=== PATIENT | male | born 1970 | race Caucasian/White ===

== ENCOUNTER 2022-01-26 21:58 | Emergency (ER) | payer BC, SELFPAY ==
[2022-01-26 22:00] VITALS: BP 143/88; PULSE 78; RESP 18; TEMP 36.7; O2SAT 99; BMI 28.7
[2022-01-26 22:06] VITALS: BP 143/88; PULSE 78; RESP 18; TEMP 36.7; O2SAT 99; BMI 28.7
--- NOTE | 2022-01-26 22:18 | ED_ITS ---
HPI - Burn/Smoke Inhalation General Chief complaint: Burn/Smoke Inhalation Stated complaint: Burn right hand Time Seen by Provider: 01/26/22 22:05 History of Present Illness HPI Narrative: Pt is a 51 year old who is up to date on his tetanus shot who presents after touching a hot stove element with digits 1, 3 and 4 of his right hand. Primarily he has erythema with only very limited blistering which has only a very small amount of fluid present. Good circulation and function. No other significant injuries. Pain is 4-5. Injury occured imediately prior to arrival. Related Data Home Medications Medication Instructions Recorded Confirmed citalopram 40 mg tablet (Celexa) 40 mg PO DAILY 01/26/22 01/26/22 Allergies Allergy/AdvReac Type Severity Reaction Status Date / Time Penicillins Allergy Intermediate Hives Verified 01/26/22 22:09 Review of Systems Status of ROS: Reports: 10 or more systems reviewed and unremarkable except as noted in History and below Exam Narrative: Exam Narrative: EXAM GENERAL: Patient appears comfortable and well. EYES: No scleral icterus. ENT: Tympanic membranes and oropharynx normal. THYROID: no thyroid nodules or thyromegaly. LYMPH: No supraclavicular or cervical lymphadenopathy. SKIN: Mild hyperemia on digits 1 3 and on the palmar aspect of the right hand. Minimal blistering. EXT: No dependent lower extremity pedal edema. HEART: Regular rate and rhythm with no murmurs, rubs, or gallops. LUNGS: Clear to auscultation bilaterally with no crackles or wheezes. ABD: Soft, non tender, non distended. PSYCH: Good eye contact, speech is not pressured. Const: Vital Signs, click to edit/add: Vital Signs - 24 hr 01/26/22 22:06 Temperature 98.1 F Pulse Rate [Right Pulse Oximeter] 78 Respiratory Rate 18 Blood Pressure [Ri ght Upper Arm] 143/88 H Pulse Oximetry 99 Oxygen Delivery Me thod Room Air Course Course Hospital Course: The care was explained. We did look for blisters to break open but there blisters. I did explain that we typically use triple antibiotic/bacitracin rat her than Silvadene cream which was his sister who is an ER nurse his recommendation. Vital Signs Vital signs: Initial Vital Signs Temperature 98.1 F 01/26/22 22:06 Temperature Source Temporal Artery Scan 10/03/22 22:06 Pulse Rate 78 01/26/22 22:06 Respiratory Rate 18 01/26/22 22:06 Blood Pressure 143/88 H 01/26/22 22:06 Blood Pressure Mean 106 01/26/22 22:06 Blood Pressure Position Sitting 01/26/22 22:06 Pulse Oximetry 99 01/26/22 22:06 Oxygen Delivery Method 01/26/22 22:06 Vital Signs Temperature 98.1 F 01/26/22 22:06 Pulse Rate 78 01/26/22 22:06 Respiratory Rate 18 01/26/22 22:06 Blood Pressure 143/88 H 01/26/22 22:06 Pulse Oximetry 99 01/26/22 22:06 Oxygen Delivery Method 01/26/22 22:06 Temperature 98.1 F 01/26/22 22:06 Pulse Rate 78 01/26/22 22:06 Respiratory Rate 18 01/26/22 22:06 Blood Pressure 143/88 H 01/26/22 22:06 Pulse Oximetry 99 01/26/22 22:06 Oxygen Delivery Method 01/26/22 22:06 MDM - Burn/Smoke Inhalation MDM Narrative Medical decision making narrative: Patient presents with a burn and. He has good circulation and function. Minimal blistering. No blisters in need to be lysed. We did dress the digits with topical antibiotic and recommend Tylenol and Motrin He will follow up with his primary physician as needed. Medical Records Medical records narrative: Differential included first and second degree rivas. Discharge Plan Discharge Clinical Impression: Burn Patient Disposition: Home, Self-Care Condition: Stable Additional Instructions: Topical Antibiotics and daily dressing changes Tylenol Motrin Activity Level: Activity as Tolerated Discharge Diet: Regular Prescriptions: No Action citalopram [Celexa] 40 mg tablet 40 mg PO DAILY Stand Alone Forms: MyHealth Info Instructions Soy-Katina/[facility] Nines Burn Citation [email or web address]://[email or web address].nlm.gov/[email or web address]
--- OUTSIDE RECORDS SUMMARY | 2022-01-26 22:29 | XMS_ITS | Encounter Summary ---
:1970 Author Organization [facility] Address [address] [place] [address]. [place] [address] Care Team Providers Name Role Phone Jeri Ibrahim PA-C Primary Care Provider Jeri Ibrahim PA-C Unavailable Encounter Details Date Type Department Care Team Description 01/26/2022 Travel Social History Tobacco Use Types Packs/Day Years Used Date Former Smoker 0 0 Quit: 10/15/18 99 Smokeless Tobacco: Never Used Alcohol Use Standard Drinks/Week Comments Yes 0 (1 standard drink = 0.6 oz pure alcoho l) socially Alcohol Habits Answer Date Recorded How often do you have a drink containing alcohol? 2-3 times a week 04/11/2021 How many drinks containing alcohol do you have on a 3 or 4 04/11/2021 typical day when you are drinking? How often do you have six or more drinks on one Less than mo nthly 04/11/2021 occasion? Comment: socially 01/12/2011 Social Isolation Answer Date Recorded In a typical week, how many times do you More than three lauren es a week 04/11/2021 talk on the phone with family, friends, or neighbors? How often do you get together with friends Once a week 04/11/2021 or relatives? How often do you attend zoroastrianism or 1 to 4 times per year 03/26 denominational services? Do you belong to any clubs or Yes 04/11/2021 organizations such as zoroastrianism groups, unions, fraternal or athletic groups, or school groups? How often do you attend meetings of the Never 04/07/2019 clubs or organizations you belong to? Are you now , , , 04/11/2021 , never or living with a partner? Physical Activity Answer Date Recorded On average, how many days per week do you engage in moderate to 1 day 04/11/2021 strenuous exercise (like walking fast, running, jogging, dancing, swimming, biking, or other activities that cause a light or heavy sweat)? On average, how many minutes do you engage in exercise at th is 20 min 04/11/2021 level? Stress Answer Date Recorded Do you feel stress - tense, restless, nervous, or Only a lit tle 04/11/2021 anxious, or unable to sleep at night because your mind is troubled all the time - these days? Financial Resource Strain Answer Date Recorded How hard is it for you to pay for the very basics like Not h catarino at all 04/11/2021 food, housing, medical care, and heating? Food Insecurity Answer Date Recorded Within the past 12 months, you worried that your food would Never true 04/11/2021 run out before you got money to buy more. Within the past 12 months, the food you bought just didn't N ever true 04/11/2021 last and you didn't have money to get more. Transportation Needs Answer Date Recorded In the past 12 months, has lack of transportation kept you f rom No 04/11/2021 medical appointments or from getting medications? In the past 12 months, has lack of transportation kept you f rom No 04/11/2021 meetings, work, or getting things needed for daily living? Housing Stability Answer Date Recorded In the last 12 months, was there a time when you were not ab le No 04/11/2021 to pay the mortgage or rent on time? In the last 12 months, how many places have you lived? 1 04/11/2021 In the last 12 months, was there a time when you did not hav e a No 04/11/[address] or slept in a mcc (including now)? Education Answer Date Recorded What is the highest level of school Master's degree (e.g., M A, MS, 04/07/2019 you have completed or the highest Dawn, MEd, SEAFOOD CLERK, BETI) degree you have received? 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 documented as of this encounter Plan of Treatment Upcoming Encounters Date Type Specialty Care Team Description 02/04/2022 Virtual Visit Behavioral Health Janak Marquez, [facility] [address] [facility] [address] [place] [id number] (Wo rk) documented as of this encounter Visit Diagnoses Not on filedocumented in this encounter Additional Health Concerns Assessment Noted Time PHQ-9 Depression Total Score: 2 07/29/2021 2:14 PM CDT documented as of this encounter Care Teams Project Management Specialist Relationship Specialty Start Date End Date Jeri Ibrahim PA-C PCP - General Physician Medical Records Supervisor 01/14/15 [address] [place] [address] Jeri Ibrahim PA-C Assigned PCP 05/16/17 [address] [place] [address] documented as of this encounter
--- OUTSIDE RECORDS SUMMARY | 2022-01-26 22:29 | XMS_ITS | Encounter Summary ---
:1970 Author Organization [address] [address] Care Team Providers Name Role Phone Jeri Ibrahim PA-C Primary Care Provider Jeri Ibrahim PA-C Unavailable Encounter Details Date Type Department Care Team Description 12/10/[address] [facility] Bridgett Marquez Gen eralyndsey anxiety Mental Health & ORACLE DATABASE CONSULTANT disorder (Primary Dx) Addiction [address] [id number] [phone] Social History Tobacco Use Types Packs/Day Years [...] or relatives? How often do you attend scientology or 1 to 4 times per year 03/26 mosque services? Do you belong to any clubs or Yes 04/11/2021 organizations such as scientology groups, unions, fraternal or athletic groups, or [...] place to sleep or slept in a correction (including now)? Education Answer Date Recorded What is the highest level of school Master's degree (e.g., M Swapna, MS, 04/07/2019 you have completed or the highest Dawn, MEd, YARN CONDITIONER, BETI) degree you have received? 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 documented as of this encounter Progress Notes Bridgett Marquez, ORACLE DATABASE CONSULTANT - 12/10/2021 2:30 PM CDT Images from the original note were not included. [facility] Primary Care: Integrated Behavioral Health 11/19/2021 Behavioral Health Clinician Progress Note Patient Name: Ezra Yanez Service Type: Individual Service Location: Face to Face in Clinic Session Start Time: 2:45 p.m Session End Time: 3:07 p.m. Session Length: 16 - 37 Attendees: Client Service Modality: In person Visit Activities (Refresh list every visit): [facility] Only Diagnostic Assessment Date: 08/12/21 Treatment Plan Review Date: 11/26/21 See Flowsheets for today's PHQ-9 and CHANG-7 results Previous PHQ-9: PHQ-9 SCORE 11/29/2017 04/10/2021 07/29/2021 PHQ-9 Total Score - - - PHQ-9 Total Score MyChart 1 (Minimal depression) 2 (Minimal depression) - PHQ-9 Total Score 1 2 2 Previous CHANG-7: CHANG-7 SCORE 07/29/2021 09/23/2021 12/10/2021 Total Score - - 4 (minimal anxiety) Total Score 6 4 4 FAUZIA LEVEL: FAUZIA Score (Last Two) 05/20/2010 04/07/2019 FAUZIA Raw Score 36 35 Activation Score 47.4 72.1 FAUZIA Level 2 3 DATA Extended Session (60+ minutes): No Interactive Complexity: No Crisis: No [facility] Patient: No Treatment Objective(s) Addressed in This Session: Target Behavior(s): anxiety Anxiety: will experience a reduction in anxiety, will develop more effective coping skills to manageanxiety symptoms and will develop healthy cognitive patterns and beliefs Relationship Problems: will address relationship difficulties in a more adaptive manner Goal 1: Patient will decrease anxiety ???I will know I've met my goal when I don't stress about small situations and let go.??? Goal 2: Patient will increase interpersonal effectiveness ???I will know I've met my goal when I can remember the big picture instead of getting lost in the minutia of the little things.??? Current Stressors / Issues: Decrease in anxiety with Emily moved out due to high conflict between the two. Kids have told pt theyare upset by the conflict in the home. Is difficult when kids are at their mom's home but feels likehe has no impediments to functioning. Pt is aware he is still controlling his environment in an attempt to manage anxiety. Examined benefits of pt focus on self and his behaviors in sessions, rather than on Emily's. Progress on Treatment Objective(s) / Homework: Minimal progress - ACTION (Actively working towards change); Intervened by reinforcing change plan /affirming steps taken Motivational Interviewing MS Intervention: Expressed Empathy/Understanding, Supported Autonomy, Collaboration, Evocation and Permission to raise concern or advise Change Talk Expressed by the Patient: Reasons to change Provider Response to Change Talk: E - Evoked more info from patient about behavior change and A - Affirmed patient's thoughts, decisions, or attempts at behavior change Care Plan review completed: Yes Medication Review: Changes to psychiatric medications, see updated Medication List in EPIC. Medication Compliance: Yes Changes in Health Issues: None reported Chemical Use Review: Substance Use: Chemical use reviewed, no active concerns identified Pt will continue to drink 7 or less alcoholic beverages per week. Tobacco Use: No current tobacco use. Assessment: Current Emotional / Mental Status (status of significant symptoms): Risk status (Self / Other harm or suicidal ideation) Patient denies a history of suicidal ideation, suicide attempts, self-injurious behavior, homicidal ideation, homicidal behavior and and other safety concerns Patient denies current fears or concerns for personal safety. Patient denies current or recent suicidal ideation or behaviors. Patient denies current or recent homicidal ideation or behaviors. Patient denies current or recent self injurious behavior or ideation. Patient denies other safety concerns. A safety and risk management plan has not been developed at this time, however patient was encouraged to call [place] [phone] should there be a change in any of these risk factors. Appearance: Appropriate Eye Contact: Good Psychomotor Behavior: Normal Attitude: Cooperative Friendly Orientation: All Speech Rate / Production: Talkative Volume: Normal Mood: Normal Affect: Appropriate Thought Content: Clear Thought Form: Coherent Logical Circumstantial Insight: Good Diagnoses: 1. Generalized anxiety disorder Collateral Reports Completed: PHQ and CHANG Plan: (Homework, other): ?? Patient was given information about behavioral services and encouraged to schedule a follow up appointment with the clinic [facility] in 3 weeks. ?? He was also given information about mental health symptoms and treatment options ?? Focus on self instead of external to manage sx of anxiety- continue working on firmer emotional boundaries ?? Pt will continue routine of getting out of house more often ?? Continue going to gym 4 days per week- heart rate up to help reduce anxiety ?? CD Recommendations: Practice Harm Reduction: attempt no more than 7 drinks weekly and greatly reduce caffeine consumption (at least in half). SHELLEY Sinha, [facility] Individual Treatment Plan Patient's Name: Ezra Yanez Date Of : 1970 Date of Creation: 08/26/2021 Date Treatment Plan Last Reviewed/Revised: DSM5 Diagnoses: 300.02 (F41.1) Generalized Anxiety Disorder Psychosocial / Contextual Factors: interpersonal difficulties with girlfriend and her 13-year-old transgender son and issues within girlfriend's family. Difficulties in being pseudo-stepparent to thesechildren. PROMIS (reviewed every 90 days): 31 Referral / Collaboration: Referral to another professional/service is not indicated at this time. Anticipated number of session for this episode of care: 5-10 Anticipation frequency of session: Every other week Anticipated Duration of each session: 16-37 minutes Treatment plan will be reviewed in 90 days or when goals have been changed. MeasurableTreatment Goal(s) related to diagnosis / functional impairment(s) Goal 1: Patient will decrease anxiety ???I will know I've met my goal when I don't stress about small situations and let go.??? Objective #A (Patient Action) Patient will use at least 3-4 coping skills for anxiety management in the next 12 weeks. Status: New - Date: 08/26/21 Intervention(s) Therapist will help pt ID behavioral coping mechanisms and track progress Objective #B Patient will Identify and reframe cogntive distortions. Status: New - Date: 08/26/21 Intervention(s) Therapist will assign homework teach pt how to ID and reframe distortions. Goal 2: Patient will increase interpersonal effectiveness ???I will know I've met my goal when I can remember the big picture instead of getting lost in the minutia of the little things.??? Objective #A (Patient Action) Status: New - Date: 08/26/21 Patient will learn more effective ways of interacting with his and Emily's kids. Intervention(s) Therapist will teach pt about teen biology, chemistry and help him ID boundaries to set . Objective #B Patient will track and record at least 3 pleasant exchanges with kids, Emily, and Emily's kids. Status: New - Date: 08/26/21 Intervention(s) Therapist will help pt identify in what ways he can join with kids and track progress. Patient has reviewed and agreed to the above plan. CHIRAG Mendiola August 26, 2021 documented in this encounter Plan of Treatment Upcoming Encounters Date Type Specialty Care Team Description 02/04/2022 Virtual Visit Behavioral Health Janak Marquez L[facility] [address] [address] (Wo rk) documented as of this encounter Visit Diagnoses Diagnosis Generalized anxiety disorder - Primary documented in this encounter Additional Health Concerns Assessment Noted Time PHQ-9 Depression Total Score: 2 07/29/2021 2:14 PM CDT documented as of this encounter Care Teams Hris Specialist Relationship Specialty Start Date End Date Jeri Ibrahim PA-C PCP - General Physician [employer] 01/14/15 [address] [place] [address] Jeri Ibrahim PA-C Assigned PCP 05/16/17 [address] [place] [address] documented as of this encounter
--- OUTSIDE RECORDS SUMMARY | 2022-01-26 22:29 | XMS_ITS | Encounter Summary ---
:1970 Author Organization [address] [place] [address] Care Team Providers Name Role Phone Jeri Ibrahim PA-C Primary Care Provider Jeri Ibrahim PA-C Unavailable Encounter Details Date Type Department Care Team Description 12/30/2021 Telephone [facility] Bridgett Marquez, [facility] & Addiction [address] [address] [facility] [place] [phone] Social History Tobacco Use Types Packs/Day Years [...] or relatives? How often do you attend voodoo or 1 to 4 times per year 03/26 gnosticism services? Do you belong to any clubs or Yes 04/11/2021 organizations such as voodoo groups, unions, fraternal or athletic groups, or [...] place to sleep or slept in a nursing home (including now)? Education Answer Date Recorded What is the highest level of school Master's degree (e.g., M A, MS, 04/07/2019 you have completed or the highest Dawn, MEd, CLINICAL TRIAL ASSOCIATE, BETI) degree you have received? 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 documented as of this encounter Miscellaneous Notes Telephone Encounter - Bridgett Marquez LIC[facility] - 12/30/2021 1:59 PM CDT [employer] Driver tried calling pt to reschedule time of appointment tomorrow. SHELLEY Nix LICSW Behavioral Health Clinician documented in this encounter Plan of Treatment Upcoming Encounters Date Type Specialty Care Team Description 02/04/2022 Virtual Visit Behavioral Health Janak Marquez [facility] [address] [address] (Wo rk) documented as of this encounter Visit Diagnoses Not on filedocumented in this encounter Additional Health Concerns Assessment Noted Time PHQ-9 Depression Total Score: 2 07/29/2021 2:14 PM CDT documented as of this encounter Care Teams Hat Cone Inspector Relationship Specialty Start Date End Date Jeri Ibrahim PA-C PCP - General Physician Storeroom Attendant 01/14/15 [address] [place] [address] Jeri Ibrahim PA-C Assigned PCP 05/16/17 [address] [place] [address] documented as of this encounter
--- OUTSIDE RECORDS SUMMARY | 2022-01-26 22:29 | XMS_ITS | Encounter Summary ---
:1970 Author Organization [facility] Address [address] [place] [address]. [place] [address] Care Team Providers Name Role Phone Jeri Ibrahim PA-C Primary Care Provider Jeri Ibrahim PA-C Unavailable Encounter Details Date Type Department Care Team Description 12/10/2021 Travel Social History Tobacco Use Types Packs/Day [...] or relatives? How often do you attend taoism or 1 to 4 times per year 03/26 sabianist services? Do you belong to any clubs or Yes 04/11/2021 organizations such as taoism groups, unions, fraternal or athletic groups, or [...] place to sleep or slept in a halfway (including now)? Education Answer Date Recorded What is the highest level of school Master's degree (e.g., M A, MS, 04/07/2019 you have completed or the highest Dawn, MEd, UNDERCOVER OPERATOR, BETI) degree you have received? 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 documented as of this encounter Plan of Treatment Upcoming Encounters Date Type Specialty Care Team Description 02/04/2022 Virtual Visit Behavioral Health Janak Marquez, [facility] [address] [facility] [address] [place] [id number] (Wo rk) documented as of this encounter Visit Diagnoses Not on filedocumented in this encounter Additional Health Concerns Assessment Noted Time PHQ-9 Depression Total Score: 2 07/29/2021 2:14 PM CDT documented as of this encounter Care Teams Secretary To Board Of Commissioners Relationship Specialty Start Date End Date Jeri Ibrahim PA-C PCP - General Physician Stock Pitcher 01/14/15 [address] [place] [address] Jeri Ibrahim PA-C Assigned PCP 05/16/17 [address] [place] [address] documented as of this encounter
--- OUTSIDE RECORDS SUMMARY | 2022-01-26 22:29 | XMS_ITS | Encounter Summary ---
:1970 Author Organization [address] [place] [address] Care Team Providers Name Role Phone Jeri Ibrahim PA-C Primary Care Provider Jeri Ibrahim PA-C Unavailable Encounter Details Date Type Department Care Team Description 12/08/2021 Telephone [facility] Bridgett Marquez, [facility] [address] [address] [facility] [place] [address] [phone] Social History Tobacco Use Types Packs/Day Years [...] or relatives? How often do you attend yazdanism or 1 to 4 times per year 03/26 temple services? Do you belong to any clubs or Yes 04/11/2021 organizations such as yazdanism groups, unions, fraternal or athletic groups, or [...] place to sleep or slept in a m[facility]p (including now)? Education Answer Date Recorded What is the highest level of school Master's degree (e.g., M A, MS, 04/07/2019 you have completed or the highest Dawn, MEd, UNIVERSITY PROFESSOR, BETI) degree you have received? 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 documented as of this encounter Plan of Treatment Upcoming Encounters Date Type Specialty Care Team Description 02/04/2022 Virtual Visit Behavioral Health Janak Marquez, [place] [id number] [address] (Wo rk) documented as of this encounter Visit Diagnoses Not on filedocumented in this encounter Additional Health Concerns Assessment Noted Time PHQ-9 Depression Total Score: 2 07/29/2021 2:14 PM CDT documented as of this encounter Care Teams Library Media Technician Relationship Specialty Start Date End Date Jeri Ibrahim PA-C PCP - General Physician Boiler Attendant 01/14/15 [address] [place] [address] Jeri Ibrahim PA-C Assigned PCP 05/16/17 [address] [place] [address] documented as of this encounter
--- OUTSIDE RECORDS SUMMARY | 2022-01-26 22:29 | XMS_ITS | Encounter Summary ---
:1970 Author Organization [place] Address [address] [place] [address]. [place] [address] Care Team Providers Name Role Phone Jeri Ibrahim PA-C Primary Care Provider Jeri Ibrahim PA-C Unavailable Encounter Details Date Type Department Care Team Description 11/19/2021 Travel Social History Tobacco Use Types Packs/Day [...] or relatives? How often do you attend lutheran or 1 to 4 times per year 03/26 scientologist services? Do you belong to any clubs or Yes 04/11/2021 organizations such as lutheran groups, unions, fraternal or athletic groups, or [...] place to sleep or slept in a fpc (including now)? Education Answer Date Recorded What is the highest level of school Master's degree (e.g., M A, MS, 04/07/2019 you have completed or the highest Dawn, MEd, COAT EXAMINER, BETI) degree you have received? 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 documented as of this encounter Plan of Treatment Upcoming Encounters Date Type Specialty Care Team Description 02/04/2022 Virtual Visit Behavioral Health Janak Marquez, [facility] [address] [address] (Wo rk) documented as of this encounter Visit Diagnoses Not on filedocumented in this encounter Additional Health Concerns Assessment Noted Time PHQ-9 Depression Total Score: 2 07/29/2021 2:14 PM CDT documented as of this encounter Care Teams Retread Operator Relationship Specialty Start Date End Date Jeri Ibrahim PA-C PCP - General Physician Calibration Checker 01/14/15 [address] [place] [address] Jeri Ibrahim PA-C Assigned PCP 05/16/17 [address] [place] [address] documented as of this encounter
--- OUTSIDE RECORDS SUMMARY | 2022-01-26 22:29 | XMS_ITS | Clinical Summary ---
:1970 Author Organization [facility] Address [address] [place] [address]. [place] [address] Care Team Providers Name Role Phone Jeri Ibrahim PA-C Primary Care Provider Jeri Ibrahim PA-C Unavailable Allergies Active Allergy Reactions Severity Noted Date Comments Penicillins 10/15/2005 Hives Medications Medication Sig Dispensed Refills Start Date End Date Status MULTIVITAMIN TABS OR 1 qd 0 10/15/2005 Active bismuth subsalicylate Take 524 mg by 0 Active (PEPTO-BISMOL) 262 MG mouth 4 times chewable tablet daily (before meals and nightly). IBUPROFEN 0 Active Lysine HCl 500 MG TABS Take 500 mg by 0 Active mouth 2 times daily albuterol (PROAIR Inhale 2 puffs 1 Inhaler 0 04/16/2016 Active HFA/PROVENTIL into the lungs HFA/VENTOLIN HFA) 108 every 4 hours as (90 BASE) MCG/ACT needed InhalerIndications: Acute bronchitis due to other specified organisms GLUCOSAMINE SULFATE PO 0 Active fluticasone (FLONASE) [place] 1-2 sprays 48 mL 0 05/16/2019 Active 50 MCG/ACT nasal into both sprayIndications: nostrils daily Post-nasal drip valACYclovir (VALTREX) TAKE 1 TABLET 20 tablet 4 04/15/2021 Active 1000 mg (1,000 MG) BY tabletIndications: MOUTH 2 TIMES Herpes simplex virus DAILY infection citalopram (CELEXA) 40 Take 1 tablet (40 90 tablet 1 2 Active MG tabletIndications: mg) by mouth Generalized anxiety daily disorder Active Problems Problem Noted Date Diverticulosis of large intestine without hemorrhage 0 05/05/2021 History of colonic polyps 05/05/2021 Vitamin D deficiency 05/14/2017 Bee sting allergy 04/16/2016 Irritability 10/07/2015 Overview: IN FILE OPERATOR completed 10/07/15 with no concerns. Bronchitis with bronchospasm 11/16/2011 CARDIOVASCULAR SCREENING; LDL GOAL LESS THAN 160 02/23 FHx: aneurysm 11/08/2008 GERD (gastroesophageal reflux disease) 11/08/2008 Herpes simplex Overview: Problem list name updated by automated p rocess. Provider to review and confirm Resolved Problems Problem Noted Date Resolved Date Marital conflict 08/06/2009 01/12/2011 Anxiety 07/08/2009 09/11/2013 Encounters Date Type Specialty Care Team Description 01/26/2022 Travel 01/12/2022 Virtual Visit Behavioral Health Bridgett Marquez, [place] neralized anxiety APPLICATION DEVELOPMENT PROJECT MANAGER disorder (Prima ry Dx) 12/30/2021 Telephone Health Bridgett Marquez, APPLICATION DEVELOPMENT PROJECT MANAGER 12/10/2021 Office Visit Health Bridgett Marquez, Gen eralized anxiety APPLICATION DEVELOPMENT PROJECT MANAGER disorder (Prima ry Dx) 12/10/2021 Travel 12/08/2021 Telephone Bridgett Schaeffer, APPLICATION DEVELOPMENT PROJECT MANAGER 11/19/2021 Office Visit Behavioral Health Bridgett Marquez, Gen eralized anxiety APPLICATION DEVELOPMENT PROJECT MANAGER disorder (Prima ry Dx) 11/19/2021 Travel 11/18/2021 Travel 10/29/2021 Virtual Visit Health Bridgett Marquez, [place] neralized anxiety APPLICATION DEVELOPMENT PROJECT MANAGER disorder (Prima ry Dx) 10/28/2021 Travel from Last 3 Months Immunizations Name Administration Dates Next Due COVID-19,PF,Pfizer (12+ Yrs) 03/14/2021, 08/09/2020, 021 HPV Quadrivalent 10/24/2018, 06/16/2018 HPV9 04/28/2018 Influenza Vaccine IM > 6 months [place] 03/14/2021 IIV4 (Alfuria,Fluzone) TD (ADULT, 7+) 10/25/2006 TDAP Vaccine (Adacel) 05/13/2017 Family History Medical History Relation Comments Family History Negative Daughter Diabetes Father Type II Respiratory Father COPD Diabetes Maternal Grandfather Cancer Maternal Uncle 1 skin Neurologic Disorder Maternal Uncle 2 abdominal aortic ane urysm Cancer Mother Cuteaneous T-cell ly phoma/ born 1950 Melanoma Neurologic Disorder Mother brain aneurysm Other Cancer Mother T Cell Lymphoma Parkinsonism Mother Diabetes Paternal Grandmother Other Cancer Paternal Grandmother Family History Negative Sister 1 Relation Status Comments Daughter Alive Father Alive Maternal Grandfather Maternal Uncle 1 Maternal Uncle 2 Mother Alive Paternal Grandmother Sister 1 Alive Sister 2 Alive Son Alive Social History Tobacco Use Types Packs/Day Years Used Date Former Smoker 0 0 Quit: 10/15/18 99 Smokeless Tobacco: Never Used Tobacco Cessation: Ready to Quit: Yes; C ounseling Given: Yes Alcohol Use Standard Drinks/Week Comments Yes 0 [...] or relatives? How often do you attend religion or 1 to 4 times per year 03/26 caodaism services? Do you belong to any clubs or Yes 04/11/2021 organizations such as religion groups, unions, fraternal or athletic groups, or [...] minutes do you engage in exercise at is 20 min 04/11/2021 level? Stress Answer [...] place to sleep or slept in a alf (including now)? Education Answer Date Recorded What is the highest level of school Master's degree (e.g., M A, MS, 04/07/2019 you have completed or the highest Dawn, MEd, MANAGER PRODUCE, BETI) degree you have received? 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/2021 5:06 PM KETTLE GIRL COVID-19 Exposure Response Date Recorded In the last 10 days, have you been in contact with No / Unsu re 01/26/2022 9:06 PM CDT someone who was confirmed or suspected to have Coronavirus/COVID-19? Last Filed Vital Signs Vital Sign Reading Time Taken Comments Blood Pressure 120/72 04/15/2021 1:48 PM KETTLE GIRL Pulse 74 04/15/2021 1:48 PM KETTLE GIRL Temperature 36.6 ??C (97.9 ??F) 04/15/2021 1:48 PM KETTLE GIRL Respiratory Rate 12 04/15/2021 1:48 PM KETTLE GIRL Oxygen Saturation 99% 04/15/2021 1:48 PM KETTLE GIRL Inhaled Oxygen Concentration - - Weight 89.4 kg (197 lb) 04/15/2021 1:48 PM KETTLE GIRL Height 180.3 cm (5' 11) 04/15/2021 1:48 PM KETTLE GIRL Body Mass Index 27.48 04/15/2021 1:48 PM KETTLE GIRL Plan of Treatment Upcoming Encounters Date Type Specialty Care Team Description 02/04/2022 Virtual Visit Behavioral Health Janak Marquez, [facility] [address] [place] [address] (Wo rk) Health Maintenance Due Date Last Done Comments ADVANCE CARE PLANNING 1971 [address] COLONOGRAPHY 1971 FIT-DNA (Cologuard) 1970 FIT 1970 FLEX SIG 1970 COVID-19 Vaccine (4 - 05/09/2021 03/14/2021, 08/09/2020, Booster for Pfizer series) 07/19/2020 ZOSTER IMMUNIZATION (1 of 09/13/2021 2) INFLUENZA VACCINE (#1) 2021 03/14/2021, 04/07/2019 (Declined), 02/18/2018 (Declined) ANNUAL REVIEW OF HM ORDERS 04/15/2022 04/15/2021, , 04/07/2019 PREVENTIVE CARE VISIT 04/15/2022 04/15/2021, 04/07/2019, 05/13/2017, Additional history exists LIPID 04/15/2026 04/15/2021, 04/07/2019, 05/13/2017, Additional history exists COLONOSCOPY 04/24/2026 04/24/2021, 04/24/2021 COLORECTAL CANCER SCREENING 04/24/2026 DTAP/TDAP/TD IMMUNIZATION 05/13/2027 05/13/2017, 10/25/2006 (3 - Td or Tdap) HIV SCREENING Completed 07/27/2012 HEPATITIS C SCREENING Completed 04/15/2021 PHQ-2 (once per calendar Completed 07/29/2021, 07/29/2021, year) 04/15/2021, Additional history exists HEPATITIS B IMMUNIZATION Aged Out No long er eligible based on patient 's age to complete this topic IPV IMMUNIZATION Aged Out No longer eligi ble based on patient 's age to complete this topic MENINGITIS IMMUNIZATION Aged Out No longe r eligible based on patient 's age to complete this topic Pneumococcal Vaccine: Aged Out No longer eligible Pediatrics (0 to 5 Years) based on patient's age and At-Risk Patients (6 to to co mplete this topic 64 Years) Insurance Payer Benefit Plan / Subscriber ID Effective Dates Phone Addre ss Type Group BCBS BCBS OUT OF [id number] 2016-Present [phone] [address] [address] [place] [address] Care Teams Risk Control Director Relationship Specialty Start Date End Date Jeri Ibrahim PA-C PCP - General Physician Butadiene Converter Utility Operator 01/14/15 [address] [place] [address] Jeri Ibrahim PA-C Assigned PCP 05/16/17 [address] [place] [address]
--- OUTSIDE RECORDS SUMMARY | 2022-01-26 22:29 | XMS_ITS | Encounter Summary ---
:1970 Author Organization [place] Address [address] [place] [address]. [place] [address] Care Team Providers Name Role Phone Jeri Ibrahim PA-C Primary Care Provider Jeri Ibrahim PA-C Unavailable Encounter Details Date Type Department Care Team Description 11/18/2021 Travel Social History Tobacco Use Types Packs/Day [...] or relatives? How often do you attend hoahaoism or 1 to 4 times per year 03/26 confucianism services? Do you belong to any clubs or Yes 04/11/2021 organizations such as hoahaoism groups, unions, fraternal or athletic groups, or [...] have completed or the highest Dawn, MEd, FACILITIES PLANT ENGINEER, BETI) degree you have received? 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 documented as of this encounter Plan of Treatment Upcoming Encounters Date Type Specialty Care Team Description 02/04/2022 Virtual Visit Behavioral Health Janka Marquez, [facility] [address] [facility] [address] [place] [id number] (Wo rk) documented as of this encounter Visit Diagnoses Not on filedocumented in this encounter Additional Health Concerns Assessment Noted Time PHQ-9 Depression Total Score: 2 07/29/2021 2:14 PM CDT documented as of this encounter Care Teams Core Sticker Relationship Specialty Start Date End Date Jeri Ibrahim PA-C PCP - General Physician [employer] 01/14/15 [address] [place] [address] Jeri Ibrahim PA-C Assigned PCP 05/16/17 [address] [place] [address] documented as of this encounter
--- OUTSIDE RECORDS SUMMARY | 2022-01-26 22:29 | XMS_ITS | Encounter Summary ---
:1970 Author Organization [address] [address] Care Team Providers Name Role Phone Jeri Ibrahim PA-C Primary Care Provider Jeri Ibrahim PA-C Unavailable Encounter Details Date Type Department Care Team Description 11/19/2021 Office Visit [facility] Bridgett Marquez Gen eralyndsey anxiety Mental Health & HYDROGEN PLANT OPERATIONS MANAGER disorder (Primary Dx) Addiction [address] [address] [phone] Social History Tobacco Use Types Packs/Day Years [...] or relatives? How often do you attend spiritism or 1 to 4 times per year 03/26 gnosticism services? Do you belong to any clubs or Yes 04/11/2021 organizations such as spiritism groups, unions, fraternal or athletic groups, or [...] place to sleep or slept in a long-term (including now)? Education Answer Date Recorded What is the highest level of school Master's degree (e.g., M Swapna, MS, 04/07/2019 you have completed or the highest Dawn, MEd, CUPOLA CHARGER INSULATION, BETI) degree you have received? 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 documented as of this encounter Progress Notes Bridgett Marquez, [facility] - 11/19/2021 11:30 AM CDT Images from the original note were not included. [facility] Primary Care: Integrated Behavioral Health 11/19/2021 Behavioral Health Clinician Progress Note Patient Name: Ezra Yanez Service Type: Individual Service Location: Face to Face in Clinic Session Start Time: 11:32 a.m Session End Time: 12:00 p.m. Session Length: 16 - 37 Attendees: Client Service Modality: In person Visit Activities (Refresh list every visit): [facility] Only Diagnostic Assessment Date: 08/12/21 Treatment Plan Review Date: 11/26/21 See Flowsheets for today's PHQ-9 and CHANG-7 results Previous PHQ-9: PHQ-9 SCORE 11/29/2017 04/10/2021 07/29/2021 PHQ-9 Total Score - - - PHQ-9 Total Score MyChart 1 (Minimal depression) 2 (Minimal depression) - PHQ-9 Total Score 1 2 2 Previous CHANG-7: CHANG-7 SCORE 04/10/2021 07/29/2021 09/23/2021 Total Score 3 (minimal anxiety) - - Total Score 3 6 4 FAUZIA LEVEL: FAUZIA Score (Last Two) 05/20/2010 04/07/2019 FAUZIA Raw Score 36 35 Activation Score 47.4 72.1 FAUZIA Level 2 3 DATA Extended Session (60+ minutes): No Interactive Complexity: No Crisis: No [facility] Patient: No Treatment Objective(s) Addressed in This [...] the little things.??? Current Stressors / Issues: Pt comes to clinic for session. Reports he's been staying up late to watch tv with daughter and not getting enough sleep, which has led to decrease in focus, increase in distractibility, increase in fatigue. Emily has had more communication and contact with radha, transgendered son. Pt doesn't agree with son's decisions. Discussed his tendency to control environment in an attempt to decrease anxiety and the impact this has on interpersonal relationships. Discussed his progress in helping him keep good physical boundaries and care for self in alleviating anxiety related to lack of control in his home. Explored ways to keep appropriate emotional boundaries with Emily to give both her and Delores autonomy in their relationship dynamics. Progress on Treatment Objective(s) / Homework: Minimal progress - ACTION (Actively working towards change); Intervened by reinforcing change plan /affirming steps taken Motivational Interviewing [place] Intervention: Expressed Empathy/Understanding, Supported Autonomy, Collaboration, Evocation [...] time, however patient was encouraged to call [place] [address] should there be a change in any [...] a follow up appointment with the clinic [facility] in 3 weeks. ?? He was also [...] consumption (at least in half). SHELLEY Sinha, [facility] Individual Treatment Plan Patient's Name: Ezra Yanez [...] Visit Behavioral Health Janak Marquez LIC[facility] [address] [address] (Wo rk) documented as of this encounter Visit Diagnoses Diagnosis Generalized anxiety disorder - Primary documented in this encounter Additional Health Concerns Assessment Noted Time PHQ-9 Depression Total Score: 2 07/29/2021 2:14 PM CDT documented as of this encounter Care Teams Human Resources Intern Relationship Specialty Start Date End Date Jeri Ibrahim PA-C PCP - General Physician Photographer Scientific 01/14/15 [address] [place] [address] Jeri Ibrahim PA-C Assigned PCP 05/16/17 [address] [place] [address] documented as of this encounter
--- OUTSIDE RECORDS SUMMARY | 2022-01-26 22:29 | XMS_ITS | Encounter Summary ---
:1970 Author Organization [address] [address] Care Team Providers Name Role Phone Jeri Ibrahim PA-C Primary Care Provider Jeri Ibrahim PA-C Unavailable Encounter Details Date Type Department Care Team Description 01/12/[address] [facility] Bridgett Marquez Ge neralized anxiety Mental Health & JEWELRY MAKER disorder (Primary Dx) Addiction [address] [address] [phone] Social History Tobacco Use Types Packs/Day Years [...] or relatives? How often do you attend worship or 1 to 4 times per year 03/26 oriental orthodox services? Do you belong to any clubs or Yes 04/11/2021 organizations such as worship groups, unions, fraternal or athletic groups, or [...] place to sleep or slept in a group home (including now)? Education Answer Date Recorded What is the highest level of school Master's degree (e.g., M Swapna, MS, 04/07/2019 you have completed or the highest Dawn, MEd, SAFETY TEACHER, BETI) degree you have received? 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 [facility] Primary Care: Integrated Behavioral Health 11/19/2021 Behavioral Health Clinician Progress Note Patient Name: Ezra Yanez Service Type: Individual Service Location: Face to Face in Clinic Session Start Time: 2:45 p.m Session End Time: 3:07 p.m. Session Length: 16 - 37 Attendees: Client Service Modality: In person Visit Activities (Refresh list every visit): [facility] Only Diagnostic Assessment Date: 08/12/21 Treatment Plan [...] minutes): No Interactive Complexity: No Crisis: No [facility] Patient: No Treatment Objective(s) Addressed in This [...] little things.??? Current Stressors / Issues: Pt reports he's been busy with work, feeling less stressed, but also getting less sleep. He does report his caffeine consumption has increased, which could be reason for his restless sleep. He feels more fatigued during the day. 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 He notices since Emily moved out there are more home items in disarray, which increases pt's anxietyweighting in the back of his mind. Emily is still back a her own house and asked if pt would join her for couples' therapy, to which pt agreed. Pt notes that they spent most of their free time together before they moved in together but when shemoved in, pt felt less peaceful at home with Emily's emotional intensities when she was distressed. Pt notes that during the pandemic, they went out a lot more than they had been most recently. Pt notes that his mental wellness depends to a great degree on his outside environment. Discussed ptworking on internal strategies to manage his anxiety as opposed to external factors to such a great degree. Pt notes his daughter has expressed dislike for Emily. Pt struggles with this a bit and has talked toher about how it feels for him. Progress on Treatment Objective(s) / Homework: Minimal progress - ACTION (Actively working towards change); Intervened by reinforcing change plan /affirming steps taken Motivational Interviewing [place] Intervention: Expressed Empathy/Understanding, Supported Autonomy, Collaboration, Evocation [...] time, however patient was encouraged to call [place] [address] should there be a change in any of these risk factors. Appearance: Appropriate Eye Contact: Good Psychomotor Behavior: Normal Attitude: Cooperative Friendly Orientation: All Speech Rate / Production: Hyperverbal Volume: Loud Mood: Normal Affect: Expansive Thought Content: Clear Thought Form: Coherent Logical Circumstantial Insight: Good Diagnoses: 1. Generalized anxiety disorder Collateral Reports Completed: PHQ and CHANG Plan: (Homework, other): ?? Patient was given information about behavioral services and encouraged to schedule a follow up appointment with the clinic [facility] in 3 weeks. ?? He was also [...] consumption (at least in half). SHELLEY Sinha, [facility] Individual Treatment Plan Patient's Name: Ezra Yanez [...] Virtual Visit Behavioral Health Janak Marquez [facility] [address] [address] (Wo rk) documented as of this encounter Visit Diagnoses Diagnosis Generalized anxiety disorder - Primary documented in this encounter Additional Health Concerns Assessment Noted Time PHQ-9 Depression Total Score: 2 07/29/2021 2:14 PM CDT documented as of this encounter Care Teams Yard Crane Operator Relationship Specialty Start Date End Date Jeri Ibrahim PA-C PCP - General Physician Smutter 01/14/15 [address] [place] [address] eJri Ibrahim PA-C Assigned PCP 05/16/17 [address] [place] [address] documented as of this encounter
--- OUTSIDE RECORDS SUMMARY | 2022-01-26 22:30 | XMS_ITS | Encounter Summary ---
:1970 Author Organization [facility] Address [address] [place] [address]. [place] [address] Care Team Providers Name Role Phone Jeri Ibrahim PA-C Primary Care Provider Jeri Ibrahim PA-C Unavailable Encounter Details Date Type Department Care Team Description 07/28/2021 Travel Social History Tobacco Use Types Packs/Day [...] 1 to 4 times per year 03/26 hoahaoism services? Do you belong to any clubs [...] place to sleep or slept in a care home (including now)? Education Answer Date Recorded What is the highest level of school Master's degree (e.g., M A, MS, 04/07/2019 you have completed or the highest Dawn, MEd, DEPARTMENT SUPERVISOR, BETI) degree you have received? 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/2021 5:06 PM QUALITY LIAISON COVID-19 Exposure Response Date Recorded In the last month, have you been in contact with No / Unsure 07/28/2021 2:35 PM CDT someone who was confirmed or suspected to have Coronavirus / COVID-19? documented as of this encounter Plan of Treatment Upcoming Encounters Date Type Specialty Care Team Description 02/04/2022 Virtual Visit Behavioral Health Janak Marquez, [facility] [address] [facility] [address] [place] [id number] (Wo rk) documented as of this encounter Visit Diagnoses Not on filedocumented in this encounter Additional Health Concerns Assessment Noted Time PHQ-9 Depression Total Score: 2 04/11/2021 7:02 AM QUALITY LIAISON documented as of this encounter Care Teams Dough Mixing Machine Operator Relationship Specialty Start Date End Date Jeri Ibrahim PA-C PCP - General Physician Counter Server 01/14/15 [address] [place], [place] [id number] Jeri Ibrahim PA-C Assigned PCP 05/16/17 [address] [place] [address] documented as of this encounter
--- OUTSIDE RECORDS SUMMARY | 2022-01-26 22:30 | XMS_ITS | Encounter Summary ---
:1970 Author Organization [place] Address [address] [place] [address]. [place] [address] Care Team Providers Name Role Phone Jeri Ibrahim PA-C Primary Care Provider Jeri Ibrahim PA-C Unavailable Encounter Details Date Type Department Care Team Description 03/28/2020 Travel Social History Tobacco Use Types Packs/Day [...] or relatives? How often do you attend sikh or 1 to 4 times per year 03/26 denominational services? Do you belong to any clubs or Yes 04/11/2021 organizations such as sikh groups, unions, fraternal or athletic groups, or [...] place to sleep or slept in a snf (including now)? Education Answer Date Recorded What is the highest level of school Master's degree (e.g., M Swapna, MS, 04/07/2019 you have completed or the highest Dawn, MEd, BRANCH OFFICER, BETI) degree you have received? 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 documented as of this encounter Plan of Treatment Upcoming Encounters Date Type Specialty Care Team Description 02/04/2022 Virtual Visit Behavioral Health Janak Marquez, [facility] 24[address] [facility] [address] [place] [address] (Wo rk) documented as of this encounter Visit Diagnoses Not on filedocumented in this encounter Additional Health Concerns Assessment Noted Time PHQ-9 Depression Total Score: 1 11/30/2017 7:08 AM CDT documented as of this encounter Care Teams Five Piece Expansion Maker Hand Relationship Specialty Start Date End Date Jeri Ibrahim PA-C PCP - General Physician Brusher And Shearer 01/14/15 [address] [place] [address] Jeri Ibrahim PA-C Assigned PCP 05/16/17 [address] [place] [address] documented as of this encounter
--- OUTSIDE RECORDS SUMMARY | 2022-01-26 22:30 | XMS_ITS | Encounter Summary ---
:1970 Author Organization [facility] Address [address] [place] [address]. [place] [address] Care Team Providers Name Role Phone Jeri Ibrahim PA-C Primary Care Provider Jeri Ibrahim PA-C Unavailable Encounter Details Date Type Department Care Team Description 04/15/2021 Travel Social History Tobacco Use Types Packs/Day [...] or relatives? How often do you attend samaritan or 1 to 4 times per year 03/26 adventist services? Do you belong to any clubs or Yes 04/11/2021 organizations such as samaritan groups, unions, fraternal or athletic groups, or [...] place to sleep or slept in a residential (including now)? Education Answer Date Recorded What is the highest level of school Master's degree (e.g., M A, MS, 04/07/2019 you have completed or the highest Dawn, MEd, PEDIATRIC PHYSICAL THERAPIST, BETI) degree you have received? 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 documented as of this encounter Plan of Treatment Upcoming Encounters Date Type Specialty Care Team Description 02/04/2022 Virtual Visit Behavioral Health Janak Marquez, [facility] [address] [facility] [address] [place] [phone] (Wo rk) documented as of this encounter Visit Diagnoses Not on filedocumented in this encounter Additional Health Concerns Assessment Noted Time PHQ-9 Depression Total Score: 2 04/11/2021 7:02 AM ENGRAVER SET UP OPERATOR documented as of this encounter Care Teams Field Examiner Relationship Specialty Start Date End Date Jeri Ibrahim PA-C PCP - General Physician Repairer Sash And Door 01/14/15 [address] [place], [place] [id number] Jeri Ibrahim PA-C Assigned PCP 05/16/17 [address] [place], [place] [id number] documented as of this encounter
--- OUTSIDE RECORDS SUMMARY | 2022-01-26 22:30 | XMS_ITS | Encounter Summary ---
:1970 Author Organization [facility] Address [address] [place] [address]. [place] [address] Care Team Providers Name Role Phone Jeri Ibrahim PA-C Primary Care Provider Jeri Ibrahim PA-C Unavailable Encounter Details Date Type Department Care Team Description 08/12/2021 Travel Social History Tobacco Use Types Packs/Day [...] or relatives? How often do you attend evangelical or 1 to 4 times per year 03/26 mandaen services? Do you belong to any clubs or Yes 04/11/2021 organizations such as evangelical groups, unions, fraternal or athletic groups, or [...] have completed or the highest Dawn, MEd, GRAPHIC ART TECHNICIAN, BETI) degree you have received? 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 documented as of this encounter Plan of Treatment Upcoming Encounters Date Type Specialty Care Team Description 02/04/2022 Virtual Visit Behavioral Health Janak Marquez, [facility] 2450 [facility] [address] [place] [address] (Wo rk) documented as of this encounter Visit Diagnoses Not on filedocumented in this encounter Additional Health Concerns Assessment Noted Time PHQ-9 Depression Total Score: 2 07/29/2021 2:14 PM CDT documented as of this encounter Care Teams Head Start Coordinator Relationship Specialty Start Date End Date Jeri Ibrahim PA-C PCP - General Physician Structures Technician 01/14/15 [address] [place] [address] Jeri Ibrahim PA-C Assigned PCP 05/16/17 [address] [place] [address] documented as of this encounter
--- OUTSIDE RECORDS SUMMARY | 2022-01-26 22:30 | XMS_ITS | Encounter Summary ---
:1970 Author Organization [facility] Address [address] [facility] [place] [address] Care Team Providers Name Role Phone Jeri Ibrahim PA-C Primary Care Provider Jeri Ibrahim PA-C Unavailable Reason for Visit Reason Onset Date Comments Prior Auth - Medication 05/12/2021 citalopram (PEGGY XA) 20 MG tablet - QTY LIMIT Encounter Details Date Type Department Care Team Description 05/12/2021 Telephone [facility] Jeri Ibrahim Prio r Auth - [facility] [place] [facility] Medication (citalopram [address] [facility] [id number] [place] [address] (CELEXA) 20 MG tablet [place], [place] - QTY L IMIT) [id number] [phone] (Wo rk) Social History Tobacco Use Types Packs/Day Years [...] or relatives? How often do you attend roman catholic or 1 to 4 times per year 03/26 oriental orthodox services? Do you belong to any clubs or Yes 04/11/2021 organizations such as roman catholic groups, unions, fraternal or athletic groups, or [...] place to sleep or slept in a assisted (including now)? Education Answer Date Recorded What is the highest level of school Master's degree (e.g., M A, MS, 04/07/2019 you have completed or the highest Dawn, MEd, PRODUCTION LINE WELDER, BETI) degree you have received? 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/2021 5:06 PM CHAIN MENDER COVID-19 Exposure Response Date Recorded In the last month, have you been in contact with No / Unsure 04/15/2021 1:39 PM CHAIN MENDER someone who was confirmed or suspected to have Coronavirus / COVID-19? documented as of this encounter Miscellaneous Notes Telephone Encounter - Zoie Mcknight RN - 05/15/2021 12:15 PM CST Sent [place] message informing pt, will need to resend rx if has not picked up new rx, will monitor Zoie Mcknight RN, BSN [facility] N MENDER Telephone Encounter - Lara Barksdale - 05/15/2021 11:44 AM CST Please advise pharmacy already has paid claim for the separate Rx's for Citalopram 10mg and 20mg tablets. If patient would like to switch to the Citalopram 20mg 1.5 daily he will be able to fill this medication for next fill. N MENDER Telephone Encounter - Lara Barksdale - 05/15/2021 11:44 AM CST Images from the original note were not included. Prior Authorization Approval Authorization Effective Date: 04/14/2021 Authorization Expiration Date: 05/13/2024 Medication: citalopram (CELEXA) 20 MG tablet - QTY LIMIT Approved Dose/Quantity: 1.5 tablets per day Reference #: Insurance Company: [employer] - Expected CoPay: CoPay Card Available: Foundation Assistance Needed: Which Pharmacy is filling the prescription (Not needed for infusion/clinic administered): [facility] [place] [address] Pharmacy Notified: Yes Patient Notified: Yes N MENDER Telephone Encounter - Lara Barksdale - 05/14/2021 11:57 AM CST Central Prior Authorization Team PA Initiation Medication: citalopram (CELEXA) 20 MG tablet - QTY LIMIT Insurance Company: [employer] - Pharmacy Filling the Rx: [facility] [place] [address] Filling Pharmacy Filling Pharmacy Fax: Start Date: 05/14/2021 Manually filled out form, faxed to [employer] for quantity review. N MENDER Telephone Encounter - Shantal Jaimes - 05/12/2021 12:54 PM CST Images from the original note were not included. N MENDER documented in this encounter Plan of Treatment Upcoming Encounters Date Type Specialty Care Team Description 02/04/2022 Virtual Visit Behavioral Health Janak Marquez, [place] [id number] [address] (Wo rk) documented as of this encounter Visit Diagnoses Not on filedocumented in this encounter Additional Health Concerns Assessment Noted Time PHQ-9 Depression Total Score: 2 04/11/2021 7:02 AM CHAIN MENDER documented as of this encounter Care Teams Automotive Engineering Technician Relationship Specialty Start Date End Date Jeri Ibrahim, PAAnetteC PCP - General Physician Side Guider 01/14/15 [address] [place], [place] [phone] Jeri Ibrahim PA-C Assigned PCP 05/16/17 [address] [place], [place] [phone] documented as of this encounter
--- OUTSIDE RECORDS SUMMARY | 2022-01-26 22:30 | XMS_ITS | Encounter Summary ---
:1970 Author Organization [facility] Address [address] [place] [address]. [place] [address] Care Team Providers Name Role Phone Jeri Ibrahim PA-C Primary Care Provider Jeri Ibrahim PA-C Unavailable Encounter Details Date Type Department Care Team Description 04/10/2021 Travel Social History Tobacco Use Types Packs/Day [...] or relatives? How often do you attend latter day or 1 to 4 times per year 03/26 baptist services? Do you belong to any clubs or Yes 04/11/2021 organizations such as latter day groups, unions, fraternal or athletic groups, or [...] have completed or the highest Dawn, MEd, MOTOR COACH SUPERVISOR, BETI) degree you have received? 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/2021 5:06 PM RN WOUND COVID-19 Exposure Response Date Recorded In the last month, have you been in contact with No / Unsure 04/10/2021 10:11 AM RN WOUND someone who was confirmed or suspected to have Coronavirus / COVID-19? documented as of this encounter Plan of Treatment Upcoming Encounters Date Type Specialty Care Team Description 02/04/2022 Virtual Visit Behavioral Health Janak Marquez, [facility] [address] [facility] [address] [place] [address] (Wo rk) documented as of this encounter Visit Diagnoses Not on filedocumented in this encounter Additional Health Concerns Assessment Noted Time PHQ-9 Depression Total Score: 2 04/11/2021 7:02 AM RN WOUND documented as of this encounter Care Teams Sole Layer Hand Relationship Specialty Start Date End Date Jeri Ibrahim PA-C PCP - General Physician Position Classification Manager 01/14/15 [address] [place], [place] [phone] Jeri Ibrahim PA-C Assigned PCP 05/16/17 [address] [place], [place] [phone] documented as of this encounter
--- OUTSIDE RECORDS SUMMARY | 2022-01-26 22:30 | XMS_ITS | Encounter Summary ---
:1970 Author Organization [facility] Address [address] [place] [address]. [place] [address] Care Team Providers Name Role Phone Jeri Ibrahim PA-C Primary Care Provider Jeri Ibrahim PA-C Unavailable Encounter Details Date Type Department Care Team Description 09/23/2021 Virtual Visit [facility] Jeri Ibrahim Gen eralized [facility] [place] [facility] disorder [address] [place] [address] [phone] Social History Tobacco Use Types Packs/Day Years [...] or relatives? How often do you attend sikhism or 1 to 4 times per year 03/26 rastafari services? Do you belong to any clubs or Yes 04/11/2021 organizations such as sikhism groups, unions, fraternal or athletic groups, or [...] place to sleep or slept in a usp (including now)? Education Answer Date Recorded What is the highest level of school Master's degree (e.g., Gideon Barcenas, , 04/07/2019 you have completed or the highest Dawn, MEd, TRADE UNION OFFICIAL, BETI) degree you have received? 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/2021 5:06 PM PROCEDURES TECH COVID-19 Exposure Response Date Recorded In the last 10 days, have you been in contact with No / Unsu re 09/15/2021 12:25 PM CDT someone who was confirmed or suspected to have Coronavirus/COVID-19? documented as of this encounter Progress Notes Jeri Ibrahim PA-C - 09/23/2021 2:30 PM CDT Ezra is a 51 year old who is being evaluated via a billable video visit. How would you like to obtain your AVS? MyChart If the video visit is dropped, the invitation should be resent by: Text to cell phone: [phone] Will anyone else be joining your video visit? No Video Start Time: 2:33 PM Assessment & Plan Generalized anxiety disorder Continue work with [facility] - citalopram (CELEXA) 40 MG tablet; Take 1 tablet (40 mg) by mouth daily [facility] Ezra is a 51 year old who presents for the following health issues HPI Anxiety Follow-Up ?? How are you doing with your anxiety since your last visit? No change ?? Are you having other symptoms that might be associated with anxiety? No ?? Have you had a significant life event? No ?? Are you feeling depressed? No ?? Do you have any concerns with your use of alcohol or other drugs? No Social History Tobacco Use ??? Smoking status: Former Smoker Packs/day: 0.00 Years: 0.00 Pack years: 0.00 Quit date: 10/15/1998 Years since quittin.9 ??? Smokeless tobacco: Never Used Vaping Use ??? Vaping Use: Never used Substance Use Topics ??? Alcohol use: Yes Comment: socially ??? Drug use: No CHANG-7 SCORE 04/10/2021 07/29/2021 09/23/2021 Total Score 3 (minimal anxiety) - - Total Score 3 6 4 PHQ 11/29/2017 04/10/2021 07/29/2021 PHQ-9 Total Score 1 2 2 Q9: Thoughts of better off /self-harm past 2 weeks Not at all Not at all Not at all CHANG-7 09/23/2021 1. Feeling nervous, anxious, or on edge 1 2. Not being able to stop or control worrying 0 3. Worrying too much about different things 1 4. Trouble relaxing 1 5. Being so restless that it is hard to sit still 0 6. Becoming easily annoyed or irritable 1 7. Feeling afraid, as if something awful might happen 0 CHANG-7 Total Score 4 If you checked any problems, how difficult have they made it for you to do your work, take care of things at home, or get along with other people? Not difficult at all Review of Systems Constitutional, HEENT, cardiovascular, pulmonary, gi and gu systems are negative, except as otherwise noted. Objective Vitals - Patient Reported Weight (Patient Reported): 87.1 kg (192 lb) Height (Patient Reported): 180.3 cm (5' 11) BMI (Based on Pt Reported Ht/Wt): 26.78 Vitals: No vitals were obtained today due to virtual visit. Physical Exam GENERAL: Healthy, alert and no distress EYES: Eyes grossly normal to inspection. No discharge or erythema, or obvious scleral/conjunctival abnormalities. RESP: No audible wheeze, cough, or visible cyanosis. No visible retractions or increased work of breathing. SKIN: Visible skin clear. No significant rash, abnormal pigmentation or lesions. NEURO: Cranial nerves grossly intact. Mentation and speech appropriate for age. PSYCH: Mentation appears normal, affect normal/bright, judgement and insight intact, normal speech and appearance well-groomed. Video-Visit Details Type of service: Video Visit Video End Time:2:43 PM Originating Location (pt. Location): Home Distant Location (provider location): [facility] Vigo Platform used for Video Visit: Eric documented in this encounter Plan of Treatment Upcoming Encounters Date Type Specialty Care Team Description 02/04/2022 Virtual Visit Behavioral Health Janak Marquez, [facility] [address] [place] [address] (Wo rk) documented as of this encounter Visit Diagnoses Diagnosis Generalized anxiety disorder documented in this encounter Additional Health Concerns Assessment Noted Time PHQ-9 Depression Total Score: 2 07/29/2021 2:14 PM CDT documented as of this encounter Care Teams Plating Tank Operator Apprentice Relationship Specialty Start Date End Date Jeri Ibrahim PA-C PCP - General Physician Asset Management Coordinator 01/14/15 [address] [place] [address] Jeri Ibrahim PA-C Assigned PCP 05/16/17 [address] [place] [address] documented as of this encounter
--- OUTSIDE RECORDS SUMMARY | 2022-01-26 22:30 | XMS_ITS | Encounter Summary ---
:1970 Author Organization [facility] Address [address] [place] [address]. [place] [address] Care Team Providers Name Role Phone Jeri Ibrahim PA-C Primary Care Provider Jeri Ibrahim PA-C Unavailable Encounter Details Date Type Department Care Team Description 09/15/2021 Travel Social History Tobacco Use Types Packs/Day [...] or relatives? How often do you attend amish or 1 to 4 times per year 03/26 shinto services? Do you belong to any clubs or Yes 04/11/2021 organizations such as amish groups, unions, fraternal or athletic groups, or [...] have completed or the highest Dawn, MEd, DIAPER MACHINE TENDER, BETI) degree you have received? 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 documented as of this encounter Plan of Treatment Upcoming Encounters Date Type Specialty Care Team Description 02/04/2022 Virtual Visit Behavioral Health Janak Marquez, [facility] [address] [facility] [address] [place] [address] (Wo rk) documented as of this encounter Visit Diagnoses Not on filedocumented in this encounter Additional Health Concerns Assessment Noted Time PHQ-9 Depression Total Score: 2 07/29/2021 2:14 PM CDT documented as of this encounter Care Teams Railcar Foreman Relationship Specialty Start Date End Date Jeri Ibrahim PA-C PCP - General Physician Pneumatic Tube Operator 01/14/15 [address] [place] [address] Jeri Ibrahim PA-C Assigned PCP 05/16/17 [address] [place] [address] documented as of this encounter
--- OUTSIDE RECORDS SUMMARY | 2022-01-26 22:30 | XMS_ITS | Encounter Summary ---
:1970 Author Organization [facility] Address [address] [place] [address]. [place] [address] Care Team Providers Name Role Phone Jeri Ibrahim PA-C Primary Care Provider Jeri Ibrahim PA-C Unavailable Encounter Details Date Type Department Care Team Description 08/26/2021 Travel Social History Tobacco Use Types Packs/Day [...] 1 to 4 times per year 03/26 sikhism services? Do you belong to any clubs [...] place to sleep or slept in a jail (including now)? Education Answer Date Recorded What is the highest level of school Master's degree (e.g., M A, MS, 04/07/2019 you have completed or the highest Dawn, MEd, LOBSTER FISHERMAN, BETI) degree you have received? 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/2021 5:06 PM ONCOLOGY NURSE NAVIGATOR COVID-19 Exposure Response Date Recorded In the last 10 days, have you been in contact with Yes 08/26/2021 8:38 AM CDT someone who was confirmed or suspected to have Coronavirus/COVID-19? documented as of this encounter Plan of Treatment Upcoming Encounters Date Type Specialty Care Team Description 02/04/2022 Virtual Visit Behavioral Health Janak Marquez, [facility] [address] [facility] [address] [place] [phone] (Wo rk) documented as of this encounter Visit Diagnoses Not on filedocumented in this encounter Additional Health Concerns Assessment Noted Time PHQ-9 Depression Total Score: 2 07/29/2021 2:14 PM CDT documented as of this encounter Care Teams Clinical Fellow Relationship Specialty Start Date End Date Jeri Ibrahim PA-C PCP - General Physician Delivery Driver/Supervisor 01/14/15 [address] [place] [address] Jeri Ibrahim PA-C Assigned PCP 05/16/17 [address] [place] [address] documented as of this encounter
--- OUTSIDE RECORDS SUMMARY | 2022-01-26 22:30 | XMS_ITS | Encounter Summary ---
:1970 Author Organization [facility] Address [address] [place] [address]. [place] [address] Care Team Providers Name Role Phone Jeri Ibrahim PA-C Primary Care Provider Jeri Ibrahim PA-C Unavailable Reason for Visit Reason Comments Medication Refill Encounter Details Date Type Department Care Team Description 03/14/2020 Refill [facility] Jeri Ibrahim PA-C Medication Refill [address] [address] [place], [place] [phone] (W ork) [id number] [phone] Social History Tobacco Use Types Packs/Day Years [...] or relatives? How often do you attend protestant or 1 to 4 times per year 03/26 voodoo services? Do you belong to any clubs or Yes 04/11/2021 organizations such as protestant groups, unions, fraternal or athletic groups, or [...] place to sleep or slept in a chcf (including now)? Education Answer Date Recorded What is the highest level of school Master's degree (e.g., M A, MS, 04/07/2019 you have completed or the highest Dawn, MEd, DESIGNER, BETI) degree you have received? 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/2021 5:06 PM BREAD JOCKEY documented as of this encounter Miscellaneous Notes Telephone Encounter - Keren Covington - 03/14/2020 6:11 PM CST appt 03/28/2020.-Keren Covington, EMTB Clinic Health Guide D JOCKEY Telephone Encounter - Radha Ng - 03/14/2020 12:39 PM CST Sent patient [facility] message to call and schedule follow up Radha Ng/ Bench Jeweler D JOCKEY Telephone Encounter - Sudheer Meyer RN - 03/14/2020 12:36 PM CST Medication is being filled for 1 time refill only due to: due for visit before next refill Please call patient and assist in scheduling visit Sudheer Muñoz RN, BSN D JOCKEY documented in this encounter Plan of Treatment Upcoming Encounters Date Type Specialty Care Team Description 02/04/2022 Virtual Visit Behavioral Health Janak Marquez, AQUACULTURE WORKER [address] [place] [id number] (Wo rk) documented as of this encounter Visit Diagnoses Diagnosis Irritability documented in this encounter Additional Health Concerns Assessment Noted Time PHQ-9 Depression Total Score: 1 11/30/2017 7:08 AM CDT documented as of this encounter Care Teams Quarry Supervisor Dimension Stone Relationship Specialty Start Date End Date Jeri Ibrahim PA-C PCP - General Physician Fire Production Operator 01/14/15 [address] [place] [address] Jeri Ibrahim PA-C Assigned PCP 05/16/17 [address] [place], [place] [id number] documented as of this encounter
--- OUTSIDE RECORDS SUMMARY | 2022-01-26 22:30 | XMS_ITS | Encounter Summary ---
:1970 Author Organization [facility] Address [address] [place] [address]. [place] [address] Care Team Providers Name Role Phone Jeri Ibrahim PA-C Primary Care Provider Jeri Ibrahim PA-C Unavailable Encounter Details Date Type Department Care Team Description 05/23/2021 Telephone [facility] Jeri Ibrahim PA-C [place] [address] [phone] Social History Tobacco Use Types Packs/Day Years [...] or relatives? How often do you attend jew or 1 to 4 times per year 03/26 synagogue services? Do you belong to any clubs or Yes 04/11/2021 organizations such as jew groups, unions, fraternal or athletic groups, or [...] you have completed or the highest Dawn, Mango, INSULATION FOREMAN, BETI) degree you have received? 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 New Rx sent Jeri Ibrahim PA-C RIDER Telephone Encounter - Jose David Good - 05/23/2021 8:28 AM CST Pharmacy called needing new directions for pts citalopram. KEVIN Gomes RIDER documented in this encounter Plan of Treatment Upcoming Encounters Date Type Specialty Care Team Description 02/04/2022 Virtual Visit Behavioral Health Janak Marquez, [place] [id number] [address] (Wo rk) documented as of this encounter Visit Diagnoses Diagnosis Irritability documented in this encounter Additional Health Concerns Assessment Noted Time PHQ-9 Depression Total Score: 2 04/11/2021 7:02 AM GANG RIDER documented as of this encounter Care Teams Lav Crewman Relationship Specialty Start Date End Date Jeri Ibrahim PA-C PCP - General Physician Utility System Repairer 01/14/15 [address] [place] [address] Jeri Ibrahim PA-C Assigned PCP 05/16/17 [address] [place], [place] [id number] documented as of this encounter
--- OUTSIDE RECORDS SUMMARY | 2022-01-26 22:30 | XMS_ITS | Encounter Summary ---
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 How often do you attend orthodoxy or 1 to 4 times per year 03/26 adventism services? Do you belong to any clubs or Yes 04/11/2021 organizations such as orthodoxy groups, unions, fraternal or athletic groups, or [...] place to sleep or slept in a long term (including now)? Education Answer Date Recorded What is the highest level of school Master's degree (e.g., M Swapna, MS, 04/07/2019 you have completed or the highest Dawn, MEd, MECHANICAL ASSEMBLER, BETI) degree you have received? 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 documented as of this encounter Progress Notes Bridgett Marquez, [facility] - 07/30/2021 1:00 PM CDT [facility] Primary Care: Integrated Behavioral Health July 30, 2021 Behavioral Health Clinician Progress Note Patient Name: Ezra Yanez Service Type: Individual Service Location: Face to Face in Clinic Session Start Time: 1:05 p.m. Session End Time: 2:00 p.m. Session Length: 38 - 52 Attendees: Client Service Modality: In-person Visit Activities (Refresh list every visit): [facility] and [facility] Only Diagnostic Assessment Date: next visit Treatment Plan Review Date: See Flowsheets for today's PHQ-9 and CHANG-7 results Previous PHQ-9: PHQ-9 SCORE 11/29/2017 04/10/2021 07/29/2021 PHQ-9 Total Score - - - PHQ-9 Total Score MyChart 1 (Minimal depression) 2 (Minimal depression) - PHQ-9 Total Score 1 2 2 Previous CHANG-7: CHANG-7 SCORE 11/29/2017 04/10/2021 07/29/2021 Total Score 2 (minimal anxiety) 3 (minimal anxiety) - Total Score 2 3 6 FAUZIA LEVEL: FAUZIA Score (Last Two) 05/20/2010 04/07/2019 FAUZIA Raw Score 36 35 Activation Score 47.4 72.1 FAUZIA Level 2 3 DATA Extended Session (60+ minutes): No Interactive Complexity: No Crisis: No [facility] Patient: No Treatment Objective(s) Addressed in This Session: Target Behavior(s): anxiety n/a- initial visit Current Stressors / Issues: Pt reports he was referred by PCP, who he recently saw due to increase in anxiety. He asked PCP to increase his Citalopram from 20 mgs to 40 mgs. Pt saw a therapist for some years through [facility] until that therapist retired. Pt has been feeling more keyed up, on edge and irritable lately. He been finding himself (working remotely) pacing, walking from standing desk to sitting one frequently, increase in appetite for unhealthy food, having muscle tension in his neck. Pt has longstanding hx of these sx, although they've increased as of late. Pt has been living with his gf of 4 years (Emily) and her 13 yo daughter. Pt in 2009 and has two children from this union- 16 yo Maribell and 14 yo RAINA, of who he has 50% custody. Pt reports Emily has a transgender son who is 18 with whom they don't really have contact and lives with his father. Two weeks ago Emily moved back into her former home and is focusing on her relationship with her son.Pt decided to stop drinking alcohol for now ( was drinking at least 2-3 cocktails nightly and sometimes up to 6). There has been tension in his relationship with Emily and arguments about money and pt's discomfort with change of routine. Pt reports he generally likes things in order, likes to have routine, rules, etc. He set expectations in his home with his own kids by having quiet time after 8 p.m. He finds it difficult with working from home and having Emily there during the summer (she's a teacher) and her daughter not following rules. Pt meets criteria for Generalized Anxiety Disorder, although writer technical publications will complete DA next visit. Progress on Treatment Objective(s) / Homework: n/a- intitial visit Motivational Interviewing PA Intervention: Expressed Empathy/Understanding, Supported Autonomy, Collaboration, Evocation and Permission to raise concern or advise Change Talk Expressed by the Patient: Reasons to change Provider Response to Change Talk: E - Evoked more info from patient about behavior change and A - Affirmed patient's thoughts, decisions, or attempts at behavior change Care Plan review completed: No Medication Review: Changes to psychiatric medications, see updated Medication List in EPIC. Recently increased Citalopram from 20 mgs to 40 mgs. Medication Compliance: Yes Changes in Health Issues: None reported Chemical Use Review: Substance Use: decrease in alcohol . Patient reports frequency of use was daily several drinks but for two weeks he has decided to cease alcohol consumption. City Planning Teacher has recommended staying to 7 drinksor less per week Tobacco Use: No current tobacco use. Assessment: [...] time, however patient was encouraged to call [place] [phone] should there be a change in any of these risk factors. Appearance: Appropriate Eye Contact: Good Psychomotor Behavior: Normal Attitude: Cooperative Orientation: All Speech Rate / Production: Normal/ Responsive Volume: Normal Mood: Anxious Affect: Appropriate Thought Content: Clear Thought Form: Coherent Logical Insight: Good Diagnoses: 1. Generalized anxiety disorder Collateral Reports Completed: PHQ and CHANG Plan: (Homework, other): Patient was given information about behavioral services and encouraged to schedule a follow up appointment with the clinic [facility] in 2 weeks. He was also given information about mental health symptoms andtreatment options Pt will return for diagnostic assessment, although at this point pt meets criteriafor CHANG. CD Recommendations: Practice Harm Reduction: attempt no more than 7 drinks weekly and greatly reduce caffeine consumption. SHELLEY Sinha LICSW documented in this encounter Plan of Treatment Upcoming Encounters Date Type Specialty Care Team Description 02/04/2022 Virtual Visit Behavioral Health Janak Marquez LICSW [address] [address] (Wo rk) documented as of this encounter Visit Diagnoses Diagnosis Generalized anxiety disorder - Primary documented in this encounter Additional Health Concerns Assessment Noted Time PHQ-9 Depression Total Score: 2 07/29/2021 2:14 PM CDT documented as of this encounter Care Teams Behavioral Technician Relationship Specialty Start Date End Date Jeri Ibrahim PA-C PCP - General Physician Costume Cutter 01/14/15 [address] [place] [address] Jeri Ibrahim PA-C Assigned PCP 05/16/17 [address] [place] [address] documented as of this encounter
--- OUTSIDE RECORDS SUMMARY | 2022-01-26 22:30 | XMS_ITS | Encounter Summary ---
:1970 Author Organization [address] [address] Care Team Providers Name Role Phone Jeri Ibrahim PA-C Primary Care Provider Jeri Ibrahim PA-C Unavailable Encounter Details Date Type Department Care Team Description 08/12/2021 Virtual Visit [facility] Bridgett Marquez Ge neralized anxiety Mental Health & PLAN REP disorder (Primary Dx) Addiction [address] [id number] [phone] Social History Tobacco Use Types Packs/Day Years [...] or relatives? How often do you attend buddhism or 1 to 4 times per year 03/26 islam services? 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 documented as of this encounter Progress Notes Bridgett Marquez LICSW - 08/12/2021 10:00 AM CDT Images from the original note were not included. [facility] Primary Care: Integrated Behavioral Health Provider Name: SHELLEY Nix, PLAN REP Behavioral Health Clinician PATIENT'S NAME: Ezra Yanez PREFERRED NAME: PRONOUNS: he/him : 1970 ADDRESS: [address] [place] [id number] ACCT. NUMBER: [id number] DATE OF SERVICE: 08/12/21 START TIME: 10:00 a.m. END TIME: 11:00 a.m. PREFERRED PHONE: [phone] May we leave a program related message: Yes SERVICE MODALITY: Video Visit: Provider verified identity through the following two step process. Patient provided: Patient photo and Patient Telemedicine Visit: The patient's condition can be safely assessed and treated via synchronous audioand visual telemedicine encounter. Reason for Telemedicine Visit: Patient has requested telehealth visit Originating Site (Patient Location): Patient's home Distant Site (Provider Location): [facility] Consent: The patient/guardian has verbally consented to: the potential risks and benefits of telemedicine (video visit) versus in person care; bill my insurance or make self-payment for services provided; and responsibility for payment of non-covered services. Patient would like the video invitation sent by: My Chart Mode of Communication:?? Video Conference via abbey As the provider I attest to compliance with applicable laws and regulations related to telemedicine. [place] ADULT Mental Health DIAGNOSTIC ASSESSMENT Identifying Information: Patient is a 50 year old male. The pronoun use throughout this assessment reflects the patient's chosen pronoun. Patient was referred for an assessment by primary care provider. Patient attended the session alone. Chief Complaint: The reason for seeking services at this time is: Manage stress and reduce itritability. The problem(s) began 04/26/2021. Patient has attempted to resolve these concerns in the past through therapy at [facility] [employer] and Citalopram. Social/Family History: Patient reported they grew up in [facility] [place]. They were raised by biological parents; pt has twoyounger sisters (one 2 years and one 9 years younger than pt). Parents were always together and still living. Pt reports they've had some challenges in their childhood. Patient reported that their childhood was pretty typical. Mom worked, dad owned a business and he was gone a lot. Was primarily raised by his mother. His maternal great-grandmother for six months out of the year, very posive with maternal side. Not a lot of connection with paternal grandparents. Parents continue to live in same house he grew up in. Pt was in band, skiing and ran cross country. reasonbly good school experience. Did well academically. Pt keeps in touch with 2-3 friends from his school days. He was close to 6-8 peers and would call them friends. Patient described their current relationships with family of origin as good with mom. Calls his mother regularly; mom puts phone on speaker so dad is involved that way. Sees sisters on holidays and when pt was going through divorce he found them supportive. The patient describes their cultural background as . Cultural influences and impact on patient's life structure, values, norms, and healthcare: Grew up orthodoxy, not significantly islam. Contextual influences on patient's health include: Individual Factors pt reports none are relevant. These factors will be addressed in the Preliminary Treatment plan. Patient identified their preferred language to be Greenlandic. Patient reported they does not need the assistance of an black and white printer operator or other support involved in therapy. Patient reported had no significant delays in developmental tasks. Patient's highest education levelwas graduate school- pt attended [employer], sociology/psychology major/minor. Pt went to [employer] for graduate school for his BETI. Patient identified the following learning problems: none reported. Modifications will not be used to assist communication in therapy. Patient reports theyare able to understand written materials. Patient reported the following relationship history: Pt was at age 28 and had been with his now ex- for three years at that time. Pt was to his for 11 years when they in 2009. Patient's current relationship status is has a partner or significant other (Emily) for 3.5 years and they did move in together 6-8 months ago but Emily moved back out to her parents' (second) home as a result of her stress, me. Emily has a daughter who is 13 (Katie). Patient identified their sexual orientation as heterosexual. Patient reported having 2 child(taras), 16-year-old Maribell and 14-year-old RAINA. Pt has 50% custody of his kids. Patient identified partner; parents; friends; co- worker, neighbors as part of their support system. Patient identified the quality of these relationships as good. Patient's current living/housing situation involves staying in own home/apartment. The immediate members of family and household include Maribell Yanez, 16,Daughter and RAINA, 14, and they report that housing is stable. 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 Patient reports their finances are obtained through employment. Patient does identify finances as a current stressor. Pt reports he has no want for money, but has always had a perpetual fear of not having enough. Patient reported that they have been involved with the legal system. and have previously (over 10 years ago) been involved in divorce related custody and settlement proceedings. Patient does not report being under probation/ parole/ jurisdiction. Patient's Strengths and Limitations: Patient identified the following strengths or resources that will help them succeed in treatment: commitment to health and well being, exercise routine, friends / good social support, intelligence, positive work environment, motivation and work ethic. Things that may interfere with the patient's success in treatment include: none identified. Assessments: The following assessments were completed by patient for this visit: PHQ9: PHQ-9 SCORE 10/16/2015 04/03/2016 08/28/2016 05/12/2017 11/29/2017 04/10/2021 07/29/2021 PHQ-9 Total Score - - - - - - - PHQ-9 Total Score MyChart - - - 3 (Minimal depression) 1 (Minimal depression) 2 (Minimal depression)- PHQ-9 Total Score 3 3 2 3 1 2 2 GAD7: CHANG-7 SCORE 10/16/2015 04/03/2016 11/29/2017 04/10/2021 07/29/2021 Total Score - - 2 (minimal anxiety) 3 (minimal anxiety) - Total Score 4 2 2 3 6 CAGE-AID: CAGE-AID Total Score 08/11/2021 Total Score 2 Total Score MyChart 2 (A total score of 2 or greater is considered clinically significant) PROMIS 10-Global Health (all questions and answers displayed): PROMIS 10 08/11/2021 In general, would you say your health is: Very good In general, would you say your quality of life is: Very good In general, how would you rate your physical health? Very good In general, how would you rate your mental health, including your mood and your ability to think? Good In general, how would you rate your satisfaction with your social activities and relationships? Fair In general, please rate how well you carry out your usual social activities and roles Very good To what extent are you able to carry out your everyday physical activities such as walking, climbingstairs, carrying groceries, or moving a chair? Completely How often have you been bothered by emotional problems such as feeling anxious, depressed or irritable? Sometimes How would you rate your fatigue on average? Mild How would you rate your pain on average? 0 = No Pain to 10 = Worst Imaginable Pain 0 In general, would you say your health is: 4 In general, would you say your quality of life is: 4 In general, how would you rate your physical health? 4 In general, how would you rate your mental health, including your mood and your ability to think? 3 In general, how would you rate your satisfaction with your social activities and relationships? 2 In general, please rate how well you carry out your usual social activities and roles. (This includes activities at home, at work and in your community, and responsibilities as a parent, child, spouse,employee, friend, etc.) 4 To what extent are you able to carry out your everyday physical activities such as walking, climbingstairs, carrying groceries, or moving a chair? 5 In the past 7 days, how often have you been bothered by emotional problems such as feeling anxious, depressed, or irritable? 3 In the past 7 days, how would you rate your fatigue on average? 2 In the past 7 days, how would you rate your pain on average, where 0 means no pain, and 10 means worst imaginable pain? 0 Global Mental Health Score 12 Global Physical Health Score 18 PROMIS TOTAL - SUBSCORES 30 Some recent data might be hidden [place] Suicide Severity Rating Scale (Lifetime/Recent) [place] Suicide Severity Rating (Lifetime/Recent) 08/12/2021 1. Wish to be (Lifetime) 0 2. Non-Specific Active Suicidal Thoughts (Lifetime) 0 Actual Attempt (Lifetime) 0 Has subject engaged in non-suicidal self-injurious behavior? (Lifetime) 0 Interrupted Attempts (Lifetime) 0 Aborted or Self-Interrupted Attempt (Lifetime) 0 Preparatory Acts or Behavior (Lifetime) 0 Calculated C-SSRS Risk Score (Lifetime/Recent) No Risk Indicated Personal and Family Medical History: Patient does not report a family history of mental health concerns. Patient reports family history includes Cancer in his maternal uncle and mother; Diabetes in his father, maternal grandfather, and paternal grandmother; Family History Negative in his daughter and sister; Neurologic Disorder in his maternal uncle and mother; Other Cancer in his mother and paternal grandmother; Parkinsonism (age of onset: 73) in his mother; Respiratory in his father.. Patient has participated in therapy with his former therapist at [facility] for years until that person's long term. He has also consumed Citalopram. He isn't certain of his dx at that time, possibly depression. Patient has had a physical exam to rule out medical causes for current symptoms. Date of last physical exam was within the past year. Symptoms have developed since last physical exam and client was encouraged to follow up with PCP. . The patient has a [place] Primary Care Provider, who is named Jeri Ibrahim. Patient reports no current medical concerns. Patient denies any issues with pain. There are not significant appetite / nutritional concerns / weight changes. Patient does not report a history of head injury / trauma / cognitive impairment. Patient reports current meds as: Outpatient Medications Marked as Taking for the 4/19/22 encounter (Virtual Visit) with Bridgett Marquez LICSW Medication Sig ??? citalopram (CELEXA) 40 MG tablet Take 1 tablet (40 mg) by mouth daily Medication Adherence: Patient reports taking. Patient Allergies: Allergies Allergen Reactions ??? Pcn [Penicillins] Hives Medical History: Past Medical History: Diagnosis Date ??? Bronchitis with bronchospasm 11/16/2011 ??? Herpes simplex ??? Hyperlipemia ??? Scaphoid fracture of wrist 2013 left Current Mental Status Exam: Appearance: Appropriate Eye Contact: Good Psychomotor: Restless Gait / station: no problem Attitude / Demeanor: Cooperative Speech Rate / Production: Normal/ Responsive Talkative Volume: Normal volume Language: intact Mood: Anxious Normal Affect: Appropriate Thought Content: Clear Thought Process: Coherent Logical Circumstantial Associations: No loosening of associations Insight: Fair Judgment: Intact Orientation: All Attention/concentration: Good Substance Use: Patient did report a family history of substance use concerns; see medical history section for details. Pt's maternal grandfather was abusive with alcohol. Whole maternal side of family had alcohol a part of occasions. His parents have never drank much because of this. Patient has not received chemical dependency treatment in the past. Patient has not ever been to detox. Patient is not currently receiving any chemical dependency treatment. Substance History of use Age of first use Date of last use Pattern and duration of use (include amounts and frequency) Alcohol currently use 17 07/25/2021 Pt has remained sober for about three weeks now. Cannabis never used REPORTS SUBSTANCE USE: N/A Amphetamines never used REPORTS SUBSTANCE USE: N/A Cocaine/crack never used REPORTS SUBSTANCE USE: N/A Hallucinogens never used REPORTS SUBSTANCE USE: N/A Inhalants never used REPORTS SUBSTANCE USE: N/A Heroin never used REPORTS SUBSTANCE USE: N/A Other Opiates never used REPORTS SUBSTANCE USE: N/A Benzodiazepine never used REPORTS SUBSTANCE USE: N/A Barbiturates never used REPORTS SUBSTANCE USE: N/A Over the counter meds currently use Unsure 08/10/2021 No issue Caffeine currently use 16 Drinks a lot of soda. 6-8 cans of soda and drinks green tea in addition Nicotine used in the past 16 08/11/1998 n/a Other substances not listed above: Identify: never used REPORTS SUBSTANCE USE: N/A Patient reported the following problems as a result of their substance use: relationship problems with Emily. Substance Use: No symptoms Based on the positive CAGE score and clinical interview there are potentially some issues with substance use. Pt was drinks several drinks daily but has now been sober for three weeks now. Significant Losses / Trauma / Abuse / Neglect Issues: Patient did serve in the . There are indications or report of significant loss, trauma, abuse or neglect issues related to: of some family members have passed. Pt reports he struggles with it's the unknown and he doesn't think about it much and divorce / relational changes very difficult for pt (divorce). Reports his was unfaithful to him and now to that man. Concerns for possible neglect are not present. Safety Assessment: Patient denies current homicidal ideation and behaviors. Patient denies current self-injurious ideation and behaviors. Patient denied risk behaviors associated with substance use. Patient denies any high risk behaviors associated with mental health symptoms. Patient reports the following current concerns for their personal safety: None. Patient reports there are firearms in the house. The firearms are secured in a locked space. History of Safety Concerns: Patient denied a history of homicidal ideation. Patient denied a history of personal safety concerns. Patient denied a history of assaultive behaviors. Patient denied a history of sexual assault behaviors. Patient denied a history of risk behaviors associated with substance use. Patient denies any history of high risk behaviors associated with mental health symptoms. Patient reports the following protective factors: forward or future oriented thinking; dedication tofamily or friends; safe and stable environment; regular sleep; purpose; commitment to well being; healthy fear of risky behaviors or pain; strong sense of self worth or esteem; access to a variety of clinical interventions and pets Risk Plan: See Recommendations for Safety and Risk Management Plan Review of Symptoms per patient report: Depression: Lack of interest and Irritability Sakina: No Symptoms Psychosis: No Symptoms Anxiety: Excessive worry, Nervousness, Psychomotor agitation, Ruminations and Irritability Panic: No symptoms Post Traumatic Stress Disorder: No Symptoms Eating Disorder: No Symptoms ADD / ADHD: No symptoms Conduct Disorder: No symptoms Autism Spectrum Disorder: Deficits in social-emotional reciprocity Obsessive Compulsive Disorder: No Symptoms Patient reports the following compulsive behaviors and treatment history: none. Diagnostic Criteria: Generalized Anxiety Disorder A. Excessive anxiety and worry about a number of events or activities (such as work or school performance). B. The person finds it difficult to control the worry. C. Select 3 or more symptoms (required for diagnosis). Only one item is required in children. - Restlessness or feeling keyed up or on edge. - Being easily fatigued. - Irritability. - Muscle tension. D. The focus of the anxiety and worry is not confined to features of an Victoria I disorder. E. The anxiety, worry, or physical symptoms cause clinically significant distress or impairment in social, occupational, or other important areas of functioning. F. The disturbance is not due to the direct physiological effects of a substance (e.g., a drug of abuse, a medication) or a general medical condition (e.g., hyperthyroidism) and does not occur exclusively during a Mood Disorder, a Psychotic Disorder, or a Pervasive Developmental Disorder. - The aformentioned symptoms began many year(s) ago and occurs 7 days per week and is experienced as moderate. gastrointestinal issues (not included in DSM criteria). Functional Status: Patient reports the following functional impairments: relationship(s). Nonprogrammatic care: Patient is requesting basic services to address current mental health concerns. Clinical Summary: 1. Reason for assessment: increase in irritability and relationship difficulties 2. Psychosocial, Cultural and Contextual Factors: interpersonal difficulties with girlfriend and [id number] transgender son and issues within girlfriend's family. Difficulties in being pseudo-stepparent to these children. 3. Principal DSM5 Diagnoses (Sustained by DSM5 Criteria Listed Above): 300.02 (F41.1) Generalized Anxiety Disorder. 4. Other Diagnoses that is relevant to services: n/a 5. Provisional Diagnosis: n/a 6. Prognosis: Expect Improvement and Relieve Acute Symptoms. 7. Likely consequences of symptoms if not treated: increase in sx and decrease in functioning. 8. Client strengths include: employed, goal-focused, has a previous history of therapy, intelligent,support of family, friends and providers, willing to ask questions and work history . Recommendations: 1. Plan for Safety and Risk Management: Recommended that patient call 911 or go to the local ED should there be a change in any of these risk factors.. Report to child / adult protection services was NA. 2. Patient's identified Patient identified no cultural, sexual orientation, or diversity factors relevant to their care. 3. Initial Treatment will focus on: Anxiety - long-standing, impedes relationships with family and partner. 4. Resources/Service Plan: Mobile Plant Operators services are not indicated. Modifications to assist communication are not indicated. Additional disability accommodations are not indicated. 5. Collaboration: Collaboration / coordination of treatment will be initiated with the following support professionals: primary care physician. 6. Referrals: The following referral(s) will be initiated: none. Next Scheduled Appointment: n/a. A Release of Information has been obtained for the following: n/a. 7. KRISS: KRISS: Discussed the general effects of drugs and alcohol on health and well- being. Provider gave patient printed information about the effects of chemical use on their health and well being. Recommendations: Limit alcohol consumption to 7 or fewer drinks per week. 8. Records: These were not available for review at time of assessment. Information in this assessment was obtained from the medical record and provided by patient who is a good historian. Patient will have open access to their mental health medical record. Provider Name/ Credentials: SHELLEY Nix LICSW Behavioral Health Clinician August 12, 2021 documented in this encounter Plan of Treatment Upcoming Encounters Date Type Specialty Care Team Description 02/04/2022 Virtual Visit Behavioral Health Janak Marquez LICSW [facility] [address] [address] (Wo rk) documented as of this encounter Visit Diagnoses Diagnosis Generalized anxiety disorder - Primary documented in this encounter Additional Health Concerns Assessment Noted Time PHQ-9 Depression Total Score: 2 07/29/2021 2:14 PM CDT documented as of this encounter Care Teams Wide Piece Goods Inspector Relationship Specialty Start Date End Date Jeri Ibrahim PA-C PCP - General Physician Merchandise Clerk 01/14/15 [id number] [place], [place] [id number] Jeri Ibrahim PA-C Assigned PCP 05/16/17 [address] [place] [address] documented as of this encounter
--- OUTSIDE RECORDS SUMMARY | 2022-01-26 22:30 | XMS_ITS | Encounter Summary ---
:1970 Author Organization [place] Address [facility] [facility] [place] [address] Care Team Providers Name Role Phone Jeri Ibrahim PA-C Primary Care Provider Jeri Ibrahim PA-C Unavailable Reason for Referral Diagnostic Imaging MRI (Routine) - Closed Specialty Diagnoses / Procedures Referred By Contact Refer red To Contact Diagnoses Acute nonintractable headache, unspecified headache type Family history of aneurysm Headache associated with sexual activity Alison Edgar PA-C Procedures MR Brain w/o Contrast [id number] [id number] Referral ID Status Reason Start Date Expiration Date Visits Requ ested Visits Authorized [id number] Closed 04/10/2021 04/10/2022 1 1 D STRATEGY MANAGER Reason for Visit Diagnostic Imaging MRI (Routine) - Closed Specialty Diagnoses / Procedures Referred By Contact Refer red To Contact Diagnoses Acute nonintractable headache, unspecified headache type Family history of aneurysm Headache associated with sexual activity Alison Edgar PA-C Procedures MR Brain w/o Contrast [id number] [phone] Referral ID Status Reason Start Date Expiration Date Visits Requ ested Visits Authorized [id number] Closed 04/10/2021 04/10/2022 1 1 Encounter Details Date Type Department Care Team Description 04/11/2021 [facility], unspecified headache type; [facility] Family history of aneurysm; [id number] [place] [address] [place] Headache asso ciated with sexual activity [address] [place], [place], [address] [place] [id number] Social History Tobacco Use Types Packs/Day Years [...] or relatives? How often do you attend anabaptism or 1 to 4 times per year 03/26 worship services? Do you belong to any clubs or Yes 04/11/2021 organizations such as anabaptism groups, unions, fraternal or athletic groups, or [...] have completed or the highest Dawn, MEd, BULK FLUIDS HANDLER, BETI) degree you have received? 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/2021 5:06 PM BRAND STRATEGY MANAGER COVID-19 Exposure Response Date Recorded In the last month, have you been in contact with No / Unsure 04/11/2021 9:35 AM BRAND STRATEGY MANAGER someone who was confirmed or suspected to have Coronavirus / COVID-19? documented as of this encounter Medications at Time of Discharge Medication Sig Dispensed Refills Start Date End Date albuterol (PROAIR Inhale 2 puffs into 1 Inhaler 0 6 HFA/PROVENTIL the lungs every 4 HFA/VENTOLIN HFA) 108 hours as needed (90 BASE) MCG/ACT InhalerIndications: Acute bronchitis due to other specified organisms bismuth subsalicylate Take 524 mg by mouth 0 (PEPTO-BISMOL) 262 MG 4 times daily (before chewable tablet meals and nightly). fluticasone (FLONASE) 50 [place] 1-2 sprays into 48 mL 0 05/16/2019 MCG/ACT nasal both nostrils daily sprayIndications: Post-nasal drip GLUCOSAMINE SULFATE PO 0 IBUPROFEN 0 Lysine HCl 500 MG TABS Take 500 mg by mouth 0 2 times daily MULTIVITAMIN TABS OR 1 qd 0 10/15/2005 citalopram (CELEXA) 20 Take 1 tablet (20 mg) 90 tablet 0 04/15/2021 MG tablet by mouth daily EPINEPHrine Inject 0.3 mLs (0.3 2 each 1 04/25/2019 12/2 04/2020 (EPIPEN/ADRENACLICK/OR mg) into the muscle ANY BX GENERIC EQUIV) as needed for 0.3 MG/0.3ML injection anaphylaxis 2-packIndications: Bee sting allergy valACYclovir (VALTREX) TAKE 1 TABLET (1,000 20 tablet 4 06/201904/15/2021 1000 mg MG) BY MOUTH 2 TIMES tabletIndications: DAILY Herpes simplex virus infection documented as of this encounter Plan of Treatment Upcoming Encounters Date Type Specialty Care Team Description 02/04/2022 Virtual Visit [facility] Janak Marquez, [id number] [place] [address] (Wo rk) documented as of this encounter Procedures Procedure Name Priority Date/Time Associated Diagnosis Comme nts MR BRAIN W/O STAT 04/11/2021 10:25 Acute nonintractable Res ults for this CONTRAST AM BRAND STRATEGY MANAGER headache, unspecified proced ure are in headache type the results Family history of section. aneurysm Headache associated with sexual activity documented in this encounter Results MR Brain w/o Contrast (04/11/2021 10:25 AM BRAND STRATEGY MANAGER) Anatomical Region Laterality Modality Head, SUBRAD MR NEURO, UMP MR NEURO, RAD MR Magnetic Resonance Specimen (Source) Anatomical Location Collection Method / Collectio n Time Received Time / Laterality Volume Impressions 04/11/2021 11:21 AM BRAND STRATEGY MANAGER IMPRESSION: Normal brain MRI. YUNG MANCUSO MD SYSTEM ID: [id number] Narrative 04/11/2021 11:21 AM BRAND STRATEGY MANAGER MRI OF THE BRAIN WITHOUT CONTRAST 04/11/2021 10:25 AM COMPARISON: Brain MR 11/13/2008 HISTORY: Headache, new or worsening, pos itional (age 19-49years). Acute nonintractable headache, unspecifi ed headache type. Family history of aneurysm. Headache associated with sexual activity. TECHNIQUE: Sagittal T1-weighted, axial T 2-weighted, axial FLAIR, and axial diffusion-weighted MR images of th e brain were acquired without intravenous contrast. FINDINGS: The ventricles and basal ciste rns are within normal limits in configuration. There is no midline sh ift. There are no extra-axial fluid collections. There is no evidence for acute stroke or for acute intracranial hemorrhage. Allen-white diff erentiation is well maintained. There is no sinusitis or mastoiditis. Procedure Note Yung Mancuso MD - 04/11/2021Forma tting of this note might be different from the original. MRI OF THE BRAIN WITHOUT CONTRAST 2020 10:25 AM COMPARISON: Brain MR 11/13/2008 HISTORY: Headache, new or worsening, pos itional (age 19-49years). Acute nonintractable headache, unspecifi ed headache type. Family history of aneurysm. Headache associated with sexual activity. TECHNIQUE: Sagittal T1-weighted, axial T 2-weighted, axial FLAIR, and axial diffusion-weighted MR images of th e brain were acquired without intravenous contrast. FINDINGS: The ventricles and basal ciste rns are within normal limits in configuration. There is no midline sh ift. There are no extra-axial fluid collections. There is no evidence for acute stroke or for acute intracranial hemorrhage. Allen-white diff erentiation is well maintained. There is no sinusitis or mastoiditis. IMPRESSION: Normal brain MRI. YUNG MANCUSO MD SYSTEM ID: [id number] Alison Edgar PA-C [facility] MRI ORDERABLES documented in this encounter Visit Diagnoses Diagnosis Acute nonintractable headache, unspecifi ed headache type Family history of aneurysm Family history of other condition Headache associated with sexual activity documented in this encounter Additional Health Concerns Assessment Noted Time PHQ-9 Depression Total Score: 2 04/11/2021 7:02 AM BRAND STRATEGY MANAGER documented as of this encounter Care Teams Helium Arc Welder Relationship Specialty Start Date End Date Jeri Ibrahim PA-C PCP - General Physician Airplane Cabin Attendant 01/14/15 [address] [place] [address] Jeri Ibrahim PA-C Assigned PCP 05/16/17 [address] [place] [address] documented as of this encounter
--- OUTSIDE RECORDS SUMMARY | 2022-01-26 22:30 | XMS_ITS | Encounter Summary ---
:1970 Author Organization [facility] Address [address] [facility] [place] [address] Care Team Providers Name Role Phone Jeri Ibrahim PA-C Primary Care Provider Jeri Ibrahim PA-C Unavailable Reason for Referral Consultation (Routine: Next available opening) - Referral NOT Required Specialty Diagnoses / Procedures Referred By Contact Refer red To Contact Gastroenterology Diagnoses Screening for colorectal cancer Jeri Ibrahim [facility] MIMA [place] [id number] [place] [address] [address] [place], [place] [address] [address] [place] [address] Phone: Referral ID Status Reason Start Date Expiration Date Visits V isits Requested Authorized [id number] Referral NOT 04/15/2021 04/15/2022 1 1 Required Scheduling Instructions If EUS or ERCP is selected, it requires clinical review prior to scheduling. ING MACHINE OPERATOR Reason for Visit Reason Comments Physical Encounter Details Date Type Department Care Team Description 04/15/2021 Office Visit [facility] Jeri Ibrahim Rout ine general medical examination at a health care facility (Primary Dx); [facility] [place] [facility] Irritability; [address] [facility] [id number] [place] [address] Vitamin D deficiency; [place], [place] Herpes simplex; [id number] Bee sting allergy; [phone] (Wo rk) Screening for colorectal cancer; Need for hepatitis C screening test Social History Tobacco Use Types Packs/Day Years [...] or relatives? How often do you attend yarsanism or 1 to 4 times per year 03/26 orthodoxy services? Do you belong to any clubs or Yes 04/11/2021 organizations such as yarsanism groups, unions, fraternal or athletic groups, or [...] have completed or the highest Dawn, MEd, CYTOLOGY TECHNOLOGIST, BETI) degree you have received? 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/2021 5:06 PM BALLING MACHINE OPERATOR COVID-19 Exposure Response Date Recorded In the last month, have you been in contact with No / Unsure 04/15/2021 1:39 PM BALLING MACHINE OPERATOR someone who was confirmed or suspected to have Coronavirus / COVID-19? documented as of this encounter Last Filed Vital Signs Vital Sign Reading Time Taken Comments Blood Pressure 120/72 04/15/2021 1:48 PM BALLING MACHINE OPERATOR Pulse 74 04/15/2021 1:48 PM BALLING MACHINE OPERATOR Temperature 36.6 ??C (97.9 ??F) 04/15/2021 1:48 PM BALLING MACHINE OPERATOR Respiratory Rate 12 04/15/2021 1:48 PM BALLING MACHINE OPERATOR Oxygen Saturation 99% 04/15/2021 1:48 PM BALLING MACHINE OPERATOR Inhaled Oxygen Concentration - - Weight 89.4 kg (197 lb) 04/15/2021 1:48 PM BALLING MACHINE OPERATOR Height 180.3 cm (5' 11) 04/15/2021 1:48 PM BALLING MACHINE OPERATOR Body Mass Index 27.48 04/15/2021 1:48 PM BALLING MACHINE OPERATOR documented in this encounter Patient Instructions Patient InstructionsShantal Thomas CMA - 04/15/2021 2:00 PM CST Preventive Health Recommendations Male Ages 40 to 49 Yearly exam: ?? See your health care provider every year in order to o Review health changes. o Discuss preventive care. o Review your medicines if your doctor has prescribed any. ??? You should be tested each year for STDs (sexually transmitted diseases) if you???re at risk. ??? Have a cholesterol test every 5 years. ??? Have a colonoscopy (test for colon cancer) if someone in your family has had colon cancer or polyps before age 50. ??? After age 45, have a diabetes test (fasting glucose). If you are at risk for diabetes, you should have this test every 3 years. ??? Talk with your health care provider about whether or not a prostate cancer screening test (PSA) is right for you. Shots: Get a flu shot each year. Get a tetanus shot every 10 years. Nutrition: ??? Eat at least 5 servings of fruits and vegetables daily. ??? Eat whole-grain bread, whole-wheat pasta and brown rice instead of white grains and rice. ??? Get adequate Calcium and Vitamin D. Lifestyle ??? Exercise for at least 150 minutes a week (30 minutes a day, 5 days a week). This will help you control your weight and prevent disease. ??? Limit alcohol to one drink per day. ??? No smoking. ??? Wear sunscreen to prevent skin cancer. ??? See your dentist every six months for an exam and cleaning. ING MACHINE OPERATOR documented in this encounter Progress Notes Jeri Ibrahim PA-C - 04/15/2021 2:00 PM CST SUBJECTIVE: CC: Ezra Yanez is an 50 year old male who presents for preventative health visit. Patient has been advised of split billing requirements and indicates understanding: Yes Healthy Habits: Getting at least 3 servings of Calcium per day: Yes Bi-annual eye exam: Yes Dental care twice a year: Yes Sleep apnea or symptoms of sleep apnea: Excessive snoring Diet: Regular (no restrictions) Frequency of exercise: 1 day/week Duration of exercise: Less than 15 minutes Taking medications regularly: Yes Medication side effects: None PHQ-2 Total Score: 0 Additional concerns today: Yes Today's PHQ-2 Score: PHQ-2 (??1998 Pfizer) 04/11/2021 Q1: Little interest or pleasure in doing things 0 Q2: Feeling down, depressed or hopeless 0 PHQ-2 Score 0 PHQ-2 Total Score (12-17 Years)- Positive if 3 or more points; Administer PHQ-A if positive - Q1: Little interest or pleasure in doing things Not at all Q2: Feeling down, depressed or hopeless Not at all PHQ-2 Score 0 Abuse: Current or Past(Physical, Sexual or Emotional)- No Do you feel safe in your environment? Yes Have you ever done Advance Care Planning? (For example, a Health Directive, POLST, or a discussion with a medical provider or your loved ones about your wishes): Info given Social History Tobacco Use ??? Smoking status: Former Smoker Packs/day: 0.00 Years: 0.00 Pack years: 0.00 Quit date: 10/15/1998 Years since quittin.5 ??? Smokeless tobacco: Never Used Substance Use Topics ??? Alcohol use: Yes Comment: socially Alcohol Use 04/11/2021 Prescreen: >3 drinks/day or >7 drinks/week? Yes Prescreen: >3 drinks/day or >7 drinks/week? - AUDIT SCORE 7 Last PSA: PSA Date Value Ref Range Status 10/11/2014 0.52 0 - 4 ug/L Final Reviewed orders with patient. Reviewed health maintenance and updated orders accordingly - Yes Lab work is in process Reviewed and updated as needed this visit by clinical staff Reviewed and updated as needed this visit by Provider Past Medical History: Diagnosis Date ??? Bronchitis with bronchospasm 11/16/2011 ??? Herpes simplex ??? Hyperlipemia ??? Scaphoid fracture of wrist 2013 left Review of Systems Constitutional: Negative for chills and fever. HENT: Negative for congestion, ear pain, hearing loss and sore throat. Eyes: Negative for pain and visual disturbance. Respiratory: Negative for cough and shortness of breath. Cardiovascular: Negative for chest pain, palpitations and peripheral edema. Gastrointestinal: Negative for abdominal pain, constipation, diarrhea, heartburn, hematochezia and nausea. Genitourinary: Positive for frequency. Negative for dysuria, genital sores, hematuria, impotence, penile discharge and urgency. Musculoskeletal: Negative for arthralgias, joint swelling and myalgias. Skin: Negative for rash. Neurological: Positive for headaches. Negative for dizziness, weakness and paresthesias. Psychiatric/Behavioral: Negative for mood changes. The patient is not nervous/anxious. OBJECTIVE: BP 120/72 (BP Location: Right arm, Patient Position: Chair, Cuff Size: Adult Regular) Pulse 74 Temp 97.9 ??F (36.6 ??C) (Oral) Resp 12 Ht 1.803 m (5' 11) Wt 89.4 kg (197 lb) SpO2 99% BMI27.48 kg/m?? Physical Exam GENERAL: healthy, alert and no distress EYES: Eyes grossly normal to inspection, PERRL and conjunctivae and sclerae normal HENT: ear canals and TM's normal, nose and mouth without ulcers or lesions NECK: no adenopathy, no asymmetry, masses, or scars and thyroid normal to palpation RESP: lungs clear to auscultation - no rales, rhonchi or wheezes CV: regular rate and rhythm, normal S1 S2, no S3 or S4, no murmur, click or rub, no peripheral edemaand peripheral pulses strong ABDOMEN: soft, nontender, no hepatosplenomegaly, no masses and bowel sounds normal MS: no gross musculoskeletal defects noted, no edema SKIN: no suspicious lesions or rashes NEURO: Normal strength and tone, mentation intact and speech normal PSYCH: mentation appears normal, affect normal/bright ASSESSMENT/PLAN: (Z00.00) Routine general medical examination at a health care facility (primary encounter diagnosis) Comment: Plan: CBC with platelets, Hemoglobin A1c, Lipid panel reflex to direct LDL Non-fasting, Comprehensive metabolic panel (BMP + Alb, Alk Phos, ALT, AST, Total. Bili, TP), PSA, screen (R45.4) Irritability Comment: will increase dose a bit to 30 mg daily Plan: citalopram (CELEXA) 20 MG tablet (E55.9) Vitamin D deficiency Comment: taking 2000 international unit(s) daily Plan: Vitamin D Deficiency (B00.9) Herpes simplex Comment: Plan: valACYclovir (VALTREX) 1000 mg tablet (Z91.030) Bee sting allergy Comment: Plan: EPINEPHrine (ANY BX GENERIC EQUIV) 0.3 MG/0.3ML injection 2-pack (Z12.11, Z12.12) Screening for colorectal cancer Comment: Plan: Adult Gastro Ref - Procedure Only (Z11.59) Need for hepatitis C screening test Comment: Plan: Hepatitis C Screen Reflex to HCV RNA Quant and Genotype Patient has been advised of split billing requirements and indicates understanding: Yes COUNSELING: Reviewed preventive health counseling, as reflected in patient instructions Regular exercise Healthy diet/nutrition Consider Hep C screening for all patients one time for ages 18-79 years Colon cancer screening Prostate cancer screening Estimated body mass index is 27.49 kg/m?? as calculated from the following: Height as of 04/07/19: 1.798 m (5' 10.8). Weight as of 04/10/21: 88.9 kg (196 lb). Weight management plan: Discussed healthy diet and exercise guidelines He reports that he quit smoking about 22 years ago. He smoked 0.00 packs per day for 0.00 years. He has never used smokeless tobacco. Counseling Resources: ATP IV Guidelines Pooled Cohorts Equation Calculator FRAX Risk Assessment ICSI Preventive Guidelines Dietary Guidelines for Americans, 2009 USDA's MyPlate ASA Prophylaxis Lung CA Screening Jeri Ibrahim PA-C [facility] ING MACHINE OPERATOR documented in this encounter Plan of Treatment Upcoming Encounters Date Type Specialty Care Team Description 02/04/2022 Virtual Visit Behavioral Health Janak Marquez, [facility] [address] [address] (Wo rk) Scheduled Referrals Name Type Priority Associated Diagnoses Order S chedule Adult Gastro Ref - Referral Routine: Next Screening for Expecte d: Procedure Only available opening colorectal cancer (Approximate), Expires: 04/15/2022 documented as of this encounter Procedures Procedure Name Priority Date/Time Associated Comments Diagnosis HEPATITIS C SCREEN Routine 04/15/2021 2:42 PM Need for hepatit is Results for this REFLEX TO HCV RNA BALLING MACHINE OPERATOR C screening test proced ure are in QUANT AND GENOTYPE the resul ts section. VITAMIN D DEFICIENCY Routine 04/15/2021 2:42 PM Vitamin D R esults for this SCREENING BALLING MACHINE OPERATOR deficiency procedure are i n the results section. PROSTATE SPECIFIC Routine 04/15/2021 2:42 PM Routine general R esults for this ANTIGEN SCREEN BALLING MACHINE OPERATOR medical examination proced ure are in at a health care the results facility section. LIPID REFLEX TO DIRECT Routine 04/15/2021 2:42 PM Routine gene ral Results for this LDL PANEL BALLING MACHINE OPERATOR medical examination procedur e are in at a health care the results facility section. HEMOGLOBIN A1C Routine 04/15/2021 2:42 PM Routine general Resu lts for this BALLING MACHINE OPERATOR medical examination procedur e are in at a health care the results facility section. COMPREHENSIVE Routine 04/15/2021 2:42 PM Routine general Resul ts for this METABOLIC PANEL BALLING MACHINE OPERATOR medical examination proce dure are in at a health care the results facility section. CBC WITH PLATELETS Routine 04/15/2021 2:42 PM Routine general Results for this BALLING MACHINE OPERATOR medical examination procedur e are in at a health care the results facility section. documented in this encounter Results Vitamin D Deficiency (04/15/2021 2:42 PM BALLING MACHINE OPERATOR) P athologist Signature Vitamin D, 41 20 - 75 04/16/2021 [facility] Total ug/L 2:51 PM BALLING MACHINE OPERATOR CORE/PROT/ENDO (25-Hydroxy) Specimen Anatomical Collection Method / Collection Time Recei alvina Time (Source) Location / Volume Laterality Blood STRUCTURE OF LEFT Venipuncture / 04/15/2021 2:42 04/15 2:42 UPPER LIMB / Unknown PM BALLING MACHINE OPERATOR PM BALLING MACHINE OPERATOR Unknown Narrative [facility] CORE/PROT/ENDO - 04/16/2021 2:51 PM BALLING MACHINE OPERATOR Season, race, dietary intake, and treatment affect the concentration of 16-ezgfgsn-Kssmcmh D. Values may decrease during winter months and in crease during summer months. Values 20- 29 ug/L may indicate Vitamin D insufficiency and values <20 ug/L may indicate Vitamin D deficiency. Vitamin D determination is routinely per formed by an immunoassay specific for 25 hydroxyvitamin D3. ??If an individual is on vitamin D2(ergocalciferol) supplementation, please specify 25 OH vitamin D2 and D3 level determination by LCMSMS test VITD23. Jeri Ibrahim PA-C LAB - BLOOD ORDERABLES Performing Organization Address City/State/ZIP Code Phon e Number [place] [address] CORE/PROT/ENDO Core/Prot/Endo [address] [facility] Building, Room 3-580 SPECIALTY [facility] Specialty Core [place], [place] [phone] CORE/PROT/ENDO Lab [address], [facility] [address] [facility], Room L271-5 PSA, screen (04/15/2021 2:42 PM BALLING MACHINE OPERATOR) P athologist Signature Prostate 0.46 0.00 - 04/15/2021 [facility] Specific 4.00 ug/L 5:25 PM BALLING MACHINE OPERATOR Antigen Screen Specimen Anatomical Collection Method / Collection Time Recei alvina Time (Source) Location / Volume Laterality Blood STRUCTURE OF LEFT Venipuncture / 04/15/2021 2:42 04/15 2:42 UPPER LIMB / Unknown PM BALLING MACHINE OPERATOR PM BALLING MACHINE OPERATOR Unknown Jeri Ibrahim PA-C LAB - BLOOD ORDERABLES Performing Organization Address City/State/ZIP Code Phon e Number OX LABORATORY [place], [place] [phone] [place] [facility] [address] [place] [address] Lab (no room number, 1st floor of clinic) [facility] [place], [place] [phone] [place] [phone] [address] Lab (no room number, 1st floor of clinic) (ABNORMAL) Comprehensive metabolic panel (BMP + Alb, Alk Phos, ALT, AST, Total. Bili, TP) (04/15/2021 2:42 PM BALLING MACHINE OPERATOR) Analysis Performed At Patho logist Time Signature Sodium 138 133 - 144 04/15/2021 [facility] mmol/L 5:25 PM BALLING MACHINE OPERATOR Potassium 4.7 3.4 - 5.3 04/15/2021 [facility] mmol/L 5:25 PM BALLING MACHINE OPERATOR Chloride 104 94 - 109 04/15/2021 [facility] mmol/L 5:25 PM BALLING MACHINE OPERATOR Carbon Dioxide 33 (H) 20 - 32 04/15/2021 [facility] (CO2) mmol/L 5:25 PM BALLING MACHINE OPERATOR Anion Gap 1 (L) 3 - 14 04/15/2021 [facility] mmol/L 5:25 PM BALLING MACHINE OPERATOR Urea Nitrogen 15 7 - 30 04/15/2021 [facility] mg/dL 5:25 PM BALLING MACHINE OPERATOR Creatinine 0.98 0.66 - 04/15/2021 [facility] 1.25 mg/dL 5:25 PM BALLING MACHINE OPERATOR Calcium 9.1 8.5 - 10.1 04/15/2021 [facility] mg/dL 5:25 PM BALLING MACHINE OPERATOR Glucose 91 70 - 99 04/15/2021 [facility] mg/dL 5:25 PM BALLING MACHINE OPERATOR Alkaline 70 40 - 150 04/15/2021 [facility] Phosphatase U/L 5:25 PM BALLING MACHINE OPERATOR AST 24 0 - 45 U/L 04/15/2021 [facility] 5:25 PM BALLING MACHINE OPERATOR ALT 40 0 - 70 U/L 04/15/2021 [facility] 5:25 PM BALLING MACHINE OPERATOR Protein Total 7.3 6.8 - 8.8 04/15/2021 [facility] g/dL 5:25 PM BALLING MACHINE OPERATOR Albumin 4.0 3.4 - 5.0 04/15/2021 [facility] g/dL 5:25 PM BALLING MACHINE OPERATOR Bilirubin Total 0.5 0.2 - 1.3 04/15/2021 [facility] mg/dL 5:25 PM BALLING MACHINE OPERATOR GFR Estimate >90 >60 04/15/2021 [facility] mL/min/1.7 5:25 PM BALLING MACHINE OPERATOR 3m2 Comment: Effective April 15, 2021 eGF Rcr in adults is calculated using the 2020 CKD-EPI creatinine equation which includ es age and gender (Keith et al., NEJ, DOI: 10.1056/MRTTto4256517) Specimen Anatomical Collection Method / Collection Time Recei alvina Time (Source) Location / Volume Laterality Blood STRUCTURE OF LEFT Venipuncture / 04/15/2021 2:42 04/15 2:42 UPPER LIMB / Unknown PM BALLING MACHINE OPERATOR PM BALLING MACHINE OPERATOR Unknown Jeri Ibrahim PA-C LAB - BLOOD ORDERABLES Performing Organization Address City/State/ZIP Code Phon e Number OX LABORATORY [place], [place] [phone] [place] [facility] [address] [place] [address] Lab (no room number, 1st floor of clinic) [facility] LABORATORY [place], [place] [phone] [place] [id number] [address] Lab (no room number, 1st floor of clinic) Lipid panel reflex to direct LDL Non-fasting (04/15/2021 2:42 PM BALLING MACHINE OPERATOR) [facility] Method Time Signature Cholesterol 188 <200 04/16/2021 [facility] mg/dL 11:38 AM BALLING MACHINE OPERATOR Triglycerides 103 <150 04/16/2021 [facility] mg/dL 11:38 AM BALLING MACHINE OPERATOR Direct Measure 77 >=40 04/16/2021 [facility] HDL mg/dL 11:38 AM BALLING MACHINE OPERATOR LDL Cholesterol 90 <=100 04/16/2021 [facility] Y Calculated mg/dL 11:38 AM BALLING MACHINE OPERATOR Non HDL 111 <130 04/16/2021 [facility] Cholesterol mg/dL 11:38 AM BALLING MACHINE OPERATOR Patient Fasting > Unknown 04/16/2021 [facility] RY 8hrs? 11:38 AM BALLING MACHINE OPERATOR Specimen Anatomical Collection Method / Collection Time Recei alvina Time (Source) Location / Volume Laterality Blood STRUCTURE OF LEFT Venipuncture / 04/15/2021 2:42 04/15 2:42 UPPER LIMB / Unknown PM BALLING MACHINE OPERATOR PM BALLING MACHINE OPERATOR Unknown Narrative [facility] - 04/16/2021 11:38 AM BALLING MACHINE OPERATOR Cholesterol Desirable: ??<200 mg/dL Triglycerides Normal: ??Less than 150 mg/dL Borderline High: ??150-199 mg/dL High: ??200-499 mg/dL Very High: ??Greater than or equal to 50 0 mg/dL Direct Measure HDL Female: ??Greater than or equal to 50 mg /dL Male: ??Greater than or equal to 40 mg/d L LDL Cholesterol Desirable: ??<100mg/dL Above Desirable: ??100-129 mg/dL Borderline High: ??130-159 mg/dL High: ??160-189 mg/dL Very High: ??>= 190 mg/dL Non HDL Cholesterol Desirable: ??130 mg/dL Above Desirable: ??130-159 mg/dL Borderline High: ??160-189 mg/dL High: ??190-219 mg/dL Very High: ??Greater than or equal to 22 0 mg/dL Jeri Ibrahim PA-C LAB - BLOOD ORDERABLES Performing Organization Address City/State/ZIP Code Phon e Number [facility] [address] [phone] [facility] LABORATORY [place], [place] [phone] [facility] [phone], [facility] [address] Lab (no room number, 1st floor of clinic) [place] [address], [facility] [phone] Hemoglobin A1c (04/15/2021 2:42 PM BALLING MACHINE OPERATOR) athologist Signature Hemoglobin A1C 5.3 0.0 - 5.6 04/15/2021 [facility] % 2:50 PM BALLING MACHINE OPERATOR Comment: Normal <5.7% Prediabetes 5.7-6.4% ?? Diabetes 6.5% or higher Note: Adopted from ADA consensus guideli brad. Specimen Anatomical Collection Method / Collection Time Recei alvina Time (Source) Location / Volume Laterality Blood STRUCTURE OF LEFT Venipuncture / 04/15/2021 2:42 04/15 2:42 UPPER LIMB / Unknown PM BALLING MACHINE OPERATOR PM BALLING MACHINE OPERATOR Unknown Jeri Ibrahim PA-C LAB - BLOOD ORDERABLES Performing Organization Address City/State/ZIP Code Phon e Number [place] [address] [phone] [facility] [address] [facility] Lab (no room number, 1st floor of clinic) [facility] [place], [place] [phone] [facility] [phone] [address] [facility] Lab (no room number, 1st floor of clinic) CBC with platelets (04/15/2021 2:42 PM BALLING MACHINE OPERATOR) athologist Signature WBC Count 6.6 4.0 - 11.0 04/15/2021 [facility] 10e3/uL 2:57 PM BALLING MACHINE OPERATOR RBC Count 4.90 4.40 - 04/15/2021 [facility] 5.90 2:57 PM BALLING MACHINE OPERATOR 10e6/uL Hemoglobin 15.2 13.3 - 04/15/2021 [facility] 17.7 g/dL 2:57 PM BALLING MACHINE OPERATOR Hematocrit 45.3 40.0 - 04/15/2021 [facility] 53.0 % 2:57 PM BALLING MACHINE OPERATOR MCV 92 78 - 100 04/15/2021 [facility] fL 2:57 PM BALLING MACHINE OPERATOR MCH 31.0 26.5 - 04/15/2021 [facility] 33.0 pg 2:57 PM BALLING MACHINE OPERATOR MCHC 33.6 31.5 - 04/15/2021 [facility] 36.5 g/dL 2:57 PM BALLING MACHINE OPERATOR RDW 12.7 10.0 - 04/15/2021 [facility] 15.0 % 2:57 PM BALLING MACHINE OPERATOR Platelet Count 245 150 - 450 04/15/2021 [facility] 10e3/uL 2:57 PM BALLING MACHINE OPERATOR Specimen Anatomical Collection Method / Collection Time Recei alvina Time (Source) Location / Volume Laterality Blood STRUCTURE OF LEFT Venipuncture / 04/15/2021 2:42 04/15 2:42 UPPER LIMB / Unknown PM BALLING MACHINE OPERATOR PM BALLING MACHINE OPERATOR Unknown Jeri Ibrahim PA-C LAB - BLOOD ORDERABLES Performing Organization Address City/State/ZIP Code Phon e Number [place] [address] [phone] [facility] [address] [facility] Lab (no room number, 1st floor of clinic) [facility] [place], [place] [phone] [place] [phone] [place] [address] Lab [address] [facility] Lab (no room number, 1st floor of clinic) Hepatitis C Screen Reflex to HCV RNA Quant and Genotype (04/15/2021 2:42 PM BALLING MACHINE OPERATOR) [facility] Method Time Signature Hepatitis C Nonreactive Nonreactive 04/16/2021 [facility] Antibody 2:51 PM BALLING MACHINE OPERATOR CORE/PROT/EN DO Specimen Anatomical Collection Method / Collection Time Recei alvina Time (Source) Location / Volume Laterality Blood STRUCTURE OF LEFT Venipuncture / 04/15/2021 2:42 04/15 2:42 UPPER LIMB / Unknown PM BALLING MACHINE OPERATOR PM BALLING MACHINE OPERATOR Unknown Narrative [facility] CORE/PROT/ENDO - 04/16/2021 2:51 PM BALLING MACHINE OPERATOR Assay performance characteristics have n ot been established for newborns, infants, and children. Jeri Ibrahim PA-C LAB - BLOOD ORDERABLES Performing Organization Address City/State/ZIP Code Phon e Number [facility] [place] [address] CORE/PROT/ENDO Core/Prot/Endo [address] [facility] Building, Room 3-580 SPECIALTY [facility] Specialty Core [place], [place] [phone] CORE/PROT/ENDO Lab [address], [facility] [address] [facility], Room L271-5 documented in this encounter Visit Diagnoses Diagnosis Routine general medical examination at a health care facility - Primary Irritability Vitamin D deficiency Unspecified vitamin D deficiency Herpes simplex Herpes simplex without mention of compli cation Bee sting allergy Toxic effect of venom Screening for colorectal cancer Special screening for malignant neoplasm s, colon Need for hepatitis C screening test Special screening examination for other specified viral diseases documented in this encounter Additional Health Concerns Assessment Noted Time PHQ-9 Depression Total Score: 2 04/11/2021 7:02 AM BALLING MACHINE OPERATOR documented as of this encounter Care Teams Claims Administrator Relationship Specialty Start Date End Date Jeri Ibrahim PA-C PCP - General Physician Continuous Improvement Director 01/14/15 [address] [place] [address] Jeri Ibrahim PA-C Assigned PCP 05/16/17 [address] [place] [address] documented as of this encounter
--- OUTSIDE RECORDS SUMMARY | 2022-01-26 22:30 | XMS_ITS | Encounter Summary ---
:1970 Author Organization [address] [address] Care Team Providers Name Role Phone Jeri Ibrahim PA-C Primary Care Provider Jeri Ibrahim PA-C Unavailable Encounter Details Date Type Department Care Team Description 08/26/2021 Virtual Visit [facility] Bridgett Marquez Ge neralized anxiety Mental Health & OSTRICH FARM WORKER disorder (Primary Dx) Addiction [address] [address] [phone] Social History Tobacco Use Types Packs/Day Years [...] or relatives? How often do you attend rastafari or 1 to 4 times per year 03/26 rastafari services? Do you belong to any clubs or Yes 04/11/2021 organizations such as rastafari groups, unions, fraternal or athletic groups, or [...] place to sleep or slept in a [place] [facility] [place] (including now)? Education Answer Date Recorded What is the highest level of school Master's degree (e.g., Gideon Barcenas, MS, 04/07/2019 you have completed or the highest Dawn, MEd, LEAD DIE MOLDER, BETI) degree you have received? 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/2021 5:06 PM REAL ESTATE TRANSACTION COORDINATOR COVID-19 Exposure Response Date Recorded In the last 10 days, have you been in contact with Yes 08/26/2021 8:38 AM CDT someone who was confirmed or suspected to have Coronavirus/COVID-19? documented as of this encounter Progress Notes Bridgett Marquez, OSTRICH FARM WORKER - 08/26/2021 9:30 AM CDT Images from the original note were not included. [facility] Primary Care: Integrated Behavioral Health 08/26/2021 Behavioral Health Clinician Progress Note Patient Name: Ezra Yanez Service Type: Individual Service Location: Face to Face in Clinic Session Start Time: 9:30 a.m. Session End Time: 10:16 a.m. Session Length: 38 - 52 Attendees: Client Service Modality: Video Visit: Provider verified identity through the following two step process. Patient provided: Patient photo and Patient Telemedicine Visit: The patient's condition can be safely assessed and treated via synchronous audioand visual telemedicine encounter. Reason for Telemedicine Visit: Patient has requested telehealth visit Originating Site (Patient Location): Patient's home Distant Site (Provider Location): [facility] MENT[facility] & [facility] Consent: The patient/guardian has verbally consented to: the potential risks and benefits of telemedicine (video visit) versus in person care; bill my insurance or make self-payment for services provided; and responsibility for payment of non-covered services. Patient would like the video invitation sent by: My Chart Mode of Communication:?? Video Conference via [employer] As the provider I attest to compliance with applicable laws and regulations related to telemedicine. Visit Activities (Refresh list every visit): [facility] Only Diagnostic Assessment Date: 08/12/21 Treatment Plan Review Date: See Flowsheets for [...] minutes): No Interactive Complexity: No Crisis: No [facility] Patient: No Treatment Objective(s) Addressed in This Session: Target Behavior(s): anxiety Anxiety: will experience a reduction in anxiety, will develop more effective coping skills to manageanxiety symptoms and will develop healthy cognitive patterns and beliefs Goal 1: Patient will decrease anxiety ???I will know I've met my goal when I don't stress about small situations and let go.??? Goal 2: Patient will increase interpersonal effectiveness ???I will know I've met my goal when I can remember the big picture instead of getting lost in the minutia of the little things.??? Current Stressors / Issues: Pt states he's been doing pretty well, normal kid stuff. His kids are learning to scuba dive. He is reacting to what Emily is doing with kids (phone-related). Pt struggles with her inattentiveness. Pt recognizes when her stimulant has worn off later in the day, conversations aren't as productive. Pt decided to drink last week and was able to consume two alcoholic drinks and had no issues whatsoever. Did notice, after not drinking for a period of time, that he didn't sleep as well that night so Pt continues to struggle with typical teen behaviors, wanting them to use logic and not understand Discussed surrounded how pt's reaction to his anxiety is to control his environemnt, including Emily,her kids, his kids. shoulds. We discussed treatment goals, objectives. Created tx plan. Progress on Treatment Objective(s) / Homework: Achieved / completed to satisfaction - PREPARATION (Decided to change - considering how); Intervenedby negotiating a change plan and determining options / strategies for behavior change, identifying triggers, exploring social supports, and working towards setting a date to begin behavior change Motivational Interviewing [place] Intervention: Expressed Empathy/Understanding, Supported Autonomy, Collaboration, Evocation and Permission to raise concern or advise Change Talk Expressed by the Patient: Reasons to change Provider Response to Change Talk: E - Evoked more info from patient about behavior change and A - Affirmed patient's thoughts, decisions, or attempts at behavior change Care Plan review completed: No Medication Review: No changes to current psychiatric medication(s) Medication Compliance: Yes Changes in Health Issues: [...] time, however patient was encouraged to call [place] [phone] should there be a change in any [...] a follow up appointment with the clinic [facility] in 2 weeks. ?? He was also given homework to look into book Parenting your teen with love and logic and check out Dashawn Dawn on teen brains ?? Continue going to gym 4 days per week- heart rate up to help reduce anxiety ?? CD Recommendations: Practice Harm Reduction: attempt no more than 7 drinks weekly and greatly reduce caffeine consumption (at least in half). SHELLEY Sinha, OSTRICH FARM WORKER Individual Treatment Plan Patient's Name: Ezra Yanez Date Of : 1970 Date of Creation: 08/26/2021 Date Treatment Plan Last Reviewed/Revised: DSM5 Diagnoses: 300.02 (F41.1) Generalized Anxiety Disorder Psychosocial / Contextual Factors: interpersonal difficulties with girlfriend and her 13-year-old transgender son and issues within girlfriend's family. Difficulties in being pseudo-stepparent to thesechildren. PROMIS (reviewed every 90 days): Referral / Collaboration: Referral to another professional/service [...] 02/04/2022 Virtual Visit Behavioral Health Janak Marquez, [facility] [address] [place] [address] (Wo rk) documented as of this encounter Visit Diagnoses Diagnosis Generalized anxiety disorder - Primary documented in this encounter Additional Health Concerns Assessment Noted Time PHQ-9 Depression Total Score: 2 07/29/2021 2:14 PM CDT documented as of this encounter Care Teams Fireworks Maker Relationship Specialty Start Date End Date Jeri Ibrahim PA-C PCP - General Physician Shell Worker 01/14/15 [address] [place] [address] Jeri Ibrahim PA-C Assigned PCP 05/16/17 [address] [place] [address] documented as of this encounter
--- OUTSIDE RECORDS SUMMARY | 2022-01-26 22:30 | XMS_ITS | Encounter Summary ---
:1970 Author Organization [address] [address] Care Team Providers Name Role Phone Jeri Ibrahim PA-C Primary Care Provider Jeri Ibrahim PA-C Unavailable Encounter Details Date Type Department Care Team Description 09/15/2021 Office Visit [facility] Bridgett Marquez Gen eralyndsey anxiety Mental Health & RN PATIENT SERVICES disorder (Primary Dx) Addiction [address] [id number] [phone] Social History Tobacco Use Types Packs/Day Years [...] or relatives? How often do you attend baptism or 1 to 4 times per year 03/26 rastafarian services? Do you belong to any clubs or Yes 04/11/2021 organizations such as baptism groups, unions, fraternal or athletic groups, or [...] place to sleep or slept in a custodial (including now)? Education Answer Date Recorded What is the highest level of school Master's degree (e.g., M A, MS, 04/07/2019 you have completed or the highest Dawn, MEd, BRISKET PULLER, BETI) degree you have received? 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/2021 5:06 PM ENGAGEMENT MGR COVID-19 Exposure Response Date Recorded In the last 10 days, have you been in contact with No / Unsu re 09/15/2021 12:25 PM CDT someone who was confirmed or suspected to have Coronavirus/COVID-19? documented as of this encounter Progress Notes Bridgett Marquez, [facility] - 09/15/2021 12:30 PM CDT Images from the original note were not included. [facility] Primary Care: Integrated Behavioral Health 09/15/2021 Behavioral Health Clinician Progress Note Patient Name: Ezra Yanze Service Type: Individual Service Location: Face to Face in Clinic Session Start Time: 12:30 p.m. Session End Time: 1:20 p.m. Session Length: 38 - 52 Attendees: Client Service Modality: In person Visit Activities (Refresh list every visit): [facility] Only Diagnostic Assessment Date: 08/12/21 Treatment Plan [...] minutes): No Interactive Complexity: No Crisis: No [facility] Patient: No Treatment Objective(s) Addressed in This [...] little things.??? Current Stressors / Issues: Pt bought and has been reading Parenting Your Teen With Love and Logic. Disagrees with some of the interventions but states he understands the point of having teens be disciplined mostly by natural consequences. Pt described situation wherein he reacted very differently when Emily's daughter was arguing with her and pt not stepping in. Was very difficult for him to stay out, but successfully did so. Pt talks about Emily's drinking and disagreement with some ways in which she parents. Discussed pt's tendency to try controlling external forces in order to decrease his anxiety. Pt has decreased caffeineuse. Technical Illustrations Map Inker provided CBT handout to pt. Progress on Treatment Objective(s) / Homework: Achieved / completed to satisfaction - PREPARATION (Decided to change - considering how); Intervenedby negotiating a change plan and determining options / strategies for behavior change, identifying triggers, exploring social supports, and working towards setting a date to begin behavior change Motivational Interviewing [place] Intervention: Expressed Empathy/Understanding, Supported Autonomy, Collaboration, Evocation [...] medications, see updated Medication List in EPIC. Recent increase to 40 mgs of Citalopram Medication Compliance: Yes Changes in Health Issues: [...] time, however patient was encouraged to call [place] [phone] should there be a change in any of these risk factors. Appearance: Appropriate Eye Contact: Good Psychomotor Behavior: Normal Attitude: Cooperative Orientation: All Speech Rate / Production: Normal/ Responsive Volume: Normal Mood: Anxious Affect: Expansive Thought Content: Clear Thought Form: Coherent Logical Insight: Good Diagnoses: 1. Generalized anxiety disorder Collateral Reports Completed: PHQ and CHANG Plan: (Homework, other): ?? Patient was given information about behavioral services and encouraged to schedule a follow up appointment with the clinic [facility] in 2 weeks. ?? He was also given check out Dashawn Dawn on teen brains ?? Focus on self instead of external to manage sx of anxiety ?? Pt will read handout on CBT ?? Continue going to gym 4 days per week- heart rate up to help reduce anxiety ?? CD Recommendations: Practice Harm Reduction: attempt no more than 7 drinks weekly and greatly reduce caffeine consumption (at least in half). SHELLEY Sinha, [facility] Individual Treatment Plan Patient's Name: Ezra [...] Visit Behavioral Health Janak Marquez [facility] [address] [address] (Wo rk) documented as of this encounter Visit Diagnoses Diagnosis Generalized anxiety disorder - Primary documented in this encounter Additional Health Concerns Assessment Noted Time PHQ-9 Depression Total Score: 2 07/29/2021 2:14 PM CDT documented as of this encounter Care Teams Business Continuity Specialist Relationship Specialty Start Date End Date Jeri Ibrahim PA-C PCP - General Physician Real Estate Sales Manager 01/14/15 [address] [place] [address] Jeri Ibrahim PA-C Assigned PCP 05/16/17 [address] [place] [address] documented as of this encounter
--- OUTSIDE RECORDS SUMMARY | 2022-01-26 22:30 | XMS_ITS | Encounter Summary ---
:1970 Author Organization [facility] Address [address] [place] [address]. [place] [address] Care Team Providers Name Role Phone Jeri Ibrahim PA-C Primary Care Provider Jeri Ibrahim PA-C Unavailable Encounter Details Date Type Department Care Team Description 08/25/2021 Travel Social History Tobacco Use Types Packs/Day [...] have completed or the highest Dawn, MEd, PRICING DIRECTOR, BETI) degree you have received? 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/2021 5:06 PM MD UROLOGIST COVID-19 Exposure Response Date Recorded In the last 10 days, have you been in contact with Yes 08/25/2021 9:34 AM CDT someone who was confirmed or suspected to have Coronavirus/COVID-19? documented as of this encounter Plan of Treatment Upcoming Encounters Date Type Specialty Care Team Description 02/04/2022 Virtual Visit Behavioral Health Janak Marquez, [facility] [address] [facility] [address] [place] [phone] (Wo rk) documented as of this encounter Visit Diagnoses Not on filedocumented in this encounter Additional Health Concerns Assessment Noted Time PHQ-9 Depression Total Score: 2 07/29/2021 2:14 PM CDT documented as of this encounter Care Teams Home Health Care Worker Relationship Specialty Start Date End Date Jeri Ibrahim PA-C PCP - General Physician Railroad Brake Operator 01/14/15 [address] [place] [address] Jeri Ibrahim PA-C Assigned PCP 05/16/17 [address] [place] [address] documented as of this encounter
--- OUTSIDE RECORDS SUMMARY | 2022-01-26 22:30 | XMS_ITS | Encounter Summary ---
:1970 Author Organization [facility] Address [address] [place] [address]. [place] [address] Care Team Providers Name Role Phone Jeri Ibrahim PA-C Primary Care Provider Jeri Ibrahim PA-C Unavailable Encounter Details Date Type Department Care Team Description 07/30/2021 Travel Social History Tobacco Use Types Packs/Day [...] 1 to 4 times per year 03/26 amish services? Do you belong to any clubs [...] have completed or the highest Dawn, MEd, BRIDGE MAINTENANCE WORKER, BETI) degree you have received? 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/2021 5:06 PM REAL ESTATE REP COVID-19 Exposure Response Date Recorded In the last month, have you been in contact with No / Unsure 07/30/2021 12:27 PM CDT someone who was confirmed or suspected to have Coronavirus / COVID-19? documented as of this encounter Plan of Treatment Upcoming Encounters Date Type Specialty Care Team Description 02/04/2022 Virtual Visit Behavioral Health Janak Marquez, [facility] 24[address] [facility] [address] [place] [address] (Wo rk) documented as of this encounter Visit Diagnoses Not on filedocumented in this encounter Additional Health Concerns Assessment Noted Time PHQ-9 Depression Total Score: 2 07/29/2021 2:14 PM CDT documented as of this encounter Care Teams Student Driving Instructor Relationship Specialty Start Date End Date Jeri Ibrahim PA-C PCP - General Physician Dredgemaster 01/14/15 [address] [place] [address] Jeri Ibrahim PA-C Assigned PCP 05/16/17 [address] [place] [address] documented as of this encounter
--- OUTSIDE RECORDS SUMMARY | 2022-01-26 22:30 | XMS_ITS | Encounter Summary ---
:1970 Author Organization [facility] Address [address] [place] [address]. [place] [address] Care Team Providers Name Role Phone Jeri Ibrahim PA-C Primary Care Provider Jeri Ibrahim PA-C Unavailable Encounter Details Date Type Department Care Team Description 04/11/2021 Travel Social History Tobacco Use Types Packs/Day [...] place to sleep or slept in a half-way (including now)? Education Answer Date Recorded What is the highest level of school Master's degree (e.g., M A, MS, 04/07/2019 you have completed or the highest Dawn, MEd, STUD BEEF CATTLE FARMER, BETI) degree you have received? 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 documented as of this encounter Plan of Treatment Upcoming Encounters Date Type Specialty Care Team Description 02/04/2022 Virtual Visit Behavioral Health Janak Marquez, [facility] 2450 [facility] [address] [place] [phone] (Wo rk) documented as of this encounter Visit Diagnoses Not on filedocumented in this encounter Additional Health Concerns Assessment Noted Time PHQ-9 Depression Total Score: 2 04/11/2021 7:02 AM ELECTRICAL TECHNICIAN documented as of this encounter Care Teams Garage Laborer Relationship Specialty Start Date End Date Jeri Ibrahim PA-C PCP - General Physician Home Care Music Therapist 01/14/15 [address] [place], [place] [id number] Jeri Ibrahim PA-C Assigned PCP 05/16/17 [address] [place], [place] [id number] documented as of this encounter
--- OUTSIDE RECORDS SUMMARY | 2022-01-26 22:30 | XMS_ITS | Encounter Summary ---
:1970 Author Organization [place] Address [address] [place] [address]. [place] [address] Care Team Providers Name Role Phone Jeri Ibrahim PA-C Primary Care Provider Jeri Ibrahim PA-C Unavailable Encounter Details Date Type Department Care Team Description 10/28/2021 Travel Social History Tobacco Use Types Packs/Day [...] have completed or the highest Dawn, MEd, INSURANCE TERRITORY MANAGER, BETI) degree you have received? 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/2021 5:06 PM EXTENDED INSURANCE CLERK COVID-19 Exposure Response Date Recorded In the last 10 days, have you been in contact with No / Unsu re 10/28/2021 3:55 PM CDT someone who was confirmed or suspected to have Coronavirus/COVID-19? documented as of this encounter Plan of Treatment Upcoming Encounters Date Type Specialty Care Team Description 02/04/2022 Virtual Visit Behavioral Health Janak Marquez, [facility] [address] [facility] [address] [place] [address] (Wo rk) documented as of this encounter Visit Diagnoses Not on filedocumented in this encounter Additional Health Concerns Assessment Noted Time PHQ-9 Depression Total Score: 2 07/29/2021 2:14 PM CDT documented as of this encounter Care Teams Installer Molding And Trim Relationship Specialty Start Date End Date Jeri Ibrahim PA-C PCP - General Physician Leasing Specialist 01/14/15 [address] [place] [address] Jeri Ibrahim PA-C Assigned PCP 05/16/17 [address] [place], [place] [id number] documented as of this encounter
--- OUTSIDE RECORDS SUMMARY | 2022-01-26 22:30 | XMS_ITS | Encounter Summary ---
:1970 Author Organization [place] Address [address] [place] [address]. [place] [address] Care Team Providers Name Role Phone Jeri Ibrahim PA-C Primary Care Provider Jeri Ibrahim PA-C Unavailable Encounter Details Date Type Department Care Team Description 03/28/2021 Travel Social History Tobacco Use Types Packs/Day [...] 1 to 4 times per year 03/26 baptism services? Do you belong to any clubs [...] place to sleep or slept in a fci (including now)? Education Answer Date Recorded What is the highest level of school Master's degree (e.g., M A, MS, 04/07/2019 you have completed or the highest Dawn, MEd, CONGRESSIONAL AIDE, BETI) degree you have received? 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/2021 5:06 PM SOUND TECHNICIAN COVID-19 Exposure Response Date Recorded In the last month, have you been in contact with No / Unsure 03/28/2021 3:35 PM SOUND TECHNICIAN someone who was confirmed or suspected to have Coronavirus / COVID-19? documented as of this encounter Plan of Treatment Upcoming Encounters Date Type Specialty Care Team Description 02/04/2022 Virtual Visit Behavioral Health Janak Marquez, [facility] 2450 [facility] [address] [place] [phone] (Wo rk) documented as of this encounter Visit Diagnoses Not on filedocumented in this encounter Additional Health Concerns Assessment Noted Time PHQ-9 Depression Total Score: 1 11/30/2017 7:08 AM CDT documented as of this encounter Care Teams Lime Supervisor Relationship Specialty Start Date End Date Jeri Ibrahim PA-C PCP - General Physician Liquor Clerk 01/14/15 [address] [place] [address] Jeri Ibrahim PA-C Assigned PCP 05/16/17 [address] [place] [address] documented as of this encounter
--- OUTSIDE RECORDS SUMMARY | 2022-01-26 22:30 | XMS_ITS | Encounter Summary ---
:1970 Author Organization [facility] Address [address] [place] [address]. [place] [address] Care Team Providers Name Role Phone Jeri Ibrahim PA-C Primary Care Provider Jeri Ibrahim PA-C Unavailable Reason for Referral Diagnostic Imaging MRI (Routine) - Closed Specialty Diagnoses / Procedures Referred By Contact Refer red To Contact Diagnoses Acute nonintractable headache, unspecified headache type Family history of aneurysm Headache associated with sexual activity Alison Edgar PA-C Procedures MRA Brain ([place]) wo Contrast MRA Brain ([place]) wo & w Contrast [id number] [phone] Referral ID Status Reason Start Date Expiration Date Visits Requ ested Visits Authorized [id number] Closed 04/10/2021 04/10/2022 1 1 MACIST Reason for Visit Diagnostic Imaging MRI (Routine) - Closed Specialty Diagnoses / Procedures Referred By Contact Refer red To Contact Diagnoses Acute nonintractable headache, unspecified headache type Family history of aneurysm Headache associated with sexual activity Alison Edgar PA-C Procedures MRA Brain ([place]) wo Contrast MRA Brain ([place]) wo & w Contrast [id number] [phone] Referral ID Status Reason Start Date Expiration Date Visits Requ ested Visits Authorized [id number] Closed 04/10/2021 04/10/2022 1 1 Encounter Details Date Type Department Care Team Description 04/11/2021 Hospital Encounter [facility] Edgar Alison Swapna cloud nonintractable headache, unspecified headache type; Leah Burr PA-C Family history of aneurysm; [address] [place] [address] [place] Headache asso ciated with sexual activity [address] [facility], [address] [place] [address] Social History Tobacco Use Types Packs/Day Years [...] or relatives? How often do you attend hindu or 1 to 4 times per year 03/26 uatsdin services? Do you belong to any clubs or Yes 04/11/2021 organizations such as hindu groups, unions, fraternal or athletic groups, or [...] have completed or the highest Dawn, MEd, DATA CENTER ARCHITECT, BETI) degree you have received? 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/2021 5:06 PM PHARMACIST COVID-19 Exposure Response Date Recorded In the last month, have you been in contact with No / Unsure 04/11/2021 9:35 AM PHARMACIST someone who was confirmed or suspected to [...] tablet meals and nightly). fluticasone (FLONASE) [address] 1-2 sprays into 48 mL 0 05/16/2019 [...] 02/04/2022 Virtual Visit Behavioral Health Janak Marquez, [address] [address] (Wo rk) documented as of this encounter Procedures Procedure Name Priority Date/Time Associated Diagnosis Comme nts MRA BRAIN ([place] STAT 04/11/2021 10:12 Acute nonintractabl e Results for this OF GRAY) W/O AM PHARMACIST headache, unspecified proc edure are in CONTRAST headache type the results Family history of section. aneurysm Headache associated with sexual activity documented in this encounter Results MRA Brain ([place]) wo Contrast (04/11/2021 10:12 AM PHARMACIST) Anatomical Region Laterality Modality Head, SUBRAD MR NEURO, UMP MR NEURO, RAD MR Magnetic Resonance Specimen (Source) Anatomical Location Collection Method / Collectio n Time Received Time / Laterality Volume Impressions 04/11/2021 11:21 AM PHARMACIST IMPRESSION: Normal MR angiogram of the head. ?? YUNG MANCUSO MD SYSTEM ID: ??[id number] Narrative 04/11/2021 11:21 AM PHARMACIST MR ANGIOGRAM OF THE HEAD WITHOUT CONTRAST April 11, 2021 10:12 AM HISTORY: Cerebral aneurysm screening, ge netic risk. Acute non-intractable headache, unspecified he adache type. Family history of aneurysm. Headache associated with sexua l activity. TECHNIQUE: 3D [id number] MR angiogra m of the head without contrast. MIP reconstruction of all MR a ngiographic data was performed. COMPARISON: None. FINDINGS: The bilateral distal internal carotid, basilar, bilateral anterior cerebral, bilateral middle cere bral and bilateral posterior cerebral arteries are patent and unremar kable with no evidence for cerebral artery stenosis or aneurysm. Th e anterior communicating artery is patent and unremarkable. The p osterior communicating arteries bilaterally are patent and unre markable. Procedure Note Yung Mancuso MD - 04/11/2021Forma tting of this note might be different from the original. MR ANGIOGRAM OF THE HEAD WITHOUT CONTRAS T April 11, 2021 10:12 AM HISTORY: Cerebral aneurysm screening, ge netic risk. Acute non-intractable headache, unspecified he adache type. Family history of aneurysm. Headache associated with sexua l activity. TECHNIQUE: 3D [id number] MR angiogra m of the head without contrast. MIP reconstruction of all MR a ngiographic data was performed. COMPARISON: None. FINDINGS: The bilateral distal internal carotid, basilar, bilateral anterior cerebral, bilateral middle cere bral and bilateral posterior cerebral arteries are patent and unremar kable with no evidence for cerebral artery stenosis or aneurysm. Th e anterior communicating artery is patent and unremarkable. The p osterior communicating arteries bilaterally are patent and unre markable. IMPRESSION: Normal MR angiogram of the h ead. YUNG MANCUSO MD SYSTEM ID: [id number] Alison Edgar PA-C [facility] [place] documented in this encounter Visit Diagnoses Diagnosis Acute nonintractable headache, unspecifi ed headache type Family history of aneurysm Family history of other condition Headache associated with sexual activity documented in this encounter Additional Health Concerns Assessment Noted Time PHQ-9 Depression Total Score: 2 04/11/2021 7:02 AM PHARMACIST documented as of this encounter Care Teams High School Foreign Language Tutor Relationship Specialty Start Date End Date Jeri Ibrahim PA-C PCP - General Physician Placing Judge 01/14/15 [address] [place], [place] [phone] Jeri Ibrahim PA-C Assigned PCP 05/16/17 [address] [place] [address] documented as of this encounter
--- OUTSIDE RECORDS SUMMARY | 2022-01-26 22:30 | XMS_ITS | Encounter Summary ---
:1970 Author Organization [facility] Address [address] [place] [address]. [place] [address] Care Team Providers Name Role Phone Jeri Ibrahim PA-C Primary Care Provider Jeri Ibrahim PA-C Unavailable Encounter Details Date Type Department Care Team Description 07/29/[address] [facility] Jeri Ibrahim [facility] [address] [place] [phone] Social History Tobacco Use Types Packs/Day Years [...] or relatives? How often do you attend episcopalian or 1 to 4 times per year 03/26 orthodox services? Do you belong to any clubs or Yes 04/11/2021 organizations such as episcopalian groups, unions, fraternal or athletic groups, or [...] place to sleep or slept in a prison (including now)? Education Answer Date Recorded What is the highest level of school Master's degree (e.g., M A, MS, 04/07/2019 you have completed or the highest Dawn, MEd, ZIGZAG ELASTIC ATTACHER, BETI) degree you have received? 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 documented as of this encounter Progress Notes Jeri Ibrahim PA-C - 07/29/2021 2:30 PM CDT Ezra is a 50 year old who is being evaluated via a billable video visit. How would you like to obtain your AVS? MyChart If the video visit is dropped, the invitation should be resent by: Text to cell phone: [phone] Will anyone else be joining your video visit? No Video Start Time: 2:22 PM Assessment & Plan Irritability Will increase dose Set up with [facility] - citalopram (CELEXA) 40 MG tablet; Take 1 tablet (40 mg) by mouth daily Return in about 7 weeks (around 09/16/2021) for see notes, Mood/Mental Health Recheck, Video Visit. [facility] Ezra is a 50 year old who presents for the following health issues History of Present Illness Reason for visit: Medication change Symptom onset: More than a month Symptoms include: Anxiety irritability Symptom intensity: Moderate Symptom progression: Staying the same Had these symptoms before: Yes Has tried/received treatment for these symptoms: Yes Previous treatment was successful: Yes Prior treatment description: Citalopram He eats 2-3 servings of fruits and vegetables daily.He consumes 0 sweetened beverage(s) daily.He exercises with enough effort to increase his heart rate 30 to 60 minutes per day. He exercises with enough effort to increase his heart rate 3 or less days per week. He is taking medications regularly. Depression and Anxiety Follow-Up ?? How are you doing with your depression since your last visit? Worsened slighty ?? How are you doing with your anxiety since your last visit? Worsened slighty ?? Are you having other symptoms that might be associated with depression or anxiety? Yes: iritability ?? Have you had a significant life event? No ?? Do you have any concerns with your use of alcohol or other drugs? No Social History Tobacco Use ??? Smoking status: Former Smoker Packs/day: 0.00 Years: 0.00 Pack years: 0.00 Quit date: 10/15/1998 Years since quittin.8 ??? Smokeless tobacco: Never Used Substance Use Topics ??? Alcohol use: Yes Comment: socially ??? Drug use: No PHQ 05/12/2017 11/29/2017 04/10/2021 PHQ-9 Total Score 3 1 2 Q9: Thoughts of better off /self-harm past 2 weeks Not at all Not at all Not at all CHANG-7 SCORE 04/03/2016 11/29/2017 04/10/2021 Total Score - 2 (minimal anxiety) 3 (minimal anxiety) Total Score 2 2 3 Last PHQ-9 07/29/2021 1. Little interest or pleasure in doing things 1 2. Feeling down, depressed, or hopeless 0 3. Trouble falling or staying asleep, or sleeping too much 1 4. Feeling tired or having little energy 0 5. Poor appetite or overeating 0 6. Feeling bad about yourself 0 7. Trouble concentrating 0 8. Moving slowly or restless 0 Q9: Thoughts of better off /self-harm past 2 weeks 0 PHQ-9 Total Score 2 Difficulty at work, home, or with people Somewhat difficult CHANG-7 07/29/2021 1. Feeling nervous, anxious, or on edge 2 2. Not being able to stop or control worrying 1 3. Worrying too much about different things 0 4. Trouble relaxing 1 5. Being so restless that it is hard to sit still 0 6. Becoming easily annoyed or irritable 2 7. Feeling afraid, as if something awful might happen 0 CHANG-7 Total Score 6 If you checked any problems, how difficult have they made it for you to do your work, take care of things at home, or get along with other people? Somewhat difficult Review of Systems Constitutional, HEENT, cardiovascular, pulmonary, gi and gu systems are negative, except as otherwise noted. Objective Vitals: No vitals were obtained today due [...] Type of service: Video Visit Video End Time:1435 Originating Location (pt. Location): Home Distant Location (provider location): [facility] Platform used for Video Visit: Eric documented in this encounter Plan of Treatment Upcoming Encounters Date Type Specialty Care Team Description 02/04/2022 Virtual Visit Behavioral Health Janak Marquez, [place] [id number] [address] (Wo rk) documented as of this encounter Visit Diagnoses Diagnosis Irritability documented in this encounter Additional Health Concerns Assessment Noted Time PHQ-9 Depression Total Score: 2 07/29/2021 2:14 PM CDT documented as of this encounter Care Teams Bus Girl Relationship Specialty Start Date End Date Jeri Ibrahim PA-C PCP - General Physician Nanny/Household Manager 01/14/15 [address] [place] [address] Jeri Ibrahim PA-C Assigned PCP 05/16/17 [address] [place] [address] documented as of this encounter
--- OUTSIDE RECORDS SUMMARY | 2022-01-26 22:30 | XMS_ITS | Encounter Summary ---
:1970 Author Organization [facility] Address [address] [place] [address]. [place] [address] Care Team Providers Name Role Phone Jeri Ibrahim PA-C Primary Care Provider Jeri Ibrahim PA-C Unavailable Reason for Visit Reason Onset Date Comments No Show 04/03/2021 Encounter Details Date Type Department Care Team Description 04/02/2021 Virtual Visit [facility] Jeri Ibrahim, No- show for Clinic [place] [facility] appointment (Primary [address] [address] [facility]) [place] [address] [phone] Social History Tobacco Use Types Packs/Day Years [...] or relatives? How often do you attend confucianism or 1 to 4 times per year 03/26 yarsanism services? Do you belong to any clubs or Yes 04/11/2021 organizations such as confucianism groups, unions, fraternal or athletic groups, or [...] have completed or the highest Dawn, MEd, DIRECTOR DATA ARCHITECTURE, BETI) degree you have received? 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 documented as of this encounter Progress Notes Jeri Ibrahim PA-C - 04/02/2021 4:20 PM CST This patient was a no show for this scheduled appointment. RIAL DISPATCHER documented in this encounter Plan of Treatment Upcoming Encounters Date Type Specialty Care Team Description 02/04/2022 Virtual Visit Behavioral Health Janak Marquez, [place] [id number] [address] (Wo rk) documented as of this encounter Visit Diagnoses Diagnosis No-show for appointment - Primary documented in this encounter Additional Health Concerns Assessment Noted Time PHQ-9 Depression Total Score: 1 11/30/2017 7:08 AM CDT documented as of this encounter Care Teams Outsole Scheduler Relationship Specialty Start Date End Date Jeri Ibrahim PA-C PCP - General Physician Home Therapy Teacher 01/14/15 [address] [place] [address] Jeri Ibrahim PA-C Assigned PCP 05/16/17 [address] [place] [address] documented as of this encounter
--- OUTSIDE RECORDS SUMMARY | 2022-01-26 22:30 | XMS_ITS | Encounter Summary ---
:1970 Author Organization [facility] Address [address] [place] [address]. [place] [address] Care Team Providers Name Role Phone Jeri Ibrahim PA-C Primary Care Provider Jeri Ibrahim PA-C Unavailable Reason for Visit Reason Comments Irritability med check Encounter Details Date Type Department Care Team Description 03/28/2020 Virtual Visit [facility] Jeri Ibrahim, Irritability; [place] [facility] Herpes simplex [address] [place] [phone] (Wo rk) Social History Tobacco Use Types [...] or relatives? How often do you attend muslim or 1 to 4 times per year 03/26 anglican services? Do you belong to any clubs or Yes 04/11/2021 organizations such as muslim groups, unions, fraternal or athletic groups, or [...] have completed or the highest Dawn, MEd, CROWN AND BRIDGE TECHNICIAN, BETI) degree you have received? 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/2021 5:06 PM TOOTH CUTTER CLUTCH COVID-19 Exposure Response Date Recorded In the last month, have you been in contact with No / Unsure 03/28/2020 11:10 AM TOOTH CUTTER CLUTCH someone who was confirmed or suspected to have Coronavirus / COVID-19? documented as of this encounter Progress Notes Jeri Ibrahim PA-C - 03/28/2020 11:25 AM CST Ezra Yanez is a 49 year old male who is being evaluated via a billable video visit. Future Appointments Date Time Provider Department Center 03/28/2020 11:25 AM Jeri Ibrahim PA-C [facility] Appointment Notes for this encounter: Checkin to renew prescriptions for the new year. Health Maintenance Due Topic Date Due ??? HEPATITIS C SCREENING 09/13/1989 ??? PHQ-2 04/26/2019 ??? INFLUENZA VACCINE (1) 12/26/2019 ??? PREVENTIVE CARE VISIT 04/07/2020 ??? ANNUAL REVIEW OF HM ORDERS 04/07/2020 Health Maintenance addressed: Flu Vaccine-unsure to get and PHQ2-completed MyChart Status: Active and Using The patient has been notified of following: This video visit will be conducted via a call between you and your physician/provider. We have found that certain health care needs can be provided without the need for an in-person physical exam. This service lets us provide the care you need with a video conversation. If a prescription is necessarywe can send it directly to your pharmacy. If lab work is needed we can place an order for that and you can then stop by our lab to have the test done at a later time. Video visits are billed at different rates depending on your insurance coverage. Please reach out toyour insurance provider with any questions. If during the course of the call the physician/provider feels a video visit is not appropriate, you will not be charged for this service. Patient has given verbal consent for Video visit? Yes How would you like to obtain your AVS? MyChart If you are dropped from the video visit, the video invite should be resent to: Text to cell phone: [phone] Will anyone else be joining your video visit? No Subjective Ezra Yanez is a 49 year old male who presents today via video visit for the following health issues: HPI Medication Followup of celexa taking for irritability ?? Taking Medication as prescribed: yes ?? Side Effects: None ?? Medication Helping Symptoms: yes Video Start Time: 1130 Review of Systems Constitutional, HEENT, cardiovascular, pulmonary, [...] insight intact, normal speech and appearance well-groomed. Assessment & Plan Irritability Stable. - citalopram (CELEXA) 20 MG tablet; Take 1 tablet (20 mg) by mouth daily Herpes simplex Stable. - valACYclovir (VALTREX) 1000 mg tablet; TAKE 1 TABLET (1,000 MG) BY MOUTH 2 TIMES DAILY BMI: Estimated body mass index is 25.53 kg/m?? as calculated from the following: Height as of 04/07/19: 1.798 m (5' 10.8). Weight as of 04/07/19: 82.6 kg (182 lb). Regular exercise Return in about 1 year (around 03/28/2021) for Physical Exam. Jeri Ibrahim PA-C [facility] Video-Visit Details Type of service: Video Visit Video End Time:11:44 AM Originating Location (pt. Location): Home Distant Location (provider location): [facility] Platform used for Video Visit: Eric H CUTTER CLUTCH documented in this encounter Plan of Treatment Upcoming Encounters Date Type Specialty Care Team Description 02/04/2022 Virtual Visit Behavioral Health Janak Marquez, [place] [id number] [address] (Wo rk) documented as of this encounter Visit Diagnoses Diagnosis Irritability Herpes simplex Herpes simplex without mention of compli cation documented in this encounter Additional Health Concerns Assessment Noted Time PHQ-9 Depression Total Score: 1 11/30/2017 7:08 AM CDT documented as of this encounter Care Teams General Engineer Relationship Specialty Start Date End Date Jeri Ibrahim PA-C PCP - General Physician Door Framer 01/14/15 [address] [place], [place] [phone] Jeri Ibrahim PA-C Assigned PCP 05/16/17 [address] [place], [place] [id number] documented as of this encounter
--- OUTSIDE RECORDS SUMMARY | 2022-01-26 22:30 | XMS_ITS | Encounter Summary ---
:1970 Author Organization [address] [address] Care Team Providers Name Role Phone Jeri Ibrahim PA-C Primary Care Provider Jeri Ibrahim PA-C Unavailable Encounter Details Date Type Department Care Team Description 10/29/2021 Virtual Visit [facility] Bridgett Marquez Ge neralized anxiety Mental Health & [facility] [employer] [facility] disorder (Primary Dx) Addiction [address] [address] [phone] Social History Tobacco Use Types Packs/Day Years [...] or relatives? How often do you attend judaism or 1 to 4 times per year 03/26 zoroastrian services? Do you belong to any clubs or Yes 04/11/2021 organizations such as judaism groups, unions, fraternal or athletic groups, or [...] have completed or the highest Dawn, MEd, WINDER TENDER, BETI) degree you have received? 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/2021 5:06 PM PLANT OPERATIONS COORDINATOR COVID-19 Exposure Response Date Recorded In the last 10 days, have you been in contact with No / Unsu re 10/28/2021 3:55 PM CDT someone who was confirmed or suspected to have Coronavirus/COVID-19? documented as of this encounter Progress Notes Bridgett Marquez, [facility] - 10/29/2021 3:30 PM CDT Images from the original note were not included. [facility] Primary Care: Integrated Behavioral Health 10/29/2021 Behavioral Health Clinician Progress Note Patient Name: Ezra Yanez Service Type: Individual Service Location: Face to Face in Clinic Session Start Time: 3:30 p.m. Session End Time: 4:00 p.m. Session Length: 16 - 37 Attendees: [...] minutes): No Interactive Complexity: No Crisis: No [facility] Patient: No Treatment Objective(s) Addressed [...] little things.??? Current Stressors / Issues: Pt and family just back from [place] for a week. Pt is very busy with work, getting back to it after vacation. Pt noticed he felt better when his environment is calm, nonstressful. Pt wonders if being at home too much makes him more irritable. Feels like things with the kids are going pretty well and th e kids were easier on vacation and all four got along. Pt verbalizes how he really appreciated and noticed the lack of strain while on vacation and theorizes what this was about. Processed how to recreate this atmosphere at home. Pt has been consuming decreased caffeine sporadically due to vacation. He reportedly had a serious discussion with Emily about her alcohol consumption, being firm that he would like her to decrease. Discussed his tendency to control environment in an attempt to decrease anxiety and the impact this has on interpersonal relationships. Progress on Treatment Objective(s) / Homework: Achieved / completed to satisfaction - PREPARATION (Decided to change - considering how); Intervenedby negotiating a change plan and determining options / strategies for behavior change, identifying triggers, exploring social supports, and working towards setting a date to begin behavior change Motivational Interviewing IN Intervention: Expressed Empathy/Understanding, Supported Autonomy, Collaboration, Evocation [...] time, however patient was encouraged to call [place] [address] should there be a change in any of these risk factors. Appearance: Appropriate Eye Contact: Good Psychomotor Behavior: Normal Attitude: Cooperative Orientation: All Speech Rate / Production: Talkative Volume: Normal Mood: Normal Affect: Appropriate Thought Content: Clear Thought Form: Coherent Logical Insight: Good Diagnoses: 1. Generalized anxiety disorder Collateral Reports Completed: PHQ and CHANG Plan: (Homework, other): ?? Patient was given information about behavioral services and encouraged to schedule a follow up appointment with the clinic [facility] in 2 weeks. ?? He was also given information about mental health symptoms and treatment options ?? Focus on self instead of external to manage sx of anxiety ?? Pt will create routine of getting out of house more often ?? Continue going to gym 4 days per week- heart rate up to help reduce anxiety ?? CD Recommendations: Practice Harm Reduction: attempt no more than 7 drinks weekly and greatly reduce caffeine consumption (at least in half). SHELLEY Sinha, [facility] Individual Treatment Plan Patient's Name: Ezra [...] Behavioral Health Janak Marquez [facility] [address] [address] (Wo rk) documented as of this encounter Visit Diagnoses Diagnosis Generalized anxiety disorder - Primary documented in this encounter Additional Health Concerns Assessment Noted Time PHQ-9 Depression Total Score: 2 07/29/2021 2:14 PM CDT documented as of this encounter Care Teams Friend Of The Court Relationship Specialty Start Date End Date Jrei Ibrahim PA-C PCP - General Physician Precision Inspector 01/14/15 [address] [place], [place] [phone] Jeri Ibrahim PA-C Assigned PCP 05/16/17 [address] [place], [place] [phone] documented as of this encounter
--- OUTSIDE RECORDS SUMMARY | 2022-01-26 22:30 | XMS_ITS | Encounter Summary ---
:1970 Author Organization [facility] Address [address] [place] [address]. [place] [address] Care Team Providers Name Role Phone Jeri Ibrahim PA-C Primary Care Provider Jeri Ibrahim PA-C Unavailable Encounter Details Date Type Department Care Team Description 09/23/2021 Travel Social History Tobacco Use Types Packs/Day [...] or relatives? How often do you attend christian or 1 to 4 times per year 03/26 jehovah's witness services? Do you belong to any clubs or Yes 04/11/2021 organizations such as christian groups, unions, fraternal or athletic groups, or [...] completed or the highest Dawn, MEd, DIRECTOR LIFE, BETI) degree you have received? 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 documented as of this encounter Plan of Treatment Upcoming Encounters Date Type Specialty Care Team Description 02/04/2022 Virtual Visit Behavioral Health Janak Marquez, [facility] [address] [facility] [address] [place] [id number] (Wo rk) documented as of this encounter Visit Diagnoses Not on filedocumented in this encounter Additional Health Concerns Assessment Noted Time PHQ-9 Depression Total Score: 2 07/29/2021 2:14 PM CDT documented as of this encounter Care Teams Mds Coordinator Relationship Specialty Start Date End Date Jeri Ibrahim PA-C PCP - General Physician Heating Element Builder 01/14/15 [address] [place] [address] Jeri Ibrahim PA-C Assigned PCP 05/16/17 [address] [place] [address] documented as of this encounter
--- OUTSIDE RECORDS SUMMARY | 2022-01-26 22:30 | XMS_ITS | Encounter Summary ---
:1970 Author Organization [facility] Address [address] [place] [address]. [place] [address] Care Team Providers Name Role Phone Jeri Ibrahim PA-C Primary Care Provider Jeri Ibrahim PA-C Unavailable Reason for Referral Diagnostic Imaging MRI (Routine) - Closed Specialty Diagnoses / Procedures Referred By Contact Refer red To Contact Diagnoses Acute nonintractable headache, unspecified headache type Family history of aneurysm Headache associated with sexual activity Alison Edgar PA-C Procedures MRA Brain ([place]) wo Contrast MRA Brain ([place]) wo & w Contrast [address] [phone] 97 Referral ID Status Reason Start Date Expiration Date Visits Requ ested Visits Authorized [id number] Closed 04/10/2021 04/10/2022 1 1 TH AND SAFETY DIRECTOR Diagnostic Imaging MRI (Routine) - Closed Specialty Diagnoses / Procedures Referred By Contact Refer red To Contact Diagnoses Acute nonintractable headache, unspecified headache type Family history of aneurysm Headache associated with sexual activity Alison Edgar PA-C Procedures MR Brain w/o Contrast [id number] [phone] Referral ID Status Reason Start Date Expiration Date Visits Requ ested Visits Authorized [id number] Closed 04/10/2021 04/10/2022 1 1 TH AND SAFETY DIRECTOR Encounter Details Date Type Department Care Team Description 04/10/2021 Office Visit [facility] Alison Edgar n onintractable headache, unspecified headache type (Primary Dx); [facility] Headache associated with sexual activity ; [address] [address] [place] Family history of aneurysm [facility] [address] [place], [place] [phone] Social History Tobacco Use Types Packs/Day [...] 1 to 4 times per year 03/26 hinduism services? Do you belong to any clubs [...] have completed or the highest Dawn, MEd, GAS ROLLER OPERATOR, BETI) degree you have received? 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 documented as of this encounter Last Filed Vital Signs Vital Sign Reading Time Taken Comments Blood Pressure 122/80 04/10/2021 10:19 AM HEALTH AND SAFETY DIRECTOR Pulse 78 04/10/2021 10:19 AM HEALTH AND SAFETY DIRECTOR Temperature 36.9 ??C (98.5 ??F) 04/10/2021 10:19 AM HEALTH AND SAFETY DIRECTOR Respiratory Rate 10 04/10/2021 10:19 AM HEALTH AND SAFETY DIRECTOR Oxygen Saturation 99% 04/10/2021 10:19 AM HEALTH AND SAFETY DIRECTOR Inhaled Oxygen Concentration - - Weight 88.9 kg (196 lb) 04/10/2021 10:19 AM HEALTH AND SAFETY DIRECTOR Height - - Body Mass Index 27.49 04/07/2019 3:01 PM HEALTH AND SAFETY DIRECTOR documented in this encounter Patient Instructions Patient InstructionsAlison Edgar PA-C - 04/10/2021 10:30 AM CST [facility] [phone] or TH AND SAFETY DIRECTOR documented in this encounter Progress Notes Alison Edgar PA-C - 04/10/2021 10:30 AM CST Assessment & Plan Acute nonintractable headache, unspecified headache type Pain could be muscular however with the atypical features including sharp/stabbing pain with exertion and sexual activity, further evaluation needed. Mother has history of aneurysm. MRA and MRI brain ordered for further evaluation. - MRA Brain ([place]) wo & w Contrast; Future - MR Brain w/o Contrast; Future Headache associated with sexual activity - MRA Brain ([place]) wo & w Contrast; Future - MR Brain w/o Contrast; Future Family history of aneurysm - MRA Brain ([place]) wo & w Contrast; Future - MR Brain w/o Contrast; Future Ordering of each unique test 22 minutes spent on the date of the encounter doing chart review, history and exam, documentation and further activities per the note Follow up with PCP as planned next week. Alison Edgar PA-C [facility] Ask about no show Subjective Ezra is a 50 year old who presents for the following health issues HPI Neck Pain Onset/Duration: 5 days Description: Location: R side mostly (also a little on the left) Radiation: base of head (felt like a spike was being driven through the head, took about 1 hour for the headache is subside) Intensity: mild most of the time (constant- improves with ibuprofen/Tylenol) but severe at times (sharp and stabbing) Progression of Symptoms: same Accompanying Signs & Symptoms: Burning, tingling, prickly sensation in arm(s): no Numbness in arm(s): no Weakness in arm(s): no Fever: no Headache: no Nausea and/or vomiting: no History: Trauma: no Previous neck pain: no Previous surgery or injections: no Previous Imaging (MRI,X ray): no Precipitating or alleviating factors: None Does movement impact the pain: YES (worse with sexual activity, shoveling or if getting agitated with work calls), not worse with movement of the head/neck Therapies tried and outcome: Ibuprofen Mother has history of aneurysm which presented as neck pain (2 aneurysms present in the [place]). Review of Systems GENERAL: No fevers NEURO: As noted in HPI Objective BP 122/80 (BP Location: Right arm, Patient Position: Chair, Cuff Size: Adult Regular) Pulse 78 Temp 98.5 ??F (36.9 ??C) (Oral) Resp 10 Wt 88.9 kg (196 lb) SpO2 99% BMI 27.49 kg/m?? Body mass index is 27.49 kg/m??. Physical Exam GENERAL: No acute distress HEENT: Normocephalic, PERRL, EOMI, No nystagmus. Canals patent, bilateral TM's non-erythematous and non-bulging. Turbinates normal in appearance bilaterally. Posterior oropharynx non-erythematous and without exudate. NECK: Slight tenderness along the right cervical pararspinous muscles. NEURO: Alert and oriented x 3. Cranial nerves II-XII grossly intact. Gait appropriate. Answers for HPI/ROS submitted by the patient on 04/10/2021 If you checked off any problems, how difficult have these problems made it for you to do your work, take care of things at home, or get along with other people?: Not difficult at all PHQ9 TOTAL SCORE: 2 CHANG 7 TOTAL SCORE: 3 TH AND SAFETY DIRECTOR documented in this encounter Plan of Treatment Upcoming Encounters Date Type Specialty Care Team Description 02/04/2022 Virtual Visit Behavioral Health Janak Marquez, [facility] [address] [address] (Wo rk) documented as of this encounter Results MR Brain w/o Contrast (04/11/2021 10:25 AM HEALTH AND SAFETY DIRECTOR) Anatomical Region Laterality Modality Head, SUBRAD MR NEURO, UMP MR NEURO, RAD MR Magnetic Resonance Specimen (Source) Anatomical Location Collection Method / Collectio n Time Received Time / Laterality Volume Impressions 04/11/2021 11:21 AM HEALTH AND SAFETY DIRECTOR IMPRESSION: Normal brain MRI. YUNG MANCUSO MD SYSTEM ID: ??[id number] Narrative 04/11/2021 11:21 AM HEALTH AND SAFETY DIRECTOR MRI OF THE BRAIN WITHOUT CONTRAST 04/11/2021 [...] brain MRI. YUNG MANCUSO MD SYSTEM ID: [id number] Alison Burr Edgar [facility] IMG MRI ORDERABLES MRA Brain ([place]) wo Contrast (04/11/2021 10:12 AM HEALTH AND SAFETY DIRECTOR) Anatomical Region Laterality Modality Head, SUBRAD MR NEURO, UMP MR NEURO, RAD MR Magnetic Resonance Specimen (Source) Anatomical Location Collection Method / Collectio n Time Received Time / Laterality Volume Impressions 04/11/2021 11:21 AM HEALTH AND SAFETY DIRECTOR IMPRESSION: Normal MR angiogram of the head. ?? YUNG MANCUSO MD SYSTEM ID: ??[id number] Narrative 04/11/2021 11:21 AM HEALTH AND SAFETY DIRECTOR MR ANGIOGRAM OF THE HEAD WITHOUT CONTRAST April 11, 2021 10:12 AM HISTORY: Cerebral aneurysm screening, ge netic risk. Acute non-intractable headache, unspecified he adache type. Family history of aneurysm. Headache associated with sexua l activity. TECHNIQUE: 3D [id number] MR angiogra m of the head without [...] associated with sexua l activity. TECHNIQUE: 3D uftz-tr-fakleg MR angiogra m of the head without [...] h ead. YUNG MANCUSO MD SYSTEM ID: [id number] Alison Edgar PA-C IMG MRI ORDERABLES documented in this encounter Visit Diagnoses Diagnosis Acute nonintractable headache, unspecifi ed headache type - Primary Headache associated with sexual activity Family history of aneurysm Family history of other condition Acute nonintractable headache, unspecifi ed headache type Family history of aneurysm Family history of other condition Headache associated with sexual activity Acute nonintractable headache, unspecifi ed headache type Family history of aneurysm Family history of other condition Headache associated with sexual activity documented in this encounter Additional Health Concerns Assessment Noted Time PHQ-9 Depression Total Score: 2 04/11/2021 7:02 AM HEALTH AND SAFETY DIRECTOR documented as of this encounter Care Teams Manager Of Change Relationship Specialty Start Date End Date Jeri Ibrahim PA-C PCP - General Physician Legal Entity Controller 01/14/15 [address] [place] [address] Jeri Ibrahim PA-C Assigned PCP 05/16/17 [address] [place] [address] documented as of this encounter
--- OUTSIDE RECORDS SUMMARY | 2022-01-26 22:31 | XMS_ITS | Encounter Summary ---
:1970 Author Organization [facility] Address [address] [place] [address]. [place] [address] Care Team Providers Name Role Phone Jeri Ibrahim PA-C Primary Care Provider Jeri Ibrahim PA-C Unavailable Encounter Details Date Type Department Care Team Description 11/09/2018 Travel Social History Tobacco Use Types Packs/Day Years Used Date Former Smoker Quit: 10/15/18 99 Smokeless Tobacco: Never Used [...] or relatives? How often do you attend restorationism or 1 to 4 times per year 03/26 sabianist services? Do you belong to any clubs or Yes 04/11/2021 organizations such as restorationism groups, unions, fraternal or athletic groups, or [...] or slept in a chcf (including now)? 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 documented as of this encounter Plan of Treatment Upcoming Encounters Date Type Specialty Care Team Description 02/04/2022 Virtual Visit Behavioral Health Janak Marquez, [facility] [address] [address] (Wo rk) documented as of this encounter Visit Diagnoses Not on filedocumented in this encounter Additional Health Concerns Assessment Noted Time PHQ-9 Depression Total Score: 1 11/30/2017 7:08 AM CDT documented as of this encounter Care Teams Horse Racer Relationship Specialty Start Date End Date Jeri Ibrahim PA-C PCP - General Physician Senior Search Marketing Analyst 01/14/15 [address] [place] [address] Jeri Ibrahim PA-C Assigned PCP 05/16/17 [address] [place] [address] documented as of this encounter
--- OUTSIDE RECORDS SUMMARY | 2022-01-26 22:31 | XMS_ITS | Encounter Summary ---
:1970 Author Organization [facility] Address [address] [place] [address]. [place] [address] Care Team Providers Name Role Phone Jeri Ibrahim PA-C Primary Care Provider Jeri Ibrahim PA-C Unavailable Reason for Visit Reason Onset Date Comments Refill Request 05/16/2019 90 day supply - flon ase Encounter Details Date Type Department Care Team Description 05/16/2019 Refill [facility] Jeri Ibrahim Refi ll Request (90 day [facility] supply - flonase) [id number] [place] [phone] (Wo rk) Social History Tobacco Use Types [...] have completed or the highest Dawn, MEd, JOB PLACEMENT SPECIALIST, BETI) degree you have received? 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 Krista Javier RN CLE SERVICE ATTENDANT Telephone Encounter - Suzan Singh - 05/16/2019 8:17 AM CST Requesting 90 day supply Disp Refills Start End EDWIN fluticasone (FLONASE) 50 MCG/ACT nasal spray 16 mL 2 05/01/2019 No Sig - Route: SPRAY 1-2 SPRAYS INTO BOTH NOSTRILS DAILY - Both Nostrils CLE SERVICE ATTENDANT documented in this encounter Plan of Treatment Upcoming Encounters Date Type Specialty Care Team Description 02/04/2022 Virtual Visit Behavioral Health Janak Marquez, [place] [id number] [address] (Wo rk) documented as of this encounter Visit Diagnoses Diagnosis Post-nasal drip Postnasal drip documented in this encounter Additional Health Concerns Assessment Noted Time PHQ-9 Depression Total Score: 1 11/30/2017 7:08 AM CDT documented as of this encounter Care Teams Trencher Driver Relationship Specialty Start Date End Date Jeri Ibrahim PA-C PCP - General Physician Journeyman Operator Assistant 01/14/15 [address] [place] [address] Jeri Ibrahim PA-C Assigned PCP 05/16/17 [address] [place] [address] documented as of this encounter
--- OUTSIDE RECORDS SUMMARY | 2022-01-26 22:31 | XMS_ITS | Encounter Summary ---
:1970 Author Organization [facility] Address [address] [place] [address]. [place] [address] Care Team Providers Name Role Phone Jeri Ibrahim PA-C Primary Care Provider Jeri Ibrahim PA-C Unavailable Reason for Visit Reason Comments Medication Refill Encounter Details Date Type Department Care Team Description 04/30/2019 Refill [facility] Jeri Ibrahim PA-C Medication Refill [address] [address] [place], [place] [phone] (W ork) [address] [phone] Social History Tobacco Use Types Packs/Day Years [...] or relatives? How often do you attend sabianism or 1 to 4 times per year 03/26 anglican services? Do you belong to any clubs or Yes 04/11/2021 organizations such as sabianism groups, unions, fraternal or athletic groups, or [...] completed or the highest Dawn, MEd, MANAGER FUND, BETI) degree you have received? 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/2021 5:06 PM FITNESS AND WELLNESS DIRECTOR documented as of this encounter Miscellaneous Notes Telephone Encounter - Hetal Dobbs RN - 05/01/2019 9:13 AM CST Flonase Last Written Prescription Date: 03/28/2019 Last Fill Quantity: 16ml, # refills: 0 Last office visit: 04/07/2019 with prescribing provider: Patrice Future Office Visit: None Prescription approved per [facility] Refill Protocol. Requested Prescriptions Pending Prescriptions Disp Refills ??? fluticasone (FLONASE) 50 MCG/ACT nasal spray [Pharmacy Med Name: FLUTICASONE PROP 50 MCG SPRAY] 16 mL 0 Sig: SPRAY 1-2 SPRAYS INTO BOTH NOSTRILS DAILY Inhaled Steroids Protocol Passed - 04/30/2019 12:45 AM Passed - Patient is age 12 or older Passed - Recent (12 mo) or future (30 days) visit within the authorizing provider's specialty Patient has had an office visit with the authorizing provider or a provider within the authorizing providers department within the previous 12 mos or has a future within next 30 days. See Patient Info tab in inbasket, or Choose Columns in Meds & Orders section of the refill encounter. Passed - Medication is active on med list Hetal Dobbs RN ESS AND WELLNESS DIRECTOR documented in this encounter Plan of Treatment Upcoming Encounters Date Type Specialty Care Team Description 02/04/2022 Virtual Visit Behavioral Health Janak Marquez, [address] [address] (Wo rk) documented as of this encounter Visit Diagnoses Diagnosis Post-nasal drip Postnasal drip documented in this encounter Additional Health Concerns Assessment Noted Time PHQ-9 Depression Total Score: 1 11/30/2017 7:08 AM CDT documented as of this encounter Care Teams Fire Equipment Repairer Inspector Relationship Specialty Start Date End Date Jeri Ibrahim PA-C PCP - General Physician Practicing Dermatologist 01/14/15 [address] [place], [place] [id number] Jeri Ibrahim PA-C Assigned PCP 05/16/17 [address] [place] [address] documented as of this encounter
--- OUTSIDE RECORDS SUMMARY | 2022-01-26 22:31 | XMS_ITS | Encounter Summary ---
:1970 Author Organization [facility] Address [address] [place] [address]. [place] [address] Care Team Providers Name Role Phone Jeri Ibrahim PA-C Primary Care Provider Jeri Ibrahim PA-C Unavailable Reason for Visit Reason Comments Medication Refill Encounter Details Date Type Department Care Team Description 03/27/2019 Refill [facility] Jeri Ibrahim PA-C Medication Refill [address] [address] [place], [place] [phone] (W ork) [address] [phone] Social History Tobacco Use Types Packs/Day Years [...] or slept in a alf (including now)? 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/2021 5:06 PM PROJECT PLANNER documented as of this encounter Miscellaneous Notes Telephone Encounter - Elizabeth Chao RN - 03/28/2019 11:38 AM CST Requested Prescriptions Pending Prescriptions Disp Refills ??? fluticasone (FLONASE) 50 MCG/ACT nasal spray [Pharmacy Med Name: FLUTICASONE PROP 50 MCG SPRAY] 16 mL 0 Sig: SPRAY 1-2 SPRAYS INTO BOTH NOSTRILS DAILY Last Written Prescription Date: 02/24/19 Last Fill Quantity: 16, # refills: 0 Last office visit: 02/18/2018 with prescribing provider: Future Office Visit: Next 5 appointments (look out 90 days) Apr 07, 2019 2:50 PM PROJECT PLANNER Adult physical with Jeri Ibrahim PA-C, [facility] RO[facility] [address] [place] [phone] Inhaled Steroids Protocol Passed - 03/27/2019 2:42 AM Passed - Patient is age 13 [...] - Medication is active on med list ??? citalopram (CELEXA) 20 MG tablet [Pharmacy Med Name: CITALOPRAM HBR 20 MG TABLET] 30 tablet 0 Sig: TAKE 1 TABLET BY MOUTH EVERY DAY Last Written Prescription Date: 02/24/19 Last Fill Quantity: 30, # refills: 0 Last office visit: 02/18/2018 with prescribing provider: Future Office Visit: Next 5 appointments (look out 90 days) Apr 07, 2019 2:50 PM PROJECT PLANNER Adult physical with Jeri Ibrahim PA-C, CR EXAM ROOM 05 [facility] [address] [place] [phone] SSRIs Protocol Passed - 03/27/2019 2:42 AM Passed - Recent (12 mo) or future [...] - Medication is active on med list Passed - Patient is age 18 or older Prescription approved per [facility] Refill Protocol. Elizabeth Chao, RN on 03/28/2019 at 11:38 AM ECT PLANNER documented in this encounter Plan of Treatment Upcoming Encounters Date Type Specialty Care Team Description 02/04/2022 Virtual Visit Behavioral Health Janak Marquez, [place] [id number] [address] (Wo rk) documented as of this encounter Visit Diagnoses Diagnosis Post-nasal drip Postnasal drip Irritability documented in this encounter Additional Health Concerns Assessment Noted Time PHQ-9 Depression Total Score: 1 11/30/2017 7:08 AM CDT documented as of this encounter Care Teams Accounting Specialist Relationship Specialty Start Date End Date Jeri Ibrahim PA-C PCP - General Physician Dining Room Captain 01/14/15 [address] [place] [address] Jeri Ibrahim PA-C Assigned PCP 05/16/17 [address] [place] [address] documented as of this encounter
--- OUTSIDE RECORDS SUMMARY | 2022-01-26 22:31 | XMS_ITS | Encounter Summary ---
:1970 Author Organization [place] Address [address] [place] [address]. [place] [address] Care Team Providers Name Role Phone Jeri Ibrahim PA-C Primary Care Provider Jeri Ibrahim PA-C Unavailable Encounter Details Date Type Department Care Team Description 10/18/2018 Orders Only [facility] Sleep Manisha Co MD tim MARY (obstructive sleep Center [address] apnea) (Primary Dx) [address] [place] [id number] [phone] Social History Tobacco Use Types Packs/Day Years [...] 1 to 4 times per year 03/26 jew services? Do you belong to any clubs [...] or slept in a residential (including now)? 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 11/15/2018 ??1:44 PM HOME SLEEP STUDY INTERPRETATION Patient: Ezra Yanez Date of : 1970 Study Date: 11/09/2018 Referring Provider: Jeri Ibrahim; Ordering Provider: Vipul Dyer MD Indications for Home Study: Ezra mcgill is a 48 year old male with a history of obstructive sleep apne a with improvement in symptoms after 62# weight loss who prese nts for re-evaluation of severity of sleep apnea. Estimated body mass index is 25.12 kg/m? ? as calculated from the following: ??Height as of this encounter: 1.803 m (5' 10.98). ??Weight as of this encounter: 81.6 kg (180 lb). No data recorded No data recorded Data: A full night home sleep study was performed recording the standard physiologic parameters includin g body position, movement, sound, nasal pressure, thermal oral airflow, chest and abdominal movements with respiratory ind uctance plethysmography, and oxygen saturation by pulse oximetry. Pulse rate was estimated by oximetry recording. This study was co nsidered adequate based on > 4 hours of quality oximetry and res piratory recording. As specified by the AASM Manual for the Sc[place] ring of Sleep and Associated events, version 2.3, Rule VII I.D 1B, 4% oxygen desaturation scoring for hypopneas is us ed as a standard of care on all home sleep apnea testing. Analysis Time: ??432 minutes Respiration: Sleep Associated Hypoxemia: sustained hy poxemia was not present. Baseline oxygen saturation was 95%. ??Ti me with saturation less than or equal to 88% was 0 minutes. The lowest oxygen saturation was 87%. Snoring: Periods of continuous snoring > 80db was present in lateral and supine positions. Respiratory events: The home study revea led a presence of 6 obstructive apneas and 3 mixed and centr al apneas. There were 14 hypopneas resulting in a combined apnea/ hypopnea index [AHI] of 3.2 events per hour. ??AHI was 5 per angela r supine, - per hour prone, 3 per hour on left side, and 2 pe r hour on right side. Pattern: Excluding events noted above, r espiratory rate and pattern was Normal. Position: Percent of time spent: supine - 24%, prone - 0%, on left - 52%, on right - 25%. Heart Rate: By pulse oximetry normal rat e was noted. Assessment: Snoring without significant obstructive sleep apnea. Sleep associated hypoxemia was not prese nt. Recommendations: Consider management of nasal conditions, continued weight management and avoidance of evening alco hol.. Suggest optimizing sleep hygiene and brook iding sleep deprivation. Diagnosis Code(s): Snoring R06.83 VIPUL ??MD MANISHA, November 15, 2018 Diplomate, [place] [employer] Me dicine, Sleep Medicine Procedure Note Vipul Dyer MD - 11/09/2018 4:00 PM CD T HOME SLEEP STUDY INTERPRETATION Patient: Ezra Yanez Date of : 1970 Study Date: 11/09/2018 Referring Provider: Jeri Ibrahim; Ordering Provider: Vipul Dyer MD Indications for Home Study: Ezra mcgill is a 48 year old male with a history of obstructive sleep apnea with improvement in symptoms after 62# weight loss who presents for re-evaluation of severity of sleep apnea. Estimated body mass index is 25.12 kg/m? ? as calculated from the following: Height as of this encounter: 1.803 m (5 ' 10.98). Weight as of this encounter: 81.6 kg (1 80 lb). No data recorded No data recorded Data: A full night home sleep study was performed recording the standard physiologic parameters including body position, movement, sound, nasal pressure, thermal oral airflow, chest and abdominal movements with respiratory inductance plethysmography, and oxygen saturation by pulse oximetry. Pulse rate was estimated by oximetry recording. This study was considered adequate based on > 4 hours of quality oximetry and respiratory recording. As specified by the AASM Manu al for the Scoring of Sleep and Associated events, version 2.3, Rule VIII.D 1B, 4% oxygen desaturation scoring for hypopneas is used as a standard of care on all home sleep apnea testing. Analysis Time: 432 minutes Respiration: Sleep Associated Hypoxemia: sustained hy poxemia was not present. Baseline oxygen saturation was 95%. Time with saturation less than or equal to 88% was 0 minutes. The lowest oxygen saturation was 87%. Snoring: Periods of continuous snoring > 80db was present in lateral and supine positions. Respiratory events: The home study revea led a presence of 6 obstructive apneas and 3 mixed and central apneas. There were 14 hypopneas resulting in a combined apnea/hypopnea index [AHI] of 3.2 events per hour. AHI was 5 per hour supine, - per hour prone, 3 p er hour on left side, and 2 per hour on right side. Pattern: Excluding events noted above, r espiratory rate and pattern was Normal. Position: Percent of time spent: supine - 24%, prone - 0%, on left - 52%, on right - 25%. Heart Rate: By pulse oximetry normal rat e was noted. Assessment: Snoring without significant obstructive sleep apnea. Sleep associated hypoxemia was not prese nt. Recommendations: Consider management of nasal conditions, continued weight management and avoidance of evening alcohol.. Suggest optimizing sleep hygiene and brook iding sleep deprivation. Diagnosis Code(s): Snoring R06.83 VIPUL DYER MD, November 15, 2018 Diplomate, [place] [employer] Me dicine, Sleep Medicine Viupl Dyer MD PROCEDURES documented in this encounter Visit Diagnoses Diagnosis MARY (obstructive sleep apnea) - Primary Obstructive sleep apnea (adult) (pediatr ic) MARY (obstructive sleep apnea) Obstructive sleep apnea (adult) (pediatr ic) documented in this encounter Additional Health Concerns Assessment Noted Time PHQ-9 Depression Total Score: 1 11/30/2017 7:08 AM CDT documented as of this encounter Care Teams Traffic Rate Clerk Relationship Specialty Start Date End Date Jeri Ibrahim PA-C PCP - General Physician Fire Technology Instructor 01/14/15 [address] [place] [address] Jeri Ibrahim PA-C Assigned PCP 05/16/17 [address] [place] [address] documented as of this encounter
--- OUTSIDE RECORDS SUMMARY | 2022-01-26 22:31 | XMS_ITS | Encounter Summary ---
:1970 Author Organization [place] Address [address] [place] [address]. [place] [address] Care Team Providers Name Role Phone Jeri Ibrahim PA-C Primary Care Provider Jeri Ibrahim PA-C Unavailable Encounter Details Date Type Department Care Team Description 11/10/2018 Travel Social History Tobacco Use Types Packs/Day [...] 1 to 4 times per year 03/26 sikh services? Do you belong to any clubs [...] or slept in a half-way (including now)? 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 encounter Plan of Treatment Upcoming Encounters Date Type Specialty Care Team Description 02/04/2022 Virtual Visit Behavioral Health Janak Marquez, [facility] [address] [address] (Wo rk) documented as of this encounter Visit Diagnoses Not on filedocumented in this encounter Additional Health Concerns Assessment Noted Time PHQ-9 Depression Total Score: 1 11/30/2017 7:08 AM CDT documented as of this encounter Care Teams Questioned Documents Examiner Relationship Specialty Start Date End Date Jeri Ibrahim PA-C PCP - General Physician Unload Associate 01/14/15 [address] [place] [address] Jeri Ibrahim PA-C Assigned PCP 05/16/17 [address] [place] [address] documented as of this encounter
--- OUTSIDE RECORDS SUMMARY | 2022-01-26 22:31 | XMS_ITS | Encounter Summary ---
:1970 Author Organization [place] Address [address] [place] [address]. [place] [address] Care Team Providers Name Role Phone Jeri Ibrahim PA-C Primary Care Provider Jeri Ibrahim PA-C Unavailable Jeri Ibrahim PA-C Unavailable Encounter Details Date Type Department Care Team Description 04/28/2018 Travel Social History Tobacco Use Types Packs/Day [...] or relatives? How often do you attend hinduism or 1 to 4 times per year 03/26 mandaeism services? Do you belong to any clubs or Yes 04/11/2021 organizations such as hinduism groups, unions, fraternal or athletic groups, or [...] slept in a long term (including now)? 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 documented as of this encounter Plan of Treatment Upcoming Encounters Date Type Specialty Care Team Description 02/04/2022 Virtual Visit Behavioral Health Janak Marquez, [facility] [address] [place] [address] (Wo rk) documented as of this encounter Visit Diagnoses Not on filedocumented in this encounter Additional Health Concerns Assessment Noted Time PHQ-9 Depression Total Score: 1 11/30/2017 7:08 AM CDT documented as of this encounter Care Teams Laser Beam Machine Operator Relationship Specialty Start Date End Date Jeri Ibrahim PA-C PCP - General Physician Carpet Technician 01/14/15 [address] [place] [address] Jeri Ibrahim PA-C PCP - Assigned PCP 05/16/17 06/28/18 [address] [place] [address] Jeri Ibrahim PA-C Assigned PCP 05/16/17 [address] [place] [address] documented as of this encounter
--- OUTSIDE RECORDS SUMMARY | 2022-01-26 22:31 | XMS_ITS | Encounter Summary ---
:1970 Author Organization [place] Address [address] [facility] [place] [address] Care Team Providers Name Role Phone Jeri Ibrahim PA-C Primary Care Provider Jeri Ibrahim PA-C Unavailable Jeri Ibrahim PA-C Unavailable Reason for Visit Reason Comments Recheck Medication Valtrex and Celexa LAB REQUEST Patient is not fasting today Encounter Details Date Type Department Care Team Description 02/18/2018 Office Visit [facility] Jeri Ibrahim Herp es simplex (Primary Dx); [facility] [place] [facility] Irritability; [address] [facility] [id number] [place] [address] Post-nasal drip; [place], [place] Vitamin D deficiency [id number] [phone] (Wo rk) Social History Tobacco Use Types [...] or relatives? How often do you attend confucianist or 1 to 4 times per year 03/26 yazdanism services? 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 Last Filed Vital Signs Vital Sign Reading Time Taken Comments Blood Pressure 111/75 02/18/2018 9:05 AM CDT Pulse 65 02/18/2018 9:05 AM CDT Temperature 36.8 ??C (98.2 ??F) 02/18/2018 9:05 AM CDT Respiratory Rate 16 02/18/2018 9:05 AM CDT Oxygen Saturation - - Inhaled Oxygen Concentration - - Weight 90.7 kg (200 lb) 02/18/2018 9:05 AM CDT Height 180.3 cm (5' 11) 02/18/2018 9:05 AM CDT Body Mass Index 27.89 02/18/2018 9:05 AM CDT documented in this encounter Progress Notes Jeri Ibrahim PA-C - 02/18/2018 9:00 AM CDT SUBJECTIVE: Ezra Yanez is a 47 year old male who presents to clinic today for the following health issues: Medication Followup of Valtrex and Celexa ?? Taking Medication as prescribed: yes ?? Side Effects: None ?? Medication Helping Symptoms: yes Patient is also in clinic today to recheck Vitamin D and order for MRI, routine screening for familyhistory of Aneurism, mother. Problem list and histories reviewed & adjusted, as indicated. Additional history: as documented Patient Active Problem List Diagnosis ??? FHx: aneurysm ??? GERD (gastroesophageal reflux disease) ??? CARDIOVASCULAR SCREENING; LDL GOAL LESS THAN 160 ??? Bronchitis with bronchospasm ??? Herpes simplex ??? Irritability ??? Bee sting allergy ??? Vitamin D deficiency Past Surgical History: Procedure Laterality Date ??? NO HISTORY OF SURGERY Social History Substance Use Topics ??? Smoking status: Former Smoker Quit date: 10/15/1998 ??? Smokeless tobacco: Never Used ??? Alcohol use Yes Comment: socially Family History Problem Relation Age of Onset ??? Cancer Mother Cuteaneous T-cell lyphoma/ born 1949 Melanoma ??? Neurologic Disorder Mother brain aneurysm ??? Diabetes Father born 194 ??? Respiratory Father COPD ??? Family History Negative Sister ??? Family History Negative Daughter ??? Cancer Maternal Uncle skin ??? Diabetes Maternal Grandfather ??? Diabetes Paternal Grandmother ??? Neurologic Disorder Maternal Uncle abdominal aortic aneurysm Reviewed and updated as needed this visit by clinical staff Tobacco Allergies Meds Med Hx Surg Hx Fam Hx Soc Hx Reviewed and updated as needed this visit by Provider ROS: Constitutional, HEENT, cardiovascular, pulmonary, gi and gu systems are negative, except as otherwise noted. OBJECTIVE: BP 111/75 (BP Location: Right arm, Patient Position: Chair, Cuff Size: Adult Large) Pulse 65 Temp 98.2 ??F (36.8 ??C) (Oral) Resp 16 Ht 5' 11 (1.803 m) Wt 200 lb (90.7 kg) BMI 27.89 kg/m2 Body mass index is 27.89 kg/(m^2). GENERAL APPEARANCE: healthy, alert and no distress RESP: lungs clear to auscultation - no rales, rhonchi or wheezes CV: regular rates and rhythm, normal S1 S2, no S3 or S4 and no murmur, click or rub NEURO: Normal strength and tone, mentation intact and speech normal PSYCH: mentation appears normal and affect normal/bright ASSESSMENT/PLAN: 1. Herpes simplex Stable. - valACYclovir (VALTREX) 1000 mg tablet; TAKE 1 TABLET (1,000 MG) BY MOUTH 2 TIMES DAILY Dispense: 20 tablet; Refill: 4 2. Irritability Stable. Yearly checks. - citalopram (CELEXA) 20 MG tablet; TAKE 1 TABLET (20 MG) BY MOUTH DAILY Dispense: 90 tablet; Refill: 3 3. Post-nasal drip Stable. - fluticasone (FLONASE) 50 MCG/ACT spray; Barney 1-2 sprays into both nostrils daily Dispense: 16 g; Refill: 3 4. Vitamin D deficiency Taking 2000 international unit(s)/day - Vitamin D Deficiency MRI 2020 Jeri Ibrahim PA-C [facility] documented in this encounter Plan of Treatment Upcoming Encounters Date Type Specialty Care Team Description 02/04/2022 Virtual Visit Behavioral Health Janak Marquez, [facility] [address] [address] (Wo rk) documented as of this encounter Procedures Procedure Name Priority Date/Time Associated Comments Diagnosis VITAMIN D DEFICIENCY Routine 02/18/2018 9:32 AM Vitamin D R esults for this SCREENING CDT deficiency procedure are i n the results section. documented in this encounter Results Vitamin D Deficiency (02/18/2018 9:32 AM CDT) P athologist Signature Vitamin D 47 20 - 75 02/19/2018 [facility] Deficiency ug/L 1:00 PM CDT [facility] Comment: Season, race, dietary intake, and treatm ent affect the concentration of 37-ipuvatz-Uurezam D. Values may decreas e during winter months and increase during summer months. Values 20-29 ug/L may indicate Vitamin D insufficiency and values <20 ug/L may indicate Vitamin D deficiency. Vitamin D determination is routinely per formed by an immunoassay specific for 25 hydroxyvitamin D3. ??If an individual is on vitamin D2 (ergocalciferol) supplementation, please specify 25 [place] vi tamin D2 and D3 level determination by LCMSMS test VITD23. Specimen Anatomical Collection Method Collection Time Receive d Time (Source) Location / / Volume Laterality Blood specimen 02/18/2018 9:32 AM 018 9:34 (specimen) CDT AM CDT Jeri Ibrahim PA-C LAB - BLOOD ORDERABLES Performing Organization Address City/State/ZIP Code Phon e Number [facility] [address] [place], [place] [id number] [place] [address] documented in this encounter Visit Diagnoses Diagnosis Herpes simplex - Primary Herpes simplex without mention of compli cation Irritability Post-nasal drip Postnasal drip Vitamin D deficiency Unspecified vitamin D deficiency documented in this encounter Additional Health Concerns Assessment Noted Time PHQ-9 Depression Total Score: 1 11/30/2017 7:08 AM CDT documented as of this encounter Care Teams Front End Developer Relationship Specialty Start Date End Date Jeri Ibrahim PA-C PCP - General Physician Intellectual Property Legal Assistant 01/14/15 [address] [place] [address] Jeri Ibrahim PA-C PCP - Assigned PCP 05/16/17 06/28/18 [address] [place] [address] Jeri Ibrahim PA-C Assigned PCP 05/16/17 [address] [place] [address] documented as of this encounter
--- OUTSIDE RECORDS SUMMARY | 2022-01-26 22:31 | XMS_ITS | Encounter Summary ---
:1970 Author Organization [place] Address Formerly [facility], [facility] [place] [address] Care Team Providers Name Role Phone Jeri Ibrahim PA-C Primary Care Provider Jeri Ibrahim PA-C Unavailable Jeri Ibrahim PA-C Unavailable Reason for Visit Reason Comments Consult Discuss snoring and stops br eathing sometimes during the night (Routine) - Closed Specialty Diagnoses / Procedures Referred By Contact Refer red To Contact Neurological Surgery / Diagnoses Consult, Referred Mikey Ibrahim sent 05/14/17, KHANG WALDROP Conrad, MD Sleep Medicine Procedures NEW REFERRED [facility] [place] [address] [place] [address] Phone: Fax: Referral ID Status Reason Start Date Expiration Date Visits Requ ested Visits Authorized [id number] Closed 05/28/2017 05/28/2018 1 1 Encounter Details Date Type Department Care Team Description 05/28/2017 Office Visit [facility] Vipul Dyer MD Obstructive sleep apnea Sleep [facility] [address] (Primary Dx) [facility] [id number] [place] [address] [phone] Social History Tobacco Use Types Packs/Day Years [...] or relatives? How often do you attend bahai or 1 to 4 times per year 03/26 sikhism services? Do you belong to any clubs or Yes 04/11/2021 organizations such as bahai groups, unions, fraternal or athletic groups, or [...] or slept in a snf (including now)? 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/2021 5:06 PM [employer] documented as of this encounter Last Filed Vital Signs Vital Sign Reading Time Taken Comments Blood Pressure 130/86 05/28/2017 2:27 PM [employer] Pulse 102 05/28/2017 2:27 PM [employer] Temperature - - Respiratory Rate 18 05/28/2017 2:27 PM [employer] Oxygen Saturation 95% 05/28/2017 2:27 PM [employer] Inhaled Oxygen Concentration - - Weight 110.7 kg (244 lb) 05/28/2017 2:27 PM [employer] Height 180.3 cm (5' 11) 05/28/2017 2:27 PM [employer] Body Mass Index 34.03 05/28/2017 2:27 PM [employer] documented in this encounter Patient Instructions Patient InstructionsEvans, Aminah Dubois MA - 05/28/2017 2:30 PM CST Images from the original note were not included. MY TREATMENT INFORMATION FOR SLEEP APNEA- Ezra Yanez DOCTOR : [facility] : MY CONTACT NUMBER: Am I having a sleep study at a sleep center? Make sure you have an appointment for the study before you leave! Am I having a home sleep study? Watch this video: [email or web address]/watch?v=[email or web address] Exm Frequently asked questions: 1. What is Obstructive Sleep Apnea (MARY)? MARY is the most common type of sleep apnea. Apnea means, without breath. Apnea is most often caused by narrowing or collapse of the upper airway as muscles relax during sleep. Almost everyone has occasional apneas. Most people with sleep apnea have had brief interruptions at night frequently for many years. The severity of sleep apnea is related to how frequent and severe the events are. 2. What are the consequences of MARY? Symptoms include: feeling sleepy during the day, snoring loudly, gasping or stopping of breathing, trouble sleeping, and occasionally morning headaches or heartburnat night. Sleepiness can be serious and even increase the risk of falling asleep while driving. Other health consequences may include development of high blood pressure and other cardiovascular diseasein persons who are susceptible. Untreated MARY can contribute to heart disease, stroke and diabetes. 3. What are the treatment options? In most situations, sleep apnea is a lifelong disease that must be managed with daily therapy. Medications are not effective for sleep apnea and surgery is generally not considered until other therapies have been tried. Your treatment is your choice . Continuous Positive Airway (CPAP) works right away and is the therapy that is effective in nearly everyone. An oral device to hold your jaw forward is usually the next most reliable option. Other options include postioning devices (to keep you off your back), weight loss, and surgery including a tongue pacing device.There is more detail about some of these options below. Important tips for using CPAP and similar devices Know your equipment: CPAP is continuous positive airway pressure that prevents obstructive sleep apnea by keeping the throat from collapsing while you are sleeping. In most cases, the device is ???smart?? and can slowly self-adjusts if your throat collapses and keeps a record every day of how well you are treated-this inf ormation is available to you and your care team. BPAP is bilevel positive airway pressure that keeps your throat open and also assists each breath with a pressure boost to maintain adequate breathing. Special kinds of BPAP are used in patients who have inadequate breathing from lung or heart disease. In most cases, the device is ???smart?? and can slowly self-adjusts to assist breathing. Like CPAP, the device keeps a record of how well you are treated. Your mask is your connection to the device. You get to choose what feels most comfortable and the staff will help to make sure if fits. Here: are some examples of the different masks that are available: Hughes points to remember on your journey with sleep apnea: 1. Sleep study. PAP devices often need to be adjusted during a sleep study to show that they are effective and adjusted right. 2. Good tips to remember: Try wearing just the mask during a quiet time during the day so your body adapts to wearing it. A humidifier is recommended for comfort in most cases to prevent drying of yournose and throat. Allergy medication from your provider may help you if you are having nasal congestion. 3. Getting settled-in. It takes more than one night for most of us to get used to wearing a mask. Try wearing just the mask during a quiet time during the day so your body adapts to wearing it. A humidifier is recommended for comfort in most cases. Our team will work with you carefully on the first day and will be in contact within 4 days and again at 2 and 4 weeks for advice and remote device adjustments. Your therapy is evaluated by the device each day. 4. Use it every night. The more you are able to sleep naturally for 7-8 hours, the more likely you will have good sleep and to prevent health risks or symptoms from sleep apnea. Even if you use it 4 hours it helps. Occasionally all of us are unable to use a medical therapy, in sleep apnea, it is not dangerous to miss one night. 5. Communicate. Call our skilled team on the number provided on the first day if your visit for problems that make it difficult to wear the device. Over 2 out of 3 patients can learn to wear the devicelong-term with help from our team. Remember to call our team or your sleep providers if you are unable to wear the device as we may have other solutions for those who cannot adapt to mask CPAP therapy.It is recommended that you sleep your sleep provider within the first 3 months and yearly after thatif you are not having problems. Take care of your equipment. Make sure you clean your mask and tubing using directions every day andthat your filter and mask are replaced as recommended or if they are not working. BESIDES CPAP, WHAT OTHER THERAPIES ARE THERE? Positioning Device Positioning devices are generally used when sleep apnea is mild and only occurs on your back.This example shows a pillow that straps around the waist. It may be appropriate for those whose sleep study shows milder sleep apnea that occurs primarily when lying flat on one's back. Preliminary studies have shown benefit but effectiveness at home may need to be verified by a home sleep test. These devicesare generally not covered by medical insurance. Examples of devices that maintain sleeping on the back to prevent snoring and mild sleep apnea. Belt type body positioner [email or web address]/ Electronic reminder [email or web address]/ [email or web address]/ Oral Appliance What is oral appliance therapy? An oral appliance device fits on your teeth at night like a retainer used after having braces. The device is made by a specialized dentist and requires several visits over 1-2 months before a manufactured device is made to fit your teeth and is adjusted to prevent your sleep apnea. Once an oral deviceis working properly, snoring should be improved. A home sleep test may be recommended at that time if to determine whether the sleep apnea is adequately treated. Some things to remember: -Oral devices are often, but not always, covered by your medical insurance. Be sure to check with your insurance provider. -If you are referred for oral therapy, you will be given a list of specialized dentists to consider or you may choose to visit the Web site of the [place] [employer] -Oral devices are less likely to work if you have severe sleep apnea or are extremely overweight. More detailed information An oral appliance is a small acrylic device that fits over the upper and lower teeth (similar to a retainer or a mouth guard). This device slightly moves jaw forward, which moves the base of the tongueforward, opens the airway, improves breathing for effective treat snoring and obstructive sleep apnea in perhaps 7 out of 10 people . The best working devices are custom-made by a dental device preparer samples and repairs after a mold is made of the teeth 1, 2, 3. When is an oral appliance indicated? Oral appliance therapy is recommended as a first-line treatment for patients with primary snoring, mild sleep apnea, and for patients with moderate sleep apnea who prefer appliance therapy to use of CPAP4, 5. Severity of sleep apnea is determined by sleep testing and is based on the number of respiratory events per hour of sleep. How successful is oral appliance therapy? The success rate of oral appliance therapy in patients with mild sleep apnea is 75-80% while in patients with moderate sleep apnea it is 50-70%. The chance of success in patients with severe sleep apnea is 40-50%. The research also shows that oral appliances have a beneficial effect on the cardiovascular health of MARY patients at the same magnitude as CPAP therapy7. Oral appliances should be a second-line treatment in cases of severe sleep apnea, but if not completely successful then a combination therapy utilizing CPAP plus oral appliance therapy may be effective. Oral appliances tend to be effective in a broad range of patients although studies show that the patients who have the highest success are females, younger patients, those with milder disease, and less severe obesity. 3, 6. Finding a dentist that practices dental sleep medicine Specific training is available through the [place] [employer] for dentists interested in working in the field of sleep. To find a dentist who is educated in the field of sleep and the use of oral appliances, near you, visit the Web site of the [place] [employer]. References 1. Leighton et al. Objectively measured vs self-reported compliance during oral appliance therapyfor sleep-disordered breathing. Chest 2013; 144(5): 5394-4437. 2. Romel et al. Objective measurement of compliance during oral appliance therapy for sleep-disordered breathing. Thorax 2013; 68(1): 91-96. 3. Ezio, et al. Mandibular advancement devices in 620 men and women with MARY and snoring: tolerability and predictors of treatment success. Chest 2004; 125: 8612-1016. 4. Pratima, et al. Oral appliances for snoring and MARY: a review. Sleep 2006; 29: 244-262. 5. Silvana, et al. Oral appliance treatment for MARY: an update. J Clin Sleep Med 2014; 10(2): 215-227. 6. Digna et al. Predictors of OSAH treatment outcome. J Jay Em Res 2007; 86: 2534-1416. Weight Loss: Weight loss is a long-term strategy that may improve sleep apnea in some patients. Weight management is a personal decision and the decision should be based on your interest and the potential benefits. If you are interested in exploring weight loss strategies, the following discussion covers the impact on weight loss on sleep apnea and the approaches that may be successful. Being overweight does not necessarily mean you will have health consequences. Those who have BMI over 35 or over 27 with existing medical conditions carries greater risk. Weight loss decreases severity of sleep apnea in most people with obesity. For those with mild obesity who have developed snoring with weight gain, even 15-30 pound weight loss can improve and occasionally eliminate sleep apnea. Structured and life-long dietary and health habits are necessary to lose weight and keep healthier weight levels. Though there may be significant health benefits from weight loss, long-term weight loss is very difficult to achieve- studies show success with dietary management in less than 10% of people. In addition, substantial weight loss may require years of dietary control and may be difficult if patients havesevere obesity. In these cases, surgical management may be considered. Finally, older individuals who have tolerated obesity without health complications may be less likely to benefit from weight loss strategies. Your BMI is Body mass index is 34.03 kg/(m^2). Weight management is a personal decision. If you are interested in exploring weight loss strategies,the following discussion covers the approaches that may be successful. Body mass index (BMI) is one way to tell whether you are at a healthy weight, overweight, or obese. It measures your weight in relation to your height. A BMI of 18.5 to 24.9 is in the healthy range. A person with a BMI of 25 to 29.9 is considered overweight, and someone with a BMI of 30 or greater is considered obese. More than two-thirds of [place] adults are considered overweight or obese. Being overweight or obese increases the risk for further weight gain. Excess weight may lead to heart disease and diabetes. Creating and following plans for healthy eating and physical activity may help you improve your health. Weight control is part of healthy lifestyle and includes exercise, emotional health, and healthy eating habits. Careful eating habits lifelong are the mainstay of weight control. Though there are significant health benefits from weight loss, long-term weight loss with diet alone may be very difficult to achieve- studies show long-term success with dietary management in less than 10% of people. Attaining a healthy weight may be especially difficult to achieve in those with severe obesity. In some cases, medications, devices and surgical management might be considered. What can you do? If you are overweight or obese and are interested in methods for weight loss, you should discuss this with your provider. ??? Consider reducing daily calorie intake by 500 calories. ??? Keep a food journal. ??? Avoiding skipping meals, consider cutting portions instead. Diet combined with exercise helps maintain muscle while optimizing fat loss. Strength training is particularly important for building and maintaining muscle mass. Exercise helps reduce stress, increaseenergy, and improves fitness. Increasing exercise without diet control, however, may not burn enoughcalories to loose weight. ??? Start walking three days a week 10-20 minutes at a time ??? Work towards walking thirty minutes five days a week ??? Eventually, increase the speed of your walking for 1-2 minutes at time In addition, we recommend that you review healthy lifestyles and methods for weight loss available through the National Institutes of Health patient information sites: http://win.niddk.nih.gov/publications/index.htm And look into health and wellness programs that may be available through your health insurance provider, employer, local community center, or jeanne club. Weight management plan: Patient was referred to their PCP to discuss a diet and exercise plan. Surgery: Surgery for obstructive sleep apnea is considered generally only when other therapies fail to work. Surgery may be discussed with you if you are having a difficult time tolerating CPAP and or when there is an abnormal structure that requires surgical correction. Nose and throat surgeries often enlargethe airway to prevent collapse. Most of these surgeries create pain for 1-2 weeks and up to half of the most common surgeries are not effective throughout life. You should carefully discuss the benefits and drawbacks to surgery with your sleep provider and surgeon to determine if it is the best solution for you. More information Surgery for MARY is directed at areas that are responsible for narrowing or complete obstruction of the airway during sleep. There are a wide range of procedures available to enlarge and/or stabilize the airway to prevent blockage of breathing in the three major areas where it can occur: the palate, tongue, and nasal regions. Successful surgical treatment depends on the accurate identification of the factors responsible for obstructive sleep apnea in each person. A personalized approach is required because there is no single treatment that works well for everyone. Because of anatomic variation, consultation with an examination by a sleep surgeon is a critical first step in determining what surgical options are best for each patient. In some cases, examination during sedation may be recommended in order to guide the selection of procedures. Patients will be counseled about risks and benefits as well as the typical recovery course after surgery. Surgery is typically not a cure for a person???s MARY. However, surgery will often significantly improve one???s MARY severity (termed ???success rate?? ). Even in the absence of a cure, surgery will decrease the cardiovascular risk associated with OSA7; improve overall quality of life8 (sleepiness, functionality, sleep quality, etc). Palate Procedures: Patients with MARY often have narrowing of their airway in the region of their tonsils and uvula. Thegoals of palate procedures are to widen the airway in this region as well as to help the tissues resist collapse. Modern palate procedure techniques focus on tissue conservation and soft tissue rearrangement, rather than tissue removal. Often the uvula is preserved in this procedure. Residual sleep apnea is common in patient after pharyngoplasty with an average reduction in sleep apnea events of 33%2. Tongue Procedures: ExamWhile patients are awake, the muscles that surround the throat are active and keep this region open for breathing. These muscles relax during sleep, allowing the tongue and other structures to collapse and block breathing. There are several different tongue procedures available. Selection of a tongue base procedure depends on characteristics seen on physical exam. Generally, procedures are aimed at removing bulky tissues in this area or preventing the back of the tongue from falling back during sleep. Success rates for tongue surgery range from 50-62%3. Hypoglossal Nerve Stimulation: Hypoglossal nerve stimulation has recently received approval from the [place] Food and Drug Administration for the treatment of obstructive sleep apnea. This is based on research showing that thesystem was safe and effective in treating sleep apnea6. Results showed that the median AHI score decreased 68%, from 29.3 to 9.0. This therapy uses an implant system that senses breathing patterns and delivers mild stimulation to airway muscles, which keeps the airway open during sleep. The system consists of three fully implanted components: a small generator (similar in size to a pacemaker), a breathing sensor, and a stimulation lead. Using a small handheld remote, a patient turns the therapy on before bed and off upon awakening. Candidates for this device must be greater than 22 years of age, have moderate to severe MARY (AHI between 20-65), BMI less than 32, have tried CPAP/oral appliance without success, and have appropriate upper airway anatomy (determined by a sleep endoscopy performed by Dr. Branch). Hypoglossal Nerve Stimulation Pathway: The sleep surgeon???s office will work with the patient through the insurance prior-authorization process (including communications and appeals). Nasal Procedures: Nasal obstruction can interfere with nasal breathing during the day and night. Studies have shown that relief of nasal obstruction can improve the ability of some patients to tolerate positive airway pressure therapy for obstructive sleep apnea1. Treatment options include medications such as nasal saline, topical corticosteroid and antihistamine sprays, and oral medications such as antihistamines or decongestants. Non-surgical treatments can include external nasal dilators for selected patients. If these are not successful by themselves, surgery can improve the nasal airway either alone or in combination with these other options. Combination Procedures: Combination of surgical procedures and other treatments may be recommended, particularly if patientshave more than one area of narrowing or persistent positional disease. The success rate of combination surgery ranges from 66-80%2,3. References 1. Jason Richard. The Role of the Nose in Snoring and Obstructive Sleep Apnoea: An Update. Eur Arch Otorhinolaryngol. 2011; 268: 1365-73. 2. Carlos SM; Maria G JA; Quirino JR; Donavan JF; Skye MB; Julia SG; Dc ADAN. Surgical modifications of the upper airway for obstructive sleep apnea in adults: a systematic review and meta-analysis. SLEEP 2010;33(10):1128-3784. Madeline Burr. Hypopharyngeal surgery in obstructive sleep apnea: an evidence-based medicine review. Arch Otolaryngol Head Neck Surg. 2005;132(2):206-13. 3. Miguel ElliottH1, Yg Y, Pacheco SAVANA. The efficacy of anatomically based multilevel surgery for obstructive sleep apnea. Otolaryngol Head Neck Surg. 2002;129(4):327-35. 4. Madeline Burr, Maria Isabel Barcenas. Hypopharyngeal Surgery in Obstructive Sleep Apnea: An Evidence-Based Medicine Review. Arch Otolaryngol Head Neck Surg. 2005;132(2):206-13. 5. Libia PJ et al. Upper-Airway Stimulation for Obstructive Sleep Apnea. N Engl J Med. 2014 May 04;370(2):139-49. 6. Kristie Y et al. Increased Incidence of Cardiovascular Disease in Middle-aged Men with Obstructive Sleep Apnea. Am J Respir Crit Care Med; 2002 166: 159-165 7. Brittany FAULKNER et al. Studying Life Effects and Effectiveness of Palatopharyngoplasty (SLEEP) study: Subjective Outcomes of Isolated Uvulopalatopharyngoplasty. Otolaryngol Head Neck Surg. 2011; 144: 623-631. Your BMI is Body mass index is 34.03 kg/(m^2). Weight management is a personal decision. If you are interested in exploring weight loss strategies,the following discussion covers the approaches that may be successful. Body mass index (BMI) is one way to tell whether you are at a healthy weight, overweight, or obese. It measures your weight in relation to your height. A BMI of 18.5 to 24.9 is in the healthy range. A person with a BMI of 25 to 29.9 is considered overweight, and someone with a BMI of 30 or greater is considered obese. More than two-thirds of [place] adults are considered overweight or obese. Being overweight or obese increases the risk for further weight gain. Excess weight may lead to heart disease and diabetes. Creating and following plans for healthy eating and physical activity may help you improve your health. Weight control is part of healthy lifestyle and includes exercise, emotional health, and healthy eating habits. Careful eating habits lifelong are the mainstay of weight control. Though there are significant health benefits from weight loss, long-term weight loss with diet alone may be very difficult to achieve- studies show long-term success with dietary management in less than 10% of people. Attaining a healthy weight may be especially difficult to achieve in those with severe obesity. In some cases, medications, devices and surgical management might be considered. What can you do? If you are overweight or obese and are interested in methods for weight loss, you should discuss this with your provider. ??? Consider reducing daily calorie intake by 500 calories. ??? Keep a food journal. ??? Avoiding skipping meals, consider cutting portions instead. Diet combined with exercise helps maintain muscle while optimizing fat loss. Strength training is particularly important for building and maintaining muscle mass. Exercise helps reduce stress, increaseenergy, and improves fitness. Increasing exercise without diet control, however, may not burn enoughcalories to loose weight. ??? Start walking three days a week 10-20 minutes at a time ??? Work towards walking thirty minutes five days a week ??? Eventually, increase the speed of your walking for 1-2 minutes at time In addition, we recommend that you review healthy lifestyles and methods for weight loss available through the National Institutes of Health patient information sites: http://win.niddk.nih.gov/publications/index.htm And look into health and wellness programs that may be available through your health insurance provider, employer, local community center, or jeanne club. Weight management plan: Patient was referred to their PCP to discuss a diet and exercise plan. Your blood pressure was checked while you were in clinic today. Please read the guidelines below about what these numbers mean and what you should do about them. Your systolic blood pressure is the top number. This is the pressure when the heart is pumping. Your diastolic blood pressure is the bottom number. This is the pressure in between beats. If your systolic blood pressure is less than 120 and your diastolic blood pressure is less than 80, then your blood pressure is normal. There is nothing more that you need to do about it If your systolic blood pressure is 120-139 or your diastolic blood pressure is 80-89, your blood pressure may be higher than it should be. You should have your blood pressure re-checked within a year by a primary care provider. If your systolic blood pressure is 140 or greater or your diastolic blood pressure is 90 or greater,you may have high blood pressure. High blood pressure is treatable, but if left untreated over time it can put you at risk for heart attack, stroke, or kidney failure. You should have your blood pressure re- checked by a primary care provider within the next four weeks. IDENT [employer]LE[employer] UNIVERSITY documented in this encounter Progress Notes Vipul Dyer MD - 05/28/2017 2:30 PM CST Sleep Center [facility] Outpatient Sleep Medicine Consultation May 28, 2017 Name: Ezra Yanez Age: [age] year old Date of : 1970 Date of Consultation: May 28, 2017 Consultation is requested by: Jeri Ibrahim PA-C [id number] [place] [address] Primary care provider: Jeri Ibrahim Reason for Sleep Consult: Ezra Yanez is a 46 year old male with complaints of increasing snoring and symptoms suggestive of sleep apnea. Assessment and Plan: Summary Sleep Diagnoses: ?? Obstructive sleep apnea ?? Obesity ?? GERD Summary Recommendations: ?? HST with consideration for CPAP or oral device. Summary Counseling: See instructions Counseling included a comprehensive review of diagnostic and therapeutic strategies as well as risksof inadequate therapy. Educational materials provided in instructions. History of Present Illness: Ezra Yanez is a 46 year old male who has gained 30#//5 years has developed increased snoring, observed apneas, but little worsening of sleepiness with ESS 9 but borderline hypertension. SLEEP-WAKE SCHEDULE: Ezra Yanez -Describes themself as having normal schedule. -ON WEEKDAYS/WORK DAYS}, goes to sleep at 10 am during the week; awakens 6:45 am without an alarm; falls asleep in 2 minutes; denies difficulty falling asleep. BEDTIME ACTIVITIES AND SHIFT WORK: Ezra Yanez -does SCALES SLEEP APNEA: Stopbang score INSOMNIA: Insomnia severity score: na SLEEPINESS: [place] sleepiness scale (ESS): 9 Drowsy driving/near accidents over past 3 months/year: none SLEEP COMPLAINTS: Cardio-respiratory Snoring- 7/week in all positions Dyspnea- no Morning headaches or confusion-no Coexisting Lung disease: no Coexisting Heart disease: no Does patient have a bed partner: yes Has bed partner been sleeping separately because of snoring: Wears earplugs RLS Screen: When you try to relax in the evening or sleep at night, do you ever have unpleasant, restless feelings in your legs that can be relieved by walking or movement? no Periodic limb movement: no Narcolepsy: ??? denies sudden urges of sleep attacks ??? denies cataplexy ??? denies sleep paralysis ??? denies hallucinations Sleep Behaviors: ?? denies leg symptoms/movements ?? denies motor restlessness ?? denies night terrors ?? denies bruxism ?? denies automatic behaviors Other subjective complaints: ?? denies anxiety or rumination ?? denies pain and discomfort at night ?? denies waking up with heart pounding or racing ?? On PPI for GERD or aspiration Parasomnia: NREM - denies recurrent persistent confusional arousal, night eating, sleep walking or sleep terrors REM - denies dream enactment; injuries Therapy & Medications: Sleep Treatments no 02 supplement at night Medications Current Outpatient Prescriptions Medication Sig ??? GLUCOSAMINE SULFATE PO ??? citalopram (CELEXA) 20 MG tablet TAKE 1 TABLET (20 MG) BY MOUTH DAILY ??? fluticasone (FLONASE) 50 MCG/ACT spray Ramer 1-2 sprays into both nostrils daily ??? valACYclovir (VALTREX) 1000 mg tablet TAKE 1 TABLET (1,000 MG) BY MOUTH 2 TIMES DAILY ??? ranitidine (ZANTAC) 150 MG tablet Take 1 tablet (150 mg) by mouth 2 times daily ??? Lysine HCl 500 MG TABS Take 500 mg by mouth 2 times daily ??? albuterol (PROAIR HFA/PROVENTIL HFA/VENTOLIN HFA) 108 (90 BASE) MCG/ACT Inhaler Inhale 2 puffs into the lungs every 4 hours as needed ??? EPINEPHrine (EPIPEN 2-DEBORAH) 0.3 MG/0.3ML injection Inject 0.3 mLs (0.3 mg) into the muscle as needed for anaphylaxis ??? bismuth subsalicylate (PEPTO-BISMOL) 262 MG chewable tablet Take 524 mg by mouth 4 times daily (before meals and nightly). ??? IBUPROFEN ??? MULTIVITAMIN TABS OR 1 qd No current facility-administered medications for this visit. Allergies Allergen Reactions ??? Penicillins Hives Past Medical History: Past Medical History: Diagnosis Date ??? Bronchitis with bronchospasm 11/16/2011 ??? Herpes simplex ??? Hyperlipemia ??? Scaphoid fracture of wrist 2013 left Past Surgical History: previous upper airway surgery Past Surgical History: Procedure Laterality Date ??? NO HISTORY OF SURGERY Social History: Social History Substance Use Topics ??? Smoking status: Former Smoker Quit date: 10/15/1998 ??? Smokeless tobacco: Never Used ??? Alcohol use Yes Comment: socially Chemical History: Tobacco:no Uses formerly 5 caffeined down to 1-2 green tea EtOH: occ social Family History: Family History Problem Relation Age of Onset ??? CANCER Mother Cuteaneous T-cell lyphoma/ born 1950 Melanoma ??? Neurologic Disorder Mother brain aneurysm ??? DIABETES Father born 194 ??? Respiratory Father COPD ??? Family History Negative Sister ??? Family History Negative Daughter ??? CANCER Maternal Uncle skin ??? DIABETES Maternal Grandfather ??? DIABETES Paternal Grandmother ??? Neurologic Disorder Maternal Uncle abdominal aortic aneurysm Review of Systems: A complete 10 point review of systems was negative other than HPI or as commented below: CONSTITUTIONAL: NEGATIVE for weight gain/loss, fever, chills, sweats or night sweats, drug allergies. EYES: NEGATIVE for changes in vision, blind spots, double vision. ENT: NEGATIVE for ear pain, sore throat, sinus pain, post-nasal drip, runny nose, bloody nose CARDIAC: NEGATIVE for fast heartbeats or fluttering in chest, chest pain or pressure, breathlessnesswhen lying flat, swollen legs or swollen feet. NEUROLOGIC: NEGATIVE headaches, weakness or numbness in the arms or legs. DERMATOLOGIC: NEGATIVE for rashes, new moles or change in mole(s) PULMONARY: NEGATIVE SOB at rest, SOB with activity, dry cough, productive cough, coughing up blood, wheezing or whistling when breathing. GASTROINTESTINAL: NEGATIVE for nausea or vomitting, loose or watery stools, fat or grease in stools,constipation, abdominal pain, bowel movements black in color or blood noted. GENITOURINARY: NEGATIVE for pain during urination, blood in urine, urinating more frequently than usual, i MUSCULOSKELETAL: NEGATIVE for muscle pain, bone or joint pain, swollen joints. ENDOCRINE: NEGATIVE for increased thirst or urination, diabetes. LYMPHATIC: NEGATIVE for swollen lymph nodes, lumps or bumps in the breasts or nipple discharge. Physical Examination: BP 130/86 Pulse 102 Resp 18 Ht 1.803 m (5' 11) Wt 110.7 kg (244 lb) SpO2 95% BMI 34.03 kg/m2 Neck Circumference: 46 cm Constitutional: . Awake, alert, cooperative, dressed casually, good eye contact, comfortably sittingin a chair, in no apparent distress Mood: euthymic; affect congruent with full range and intensity. Attention/Concentration: Normal Eyes: No icterus. ENT: Mallampati Class:3 . Tonsillar Stage: 0 Cardiovascular: Regular S1 and S2, no gallops or murmurs. No carotid bruits Neck: Supple, no thyroid enlargement. Pulmonary: Chest symmetric, lungs clear bilaterally and no crackles, wheezes or rales Extremities: No pedal edema. Muscle/joint: Strength and tone normal Skin: No rash or significant lesions. Gait Normal. Neurologic:Alert, oriented x3, no focal neurological deficit, cranial nerves grossly normal Data: All pertinent previous laboratory data reviewed No results found for: PH, PHARTERIAL, PO2, [id number], SAT, PCO2, HCO3, BASEEXCESS, KAYLEY, BEB Lab Results Component Value Date TSH 1.99 05/13/2017 TSH 2.15 08/01/2012 Lab Results Component Value Date GLC 97 05/13/2017 GLC 93 10/16/2015 Lab Results Component Value Date HGB 16.8 05/13/2017 HGB 15.9 10/16/2015 Lab Results Component Value Date BUN 18 05/13/2017 BUN 22 10/16/2015 CR 1.00 05/13/2017 CR 1.05 10/16/2015 Copy to: Jeri Ibrahim MD 05/28/2017 Total time spent with patient: 60 min >50% counseling [employer]IVERSITY documented in this encounter Nursing Notes Aminah Gil MA - 05/28/2017 2:30 PM CST Chief Complaint Patient presents with ??? Consult Discuss snoring and stops breathing sometimes during the night Initial BP 130/86 Pulse 102 Resp 18 Ht 1.803 m (5' 11) Wt 110.7 kg (244 lb) SpO2 95% BMI 34.03 kg/m2 Estimated body mass index is 34.03 kg/(m^2) as calculated from the following: Height as of this encounter: 1.803 m (5' 11). Weight as of this encounter: 110.7 kg (244 lb). Medication Reconciliation: complete SAHIL Henning [employer]ENT [employer]IVERSITY documented in this encounter Plan of Treatment Upcoming Encounters Date Type Specialty Care Team Description 02/04/2022 Virtual Visit Behavioral Health Janak Marquez, [place] [id number] [place] [address] (Wo rk) documented as of this encounter Results HST-Home Sleep Apnea Test (07/15/2017 4:30 PM CDT) Narrative Vipul Dyer MD - 07/15/2017 4:30 PM CD T Vipul Dyer MD ? 07/15/2017 ??4:30 PM HOME SLEEP STUDY INTERPRETATION Patient: Ezra Yanez Date of : 1970 Study Date: 07/15/2017 Referring Provider: Jeri Ibrahim; Ordering Provider: Vipul Dyer MD Indications for Home Study: Ezra mcgill is a 46 year old male with a history of GERD who presents with symptoms suggestive of obstructive sleep apnea. Estimated body mass index is 34.03 kg/(m ^2) as calculated from the following: ??Height as of 05/28/17: 1.803 m (5' 11) . ??Weight as of 05/28/17: 110.7 kg (244 lb ). Total score - [place]: 10 (05/28/2017 ??2: 00 PM) STOP-BAN/8 Data: A full night home sleep study [...] all home sleep apnea testing. Analysis Time: ??429 minutes Respiration: Sleep Associated Hypoxemia: sustained hy poxemia was present. Baseline oxygen saturation was 94%. ??Ti me with saturation less than or equal to 88% was 61 minutes. The lowest oxygen saturation was 72%. Snoring: Snoring was present. Respiratory events: The home study revea led a presence of 523 obstructive apneas and 139 mixed and dorian tral apneas. There were 49 hypopneas resulting in a combined senior product manager ea/hypopnea index [AHI] of 99 events per hour. ??AHI was 96 per hour supine, - per hour prone, - per hour on left side, and 105 per hour on right side. Pattern: Excluding events noted above, r espiratory rate and pattern was Normal. Position: Percent of time spent: supine - 63%, prone - -%, on left - -%, on right - 37%. Heart Rate: By pulse oximetry normal rat e was noted. Assessment: Severe obstructive sleep apnea. Sleep associated hypoxemia was present. Recommendations: Since last visit, patient did try an OTC oral device therapy which was intolerable. We explained that this experience does not preclude response to customized device t yohannes his likelihood of response is limited by severity of sleep apnea. After telephone encounter today, preferr ed initiation of auto CPAP 5-15 with followup oximetry to veri fy correction of hypoxemia on therapy and followup by sle ep therapy management. Suggest optimizing sleep hygiene and brook iding sleep deprivation. Weight management. Diagnosis Code(s): Obstructive Sleep Senior Dot Net Developer ea G47.33, Hypoxemia G47.36 VIPUL ??MD MARIO, July 15, 2017 Diplomate, [place] [employer] Me dicine Vipul Dyer MD PROCEDURES documented in this encounter Visit Diagnoses Diagnosis Obstructive sleep apnea - Primary Obstructive sleep apnea (adult) (pediatr ic) Obstructive sleep apnea Obstructive sleep apnea (adult) (pediatr ic) documented in this encounter Additional Health Concerns Assessment Noted Time PHQ-9 Depression Total Score: 3 05/13/2017 8:37 AM PRESIDENT [employer]IVERSITY documented as of this encounter Care Teams Mercerizing Range Feeder Relationship Specialty Start Date End Date Jeri Ibrahim PA-C PCP - General Physician Meter And Regulator Shop Supervisor 01/14/15 [id number] [place] [address] Jeri Ibrahim PA-C PCP - Assigned PCP 05/16/17 06/28/18 [id number] [place] [address] Jeri Ibrahim PA-C Assigned PCP 05/16/17 [address] [place] [address] documented as of this encounter
--- OUTSIDE RECORDS SUMMARY | 2022-01-26 22:31 | XMS_ITS | Encounter Summary ---
:1970 Author Organization [place] Address [address] [place] [address]. [place] [address] Care Team Providers Name Role Phone Jeri Ibrahim PA-C Primary Care Provider Jeri Ibrahim PA-C Unavailable Jeri Ibrahim PA-C Unavailable Reason for Visit Reason Comments Sleep Apnea Encounter Details Date Type Department Care Team Description 07/15/2017 Documentation Only [facility] Sleep Apnea [address] [phone] Social History Tobacco Use Types Packs/Day Years [...] or relatives? How often do you attend sabianist or 1 to 4 times per year 03/26 gnosticist services? 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 Will call Ezra to setup oximeter pickup and f/u appointment with DR Dyer. Maine Mott - 07/15/2017 9:10 AM CDT Patient returned Hst 07/15/17 documented in this encounter Procedure Notes Vipul Dyer MD - 07/15/2017 4:21 PM CDTAssociated Order(s): HC HOME SLEEP TEST/TYPE 3 STAN HOME SLEEP STUDY INTERPRETATION Patient: Ezra Yanez Date of : 1970 Study Date: 07/15/2017 Referring Provider: Jeri Ibrahim; Ordering Provider: Vipul Dyer MD Indications for Home Study: Ezra Yanez is a 46 year old male with a history of GERD who presents with symptoms suggestive of obstructive sleep apnea. Estimated body mass index is 34.03 kg/(m^2) as calculated from the following: Height as of 05/28/17: 1.803 m (5' 11). Weight as of 05/28/17: 110.7 kg (244 lb). Total score - [place]: 10 (05/28/2017 2:00 PM) STOP-BAN/8 Data: A full night home sleep study was performed recording the standard physiologic parameters including body position, movement, sound, nasal pressure, thermal oral airflow, chest and abdominal movements with respiratory inductance plethysmography, and oxygen saturation by pulse oximetry. Pulse ratewas estimated by oximetry recording. This study was considered adequate based on > 4 hours of quality oximetry and respiratory recording. As specified by the AASM Manual for the Scoring of Sleep andAssociated events, version 2.3, Rule VIII.D 1B, 4% oxygen desaturation scoring for hypopneas is usedas a standard of care on all home sleep apnea testing. Analysis Time: 429 minutes Respiration: Sleep Associated Hypoxemia: sustained hypoxemia was present. Baseline oxygen saturation was 94%. Time with saturation less than or equal to 88% was 61 minutes. The lowest oxygen saturation was 72%. Snoring: Snoring was present. Respiratory events: The home study revealed a presence of 523 obstructive apneas and 139 mixed and central apneas. There were 49 hypopneas resulting in a combined apnea/hypopnea index [AHI] of 99 events per hour. AHI was 96 per hour supine, - per hour prone, - per hour on left side, and 105 per hour on right side. Pattern: Excluding events noted above, respiratory rate and pattern was Normal. Position: Percent of time spent: supine - 63%, prone - -%, on left - -%, on right - 37%. Heart Rate: By pulse oximetry normal rate was noted. Assessment: Severe obstructive sleep apnea. Sleep associated hypoxemia was present. Recommendations: Since last visit, patient did try an OTC oral device therapy which was intolerable. We explained that this experience does not preclude response to customized device though his likelihood of response is limited by severity of sleep apnea. After telephone encounter today, preferred initiation of auto CPAP 5-15 with followup oximetry to verify correction of hypoxemia on therapy and followup by sleep therapy management. Suggest optimizing sleep hygiene and avoiding sleep deprivation. Weight management. Diagnosis Code(s): Obstructive Sleep Apnea G47.33, Hypoxemia G47.36 VIPUL DYER MD, July 15, 2017 Diplomate, [place] [employer] documented in this encounter Miscellaneous Notes Addendum Note - Vipul Dyer MD - 07/15/2017 4:35 PM CDT Addended by: VIPUL DYER on: 07/15/2017 04:35 PM Modules accepted: Orders, SmartSet documented in this encounter Plan of Treatment Upcoming Encounters Date Type Specialty Care Team Description 02/04/2022 Virtual Visit Behavioral Health Janak Marquez, [facility] [address] [place] [address] [place] [address] (Wo rk) documented as of this encounter Procedures Procedure Name Priority Date/Time Associated Diagnosis Comme nts HOME SLEEP Routine 07/15/2017 4:30 PM Obstructive sleep Res ults for this TEST/TYPE 3 STAN CDT apnea procedure are in the results section. 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
--- OUTSIDE RECORDS SUMMARY | 2022-01-26 22:31 | XMS_ITS | Encounter Summary ---
:1970 Author Organization [place] Address [address] [facility] [place] [address] Care Team Providers Name Role Phone Jeri Ibrahim PA-C Primary Care Provider Jeri Ibrahim PA-C Unavailable Jeri Ibrahim PA-C Unavailable Reason for Visit Reason Comments Consult Vasectomy Encounter Details Date Type Department Care Team Description 11/29/2017 Office Visit [facility] Ned Mcmullen Encount er for [facility] [place] MD vasectomy counseling [id number] [place] [address] (Primary Dx) [place] [address] [id number] Social History Tobacco Use Types Packs/Day Years [...] place to sleep or slept in a longterm (including now)? 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 documented as of this encounter Last Filed Vital Signs Vital Sign Reading Time Taken Comments Blood Pressure 112/82 11/29/2017 9:10 AM CDT Pulse 76 11/29/2017 9:10 AM CDT Temperature 36.8 ??C (98.2 ??F) 11/29/2017 9:10 AM CDT Respiratory Rate 16 11/29/2017 9:10 AM CDT Oxygen Saturation - - Inhaled Oxygen Concentration - - Weight 104.2 kg (229 lb 11.2 oz) 11/29/2017 9:10 AM CDT Height 180.3 cm (5' 11) 11/29/2017 9:10 AM CDT Body Mass Index 32.04 11/29/2017 9:10 AM CDT documented in this encounter Patient Instructions Patient InstructionsNed Mcmullen MD - 11/29/2017 8:31 AM CDT Images from the original note were not included. No-Scalpel Vasectomy Talk to your healthcare provider??about how to prepare for the procedure, and about??possible risks and complications. Front view of penis and scrotum showing vas deferens during and after vasectomy. The no-scalpel procedure is similar to a traditional vasectomy in many respects, but it???s done without incisions or stitches. This generally results in faster healing. During the procedure ?? You???re asked to undress and lie on the exam table. Sterile drapes are placed over you to help prevent infection. ?? You???re given injections of anesthetic into your scrotum or lower groin to prevent you from feeling pain. ?? Once the anesthetic takes effect, the doctor makes one puncture in the scrotum with a pointed clamp. One at a time, the vasa deferentia??are lifted through this puncture. ?? The vasa are cut, and a section of each may be removed. You may feel a pulling sensation during this process. ?? The??2 cut ends are sealed by heat (cauterized) and may also be tied or clipped. The puncture heals naturally without stitches. After the procedure If you???ve been given medicine to help you relax, you???ll need to have someone drive you home. Thelocal anesthetic starts to wear off after an hour or so. Any discomfort you feel is usually very mild. If you need it, a pain reliever may help. During your healing Recovery time after a no-scalpel vasectomy is usually less than after a traditional vasectomy. Once you???re home, you can do several things to aid your recovery: ?? Stay off your feet as much as possible for the first day to lessen the chance of swelling. An icepack can also help keep swelling down. ?? Wear an athletic support or snug cotton briefs for support. ?? Avoid heavy lifting or exercise for at least??5 days. ?? Ask your doctor when you can return to work. ?? Ask your doctor when you can start having sex again. Note: You must use some form of control until your doctor says you???re sterile. Date Last Reviewed: 04/26/2016 ?? [id number] [employer]. [address] [place] [address]. All rights reserved. This information is not intended as a substitute for professional medical care. Always follow your healthcare professional's instructions. documented in this encounter Progress Notes Ned Mcmullen MD - 11/29/2017 9:00 AM CDT Pt presents to discuss permanent contraception. He has 2 children. We discuss potential complications of vasectomy including contraceptive failure, testicular loss, bleeding, pain, and infection, as well as irreversibility. The need for continued contraception until sterility is documented is reviewed. Past Medical History: Diagnosis Date ??? Bronchitis with bronchospasm 11/16/2011 ??? Herpes simplex ??? Hyperlipemia ??? Scaphoid fracture of wrist 2012 left Current Outpatient Prescriptions Medication ??? albuterol (PROAIR HFA/PROVENTIL HFA/VENTOLIN HFA) 108 (90 BASE) MCG/ACT Inhaler ??? bismuth subsalicylate (PEPTO-BISMOL) 262 MG chewable tablet ??? citalopram (CELEXA) 20 MG tablet ??? EPINEPHrine (EPIPEN 2-DEBORAH) 0.3 MG/0.3ML injection ??? fluticasone (FLONASE) 50 MCG/ACT spray ??? GLUCOSAMINE SULFATE PO ??? IBUPROFEN ??? Lysine HCl 500 MG TABS ??? MULTIVITAMIN TABS OR ??? ranitidine (ZANTAC) 150 MG tablet ??? valACYclovir (VALTREX) 1000 mg tablet No current facility-administered medications for this visit. Allergies Allergen Reactions ??? Penicillins Hives ROS no dysuria, discharge, systemic sx Exam BP 112/82 (BP Location: Right arm, Patient Position: Chair, Cuff Size: Adult Large) Pulse 76 Temp 98.2 ??F (36.8 ??C) (Oral) Resp 16 Ht 5' 11 (1.803 m) Wt 229 lb 11.2 oz (104.2 kg) BMI 32.04 kg/m2 without discharge nor hernia Assesment: Vasectomy request. The procedure is discussed. All questions are answered. Plan: Schedule at his convenience Ned Mcmullen MD Answers for HPI/ROS submitted by the patient on 11/29/2017 If you checked off any problems, how difficult have these problems made it for you to do your work, take care of things at home, or get along with other people?: Not difficult at all PHQ9 TOTAL SCORE: 1 CHANG 7 TOTAL SCORE: 2 documented in this encounter Plan of Treatment Upcoming Encounters Date Type Specialty Care Team Description 02/04/2022 Virtual Visit Behavioral Health Janak Marquez, [address] [address] (Wo rk) documented as of this encounter Visit Diagnoses Diagnosis Encounter for vasectomy counseling - Esthela perez Other general counseling and advice for contraceptive management documented in this encounter Additional Health Concerns Assessment Noted Time PHQ-9 Depression Total Score: 1 11/30/2017 7:08 AM CDT documented as of this encounter Care Teams Crime Scene Evidence Technician Relationship Specialty Start Date End Date Jeri Ibrahim PA-C PCP - General Physician Boat Wrapper 01/14/15 [address] [place] [address] Jeri Ibrahim PA-C PCP - Assigned PCP 05/16/17 06/28/18 [address] [place], [place] [id number] Jeri Ibrahim PA-C Assigned PCP 05/16/17 [address] [place] [address] documented as of this encounter
--- OUTSIDE RECORDS SUMMARY | 2022-01-26 22:31 | XMS_ITS | Encounter Summary ---
:1970 Author Organization [place] Address [facility] [place] [address] Care Team Providers Name Role Phone Jeri Ibrahim PA-C Primary Care Provider Jeri Ibrahim PA-C Unavailable Jeri Ibrahim PA-C Unavailable Reason for Visit Reason Comments Sleep Problem (Routine) - Closed Specialty Diagnoses / Procedures Referred By Contact Refer red To Contact Sleep Medicine Diagnoses Hst p/u Bedtime 10:30p Sleep Clinic Procedures HST ACCOUNTS PAYABLE CLERK [address] [place] [address] Phone: Fax: Referral ID Status Reason Start Date Expiration Date Visits Requ ested Visits Authorized [id number] Closed 07/14/2017 07/14/2018 1 1 Encounter Details Date Type Department Care Team Description 07/14/2017 Office Visit [facility] Sleep [facility] sleep apnea Center [place] [address] [place] [phone] Social History Tobacco Use Types [...] 04/11/2021 organizations such as spiritism groups, unions, fraViSSee or athletic groups, or school groups? How [...] or slept in a mcc (including now)? 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 Demonstrated back for knowledge of use. Will return Hst 07/15/17. Joe Wright - 07/14/2017 4:30 PM CDT This HST performed using a Noxturnal T3 device which recorded snore, sound, movement activity, body position, nasal pressure, oronasal thermal airflow, pulse, oximetry and both chest and abdominal respiratory effort. HST data was confined to the time patients states they were in bed. Patient was score using 4% rules. Patient respiratory events showed an AHI 99.5 with loud snoring. Patient SP02 below 89% was 61.0 minutes. Overall signal quality was good. Pt will follow up with sleep provider to determine appropriate therapy. Ordering Manisha TERRY Conrad, MD documented in this encounter Plan of Treatment Upcoming Encounters Date Type Specialty Care Team Description 02/04/2022 Virtual Visit Behavioral Health Janak Marquez, [address] [address] (Wo rk) documented as of this encounter Procedures Procedure Name Priority Date/Time Associated Diagnosis Comme nts HC HOME SLEEP Routine 07/15/2017 4:30 PM Obstructive sleep Res ults for this TEST/TYPE 3 STAN CDT apnea procedure are in the results section. SLEEP STUDY - HIM Routine 07/15/2017 SCAN documented in this encounter Results HST-Home Sleep Apnea Test [...] kg (244 lb ). Total score - [place]: 10 (05/28/2017 ??2: 00 PM) STOP-BAN/8 Data: [...] were 49 hypopneas resulting in a combined commercial intelligence manager ea/hypopnea index [AHI] of 99 events [...] CPAP 5-15 with followup oximetry to veri pawan correction of hypoxemia on therapy and followup by sle ep therapy management. Suggest optimizing sleep hygiene and brook iding sleep deprivation. Weight management. Diagnosis Code(s): Obstructive Sleep Plate Developer ea G47.33, Hypoxemia G47.36 VIPUL ?MD DAGOBERTO, July 15, 2017 Diplomate, [place] [employer] Vipul Dyer MD PROCEDURES Sleep Study - HIM Scan (07/15/2017) Narrative This result has an attachment that is no t available. Vipul Dyer MD PFT ORDERABLES documented in this encounter Visit Diagnoses Diagnosis Obstructive sleep apnea Obstructive sleep apnea (adult) (pediatr ic) documented in this encounter Additional Health Concerns Assessment Noted Time PHQ-9 Depression Total Score: 3 05/13/2017 8:37 AM GERIATRICS PHYSICIAN documented as of this encounter Care Teams Sample Sewer Relationship Specialty Start Date End Date Jeri Ibrahim PA-C PCP - General Physician Radiology Technologist 01/14/15 [address] [place] [address] Jeri Ibrahim PA-C PCP - Assigned PCP 05/16/17 06/28/18 [address] [place] [address] Jeri Ibrahim PA-C Assigned PCP 05/16/17 [address] [place] [address] documented as of this encounter
--- OUTSIDE RECORDS SUMMARY | 2022-01-26 22:31 | XMS_ITS | Encounter Summary ---
:1970 Author Organization [place] Address [address] [place] [address]. [place] [address] Care Team Providers Name Role Phone Jeri Ibrahim PA-C Primary Care Provider Jeri Ibrahim PA-C Unavailable Reason for Visit Reason Comments Allied Health Visit 3rd Hpv Encounter Details Date Type Department Care Team Description 10/24/2018 Allied Health/Nurse Health [place] [facility] ied Health Visit Visit [facility] [place] (3rd Hpv ) [address] [place] [phone] Social History Tobacco Use Types Packs/Day Years [...] or relatives? How often do you attend pentecostalism or 1 to 4 times per year 03/26 hindu services? 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 documented as of this encounter Plan of Treatment Upcoming Encounters Date Type Specialty Care Team Description 02/04/2022 Virtual Visit Behavioral Health Janak Marquez, [place] [id number] [address] (Wo rk) documented as of this encounter Visit Diagnoses Diagnosis Need for HPV vaccination - Primary Need for prophylactic vaccination and in oculation against other viral diseases documented in this encounter Additional Health Concerns Assessment Noted Time PHQ-9 Depression Total Score: 1 11/30/2017 7:08 AM CDT documented as of this encounter Care Teams Environmental Protection Inspector Relationship Specialty Start Date End Date Jeri Ibrahim PA-C PCP - General Physician Screen Printing Machine Operator 01/14/15 [address] [place], [place] [id number] Jeri Ibrahim PA-C Assigned PCP 05/16/17 [address] [place] [address] documented as of this encounter
--- OUTSIDE RECORDS SUMMARY | 2022-01-26 22:31 | XMS_ITS | Encounter Summary ---
:1970 Author Organization [place] Address [address] [place] [address]. [place] [address] Care Team Providers Name Role Phone Jeri Ibrahim PA-C Primary Care Provider Jeri Ibrahim PA-C Unavailable Reason for Visit Reason Onset Date Comments Appointment 10/19/2018 Encounter Details Date Type Department Care Team Description 10/19/[address] [facility] Sleep Red Dyer MD Appointment Center [place] [address] [place] [address] [place], [place] [phone] Social History Tobacco Use Types Packs/Day Years [...] place to sleep or slept in a intermediate (including now)? 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 documented in this encounter Plan of Treatment Upcoming Encounters Date Type Specialty Care Team Description 02/04/2022 Virtual Visit Behavioral Health Janak Marquez, [place] [id number] [address] (Wo rk) documented as of this encounter Visit Diagnoses Not on filedocumented in this encounter Additional Health Concerns Assessment Noted Time PHQ-9 Depression Total Score: 1 11/30/2017 7:08 AM CDT documented as of this encounter Care Teams Care Transitions Manager Relationship Specialty Start Date End Date Jeri Ibrahim PA-C PCP - General Physician Preschool Special Education Teacher 01/14/15 [address] [place] [address] Jeri Ibrahim PA-C Assigned PCP 05/16/17 [address] [place] [address] documented as of this encounter
--- OUTSIDE RECORDS SUMMARY | 2022-01-26 22:31 | XMS_ITS | Encounter Summary ---
:1970 Author Organization [place] Address [address] [place] [address]. [place] [address] Care Team Providers Name Role Phone Jeri Ibrahim PA-C Primary Care Provider Jeri Ibrahim PA-C Unavailable Reason for Visit Reason Comments Medication Refill Encounter Details Date Type Department Care Team Description 02/24/2019 Refill [facility] Jeri Ibrahim PA-C Medication Refill [address] [address] [place], [place] [phone] (W ork) [address] [phone] Social History Tobacco Use Types Packs/Day Years [...] or relatives? How often do you attend jain or 1 to 4 times per year 03/26 baptist services? Do you belong to any clubs or Yes 04/11/2021 organizations such as jain groups, unions, fraternal or athletic groups, or [...] place to sleep or slept in a senior care (including now)? 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 Shantal Biswas MA Telephone Encounter - Ce Cabrales RN - 02/24/2019 7:59 AM CDT Needs yearly visit. Refill sent. Please call and schedule yearly visit and med renewals. Ce Cabrales RN documented in this encounter Plan of Treatment Upcoming Encounters Date Type Specialty Care Team Description 02/04/2022 Virtual Visit Behavioral [facility] Janak Marquez, [address] [address] (Wo rk) documented as of this encounter Visit Diagnoses Diagnosis Post-nasal drip Postnasal drip Irritability documented in this encounter Additional Health Concerns Assessment Noted Time PHQ-9 Depression Total Score: 1 11/30/2017 7:08 AM CDT documented as of this encounter Care Teams Professor Of Legal Studies Relationship Specialty Start Date End Date Jeri Ibrahim PA-C PCP - General Physician Management Associate 01/14/15 [address] [place] [address] Jeri Ibrahim PA-C Assigned PCP 05/16/17 [address] [place] [address] documented as of this encounter
--- OUTSIDE RECORDS SUMMARY | 2022-01-26 22:31 | XMS_ITS | Encounter Summary ---
:1970 Author Organization [place] Address [facility] [place] [address] Care Team Providers Name Role Phone Jeri Ibrahim PA-C Primary Care Provider Jeri Ibrahim PA-C Unavailable Reason for Visit Reason Onset Date Comments Refill Request 04/24/2019 EPINEPHrine (EPIPEN 2-DEBORAH) 0.3 MG/0.3ML injection 2-pack Encounter Details Date Type Department Care Team Description 04/24/2019 Refill [facility] Jeri Ibrahim, Refi ll Request Clinic [place] MIMA (EPINEPHrine (EPIPEN [address] [address] [facility] 2-DEBORAH) 0.3 MG/0.3ML [place], [place] injecti on 2-pack) [phone] [phone] (Wo rk) Social History Tobacco Use Types [...] or relatives? How often do you attend islam or 1 to 4 times per year 03/26 scientology services? Do you belong to any clubs or Yes 04/11/2021 organizations such as islam groups, unions, fraternal or athletic groups, or [...] have completed or the highest Dawn, MEd, INFRASTRUCTURE ENGINEER, BETI) degree you have received? 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 COACH documented in this encounter Plan of Treatment Upcoming Encounters Date Type Specialty Care Team Description 02/04/2022 Virtual Visit Behavioral Health Janak Marquez, [facility] [address] [facility] [address] [place] [address] (Wo rk) documented as of this encounter Visit Diagnoses Diagnosis Bee sting allergy Toxic effect of venom documented in this encounter Additional Health Concerns Assessment Noted Time PHQ-9 Depression Total Score: 1 11/30/2017 7:08 AM CDT documented as of this encounter Care Teams Primary School Teacher Relationship Specialty Start Date End Date Jeri Ibrahim PA-C PCP - General Physician Hydroelectric Plant Electrician 01/14/15 [address] [place] [address] Jeri Ibrahim PA-C Assigned PCP 05/16/17 [address] [place] [address] documented as of this encounter
--- OUTSIDE RECORDS SUMMARY | 2022-01-26 22:31 | XMS_ITS | Encounter Summary ---
:1970 Author Organization [place] Address [address] [place] [address]. 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 Patient compliance is 86% the last 180 days. Action plan: Pt to follow up per provider request (1-2 yrs). Device type: Auto-CPAP PAP settings: CPAP min 5.0 cm H20 CPAP max 15.0 cm H20 CPAP fixed 0 cm H20 95th% pressure 8.1 cm H20 Objective measures: 14 day rolling measures Compliance 78 % Leak 5.45 lpm last upload AHI 1.41 last upload Average number of minutes 355 Objective measure goal Compliance Goal >70% Leak Goal < 24 lpm AHI Goal < 5 Usage Goal >240 documented in this encounter Plan of Treatment Upcoming Encounters Date Type Specialty Care Team Description 02/04/2022 Virtual Visit Behavioral Health Janak Marquez, [facility] [address] [place] [address] (Wo rk) documented as of this encounter Visit Diagnoses Not on filedocumented in this encounter Additional Health Concerns Assessment Noted Time PHQ-9 Depression Total Score: 1 11/30/2017 7:08 AM CDT documented as of this encounter Care Teams Lunchroom Supervisor Relationship Specialty Start Date End Date Jeri Ibrahim PA-C PCP - General Physician Egg Buyer 01/14/15 [address] [place] [address] Jeri Ibrahim PA-C PCP - Assigned PCP 05/16/17 06/28/18 [address] [place] [address] Jeri Ibrahim PA-C Assigned PCP 05/16/17 [address] [place] [address] documented as of this encounter
--- OUTSIDE RECORDS SUMMARY | 2022-01-26 22:31 | XMS_ITS | Encounter Summary ---
:1970 Author Organization [place] Address [address] [place] [address]. [place] [address] Care Team Providers Name Role Phone Jeri Ibrahim PA-C Primary Care Provider Jeri Ibrahim PA-C Unavailable Jeri Ibrahim PA-C Unavailable Encounter Details Date Type Department Care Team Description 06/16/2018 Travel Social History Tobacco Use Types Packs/Day [...] or relatives? How often do you attend scientologist or 1 to 4 times per year 03/26 buddhist services? 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 documented as of this encounter Plan of Treatment Upcoming Encounters Date Type Specialty Care Team Description 02/04/2022 Virtual Visit Behavioral Health Janak Marquez, [facility] [address] [place] [address] (Wo rk) documented as of this encounter Visit Diagnoses Not on filedocumented in this encounter Additional Health Concerns Assessment Noted Time PHQ-9 Depression Total Score: 1 11/30/2017 7:08 AM CDT documented as of this encounter Care Teams Environmental Health Technologist Relationship Specialty Start Date End Date Jeri Ibrahim PA-C PCP - General Physician Potato Grader 01/14/15 [address] [place] [address] Jeri Ibrahim PA-C PCP - Assigned PCP 05/16/17 06/28/18 [address] [place] [address] Jeri Ibrahim PA-C Assigned PCP 05/16/17 [address] [place] [address] documented as of this encounter
--- OUTSIDE RECORDS SUMMARY | 2022-01-26 22:31 | XMS_ITS | Encounter Summary ---
:1970 Author Organization [place] Address [address] [place] [address]. [place] [address] Care Team Providers Name Role Phone Jeri Ibrahim PA-C Primary Care Provider Jeri Ibrahim PA-C Unavailable Jeri Ibrahim PA-C Unavailable Reason for Visit Reason Comments Allied Health Visit HPV preventive Encounter Details Date Type Department Care Team Description 04/28/2018 Allied Health/Nurse [facility] ied Health Visit Visit Clinic [place] (HPV preventive ) [address] [place] [phone] Social History Tobacco Use Types Packs/Day [...] 1 to 4 times per year 03/26 restoration services? Do you belong to any clubs [...] or slept in a prison (including now)? 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 documented as of this encounter Plan of Treatment Upcoming Encounters Date Type Specialty Care Team Description 02/04/2022 Virtual Visit Behavioral Health Janak Marquez, [facility] [address] [place] [address] (Wo rk) documented as of this encounter Visit Diagnoses Diagnosis Encounter for preventive measure - Prima ry documented in this encounter Additional Health Concerns Assessment Noted Time PHQ-9 Depression Total Score: 1 11/30/2017 7:08 AM CDT documented as of this encounter Care Teams Manager Study Relationship Specialty Start Date End Date Jeri Ibrahim PA-C PCP - General Physician Telephone Service Adviser 01/14/15 [address] [place] [address] Jeri Ibrahim PA-C PCP - Assigned PCP 05/16/17 06/28/18 [address] [place] [address] Jeri Ibrahim PA-C Assigned PCP 05/16/17 [address] [place] [address] documented as of this encounter
--- OUTSIDE RECORDS SUMMARY | 2022-01-26 22:31 | XMS_ITS | Encounter Summary ---
:1970 Author Organization [place] Address [address] [place] [address]. [place] [address] Care Team Providers Name Role Phone Jeri Ibrahim PA-C Primary Care Provider Jeri Ibrahim PA-C Unavailable Reason for Visit Reason Comments Sleep Problem repeat hst for weight loss Encounter Details Date Type Department Care Team Description 11/10/2018 Documentation Only [facility] p Problem (repeat Sleep Center hst for weight loss) [address] [address] Social History Tobacco Use Types Packs/Day Years [...] or relatives? How often do you attend jehovah's witness or 1 to 4 times per year 03/26 latter day services? Do you belong to any clubs or Yes 04/11/2021 organizations such as jehovah's witness groups, unions, fraternal or athletic groups, or [...] place to sleep or slept in a retirement (including now)? 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 It was downloaded and forwarded data to the clinical specialist for scoring. documented in this encounter Plan of Treatment Upcoming Encounters Date Type Specialty Care Team Description 02/04/2022 Virtual Visit Behavioral Health Janak Marquez, [place] [id number] [address] (Wo rk) documented as of this encounter Visit Diagnoses Not on filedocumented in this encounter Additional Health Concerns Assessment Noted Time PHQ-9 Depression Total Score: 1 11/30/2017 7:08 AM CDT documented as of this encounter Care Teams Telegraph Repeater Technician Relationship Specialty Start Date End Date Jeri Ibrahim PA-C PCP - General Physician Senior Game Designer 01/14/15 [address] [place] [address] Jeri Ibrahim PA-C Assigned PCP 05/16/17 [address] [place] [address] documented as of this encounter
--- OUTSIDE RECORDS SUMMARY | 2022-01-26 22:31 | XMS_ITS | Encounter Summary ---
:1970 Author Organization [facility] Address [address] [place] [address]. [place] [address] Care Team Providers Name Role Phone Jeri Ibrahim PA-C Primary Care Provider Jeri Ibrahim PA-C Unavailable Encounter Details Date Type Department Care Team Description 10/24/2018 Travel Social History Tobacco Use Types Packs/Day [...] or relatives? How often do you attend methodist or 1 to 4 times per year 03/26 jainism services? Do you belong to any clubs or Yes 04/11/2021 organizations such as methodist groups, unions, fraternal or athletic groups, or [...] or slept in a correction (including now)? 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 documented as of this encounter Plan of Treatment Upcoming Encounters Date Type Specialty Care Team Description 02/04/2022 Virtual Visit Behavioral Health Janak Marquez, [facility] [address] [address] (Wo rk) documented as of this encounter Visit Diagnoses Not on filedocumented in this encounter Additional Health Concerns Assessment Noted Time PHQ-9 Depression Total Score: 1 11/30/2017 7:08 AM CDT documented as of this encounter Care Teams Manager Icu Relationship Specialty Start Date End Date Jeri Ibrahim PA-C PCP - General Physician Conveyancer 01/14/15 [address] [place] [address] Jeri Ibrahim PA-C Assigned PCP 05/16/17 [address] [place] [address] documented as of this encounter
--- OUTSIDE RECORDS SUMMARY | 2022-01-26 22:31 | XMS_ITS | Encounter Summary ---
:1970 Author Organization [place] Address [address] [place] [address]. [place] [address] Care Team Providers Name Role Phone Jeri Ibrahim PA-C Primary Care Provider Jeri Ibrahim PA-C Unavailable Encounter Details Date Type Department Care Team Description 04/07/2019 Travel Social History Tobacco Use Types Packs/Day [...] have completed or the highest Dawn, MEd, [place] ROUTEMAN, BETI) degree you have received? 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 GUIDE documented as of this encounter Plan of Treatment Upcoming Encounters Date Type Specialty Care Team Description 02/04/2022 Virtual Visit Behavioral Health Janak Marquez, [facility] [address] [address] (Wo rk) documented as of this encounter Visit Diagnoses Not on filedocumented in this encounter Additional Health Concerns Assessment Noted Time PHQ-9 Depression Total Score: 1 11/30/2017 7:08 AM CDT documented as of this encounter Care Teams Fruit Inspector Relationship Specialty Start Date End Date Jeri Ibrahim PA-C PCP - General Physician Field Services Manager 01/14/15 [address] [place], [place] [id number] Jeri Ibrahim PA-C Assigned PCP 05/16/17 [address] [place], [place] [id number] documented as of this encounter
--- OUTSIDE RECORDS SUMMARY | 2022-01-26 22:31 | XMS_ITS | Encounter Summary ---
:1970 Author Organization [place] Address [address] [place] [address]. [place] [address] Care Team Providers Name Role Phone Jeri Ibrahim PA-C Primary Care Provider Jeri Ibrahim PA-C Unavailable Jeri Ibrahim PA-C Unavailable Reason for Referral Specialty Diagnoses / Procedures Referred By Contact Refer red To Contact [facility] [address] [place] [phone] Referral ID Status Reason Start Date Expiration Date Visits Requ ested Visits Authorized Reason for Visit Reason Comments Sleep Problem Encounter Details Date Type Department Care Team Description 07/16/2017 Documentation Only [facility] [place] Sleep Problem Virtual Care [address] [place] [address] [place], [place] [phone] Social History Tobacco Use Types Packs/Day Years [...] 1 to 4 times per year 03/26 yazidism services? Do you belong to any clubs or Yes 04/11/2021 organizations such as anabaptism groups, unions, fraInfoRemate or athletic groups, or school groups? 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 Patient Ezra Yanez was set up at [place] on July 16, 2017. Patient received a Resmed AirSense 10Auto. Pressures were set at 5-15 cm H2O. Patient???s ramp is 5 cm H2O for Auto and FLEX/EPR is 2. Patient received a Resmed Mask name: AIRFIT P10 Pillow mask Size Medium, heated tubing and heated humidifier. Patient is enrolled in the STM Program and does not need to meet compliance. Patient has a follow up on 08/27/[address] Dyer. Lara Mejia documented in this encounter Plan of Treatment Upcoming Encounters Date Type Specialty Care Team Description 02/04/2022 Virtual Visit Behavioral Health Janak Marquez, [facility] [address] [address] (Wo rk) Scheduled Referrals Name Type Priority Associated Diagnoses Order S chedule AirSense 10 - - - Sleep Referral Routine Orde red: 07/16/2017 Machine Order For ResMed w/ this device only documented as of this encounter Visit Diagnoses Not on filedocumented in this encounter Additional Health Concerns Assessment Noted Time PHQ-9 Depression Total Score: 3 05/13/2017 8:37 AM BEND SORTER documented as of this encounter Care Teams Environmental Geologist Relationship Specialty Start Date End Date Jeri Ibrahim PA-C PCP - General Physician Jersey Knitter 01/14/15 [address] [place] [address] Jeri Ibrahim PA-C PCP - Assigned PCP 05/16/17 06/28/18 [address] [place], [place] [id number] Jeri Ibrahim PA-C Assigned PCP 05/16/17 [address] [place] [address] documented as of this encounter
--- OUTSIDE RECORDS SUMMARY | 2022-01-26 22:31 | XMS_ITS | Encounter Summary ---
:1970 Author Organization [place] Address [address] [place] [address]. [place] [address] Care Team Providers Name Role Phone Jeri Ibrahim PA-C Primary Care Provider Jeri Ibrahim PA-C Unavailable Jeri Ibrahim PA-C Unavailable Reason for Visit Reason Comments Allied Health Visit 2nd hpv injection Encounter Details Date Type Department Care Team Description 06/16/2018 Allied Health/Nurse [facility] ied Health Visit Visit [facility] [place] (2nd hpv injection) [address] [place] [address] Social History Tobacco Use Types Packs/Day [...] or relatives? How often do you attend gnosticist or 1 to 4 times per year 03/26 pentecostal services? Do you belong to any clubs or Yes 04/11/2021 organizations such as gnosticist groups, unions, fraternal or athletic groups, or [...] or slept in a halfway (including now)? 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 documented as of this encounter Plan of Treatment Upcoming Encounters Date Type Specialty Care Team Description 02/04/2022 Virtual Visit Behavioral Health Janak Marquez, [facility] [address] [place] [address] (Wo rk) documented as of this encounter Visit Diagnoses Diagnosis Need for HPV vaccination - Primary Need for prophylactic vaccination and in oculation against other viral diseases documented in this encounter Additional Health Concerns Assessment Noted Time PHQ-9 Depression Total Score: 1 11/30/2017 7:08 AM CDT documented as of this encounter Care Teams Cosmetic Sales Assistant Relationship Specialty Start Date End Date Jeri Ibrahim PA-C PCP - General Physician Story Analyst 01/14/15 [address] [place] [address] Jeri Ibrahim PA-C PCP - Assigned PCP 05/16/17 06/28/18 [address] [place] [address] Jeri Ibrahim PA-C Assigned PCP 05/16/17 [address] [place] [address] documented as of this encounter
--- OUTSIDE RECORDS SUMMARY | 2022-01-26 22:31 | XMS_ITS | Encounter Summary ---
:1970 Author Organization [place] Address [address] [place] [address]. [place] [address] Care Team Providers Name Role Phone Jeri Ibrahim PA-C Primary Care Provider Encounter Details Date Type Department Care Team Description 05/14/2017 Orders Only [facility] Jeri Ibrahim, Elev ated [facility] [place] MIMA measurement (Primary [address] [address] [facility] Dx) [place] [address] [phone] (Wo rk) Social History Tobacco Use Types [...] or relatives? How often do you attend jainism or 1 to 4 times per year 03/26 muslim services? Do you belong to any clubs or Yes 04/11/2021 organizations such as jainism groups, unions, fraternal or athletic groups, or [...] at Date Recorded Male 05/30/2021 5:06 PM PUBLIC POLICY COORDINATOR documented as of this encounter Plan of Treatment Upcoming Encounters Date Type Specialty Care Team Description 02/04/2022 Virtual Visit Behavioral Health Alma Morenahaseeb Richard, [facility] [address] [address] (Wo rk) documented as of this encounter Visit Diagnoses Diagnosis Elevated ALT measurement - Primary Nonspecific elevation of levels of trans aminase or lactic acid dehydrogenase (LDH) documented in this encounter Additional Health Concerns Assessment Noted Time PHQ-9 Depression Total Score: 3 05/13/2017 8:37 AM PUBLIC POLICY COORDINATOR documented as of this encounter Care Teams Fiscal Officer Relationship Specialty Start Date End Date Jeri Ibrahim PAAnetteC PCP - General Physician Business Analyst Consultant 01/14/15 [address] [place] [address] documented as of this encounter
--- OUTSIDE RECORDS SUMMARY | 2022-01-26 22:31 | XMS_ITS | Encounter Summary ---
:1970 Author Organization [place] Address [address] [place] [address]. [place] [address] Care Team Providers Name Role Phone Jeri Ibrahim PA-C Primary Care Provider Jeri Ibrahim PA-C Unavailable Reason for Visit Reason Comments Sleep Problem [facility] Encounter Details Date Type Department Care Team Description 10/11/2018 Documentation Only [facility] Sleep Sleep Problem ([facility] ) Center [address], [address] [place] [address] Social History Tobacco Use Types [...] or relatives? How often do you attend congregational or 1 to 4 times per year 03/26 caodaism services? 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 Patient still has device : yes Last date device called in 10/01/2018 Last usage date 08/20/2018 Subjective measures: Pt has lost weight since using the machine. He has slowly stopped using the machine. His weight loss was over 60 lbs. His current weight 182. He feels his sleep is good now. He is waking only once per night. Snoring is more rare. He is open to a repeat HST. Review patient in orange box. Current reporting of device: Objective measures: 14 day rolling measures Compliance 0 % Average number of minutes 0 Action plan: voicemail left; waiting for return call from patient Blanca Ferris - 10/11/2018 10:45 AM CDT Chart routed to provider for review documented in this encounter Plan of Treatment Upcoming Encounters Date Type Specialty Care Team Description 02/04/2022 Virtual Visit Behavioral Health Janak Marquez, [facility] 2450 [facility] [address] [place] [address] (Wo rk) documented as of this encounter Visit Diagnoses Not on filedocumented in this encounter Additional Health Concerns Assessment Noted Time PHQ-9 Depression Total Score: 1 11/30/2017 7:08 AM CDT documented as of this encounter Care Teams Level Glass Forming Machine Operator Relationship Specialty Start Date End Date Jeri Ibrahim PA-C PCP - General Physician Waxer 01/14/15 [address] [place] [address] Jeri Ibrahim PA-C Assigned PCP 05/16/17 [address] [place], [place] [id number] documented as of this encounter
--- OUTSIDE RECORDS SUMMARY | 2022-01-26 22:31 | XMS_ITS | Encounter Summary ---
:1970 Author Organization [facility] Address [address] [place] [address]. [place] [address] Care Team Providers Name Role Phone Jeri Ibrahim PA-C Primary Care Provider Jeri Ibrahim PA-C Unavailable Reason for Visit Reason Comments Sleep Apnea (Routine) - Closed Specialty Diagnoses / Procedures Referred By Contact Refer red To Contact Sleep Medicine Diagnoses bedtime 11PM hst after wt loss, Dr. Manisha [facility] Procedures HST HOUSE MOVER [address] [place] [address] Phone: Fax: Referral ID Status Reason Start Date Expiration Date Visits Requ ested Visits Authorized [id number] Closed 11/08/2018 11/08/2019 1 1 Encounter Details Date Type Department Care Team Description 11/09/2018 Office Visit [facility] (obstructive sleep Center [place] apnea) [address] [place] [address] Social History Tobacco Use Types [...] 04/11/2021 organizations such as samaritan groups, unions, fraGooddler or athletic groups, or school groups? 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 Pt was instructed on how to put on the Noxturnal T3 device and associated equipment before going to bed and given the opportunity to practice putting it on before leaving the sleep center. Pt was reminded to bring the home sleep test kit back to the center tomorrow,at agreed upon time for download and reporting. Joe Wright - 11/09/2018 4:00 PM CDT This HSAT was performed using a Noxturnal T3 device which recorded snore, sound, movement activity, body position, nasal pressure, oronasal thermal airflow, pulse, oximetry and both chest and abdominalrespiratory effort. HSAT data was restricted to the time patient states they were in bed. HSAT was scored using 1B 4% hypopnea rule. AHI: 3.2. Snoring was reported as loud. Time with SpO2 below 89% was 0.0 minutes. Overall signal quality was good Pt will follow up with sleep provider to determine appropriate therapy. Ordering ,Manisha, MD Joe Morrison BA, RPSGT, RST System Clinical Specialist 11/10/2018 documented in this encounter Procedure Notes Vipul Dyer MD - 11/09/2018 4:00 PM CDTAssociated Order(s): HC HOME SLEEP TEST/TYPE 3 STAN HOME SLEEP STUDY INTERPRETATION Patient: Ezra Yanez Date of : 1970 Study Date: 11/09/2018 Referring Provider: Jeri Ibrahim; Ordering Provider: Vipul Dyer MD Indications for Home Study: Ezra Yanez is a 48 year old male with a history of obstructive sleep apnea with improvement in symptoms after 62# weight loss who presents for re-evaluation of severityof sleep apnea. Estimated body mass index is 25.12 kg/m?? as calculated from the following: Height as of this encounter: 1.803 m (5' 10.98). Weight as of this encounter: 81.6 kg (180 [...] 432 minutes Respiration: Sleep Associated Hypoxemia: sustained hypoxemia was not present. Baseline oxygen saturation was 95%.Time with saturation less than or equal to 88% was 0 minutes. The lowest oxygen saturation was 87%. Snoring: Periods of continuous snoring >80db was present in lateral and supine positions. Respiratory events: The home study revealed a presence of 6 obstructive apneas and 3 mixed and central apneas. There were 14 hypopneas resulting in a combined apnea/hypopnea index [AHI] of 3.2 events per hour. AHI was 5 per hour supine, - per hour prone, 3 per hour on left side, and 2 per hour on right side. Pattern: Excluding events noted above, respiratory rate and pattern was Normal. Position: Percent of time spent: supine - 24%, prone - 0%, on left - 52%, on right - 25%. Heart Rate: By pulse oximetry normal rate was noted. Assessment: Snoring without significant obstructive sleep apnea. Sleep associated hypoxemia was not present. Recommendations: Consider management of nasal conditions, continued weight management and avoidance of evening alcohol.. Suggest optimizing sleep hygiene and avoiding sleep deprivation. Diagnosis Code(s): Snoring R06.83 VIPUL DYER MD, November 15, 2018 Diplomate, [place] [employer], Sleep Medicine documented in this encounter Plan of Treatment Upcoming Encounters Date Type Specialty Care Team Description 02/04/2022 Virtual Visit Behavioral Health Janak Marquez, [place] [id number] [address] (Wo rk) documented as of this encounter Procedures Procedure Name Priority Date/Time Associated Diagnosis Comme nts HC HOME SLEEP Routine 11/09/2018 4:00 PM MARY (obstructive Resu lts for this TEST/TYPE 3 STAN CDT sleep apnea) procedure are in the results section. documented in this encounter Results HST-Home Sleep Apnea Test (11/09/2018 4:00 PM CDT) Narrative Bridgett Mullins, [facility] - 11/09/2018 4:00 PM CDT Vipul Dyer [...] VIPUL ??MD MANISHA, November 15, 2018 Diplomate, [place] Board of Internal Me dicine, Sleep Medicine [...] VIPUL DYER MD, November 15, 2018 Diplomate, [place] [employer] of Internal Me dicine, Sleep Medicine Vipul Dyer MD PROCEDURES documented in this encounter Visit Diagnoses Diagnosis MARY (obstructive sleep apnea) Obstructive sleep apnea (adult) (pediatr ic) documented in this encounter Additional Health Concerns Assessment Noted Time PHQ-9 Depression Total Score: 1 11/30/2017 7:08 AM CDT documented as of this encounter Care Teams Supervisor Personnel Clerks Relationship Specialty Start Date End Date Jeri Ibrahim PA-C PCP - General Physician Company Dancer 01/14/15 [address] [place] [address] Jeri Ibrahim PA-C Assigned PCP 05/16/17 [address] [place] [address] documented as of this encounter
--- OUTSIDE RECORDS SUMMARY | 2022-01-26 22:31 | XMS_ITS | Encounter Summary ---
:1970 Author Organization [place] Address [address] [place] [address]. 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 No personnelavailable. Offered any other day that week, and the next week 11/14-11/17. documented in this encounter Plan of Treatment Upcoming Encounters Date Type Specialty Care Team Description 02/04/2022 Virtual Visit Behavioral Health Janak Marquez, [address] [address] (Wo rk) documented as of this encounter Visit Diagnoses Not on filedocumented in this encounter Additional Health Concerns Assessment Noted Time PHQ-9 Depression Total Score: 1 11/30/2017 7:08 AM CDT documented as of this encounter Care Teams Banquet Attendant Relationship Specialty Start Date End Date Jeri Ibrahim PA-C PCP - General Physician Personal Financial Counselor 01/14/15 [address] [place] [address] Jeri Ibrahim PA-C Assigned PCP 05/16/17 [address] [place] [address] documented as of this encounter
--- OUTSIDE RECORDS SUMMARY | 2022-01-26 22:31 | XMS_ITS | Encounter Summary ---
:1970 Author Organization [place] Address [facility] [address] Care Team Providers Name Role Phone Jeri Ibrahim PA-C Primary Care Provider Jeri Ibrahim PA-C Unavailable Reason for Visit Reason Comments Physical patient is not fasting today Encounter Details Date Type Department Care Team Description 04/07/2019 Office Visit [facility] Jeri Ibrahim Rout ine general medical examination at a health care facility (Primary Dx); [facility] [place] M[facility]A Bee sting allergy; [address] [facility] [id number] [place] [address] Irritability; [place], [place] Herpes simplex; [id number] Vitamin D deficiency [phone] (Wo rk) Social History Tobacco Use Types [...] or relatives? How often do you attend anglican or 1 to 4 times per year 03/26 spiritism services? Do you belong to any clubs or Yes 04/11/2021 organizations such as anglican groups, unions, fraternal or athletic groups, or [...] have completed or the highest Dawn, MEd, WASTEWATER PROCESS ENGINEER, BETI) degree you have received? 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/2021 5:06 PM ASTRONOMY TEACHER documented as of this encounter Last Filed Vital Signs Vital Sign Reading Time Taken Comments Blood Pressure 116/76 04/07/2019 3:01 PM ASTRONOMY TEACHER Pulse 84 04/07/2019 3:01 PM ASTRONOMY TEACHER Temperature 36.8 ??C (98.3 ??F) 04/07/2019 3:01 PM ASTRONOMY TEACHER Respiratory Rate 14 04/07/2019 3:01 PM ASTRONOMY TEACHER Oxygen Saturation - - Inhaled Oxygen Concentration - - Weight 82.6 kg (182 lb) 04/07/2019 3:01 PM ASTRONOMY TEACHER Height 179.8 cm (5' 10.8) 04/07/2019 3:01 PM ASTRONOMY TEACHER Body Mass Index 25.53 04/07/2019 3:01 PM ASTRONOMY TEACHER documented in this encounter Patient Instructions Patient InstructionsChris Beasley - 04/07/2019 2:50 PM CST Preventive Health Recommendations Male Ages [...] six months for an exam and cleaning. ONOMY TEACHER documented in this encounter Progress Notes Jeri Ibrahim PA-C - 04/07/2019 2:50 PM CST SUBJECTIVE: CC: Ezra Yanez is an 48 year old male who presents for preventative health visit. Healthy Habits: Getting at least 3 servings of Calcium per day: Yes Bi-annual eye exam: Yes Dental care twice a year: Yes Sleep apnea or symptoms of sleep apnea: None Diet: Regular (no restrictions) Frequency of exercise: 2-3 days/week Duration of exercise: 15-30 minutes Taking medications regularly: Yes Medication side effects: Not applicable PHQ-2 Total Score: 0 Additional concerns today: No Today's PHQ-2 Score: PHQ-2 (??1998 Pfizer) 04/07/2019 Q1: Little interest or pleasure in doing things 0 Q2: Feeling down, depressed or hopeless 0 PHQ-2 Score 0 Q1: Little interest or pleasure in doing things Not at all Q2: Feeling down, depressed or hopeless Not at all PHQ-2 Score 0 Abuse: Current or Past(Physical, Sexual or Emotional)- No Do you feel safe in your environment? Yes Social History Tobacco Use ??? Smoking status: Former Smoker Last attempt to quit: 10/15/1998 Years since quittin.4 ??? Smokeless tobacco: Never Used Substance Use Topics ??? Alcohol use: Yes Comment: socially If you drink alcohol do you typically have >3 drinks per day or >7 drinks per week? No Alcohol Use 04/07/2019 Prescreen: >3 drinks/day or >7 drinks/week? No Prescreen: >3 drinks/day or >7 drinks/week? - Last PSA: PSA Date Value Ref Range [...] constipation, diarrhea, heartburn, hematochezia and nausea. Genitourinary: Negative for discharge, dysuria, frequency, genital sores, hematuria, impotence and urgency. Musculoskeletal: Negative for arthralgias, joint swelling and myalgias. Skin: Negative for rash. Neurological: Negative for dizziness, weakness, headaches and paresthesias. Psychiatric/Behavioral: Negative for mood changes. The patient is not nervous/anxious. CONSTITUTIONAL: NEGATIVE for fever, chills, change in weight INTEGUMENTARY/SKIN: NEGATIVE for worrisome rashes, moles or lesions EYES: NEGATIVE for vision changes or irritation ENT: NEGATIVE for ear, mouth and throat problems RESP: NEGATIVE for significant cough or SOB CV: NEGATIVE for chest pain, palpitations or peripheral edema GI: NEGATIVE for nausea, abdominal pain, heartburn, or change in bowel habits male: negative for dysuria, hematuria, decreased urinary stream, erectile dysfunction, urethral discharge MUSCULOSKELETAL: NEGATIVE for significant arthralgias or myalgia NEURO: NEGATIVE for weakness, dizziness or paresthesias PSYCHIATRIC: NEGATIVE for changes in mood or affect OBJECTIVE: BP 116/76 (BP Location: Right arm, Patient Position: Chair, Cuff Size: Adult Large) Pulse 84 Temp 98.3 ??F (36.8 ??C) (Oral) Resp 14 Ht 1.798 m (5' 10.8) Wt 82.6 kg (182 lb) BMI 25.53 kg/m?? Physical Exam GENERAL: healthy, alert and [...] PSYCH: mentation appears normal, affect normal/bright ASSESSMENT/PLAN: 1. Routine general medical examination at a health care facility - CBC with platelets - Comprehensive metabolic panel - Lipid panel reflex to direct LDL Non-fasting - PSA total and free - REVIEW OF HEALTH MAINTENANCE PROTOCOL ORDERS 2. Bee sting allergy - EPINEPHrine (EPIPEN 2-DEBORAH) 0.3 MG/0.3ML injection 2-pack; Inject 0.3 mLs (0.3 mg) into the muscle as needed for anaphylaxis Dispense: 0.6 mL; Refill: 0 3. Irritability Stable yearly follow-up - citalopram (CELEXA) 20 MG tablet; Take 1 tablet (20 mg) by mouth daily Dispense: 90 tablet; Refill: 3 4. Herpes simplex - valACYclovir (VALTREX) 1000 mg tablet; TAKE 1 TABLET (1,000 MG) BY MOUTH 2 TIMES DAILY Dispense: 20 tablet; Refill: 4 5. Vitamin D deficiency taking 50 mcg (2000 international unit(s) per day - Vitamin D Deficiency COUNSELING: Reviewed preventive health counseling, as reflected in patient instructions Regular exercise Healthy diet/nutrition Vision screening Hearing screening Estimated body mass index is 25.12 kg/m?? as calculated from the following: Height as of 11/09/18: 1.803 m (5' 10.98). Weight as of 11/09/18: 81.6 kg (180 lb). Weight management plan: Discussed healthy diet and exercise guidelines reports that he quit smoking about 20 years ago. He has never used smokeless tobacco. Counseling Resources: ATP IV Guidelines Pooled Cohorts Equation Calculator FRAX Risk Assessment ICSI Preventive Guidelines Dietary Guidelines for Americans, 2010 USDA's MyPlate ASA Prophylaxis Lung CA Screening Jeri Ibrahim PA-C [facility] ONOMY TEACHER documented in this encounter Plan of Treatment Upcoming Encounters Date Type Specialty Care Team Description 02/04/2022 Virtual Visit Behavioral Health Janak Marquez, [facility] [address] [address] (Wo rk) documented as of this encounter Procedures Procedure Name Priority Date/Time Associated Comments Diagnosis VITAMIN D DEFICIENCY Routine 04/07/2019 3:45 PM Vitamin D R esults for this SCREENING ASTRONOMY TEACHER deficiency procedure are i n the results section. PSA TOTAL AND FREE Routine 04/07/2019 3:45 PM Routine general Results for this ASTRONOMY TEACHER medical examination procedur e are in at a health care the results facility section. LIPID REFLEX TO DIRECT Routine 04/07/2019 3:45 PM Routine gene ral Results for this LDL PANEL ASTRONOMY TEACHER medical examination procedur e are in at a health care the results facility section. COMPREHENSIVE Routine 04/07/2019 3:45 PM Routine general Resul ts for this METABOLIC PANEL ASTRONOMY TEACHER medical examination proce dure are in at a health care the results facility section. CBC WITH PLATELETS Routine 04/07/2019 3:45 PM Routine general Results for this ASTRONOMY TEACHER medical examination procedur e are in at a health care the results facility section. documented in this encounter Results PSA total and free (04/07/2019 3:45 PM ASTRONOMY TEACHER) P athologist Signature PSA Free 0.1 ng/mL 04/09/2019 [place] 4:35 AM [facility] Prostate 0.4 0.0 - 4.0 04/09/2019 [place] Specific ng/mL 4:35 AM ASTRONOMY TEACHER [facility] Comment: (Note) INTERPRETIVE INFORMATION: Prostate Speci fic Antigen The Sabine PSA electrochemiluminescent im munoassay was used. Results obtained with different test met hods or kits cannot be used interchangeably. The Sabine PSA m ethod is approved for use as an aid in the detection of pr ostate cancer when used in conjunction with a digital recta l exam in men age 50 and older. The Sabine PSA method is al so indicated for the serial measurement of PSA to aid in the prognosis and management of prostate cancer patients. Elevated PSA concentrations can only suggest the pres ence of prostate cancer until biopsy is performed. PSA co ncentrations can also be elevated in benign prostatic hyp erplasia or inflammatory conditions of the prostate. PSA is generally not elevated in healthy men or men with non-prostatic carcinoma. PSAPCT 25 % 04/09/2019 4:35 AM ASTRONOMY TEACHER [facility] Comment: (Note) INTERPRETIVE INFORMATION: Prostate Speci fic Antigen, Free Percentage [facility] uses the Sabine Free PSA electrochem iluminescent immunoassay method in conjunction with t Sabine PSA electrochemiluminescent immunoassay meth od to determine the free PSA percentage. Values obtained wit h different assay methods should not be used interchangeab ly. The free PSA percentage is an aid in distinguishing p rostate cancer from benign prostatic conditions in men age 5 0 and older with a total PSA between 3 and 10 ng/mL and neg ative digital rectal examination findings. Prostatic b iopsy is required for the diagnosis of cancer. In patients with total PSA concentration s of 4-10 ng/mL, the probability of finding prostate canc er on needle biopsy by age in years is: %fPSA ? 50-59 ?60 -69 ?70 or older 0 ??- 10% ?49% ?5 8% ?65% 11 - 18% ?27% ?34 % ?41% 19 - 25% ?18% ?24 % ?30% Greater than 25% ? 9% ?12% ?16% Other factors may help determine the act ual risk of prostate cancer in individual patients. Performed by [employer], [address], [facility] [place] [address] [email or web address], Anant Bennett MD, Lab. Director Specimen Anatomical Collection Method Collection Time Receive d Time (Source) Location / / Volume Laterality Blood specimen 04/07/2019 3:45 PM 019 3:46 (specimen) ASTRONOMY TEACHER PM ASTRONOMY TEACHER Jeri Ibrahim PA-C LAB - BLOOD ORDERABLES Performing Organization Address City/State/ZIP Code Phon e Number [facility] [address] [facility] [place] [address] Vitamin D Deficiency (04/07/2019 3:45 PM ASTRONOMY TEACHER) athologist Signature Vitamin D 42 20 - 75 04/10/2019 [facility] ug/L 1:13 PM [facility] MEDICAL screening [facility] Comment: Season, race, dietary intake, and treatm ent affect the concentration of 79-snxmpzk-Vbavkqb D. Values may decreas e during winter [...] Location / / Volume Laterality Blood specimen 04/07/2019 3:45 PM 019 3:46 (specimen) ASTRONOMY TEACHER PM ASTRONOMY TEACHER Jeri Ibrahim PA-C LAB - BLOOD ORDERABLES Performing Organization Address City/State/ZIP Code Phon e Number [facility] [address] [place] [address] [facility] (ABNORMAL) Lipid panel reflex to direct LDL Non-fasting (04/07/2019 3:45 PM ASTRONOMY TEACHER) athologist Signature Cholesterol 162 <200 mg/dL 04/08/2019 [place] 4:27 PM [facility] Triglycerides 168 (H) <150 mg/dL 04/08/2019 [place] 4:27 PM [facility] Comment: Borderline high: ??150-199 mg/dl High: ? 200-499 mg/dl Very high: ? >499 mg/dl Non Fasting HDL Cholesterol 77 >39 mg/dL 04/08/2019 4:27 PM ASTRONOMY TEACHER [facility] LDL Cholesterol 51 <100 mg/dL 04/08/2019 4:27 PM [facility] Comment: Desirable: <100 mg/dl Non HDL Cholesterol 85 <130 mg/dL 04/08/2019 4:27 PM [facility] Specimen Anatomical Collection Method Collection Time Receive d Time (Source) Location / / Volume Laterality Blood specimen 04/07/2019 3:45 PM 019 3:46 (specimen) ASTRONOMY TEACHER PM ASTRONOMY TEACHER Jeri Ibrahim PA-C LAB - BLOOD ORDERABLES Performing Organization Address City/State/ZIP Code Phon e Number M [facility] [address] [place] [address] [phone] [facility] [address] [place] [address], [place] [phone] Comprehensive metabolic panel (04/07/2019 3:45 PM ASTRONOMY TEACHER) P athologist Signature Sodium 139 133 - 144 04/08/2019 [facility] mmol/L 3:56 PM [facility] Potassium 4.4 3.4 - 5.3 04/08/2019 [facility] mmol/L 3:56 PM [facility] Chloride 104 94 - 109 04/08/2019 [facility] mmol/L 3:56 PM [facility] Carbon Dioxide 30 20 - 32 04/08/2019 [facility] mmol/L 4:16 PM [facility] Anion Gap 5 3 - 14 04/08/2019 [facility] mmol/L 4:16 PM [facility] Glucose 87 70 - 99 04/08/2019 [facility] mg/dL 4:16 PM [facility] Comment: Non Fasting Urea Nitrogen 29 7 - 30 mg/dL 04/08/2019 4:16 PM [facility] Creatinine 0.93 0.66 - 1.25 mg/dL 04/08/2019 4:16 PM CS [facility] GFR Estimate >90 >60 04/08/2019 4:16 PM [facility] mL/min/{1.73_m2} [facility] Comment: Non GFR Calc Starting 04/12/2018, serum creatinine ba sed estimated GFR (eGFR) will be calculated using the Chronic Kidney Dise ase Epidemiology Collaboration (CKD-EPI) equation. GFR Estimate If >90 >60 mL/min/{1.73_m2} 04/08/2019 4: 16 PM [facility] Black [facility] Comment: GFR Calc Starting 04/12/2018, serum creatinine ba sed estimated GFR (eGFR) will be calculated using the Chronic Kidney Dise [facility] Epidemiology Collaboration (CKD-EPI) equation. Calcium 9.0 8.5 - 10.1 04/08/2019 4:16 PM [facility] mg/dL [facility] Bilirubin Total 0.5 0.2 - 1.3 mg/dL 04/08/2019 4:27 PM [facility] Albumin 4.0 3.4 - 5.0 g/dL 04/08/2019 4:27 PM [facility] Protein Total 7.1 6.8 - 8.8 g/dL 04/08/2019 4:27 PM [facility] Alkaline Phosphatase 71 40 - 150 U/L 04/08/2019 4:27 PM [facility] ALT 38 0 - 70 U/L 04/08/2019 4:27 PM [facility] AST 20 0 - 45 U/L 04/08/2019 4:27 PM [facility] Specimen Anatomical Collection Method Collection Time Receive d Time (Source) Location / / Volume Laterality Blood specimen 04/07/2019 3:45 PM 019 3:46 (specimen) ASTRONOMY TEACHER PM ASTRONOMY TEACHER Jeri Ibrahim PA-C LAB - BLOOD ORDERABLES Performing Organization Address City/State/ZIP Code Phon e Number M [facility] [address] [address] [phone] [facility] [address] [place] [address] [facility] [address] [address], U [phone] CBC with platelets (04/07/2019 3:45 PM ASTRONOMY TEACHER) athologist Signature WBC 8.0 4.0 - 11.0 04/07/2019 [place] 10e9/L 3:54 PM ASTRONOMY TEACHER [facility] RBC Count 4.80 4.4 - 5.9 04/07/2019 [place] 10e12/L 3:54 PM ASTRONOMY TEACHER [facility] Hemoglobin 15.1 13.3 - 04/07/2019 [place] 17.7 g/dL 3:54 PM [facility] Hematocrit 45.5 40.0 - 04/07/2019 [facility] 53.0 % 3:54 PM ASTRONOMY TEACHER [facility] MCV 95 78 - 100 04/07/2019 [place] fl 3:54 PM ASTRONOMY TEACHER [facility] MCH 31.5 26.5 - 04/07/2019 [facility] 33.0 pg 3:54 PM ASTRONOMY TEACHER [facility] MCHC 33.2 31.5 - 04/07/2019 [place] 36.5 g/dL 3:54 PM ASTRONOMY TEACHER [facility] RDW 12.8 10.0 - 04/07/2019 [place] 15.0 % 3:54 PM [facility] Platelet Count 253 150 - 450 04/07/2019 [place] 10e9/L 3:54 PM [facility] Specimen Anatomical Collection Method Collection Time Receive d Time (Source) Location / / Volume Laterality Blood specimen 04/07/2019 3:45 PM 019 3:46 (specimen) ASTRONOMY TEACHER PM ASTRONOMY TEACHER Jeri Ibrahim PA-C LAB - BLOOD ORDERABLES Performing Organization Address City/State/ZIP Code Phon e Number [facility] [id number] [place] [address] documented in this encounter Visit Diagnoses Diagnosis Routine general medical examination at a health care facility - Primary Bee sting allergy Toxic effect of venom Irritability Herpes simplex Herpes simplex without mention of compli cation Vitamin D deficiency Unspecified vitamin D deficiency documented in this encounter Additional Health Concerns Assessment Noted Time PHQ-9 Depression Total Score: 1 11/30/2017 7:08 AM CDT documented as of this encounter Care Teams Buddhist Monk Relationship Specialty Start Date End Date Jeri Ibrahim PA-C PCP - General Physician Instrumentation Engineering Technician 01/14/15 [address] [place] [address] Jeri Ibrahim PA-C Assigned PCP 05/16/17 [address] [place] [address] documented as of this encounter
--- OUTSIDE RECORDS SUMMARY | 2022-01-26 22:31 | XMS_ITS | Encounter Summary ---
:1970 Author Organization [place] Address [facility] [place] [address] Care Team Providers Name Role Phone Jeri Ibrahim PA-C Primary Care Provider Jeri Ibrahim PA-C Unavailable Jeri Ibrahim PA-C Unavailable Reason for Visit Reason Comments RECHECK f/u cpap Encounter Details Date Type Department Care Team Description 08/27/2017 Office Visit [facility] Prince Dyer MD Obstructive sleep apnea Sleep Center [address] (Primary Dx) [facility] [address] [address] [place] [address] [phone] Social History Tobacco Use Types Packs/Day Years [...] 1 to 4 times per year 03/26 episcopal services? 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 5:06 PM MOBILE THERAPIST documented as of this encounter Last Filed Vital Signs Vital Sign Reading Time Taken Comments Blood Pressure 115/74 08/27/2017 4:00 PM CDT Pulse 91 08/27/2017 4:00 PM CDT Temperature - - Respiratory Rate 12 08/27/2017 4:00 PM CDT Oxygen Saturation 94% 08/27/2017 4:00 PM CDT Inhaled Oxygen Concentration - - Weight 108.9 kg (240 lb) 08/27/2017 4:00 PM CDT Height 180.3 cm (5' 11) 08/27/2017 4:00 PM CDT Body Mass Index 33.47 08/27/2017 4:00 PM CDT documented in this encounter Patient Instructions Patient InstructionsMaine Mott - 08/27/2017 4:00 PM CDT Your BMI is Body mass index is 33.47 kg/(m^2). Weight management is a personal decision. [...] is considered obese. More than two-thirds of [place] adults are considered overweight or obese. Being [...] care provider within the next four weeks. documented in this encounter Progress Notes Prince Dyer MD - 08/27/2017 4:00 PM CDT [facility] Outpatient Sleep Medicine Consultation August 27, 2017 Name: Ezra Yanez Age: [age] year old Date of : 1970 Date of Consultation: August 27, 2017 Consultation is requested by: No referring provider defined for this encounter. Primary care provider: Jeri Ibrahim Assessment and Plan: Summary Diagnoses: ?? Severe obstructive sleep apnea currently effectively treated with CPAP ?? Allergic rhinitis with nasal congestion ?? Gastroesophageal reflux disease hyperlipidemia ?? Hyperlipidemia Summary Recommendations: ?? Continue auto CPAP ?? Restart fluticasone nasal spray ?? Patient will be obtaining portable Z1 CPAP machine for travel at his own expense ?? Return to clinic in 1 year History of Present Illness: Ezra Yanez is a 46 year old male with severe obstructive sleep apnea and hypoxemia initiated onaCPAP 5-15 07/16/17. He has had some difficulty with the nasal pillow mask though these have largely resolved. He is not if having difficulty initiating or maintaining sleep. Does experience some nasal c ongestion on a regular basis and is not using fluticasone as prescribed. The CPAP device is operating within mid range of the set pressures with effective control of his sleep apnea. PREVIOUS SLEEP STUDIES: Date: Home sleep test 07/15/17 AHI: 99 with 61 minutes of oxygen saturation less than or equal to 88% aCPAP [5-15] compliance: Dates: July 28 - August 27, 2017 78 % >4hour use Average Use 6.5 hours Residual AHI 1.9 Medications: Current Outpatient Prescriptions Medication Sig ??? albuterol (PROAIR HFA/PROVENTIL HFA/VENTOLIN HFA) 108 (90 BASE) MCG/ACT Inhaler Inhale 2 puffs into the lungs every 4 hours as needed ??? bismuth subsalicylate (PEPTO-BISMOL) 262 MG chewable tablet Take 524 mg by mouth 4 times daily (before meals and nightly). ??? citalopram (CELEXA) 20 MG tablet TAKE 1 TABLET (20 MG) BY MOUTH DAILY ??? EPINEPHrine (EPIPEN 2-DEBORAH) 0.3 MG/0.3ML injection Inject 0.3 mLs (0.3 mg) into the muscle as needed for anaphylaxis ??? fluticasone (FLONASE) 50 MCG/ACT spray [place] 1-2 sprays into both nostrils daily ??? GLUCOSAMINE SULFATE PO ??? IBUPROFEN ??? Lysine HCl 500 MG TABS Take 500 mg by mouth 2 times daily ??? MULTIVITAMIN TABS OR 1 qd ??? ranitidine (ZANTAC) 150 MG tablet Take 1 tablet (150 mg) by mouth 2 times daily ??? valACYclovir (VALTREX) 1000 mg tablet TAKE 1 TABLET (1,000 MG) BY MOUTH 2 TIMES DAILY No current facility-administered medications for this visit. Allergies Allergen Reactions ??? Penicillins Hives Past Medical History: Does not need 02 supplement at night Past Medical History: Diagnosis Date ??? Bronchitis with bronchospasm 11/16/2011 ??? Herpes simplex ??? Hyperlipemia ??? Scaphoid fracture of wrist 2013 left Past Surgical History: No h/o upper airway surgery Past Surgical History: Procedure Laterality Date ??? NO HISTORY OF SURGERY Physical Examination: There were no vitals taken for this visit. Copy to: Jeri Ibrahim MD 08/27/2017 [facility] Floor 1, [address] ?[address] [place] [address] Appointments: [phone] [facility] 3rd Floor [address] [place] [address] Total time spent with patient: 25 min >50% counseling 07/15/17 documented in this encounter Nursing Notes Maine Mott - 08/27/2017 4:00 PM CDT BP 115/74 Pulse 91 Resp 12 Ht 1.803 m (5' 11) Wt 108.9 kg (240 lb) SpO2 94% BMI 33.47 kg/m2 Medications and Allergies updated. Maine Mott CONCRETE STONE FABRICATING SUPERVISOR/DANCE CHOREOGRAPHER documented in this encounter Plan of Treatment Upcoming Encounters Date Type Specialty Care Team Description 02/04/2022 Virtual Visit Behavioral Health MarquezJanak Hilary, [facility] [address] [facility] [address] [place] [address] (Wo rk) documented as of this encounter Visit Diagnoses Diagnosis Obstructive sleep apnea - Primary Obstructive sleep apnea (adult) (pediatr ic) documented in this encounter Additional Health Concerns Assessment Noted Time PHQ-9 Depression Total Score: 3 05/13/2017 8:37 AM MOBILE THERAPIST documented as of this encounter Care Teams Shot Blast Equipment Operator Relationship Specialty Start Date End Date Jeri Ibrahim PA-C PCP - General Physician Punchboard Inserter 01/14/15 [address] [place], [place] [id number] Jeri Ibrahim PA-C PCP - Assigned PCP 05/16/17 06/28/18 [address] [place] [address] Jeri Ibrahim PA-C Assigned PCP 05/16/17 [address] [place] [address] documented as of this encounter
[2022-01-26 22:32] VITALS: BP 135/78; PULSE 74; RESP 18; TEMP 36.7; O2SAT 99
--- OUTSIDE RECORDS SUMMARY | 2022-01-26 22:32 | XMS_ITS | Encounter Summary ---
:1970 Author Organization [facility] Address [address] [place] [address]. [place] [address] Care Team Providers Name Role Phone Shahriar Roblero MD Primary Care Provider + Reason for Visit Reason Comments Physical not fasting today Encounter Details Date Type Department Care Team Description 09/11/2013 Office Visit [facility], Routine ge neral medical examination at a health care facility (Primary Dx); [facility] Shahriar Grossman CARDIOVASCULAR SCREENING; LD L GOAL LESS THAN 160; [id number] [address] Meaghan Mchugh MD GERD (gastroesophageal reflux disease); [place], [place] [facility] [employer] Mild ma piyush depression (H); [id number] [facility] Herpes simplex [phone] [place], [place] [phone] (Wo rk) Social History Tobacco Use Types [...] or relatives? How often do you attend faith or 1 to 4 times per year 03/26 zoroastrian services? 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 documented as of this encounter Last Filed Vital Signs Vital Sign Reading Time Taken Comments Blood Pressure 120/80 09/11/2013 8:11 AM CDT Pulse 85 09/11/2013 8:11 AM CDT Temperature 36.8 ??C (98.2 ??F) 09/11/2013 8:11 AM CDT Respiratory Rate 16 09/11/2013 8:11 AM CDT Oxygen Saturation 97% 09/11/2013 8:11 AM CDT Inhaled Oxygen Concentration - - Weight 104.8 kg (231 lb) 09/11/2013 8:11 AM CDT Height 179.7 cm (5' 10.75) 09/11/2013 8:11 AM CDT Body Mass Index 32.45 09/11/2013 8:11 AM CDT documented in this encounter Patient Instructions Patient InstructionsIra Walters RN - 09/11/2013 7:49 AM CDT Preventive Health Recommendations Male Ages 40 to [...] instead of white grains and rice. ??? For bone health: Eat calcium-rich foods or take calcium pills (500 to 600 mg) twice a day with food. Also take vitamin D (1000 IU) each day. Lifestyle ??? Exercise for at least 150 minutes a week (30 minutes a day, 5 days a week). This will help you control your weight and prevent disease. ??? Limit alcohol to one drink per day. ??? No smoking. ??? Wear sunscreen to prevent skin cancer. ??? See your dentist every six months for an exam and cleaning. documented in this encounter Progress Notes Shahriar Roblero MD - 09/11/2013 7:49 AM CDT SUBJECTIVE: CC: Ezra Yanez is an 42 year old male who presents for preventative health visit. Healthy Habits: ?? Do you get at least three servings of calcium containing foods daily (dairy, green leafy vegetables, etc.)? yes ?? Amount of exercise or daily activities, outside of work: 2 days/wk ?? Problems taking medications regularly No ?? Medication side effects: No ?? Have you had an eye exam in the past two years? yes ?? Do you see a dentist twice per year? yes ?? Do you have sleep apnea, excessive snoring or daytime drowsiness?no Other concerns to address: Today's PHQ-2 Score: 0 Abuse: Current or Past(Physical, Sexual or Emotional)- No Do you feel safe in your environment - Yes History Substance Use Topics ??? Smoking status: Former Smoker Quit date: 10/15/1998 ??? Smokeless tobacco: Never Used ??? Alcohol Use: Yes Comment: socially The patient does not drink >3 drinks per day nor >7 drinks per week. Recent Labs Lab Test 08/01/12 0924 11/08/08 0855 CHOL 185 197 HDL 58 53 LDL 96 115 TRIG 159* 143 CHOLHDLRATIO 3.2 3.7 Reviewed orders with patient. Reviewed health maintenance and updated orders accordingly - Yes All Histories reviewed and updated in [facility]. Past Medical History Diagnosis Date ??? Hyperlipemia ??? Bronchitis with bronchospasm 11/16/2011 ??? Herpes simplex ??? Scaphoid fracture of wrist 2013 left Past Surgical History Procedure Laterality Date ??? No history of surgery Depression Follow-Up ?? Status since last visit: Improved ?? See PHQ-9 for current symptoms. ?? Other associated symptoms:None ?? Complicating factors: Significant life event: No Current substance abuse: None Anxiety / Panic symptoms: No PHQ-9 Syrian PHQ-9 Any Language ROS: C: NEGATIVE for fever, chills, change in weight I: NEGATIVE for worrisome rashes, moles or lesions E: NEGATIVE for vision changes or irritation ENT: NEGATIVE for ear, mouth and throat problems R: NEGATIVE for significant cough or SOB CV: NEGATIVE for chest pain, palpitations or peripheral edema GI: NEGATIVE for nausea, abdominal pain, heartburn, or change in bowel habits male: negative for dysuria, hematuria, decreased urinary stream, erectile dysfunction, urethral discharge M: NEGATIVE for significant arthralgias or myalgia N: NEGATIVE for weakness, dizziness or paresthesias H: NEGATIVE for bleeding problems P: NEGATIVE for changes in mood or affect BP Readings from Last 3 Encounters: 09/11/13 120/80 08/01/12 124/80 07/27/12 118/74 Wt Readings from Last 3 Encounters: 09/11/13 231 lb (104.781 kg) 08/01/12 216 lb (97.977 kg) 07/27/12 217 lb (98.431 kg) Current Outpatient Prescriptions Medication Sig Dispense Refill ??? citalopram (CELEXA) 40 MG tablet Take 0.5 tablets (20 mg) by mouth daily For 2 weeks, then stop if desires 90 tablet 0 ??? valACYclovir (VALTREX) 500 MG tablet Take 1 tablet (500 mg) by mouth 2 times daily 6 tablet 3 ??? bismuth subsalicylate (PEPTO-BISMOL) 262 MG chewable tablet Take 524 mg by mouth 4 times daily (before meals and nightly). ??? IBUPROFEN ??? MULTIVITAMIN TABS OR 1 qd 0 OBJECTIVE: There were no vitals taken for this visit. Estimated body mass index is 30.34 kg/(m^2) as calculatedfrom the following: Height as of 08/01/12: 5' 10.75 (1.797 m). Weight as of 08/01/12: 216 lb (97.977 kg). GENERAL APPEARANCE: healthy, alert and no distress EYES: Eyes grossly normal to inspection, PERRL and conjunctivae and sclerae normal HENT: ear canals and TM's normal, nose and mouth without ulcers or lesions, oropharynx clear and oral mucous membranes moist NECK: no adenopathy, no asymmetry, masses, or scars and thyroid normal to palpation RESP: lungs clear to auscultation - no rales, rhonchi or wheezes CV: regular rates and rhythm, normal S1 S2, no S3 or S4, no murmur, click or rub, no peripheral edema and peripheral pulses strong ABDOMEN: soft, nontender, no hepatosplenomegaly, no masses and bowel sounds normal (male): normal male genitalia without lesions or urethral discharge, no hernia MS: no musculoskeletal defects are noted and gait is age appropriate without ataxia SKIN: no suspicious lesions or rashes NEURO: Normal strength and tone, sensory exam grossly normal, mentation intact and speech normal PSYCH: mentation appears normal and affect normal/bright ASSESSMENT/PLAN: Counseling Resources: ATP III Guidelines FRAX Risk Assessment ICSI Preventive Guidelines Dietary Guidelines for Americans, 2010 USDA's MyPlate regular exercise healthy diet/nutrition reports that he quit smoking about 14 years ago. He has never used smokeless tobacco. Estimated body mass index is 30.34 kg/(m^2) as calculated from the following: Height as of 08/01/12: 5' 10.75 (1.797 m). Weight as of 08/01/12: 216 lb (97.977 kg). 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 Diet regimen was discussed and plan is supervised diet program. ASSESSMENT/PLAN: (V70.0) Routine general medical examination at a health care facility (primary encounter diagnosis) Plan: CBC with platelets, Comprehensive metabolic panel, TSH with free T4 reflex (V81.2) CARDIOVASCULAR SCREENING; LDL GOAL LESS THAN 160 Plan: Lipid Profile with reflex to direct LDL (530.81) GERD (gastroesophageal reflux disease) Comment: stable Plan: The current medical regimen is effective; continue present plan and medications. (296.21) Mild major depression Plan: citalopram (CELEXA) 40 MG tablet- will wean (054.9) Herpes simplex Plan: valACYclovir (VALTREX) 500 MG tablet Shahriar Roblero MD, [facility] documented in this encounter Nursing Notes Ira Walters, RN - 09/11/2013 8:15 AM CDT Chief Complaint Patient presents with ??? Physical not fasting today Initial BP 120/80 Pulse 85 Temp(Src) 98.2 ??F (36.8 ??C) (Oral) Resp 16 Ht 5' 10.75 (1.797 m) Wt 231 lb (104.781 kg) BMI 32.45 kg/m2 SpO2 97% Estimated body mass index is 32.45 kg/(m^2) as calculated from the following: Height as of this encounter: 5' 10.75 (1.797 m). Weight as of this encounter: 231 lb (104.781 kg).. BP completed using cuff size large Health Maintenance Updated with Patient: Yes Tobacco Verified: Yes Payor/Verify RX Benefits/Reconcile Disp Completed if allowed: Yes Family History Updated: Yes Immunizations Up to Date: Yes Mychart Offered: Yes Ira Walters CMA documented in this encounter Plan of Treatment Upcoming Encounters Date Type Specialty Care Team Description 02/04/2022 Virtual Visit Behavioral Health Janak Marquez, [address] [address] (Wo rk) documented as of this encounter Visit Diagnoses Diagnosis Routine general medical examination at a health care facility - Primary CARDIOVASCULAR SCREENING; LDL GOAL LESS THAN 160 GERD (gastroesophageal reflux disease) Esophageal reflux Mild major depression (H) Major depressive disorder, single episod e, mild Herpes simplex Herpes simplex without mention of compli cation documented in this encounter Care Teams Cream Cheese Maker Relationship Specialty Start Date End Date Shahriar Roblero PCP - General Family Practice 19/0301/13/15 documented as of this encounter
--- OUTSIDE RECORDS SUMMARY | 2022-01-26 22:32 | XMS_ITS | Encounter Summary ---
:1970 Author Organization [facility] Address [address] [place] [address]. [place] [address] Care Team Providers Name Role Phone Jeri Ibrahim PA-C Primary Care Provider Reason for Visit Reason Onset Date Comments Refill Request 12/17/2015 Valacyclovir Encounter Details Date Type Department Care Team Description 12/17/2015 Refill [facility] Jeri Ibrahim Refi ll Request [facility] (Valacyclovir) [address] [place] [id number] [phone] (Wo rk) Social History Tobacco Use Types [...] or relatives? How often do you attend yarsani or 1 to 4 times per year 03/26 moravian services? 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 Mabel Saravia RN, BSN Telephone Encounter - Loretta Fortune - 12/17/2015 11:30 AM CDT Valacyclovir HCL 1 gram tablet Last Written Prescription Date: 09-13-2014 Last Fill Quantity: 11-11-2014, # 20refills: 11 Last Office Visit with [facility] or [facility] prescribing provider: 10-16-2015 with Jeri Ibrahim. CREATININE Date Value Ref Range Status 10/16/2015 1.05 0.66 - 1.25 mg/dL Final documented in this encounter Plan of Treatment Upcoming Encounters Date Type Specialty Care Team Description 02/04/2022 Virtual Visit Behavioral Health Janak Marquez, [address] [address] (Wo rk) documented as of this encounter Visit Diagnoses Diagnosis Herpes simplex - Primary Herpes simplex without mention of compli cation documented in this encounter Additional Health Concerns Assessment Noted Time PHQ-9 Depression Total Score: 3 10/17/2015 7:13 AM CDT documented as of this encounter Care Teams Engraver Flatware Relationship Specialty Start Date End Date Jeri Ibrahim PAAnetteC PCP - General Physician Conveyor Worker 01/14/15 [address] [place] [address] documented as of this encounter
--- OUTSIDE RECORDS SUMMARY | 2022-01-26 22:32 | XMS_ITS | Encounter Summary ---
:1970 Author Organization [facility] Address [address] [place] [address]. [place] [address] Care Team Providers Name Role Phone Jeri Ibrahim PA-C Primary Care Provider Reason for Referral Consultation - Closed Specialty Diagnoses / Procedures Referred By Contact Refer red To Contact Diagnoses Snoring Jeri Ibrahim PA-C [facility] [id number] [place] [address] 7[address] [place] [address] Referral ID Status Reason Start Date Expiration Date Visits Requ ested Visits Authorized [id number] Closed 05/13/2017 05/13/2018 1 1 AN SALES CONSULTANT Reason for Visit Reason Comments Physical Encounter Details Date Type Department Care Team Description 05/13/2017 Office Visit [facility] Jeri Ibrahim Rout ine general medical examination at a health care facility (Primary Dx); [facility] Need for prophylactic vaccination with t etanus-diphtheria (TD); [address] [facility] [address] [facility] Irritability; [place], [place] Post-na manuel drip; [id number] Herpes simplex; [phone] Snoring; (Work) Fatigue, unspecified type Social History Tobacco Use Types Packs/Day Years [...] Do you belong to any clubs or Perfect Channel 04/11/2021 organizations such as jain groups, unions, [...] at Date Recorded Male 05/30/2021 5:06 PM NISSAN SALES CONSULTANT documented as of this encounter Last Filed Vital Signs Vital Sign Reading Time Taken Comments Blood Pressure 130/87 05/13/2017 8:41 AM NISSAN SALES CONSULTANT Pulse 88 05/13/2017 8:41 AM NISSAN SALES CONSULTANT Temperature 36.9 ??C (98.4 ??F) 05/13/2017 8:41 AM NISSAN SALES CONSULTANT Respiratory Rate - - Oxygen Saturation 96% 05/13/2017 8:41 AM NISSAN SALES CONSULTANT Inhaled Oxygen Concentration - - Weight 109.8 kg (242 lb) 05/13/2017 8:41 AM NISSAN SALES CONSULTANT Height 180.3 cm (5' 11) 05/13/2017 8:41 AM NISSAN SALES CONSULTANT Body Mass Index 33.75 05/13/2017 8:41 AM NISSAN SALES CONSULTANT documented in this encounter Patient Instructions Patient InstructionsSuzette Rodríguez MA - 05/13/2017 8:36 AM CST Preventive Health Recommendations Male Ages 40 [...] instead of white grains and rice. ??? Talk to your provider about Calcium and Vitamin D. Lifestyle ??? Exercise for at least 150 minutes a week (30 minutes a day, 5 days a week). This will help you control your weight and prevent disease. ??? Limit alcohol to one drink per day. ??? No smoking. ??? Wear sunscreen to prevent skin cancer. ??? See your dentist every six months for an exam and cleaning. AN SALES CONSULTANT documented in this encounter Progress Notes Jeri Ibrahim PA-C - 05/13/2017 8:36 AM CST SUBJECTIVE: CC: Ezra Yanez is an 46 year old male who presents for preventative health visit. Healthy Habits: ?? Patient reports increased fatigue. Bed partner does report to pt that he snores and stops breathing. Today's PHQ-2 Score: PHQ-2 (??1998 Pfizer) 05/12/2017 10/16/2015 Q1: Little interest or pleasure in doing things 0 0 Q2: Feeling down, depressed or hopeless 0 0 PHQ-2 Score 0 0 Q1: Little interest or pleasure in doing things Not at all - Q2: Feeling down, depressed or hopeless Not at all - PHQ-2 Score 0 - Abuse: Current or Past(Physical, Sexual or Emotional)- No Do you feel safe in your environment - Yes Social History Substance Use Topics ??? Smoking status: Former Smoker Quit date: 10/15/1998 ??? Smokeless tobacco: Never Used ??? Alcohol use Yes Comment: socially If you drink alcohol do you typically have >3 drinks per day or >7 drinks per week? Yes - AUDIT SCORE: No flowsheet data found. Last PSA: PSA Date Value Ref Range Status 10/11/2014 0.52 0 - 4 ug/L Final Reviewed orders with patient. Reviewed health maintenance and updated orders accordingly - Yes Labs reviewed in [facility] Reviewed and updated as needed this visit by clinical staff Reviewed and updated as needed this visit by Provider Past Medical History: Diagnosis Date ??? Bronchitis with bronchospasm 11/16/2011 ??? Herpes simplex ??? Hyperlipemia ??? Scaphoid fracture of wrist 2013 left ROS: C: NEGATIVE for fever, chills, change [...] N: NEGATIVE for weakness, dizziness or paresthesias P: NEGATIVE for changes in mood or affect OBJECTIVE: There were no vitals taken for this visit. EXAM: GENERAL: healthy, alert and no distress EYES: [...] or urethral discharge, no hernia MS: no gross musculoskeletal defects noted, no edema SKIN: no suspicious lesions or rashes NEURO: Normal strength and tone, mentation intact and speech normal PSYCH: mentation appears normal, affect normal/bright ASSESSMENT/PLAN: 1. Routine general medical examination at a health care facility - CBC with platelets - Lipid panel reflex to direct LDL Fasting - Comprehensive metabolic panel 2. Need for prophylactic vaccination with tetanus-diphtheria (TD) Tdap given 3. Irritability Stable. Recheck 1 year. - citalopram (CELEXA) 20 MG tablet; TAKE 1 TABLET (20 MG) BY MOUTH DAILY Dispense: 90 tablet; Refill: 3 4. Post-nasal drip - fluticasone (FLONASE) 50 MCG/ACT spray; [place] 1-2 sprays into both nostrils daily Dispense: 16 g; Refill: 3 5. Herpes simplex - valACYclovir (VALTREX) 1000 mg tablet; TAKE 1 TABLET (1,000 MG) BY MOUTH 2 TIMES DAILY Dispense: 20 tablet; Refill: 3 6. Snoring Referral placed. - SLEEP EVALUATION & MANAGEMENT REFERRAL - ADULT -[facility] [place] [phone] (Age 18 and up); Future 7. Fatigue, unspecified type Await labs. - TSH with free T4 reflex - Vitamin D Deficiency COUNSELING: Reviewed preventive health counseling, as reflected in patient instructions Regular exercise Healthy diet/nutrition Vision screening Hearing screening Immunizations ?? Vaccinated for: TDAP Safe sex practices/STD prevention reports that he quit smoking about 18 years ago. He has never used smokeless tobacco. Estimated body mass index is 32.08 kg/(m^2) as calculated from the following: Height as of 08/28/16: 5' 11 (1.803 m). Weight as of 08/28/16: 230 lb (104.3 kg). Weight management plan: Discussed healthy diet and exercise guidelines and patient will follow up in12 months in clinic to re-evaluate. Counseling Resources: ATP IV Guidelines Pooled Cohorts Equation Calculator FRAX Risk Assessment ICSI Preventive Guidelines Dietary Guidelines for Americans, 2009 USDA's MyPlate ASA Prophylaxis Lung CA Screening Jeri Ibrahim PA-C [facility] Answers for HPI/ROS submitted by the patient on 05/12/2017 Annual Exam: If you checked off any problems, how difficult have these problems made it for you to do your work, take care of things at home, or get along with other people?: Not difficult at all PHQ9 TOTAL SCORE: 3 Getting at least 3 servings of Calcium per day:: Yes Bi-annual eye exam:: Yes Dental care twice a year:: Yes Sleep apnea or symptoms of sleep apnea:: Excessive snoring Diet:: Regular (no restrictions) Frequency of exercise:: 1 day/week Taking medications regularly:: Yes Medication side effects:: None Additional concerns today:: No PHQ-2 Score: 0 Duration of exercise:: 30-45 minutes AN SALES CONSULTANT documented in this encounter Miscellaneous Notes Addendum Note - Sydnee Chacon MA - 05/13/2017 11:46 AM NISSAN SALES CONSULTANT Addended by: SYDNEE CHACON on: 05/13/2017 11:46 AM Modules accepted: Orders AN SALES CONSULTANT documented in this encounter Plan of Treatment Upcoming Encounters Date Type Specialty Care Team Description 02/04/2022 Virtual Visit Behavioral Health Janak Marquez, [place] [id number] [address] (Wo rk) Scheduled Referrals Name Type Priority Associated Diagnoses Order S chedule SLEEP EVALUATION & Referral Routine Snoring 1 Occurre nces starting MANAGEMENT REFERRAL - 2017 until ADULT -[facility] [phone] (Age 18 and up) documented as of this encounter Procedures Procedure Name Priority Date/Time Associated Comments Diagnosis VITAMIN D DEFICIENCY Routine 05/13/2017 9:15 AM Fatigue, R esults for this SCREENING NISSAN SALES CONSULTANT unspecified type procedure a re in the results section. TSH WITH FREE T4 Routine 05/13/2017 9:15 AM Fatigue, Resul ts for this REFLEX NISSAN SALES CONSULTANT unspecified type procedure a re in the results section. LIPID REFLEX TO DIRECT Routine 05/13/2017 9:15 AM Routine gene ral Results for this LDL PANEL NISSAN SALES CONSULTANT medical examination procedur e are in at a health care the results facility section. COMPREHENSIVE Routine 05/13/2017 9:15 AM Routine general Resul ts for this METABOLIC PANEL NISSAN SALES CONSULTANT medical examination proce dure are in at a health care the results facility section. CBC WITH PLATELETS Routine 05/13/2017 9:15 AM Routine general Results for this NISSAN SALES CONSULTANT medical examination procedur e are in at a health care the results facility section. documented in this encounter Results Vitamin D Deficiency (05/13/2017 9:15 AM NISSAN SALES CONSULTANT) athologist Signature Vitamin D 23 20 - 75 05/14/2017 [facility] ug/L 9:17 AM [facility] Comment: Season, race, dietary intake, and treatm ent affect the concentration of 61-mmwvhal-Gizeief D. Values may decreas e during winter [...] Location / / Volume Laterality Blood specimen 05/13/2017 9:15 AM 018 9:17 (specimen) NISSAN SALES CONSULTANT AM NISSAN SALES CONSULTANT Jeri Ibrahim PA-C LAB - BLOOD ORDERABLES Performing Organization Address City/State/ZIP Code Phon e Number [facility] [address] [place] [address] [facility] TSH with free T4 reflex (05/13/2017 9:15 AM NISSAN SALES CONSULTANT) athologist Signature TSH 1.99 0.40 - 4.00 05/14/2017 [facility] mU/L 9:[address] [facility] Specimen Anatomical Collection Method Collection Time Receive d Time (Source) Location / / Volume Laterality Blood specimen 05/13/2017 9:15 AM 018 9:17 (specimen) NISSAN SALES CONSULTANT AM NISSAN SALES CONSULTANT Jeri Ibrahim PA-C LAB - BLOOD ORDERABLES Performing Organization Address City/State/ZIP Code Phon e Number [facility] [address] [place] [address] (ABNORMAL) Comprehensive metabolic panel (05/13/2017 9:15 AM NISSAN SALES CONSULTANT) P athologist Signature Sodium 138 133 - 144 05/14/2017 [facility] mmol/L 8:[address] [facility] Potassium 4.3 3.4 - 5.3 05/14/2017 [facility] mmol/L 8:[address] [facility] Chloride 105 94 - 109 05/14/2017 [facility] mmol/L 8:[address] [facility] Carbon Dioxide 26 20 - 32 05/14/2017 [facility] mmol/L 8:[address] [facility] Anion Gap 7 3 - 14 05/14/2017 [facility] mmol/L 8:[address] [facility] Glucose 97 70 - 99 05/14/2017 [facility] mg/dL 8:[address] [facility] Comment: Fasting specimen Urea Nitrogen 18 7 - 30 mg/dL 05/14/2017 8:45 AM [facility] Creatinine 1.00 0.66 - 1.25 mg/dL 05/14/2017 8:45 AM CS T [facility] GFR Estimate 81 >60 mL/min/1.7m2 05/14/2017 8:[address] [facility] Comment: Non GFR Calc GFR Estimate If >90 >60 mL/min/1.7m2 05/14/2017 8:45 A M [facility] Black [facility] Comment: GFR Calc Calcium 8.7 8.5 - 10.1 05/14/2017 8:45 AM [facility] mg/dL [facility] Bilirubin Total 0.4 0.2 - 1.3 05/14/2017 8:45 AM [facility] mg/dL [facility] Albumin 4.1 3.4 - 5.0 g/dL 05/14/2017 8:45 AM [facility] Protein Total 7.3 6.8 - 8.8 g/dL 05/14/2017 9:01 AM [facility] Alkaline Phosphatase 81 40 - 150 U/L 05/14/2017 9:01 AM [facility][1] ALT 96 (H) 0 - 70 U/L 05/14/2017 9:01 AM [facility] AST 38 0 - 45 U/L 05/14/2017 8:45 AM [facility] Specimen Anatomical Collection Method Collection Time Receive d Time (Source) Location / / Volume Laterality Blood specimen 05/13/2017 9:15 AM 018 9:17 (specimen) NISSAN SALES CONSULTANT AM NISSAN SALES CONSULTANT Jeri Ibrahim PA-C LAB - BLOOD ORDERABLES Performing Organization Address City/State/ZIP Code Phon e Number [facility] [address] [place] [address] (ABNORMAL) Lipid panel reflex to direct LDL Fasting (05/13/2017 9:15 AM NISSAN SALES CONSULTANT) athologist Signature Cholesterol 189 <200 mg/dL 05/14/2017 [facility] 8:[address] [facility] Triglycerides 127 <150 mg/dL 05/14/2017 [facility] 8:[address] [facility] Comment: Fasting specimen HDL Cholesterol 56 >39 mg/dL 05/14/2017 9:01 AM [facility] LDL Cholesterol 108 (H) <100 mg/dL 05/14/2017 9:01 AM [facility] Calculated [facility] Comment: Above desirable: ??100-129 mg/dl Borderline High: ??130-159 mg/dL High: ? 160-189 mg/dL Very high: ? >189 mg/dl Non HDL Cholesterol 133 (H) <130 mg/dL 05/14/2017 9:01 AM [facility][1] Comment: Above Desirable: ??130-159 mg/dl Borderline high: ??160-189 mg/dl High: ? 190-219 mg/dl Very high: ? >219 mg/dl Specimen Anatomical Collection Method Collection Time Receive d Time (Source) Location / / Volume Laterality Blood specimen 05/13/2017 9:15 AM 018 9:17 (specimen) NISSAN SALES CONSULTANT AM NISSAN SALES CONSULTANT Jeri Ibrahim PA-C LAB - BLOOD ORDERABLES Performing Organization Address City/State/ZIP Code Phon e Number [facility] [address] [place] [address] CBC with platelets (05/13/2017 9:15 AM NISSAN SALES CONSULTANT) athologist Signature WBC 6.4 4.0 - 11.0 05/13/2017 [place] 10e9/L 9:[address] [facility] RBC Count 5.38 4.4 - 5.9 05/13/2017 [place] 10e12/L 9:28 AM NISSAN SALES CONSULTANT [facility] Hemoglobin 16.8 13.3 - 05/13/2017 [place] 17.7 g/dL 9:28 AM NISSAN SALES CONSULTANT [facility] Hematocrit 49.1 40.0 - 05/13/2017 [facility] 53.0 % 9:28 AM NISSAN SALES CONSULTANT [facility] MCV 91 78 - 100 05/13/2017 [place] fl 9:28 AM NISSAN SALES CONSULTANT [facility] MCH 31.2 26.5 - 05/13/2017 [facility] 33.0 pg 9:28 AM NISSAN SALES CONSULTANT [facility] MCHC 34.2 31.5 - 05/13/2017 [place] 36.5 g/dL 9:28 AM NISSAN SALES CONSULTANT [facility] RDW 13.0 10.0 - 05/13/2017 [place] 15.0 % 9:[address] [facility] Platelet Count 263 150 - 450 05/13/2017 [place] 10e9/L 9:28 AM NISSAN SALES CONSULTANT [facility] Specimen Anatomical Collection Method Collection Time Receive d Time (Source) Location / / Volume Laterality Blood specimen 05/13/2017 9:15 AM 018 9:17 (specimen) NISSAN SALES CONSULTANT AM NISSAN SALES CONSULTANT Jeri Ibrahim PA-C LAB - BLOOD ORDERABLES Performing Organization Address City/State/[facility] Code Phon e Number [facility] [address] [place] [address] documented in this encounter Visit Diagnoses Diagnosis Routine general medical examination at a health care facility - Primary Need for prophylactic vaccination with t etanus-diphtheria (Td) Irritability Post-nasal drip Postnasal drip Herpes simplex Herpes simplex without mention of compli cation Snoring Other dyspnea and respiratory abnormalit y Fatigue, unspecified type documented in this encounter Additional Health Concerns Assessment Noted Time PHQ-9 Depression Total Score: 3 05/13/2017 8:37 AM NISSAN SALES CONSULTANT documented as of this encounter Care Teams Independent Living Instructor Relationship Specialty Start Date End Date Jeri Ibrahim PA-C PCP - General Physician Senior Cost Estimator 01/14/15 [address] [place] [address] documented as of this encounter
--- OUTSIDE RECORDS SUMMARY | 2022-01-26 22:32 | XMS_ITS | Encounter Summary ---
:1970 Author Organization [facility] Address [address] [place] [address]. [place] [address] Care Team Providers Name Role Phone Jeri Ibrahim PA-C Primary Care Provider Reason for Visit Reason Comments Medication Refill Citalopram 20 mg tab Encounter Details Date Type Department Care Team Description 07/20/2016 Refill [facility] Jeri Ibrahim, [facility] Refill Clinic [place] [facility] (Citalopram 20 mg tab) [address] [place] [id number] [phone] (Wo rk) Social History Tobacco Use Types [...] or relatives? How often do you attend tenriism or 1 to 4 times per year 03/26 christian services? 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 Luis Law, [place] . Telephone Encounter - Radha Ng - 07/20/2016 7:48 AM CDT Controlled Substance Refill Request for Citalopram 20 mg tab Problem List Complete: No PROVIDER TO CONSIDER COMPLETION OF PROBLEM LIST AND OVERVIEW/CONTROLLED SUBSTANCE AGREEMENT Last Written Prescription Date: 10/16/15 Last Fill Quantity: 90, # refills: 3 Last Office Visit with [facility] primary care provider: 04/16/16 Jeri Ibrahim Future Office visit: Controlled substance agreement on file: No. Processing: Fax Rx to [facility] pharmacy PRESCHOOL ASSISTANT PRINCIPAL checked in past 6 months? No, route to RN documented in this encounter Plan of Treatment Upcoming Encounters Date Type Specialty Care Team Description 02/04/2022 Virtual Visit Behavioral Health Janak Marquez, [place] [id number] [address] (Wo rk) documented as of this encounter Visit Diagnoses Diagnosis Irritability documented in this encounter Additional Health Concerns Assessment Noted Time PHQ-9 Depression Total Score: 3 04/04/2016 7:16 AM INSPECTOR BARREL documented as of this encounter Care Teams Retail Field Merchandiser Relationship Specialty Start Date End Date Jeri Ibrahim PA-C PCP - General Physician Power House Engineer 01/14/15 [address] [place] [address] documented as of this encounter
--- OUTSIDE RECORDS SUMMARY | 2022-01-26 22:32 | XMS_ITS | Encounter Summary ---
:1970 Author Organization [facility] Address [address] [place] [address]. [place] [address] Care Team Providers Name Role Phone Shahriar Roblero MD Primary Care Provider + Reason for Visit Reason Onset Date Comments Refill Request 08/30/2013 Celexa Encounter Details Date Type Department Care Team Description 08/30/2013 Refill [facility] Shahriar Roblero efill Request [facility] Chauncey Mchugh MD (Celexa) [address] [place] [id number] [address] [phone] [place], [place] [address] (Wo rk) Social History [...] or relatives? How often do you attend anabaptist or 1 to 4 times per year 03/26 christianity services? Do you belong to any clubs or Yes 04/11/2021 organizations such as anabaptist groups, unions, fraternal or athletic groups, or [...] or slept in a custodial (including now)? 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 Letter sent. Sent to provider. DEPRESSION/ANXIETY Last Office Visit R/T Diagnosis: 08/01/12 Provider Notes:recheck x Not noted Last PHQ-9 score on record= 2 Date: 07/27/12 SSRI: Celexa OV: 6mths or as indicated in chart. If <18 yrs of age q 3 mths or as indicated in chart Should have OV 1-2 mths after initial RX ANXIETY: follow up q 12 mths Tests: PHQ-9 q 6 mths If PHQ9 has been done once in the last 6 mths, and if score is 5 or less, OK to refill for 12 mths ANXIETY: if SSRI for anxiety, PHQ9 is not needed Max Refills: 6mths See above. Ce Cabrales, RN documented in this encounter Plan of Treatment Upcoming Encounters Date Type Specialty Care Team Description 02/04/2022 Virtual Visit Behavioral Health Janak Marquez, [facility] [address] [address] (Wo rk) documented as of this encounter Visit Diagnoses Diagnosis Mild major depression (H) Major depressive disorder, single episod e, mild documented in this encounter Care Teams Awning Installer Relationship Specialty Start Date End Date Shahriar Roblero, PCP - General Family Practice 19/0301/13/15 documented as of this encounter
--- OUTSIDE RECORDS SUMMARY | 2022-01-26 22:32 | XMS_ITS | Encounter Summary ---
:1970 Author Organization [facility] Address [address] [place] [address]. [place] [address] Care Team Providers Name Role Phone Jeri Ibrahim PA-C Primary Care Provider Reason for Visit Reason Comments Medication Refill citalopram (CELEXA) 20 MG t ablet Encounter Details Date Type Department Care Team Description 10/20/2016 Refill [facility] Jeri Ibrahim, [facility] cation Refill ( [facility] [place] [facility] citalopram (CELEXA) 20 [address] [facility] [address] MG tablet) [place] [address] [phone] (Wo rk) Social History Tobacco Use Types [...] 1 to 4 times per year 03/26 samaritan services? 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 Luis Law, RN Telephone Encounter - Perla Patterson - 10/20/2016 1:17 PM CDT citalopram (CELEXA) 20 MG tablet Last Written Prescription Date: 07/20/2016 Last Fill Quantity: 90,07/20/2016 # refills: 0 Last Office Visit with [facility] primary care provider: 08/28/2016-Klaus Boyd Last PHQ-9 score on record= PHQ-9 SCORE 08/28/2016 Total Score - Total Score 2 documented in this encounter Plan of Treatment Upcoming Encounters Date Type Specialty Care Team Description 02/04/2022 Virtual Visit Behavioral Health Janak Marquez, [address] [address] (Wo rk) documented as of this encounter Visit Diagnoses Diagnosis Irritability documented in this encounter Additional Health Concerns Assessment Noted Time PHQ-9 Depression Total Score: 2 08/29/2016 7:04 AM CDT documented as of this encounter Care Teams Clinical Review Nurse Relationship Specialty Start Date End Date Jeri Ibrahim PA-C PCP - General Physician Certified Optician 01/14/15 [address] [place] [address] documented as of this encounter
--- OUTSIDE RECORDS SUMMARY | 2022-01-26 22:32 | XMS_ITS | Encounter Summary ---
:1970 Author Organization [facility] Address [address] [place] [address]. [place] [address] Care Team Providers Name Role Phone Jeri Ibrahim PA-C Primary Care Provider Reason for Visit Reason Comments Medication Refill valACYclovir (VALTREX) 1000 mg tablet Encounter Details Date Type Department Care Team Description 01/02/2017 Refill [facility] Jeri Ibrahim, [facility] [place] [facility] (valACYclovir (VALTREX) [address] [place] [address] 1000 mg tablet) [place] [id number] [phone] (Wo rk) Social History Tobacco Use Types [...] or relatives? How often do you attend restoration or 1 to 4 times per year 03/26 worship services? 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 documented as of this encounter Miscellaneous Notes Telephone Encounter - Mabel Saravia RN - 01/02/2017 10:51 AM CDT Routing refill request to provider for review/approval because: Labs not current: Per RN protocol needs CR annually Mabel Saravia RN, BSN Telephone Encounter - Chloé Drake - 01/02/2017 8:46 AM CDT valACYclovir (VALTREX) 1000 mg tablet Last Written Prescription Date: 12/18/15 Last Fill Quantity: 20, # refills: 11 Last Office Visit with [facility], [facility] or [facility] prescribing provider: Oliver 08/28/16 Creatinine Date Value Ref Range Status 10/16/2015 1.05 0.66 - 1.25 mg/dL Final documented in this encounter Plan of Treatment Upcoming Encounters Date Type Specialty Care Team Description 02/04/2022 Virtual Visit Behavioral Health Janak Marquez, [place] [id number] [address] (Wo rk) documented as of this encounter Visit Diagnoses Diagnosis Herpes simplex Herpes simplex without mention of compli cation documented in this encounter Additional Health Concerns Assessment Noted Time PHQ-9 Depression Total Score: 2 08/29/2016 7:04 AM CDT documented as of this encounter Care Teams Trauma Nurse Relationship Specialty Start Date End Date Jeri Ibrahim PA-C PCP - General Physician Scale Tank Operator 01/14/15 [address] [place] [address] documented as of this encounter
--- OUTSIDE RECORDS SUMMARY | 2022-01-26 22:32 | XMS_ITS | Encounter Summary ---
:1970 Author Organization [facility] Address [address] [place] [address]. [place] [address] Care Team Providers Name Role Phone Shahriar Roblero MD Primary Care Provider + Reason for Visit Reason Onset Date Comments Nurse Advice Line 11/27/2013 valtrex Encounter Details Date Type Department Care Team Description 11/27/2013 Telephone [facility] Shahriar Roblero Advice Line [facility] Chauncey Mchugh MD (valtrex) [address] [facility] [address] [phone] [place], [place] [address] (Wo rk) Social History [...] or relatives? How often do you attend mu-ism or 1 to 4 times per year 03/26 druze services? 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 Let him know a higher dose has been sent to pharmacy. 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 documented in this encounter Plan of Treatment Upcoming Encounters Date Type Specialty Care Team Description 02/04/2022 Virtual Visit Behavioral Health Janak Marquez, [place] [id number] [address] (Wo rk) documented as of this encounter Visit Diagnoses Diagnosis Herpes simplex Herpes simplex without mention of compli cation documented in this encounter Care Teams End Stapler Relationship Specialty Start Date End Date Shahriar Roblero, PCP - General Family Practice 19/0301/13/15 documented as of this encounter
--- OUTSIDE RECORDS SUMMARY | 2022-01-26 22:32 | XMS_ITS | Encounter Summary ---
:1970 Author Organization [facility] Address [address] [place] [address]. 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 documented as of this encounter Last Filed Vital Signs Vital Sign Reading Time Taken Comments Blood Pressure - - Pulse - - Temperature - - Respiratory Rate - - Oxygen Saturation - - Inhaled Oxygen Concentration - - Weight 101.2 kg (223 lb) 10/25/2015 3:00 PM CDT Height 178.4 cm (5' 10.25) 10/25/2015 3:00 PM CDT Body Mass Index 31.77 10/25/2015 3:00 PM CDT documented in this encounter Progress Notes Barry Dean MD - 10/25/2015 3:20 PM CDT HISTORY OF PRESENT ILLNESS: Ezra Yanez is a 45 year old male who is seen in consultation at the request of FRANDY Powell for left palmar issues that started about 2 years ago. Patient is right hand dominant. Present symptoms: left hand deformity, minimal change is size over 2 years Treatments tried to this point: none Orthopedic PMH: wrist fracture as a kid, and left scaphoid fracture in 2013 Past Medical History Diagnosis Date ??? Hyperlipemia ??? Bronchitis with bronchospasm 11/16/2011 ??? Herpes simplex ??? Scaphoid fracture of wrist 2013 left Past Surgical History Procedure Laterality Date ??? No history of surgery Family History Problem Relation Age of Onset ??? Cancer Mother Cuteaneous T-cell lyphoma/ born 1950 Melanoma ??? Neurologic Disorder Mother brain aneurysm ??? Diabetes Father born 194 ??? Family History Negative Sister ??? Cancer Maternal Uncle skin ??? Family History Negative Daughter ??? Diabetes Maternal Grandfather ??? Diabetes Paternal Grandmother ??? Neurologic Disorder Maternal Uncle abdominal aortic aneurysm ??? Respiratory Father COPD History Social History ??? Marital Status: Spouse Name: N/A ??? Number of Children: N/A ??? Years of Education: N/A Occupational History ??? Not on file. Social History Main Topics ??? Smoking status: Former Smoker Quit date: 10/15/1998 ??? Smokeless tobacco: Never Used ??? Alcohol Use: Yes Comment: socially ??? Drug Use: No ??? Sexual Activity: Partners: Female Other Topics Concern ??? Parent/Sibling W/ Cabg, Mi Or Angioplasty Before 65f 55m? No Social History Narrative Current Outpatient Prescriptions Medication Sig Dispense Refill ??? citalopram (CELEXA) 20 MG tablet Take 1 tablet (20 mg) by mouth daily 90 tablet 3 ??? valACYclovir (VALTREX) 1000 mg tablet Take 1 tablet (1,000 mg) by mouth 2 times daily 20 tablet 11 ??? valACYclovir (VALTREX) 1000 mg tablet Take 2 tablets (2,000 mg) by mouth 2 times daily 12 tablet3 ??? bismuth subsalicylate (PEPTO-BISMOL) 262 MG chewable tablet Take 524 mg by mouth 4 times daily (before meals and nightly). ??? IBUPROFEN ??? MULTIVITAMIN TABS OR 1 qd 0 Allergies Allergen Reactions ??? Penicillins Hives REVIEW OF SYSTEMS: CONSTITUTIONAL: NEGATIVE for fever, chills, change in weight INTEGUMENTARY/SKIN: NEGATIVE for worrisome rashes, moles or lesions EYES: NEGATIVE for vision changes or irritation ENT/MOUTH: NEGATIVE for ear, mouth and throat problems RESP: NEGATIVE for significant cough or SOB BREAST: NEGATIVE for masses, tenderness or discharge CV: NEGATIVE for chest pain, palpitations or peripheral edema GI: NEGATIVE for nausea, abdominal pain, heartburn, or change in bowel habits : Negative MUSCULOSKELETAL: See HPI above NEURO: NEGATIVE for weakness, dizziness or paresthesias ENDOCRINE: NEGATIVE for temperature intolerance, skin/hair changes HEME/ALLERGY/IMMUNE: NEGATIVE for bleeding problems PSYCHIATRIC: NEGATIVE for changes in mood or affect PHYSICAL EXAM: Ht 5' 10.25 (1.784 m) Wt 223 lb (101.152 kg) BMI 31.78 kg/m2 Body mass index is 31.78 kg/(m^2). GENERAL APPEARANCE: healthy, alert and no distress SKIN: no suspicious lesions or rashes NEURO: Normal strength and tone, mentation intact and speech normal VASCULAR: Good pulses, and capillary refill LYMPH: no lymphadenopathy PSYCH: mentation appears normal and affect normal/bright MSK: Examination of his left, nondominant upper extremity reveals no asymmetry or atrophy to the muscle masses. He has full range of motion of the fingers wrist and elbow. He has very early Dupuytren's formation of the ring finger. There is no finger contracture at this point. ASSESSMENT / PLAN: Early Dupuytren's, left hand. I had a long discussion with German today regarding the pathology and prognosis. At this point I don't see any indications for invasive treatment modalities. He is in agreement. We'll treat this symptomatically at this point and when and if he develops finger contractures he'll return for either injections or surgical consideration. Imaging Interpretation: None today Maxi Dean MD Department of Orthopedic Surgery documented in this encounter Nursing Notes Myriam Naidu - 10/25/2015 3:30 PM CDT Chief Complaint Patient presents with ??? Hand Problem left, palmar aspect, 2 yrs Initial Ht 5' 10.25 (1.784 m) Wt 223 lb (101.152 kg) BMI 31.78 kg/m2 Estimated body mass index is 31.78 kg/(m^2) as calculated from the following: Height as of this encounter: 5' 10.25 (1.784 m). Weight as of this encounter: 223 lb (101.152 kg). BP completed using cuff size: NA (Not Taken) Myriam Naidu ATC documented in this encounter Plan of Treatment Upcoming Encounters Date Type Specialty Care Team Description 02/04/2022 Virtual Visit Behavioral [facility] Janak Marquez, [place] [id number] [address] (Wo rk) documented as of this encounter Visit Diagnoses Diagnosis Dupuytren's contracture of left hand - P rimary Contracture of palmar fascia documented in this encounter Additional Health Concerns Assessment Noted Time PHQ-9 Depression Total Score: 3 10/17/2015 7:13 AM CDT documented as of this encounter Care Teams Academic Dean Relationship Specialty Start Date End Date Jeri Ibrahim PA-C PCP - General Physician Bag Repairer 01/14/15 [address] [place] [phone] documented as of this encounter
--- OUTSIDE RECORDS SUMMARY | 2022-01-26 22:32 | XMS_ITS | Encounter Summary ---
:1970 Author Organization [facility] Address [address] [place] [address]. [place] [address] Care Team Providers Name Role Phone Jeri Ibrahmi PA-C Primary Care Provider Reason for Referral Consultation - Closed Specialty Diagnoses / Procedures Referred By Contact Refer red To Contact Orthopedics Diagnoses Palmar nodule, left Jeri Ibrahim PA-C [facility] [address] [facility] [address]?? [address] [place] [address] [address] [employer] [address] [place], [place] [address] Phone: Fax: Referral ID Status Reason Start Date Expiration Date Visits Requ ested Visits Authorized [id number] Closed 10/16/2015 10/15/2016 1 1 - Closed Specialty Diagnoses / Procedures Referred By Contact Refer red To Contact Diagnoses Snoring Jeri Ibrahim PA-C [address] [place], [place] [address] Referral ID Status Reason Start Date Expiration Date Visits Requ ested Visits Authorized [id number] Closed 10/16/2015 10/15/2016 1 1 Reason for Visit Reason Comments Physical fasting Encounter Details Date Type Department Care Team Description 10/16/2015 Office Visit [facility] Jeri Ibrahim Rout ine general medical examination at a health care facility (Primary Dx); [facility] [place] PAAnetteC Snoring; [address] Irritability; [place], [facility], [place] Palmar nodule, left; [id number] Immunity status testing [phone] (Wo rk) Social History Tobacco Use Types [...] or relatives? How often do you attend christianity or 1 to 4 times per year 03/26 voodoo services? 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 documented as of this encounter Last Filed Vital Signs Vital Sign Reading Time Taken Comments Blood Pressure 129/87 10/16/2015 8:28 AM CDT Pulse 83 10/16/2015 8:28 AM CDT Temperature 36.7 ??C (98.1 ??F) 10/16/2015 8:28 AM CDT Respiratory Rate 16 10/16/2015 8:28 AM CDT Oxygen Saturation 97% 10/16/2015 8:28 AM CDT Inhaled Oxygen Concentration - - Weight 101.2 kg (223 lb) 10/16/2015 8:28 AM CDT Height 178.4 cm (5' 10.25) 10/16/2015 8:28 AM CDT Body Mass Index 31.77 10/16/2015 8:28 AM CDT documented in this encounter Patient Instructions Patient InstructionsBottema, Suzette L, MA - 10/16/2015 8:32 AM CDT Preventive Health Recommendations Male Ages [...] cleaning. documented in this encounter Progress Notes Jeri Ibrahim PA-C - 10/16/2015 8:32 AM CDT SUBJECTIVE: CC: Ezra Yanez is an 45 year old male who presents for preventative health visit. Healthy Habits: ?? Do you get at least three servings of calcium containing foods daily (dairy, green leafy vegetables, etc.)? yes ?? Amount of exercise or daily activities, outside of work: 2-3 day(s) per week ?? Problems taking medications regularly No ?? Medication side effects: Yes Patient states that he would like to maybe up the dose of Celexa ?? Have you had an eye exam in the past two years? yes ?? Do you see a dentist twice per year? yes ?? Do you have sleep apnea, excessive snoring or daytime drowsiness?Patient states he snores Other concerns to address: MMR titer Lump on hand left hand, getting bigger Feels like is a little more irritable, would like to possibly increase celexa Kids states he snores loudly, interested in consult. Today's PHQ-2 Score: PHQ-2 (??1998 Pfizer) 10/13/2015 10/11/2014 Q1: Little interest or pleasure in doing things - 0 Q2: Feeling down, depressed or hopeless - 0 PHQ-2 Score - 0 Little interest or pleasure in doing things Not at all - Feeling down, depressed or hopeless Not at [...] per day nor >7 drinks per week. Last PSA: PSA Date Value Ref Range Status 10/11/2014 0.52 0 - 4 ug/L Final Recent Labs Lab Test 10/11/14 0819 08/01/12 0924 CHOL 180 185 HDL 48 58 LDL 104 96 TRIG 141 159* CHOLHDLRATIO 3.8 3.2 Reviewed orders with patient. Reviewed health maintenance and updated orders accordingly - Yes All Histories reviewed and updated in [facility]. Past Medical History Diagnosis Date ??? Hyperlipemia [...] NEGATIVE for changes in mood or affect Problem list, Medication list, Allergies, and Medical/Social/Surgical histories reviewed in EPIC andupdated as appropriate. OBJECTIVE: BP 129/87 mmHg Pulse 83 Temp(Src) 98.1 ??F (36.7 ??C) (Oral) Resp 16 Ht 5' 10.25 (1.784 m) Wt 223 lb (101.152 kg) BMI 31.78 kg/m2 SpO2 97% EXAM: GENERAL: healthy, alert and no distress EYES: Eyes grossly normal to inspection, PERRL and conjunctivae and sclerae normal HENT: ear canals and TM's normal, nose and mouth without ulcers or lesions NECK: no adenopathy, no asymmetry, masses, or scars and thyroid normal to palpation RESP: lungs clear to auscultation - no rales, rhonchi or wheezes BREAST: normal without masses, tenderness or nipple discharge and no palpable axillary masses or adenopathy CV: regular rate and rhythm, normal S1 S2, no S3 or S4, no murmur, click or rub, no peripheral edemaand peripheral pulses strong ABDOMEN: soft, nontender, no hepatosplenomegaly, no masses and bowel sounds normal MS: left palm with firm nodule 4th digit SKIN: no suspicious lesions or rashes NEURO: Normal strength and tone, mentation intact and speech normal PSYCH: mentation appears normal, affect normal/bright ASSESSMENT/PLAN: 1. Routine general medical examination at a health care facility - CBC with platelets - Lipid Profile with reflex to direct LDL - Comprehensive metabolic panel (BMP + Alb, Alk Phos, ALT, AST, Total. Bili, TP) 2. Snoring - SLEEP EVALUATION & MANAGEMENT REFERRAL - ADULT; Future 3. Irritability - citalopram (CELEXA) 20 MG tablet; Take 1 tablet (20 mg) by mouth daily Dispense: 90 tablet; Refill: 3 4. Palmar nodule, left - ORTHO DRAFT ROLLER PICKER REFERRAL 5. Immunity status testing - Rubella Antibody IgG Quantitative - Mumps Antibody IgG - Rubeola Antibody IgG COUNSELING: Reviewed preventive health counseling, as reflected in patient instructions Regular exercise Healthy diet/nutrition reports that he quit smoking about 17 years ago. He has never used smokeless tobacco. Estimated body mass index is 31.78 kg/(m^2) as calculated from the following: Height as of this encounter: 5' 10.25 (1.784 m). Weight as of this encounter: 223 lb (101.152 kg). Weight management plan: Discussed healthy diet and exercise guidelines and patient will follow up in12 months in clinic to re-evaluate. Counseling Resources: ATP IV Guidelines Pooled Cohorts Equation Calculator FRAX Risk Assessment ICSI Preventive Guidelines Dietary Guidelines for Americans, 2009 USDA's MyPlate ASA Prophylaxis Lung CA Screening Jeri Ibrahim PA-C, PAAnetteC [facility] documented in this encounter Nursing Notes Suzette Olivia MA - 10/16/2015 8:29 AM CDT Chief Complaint Patient presents with ??? Physical fasting Initial BP 129/87 mmHg Pulse 83 Temp(Src) 98.1 ??F (36.7 ??C) (Oral) Resp 16 Ht 5' 10.25 (1.784 m) Wt 223 lb (101.152 kg) BMI 31.78 kg/m2 SpO2 97% Estimated body mass index is 31.78 kg/(m^2) as calculated from the following: Height as of this encounter: 5' 10.25 (1.784 m). Weight as of this encounter: 223 lb (101.152 kg). BP completed using cuff size: regular rt arm Suzette Olivia MA Health Maintenance has been reviewed. documented in this encounter Plan of Treatment Upcoming Encounters Date Type Specialty Care Team Description 02/04/2022 Virtual Visit Behavioral Health Janak Marquez, [address] [id number] (Wo rk) Scheduled Referrals Name Type Priority Associated Diagnoses Order S chedule SLEEP EVALUATION & Referral Routine Snoring 1 Occurre nces starting MANAGEMENT REFERRAL - 2015 until ADULT 10/15/2016 documented as of this encounter Procedures Procedure Name Priority Date/Time Associated Comments Diagnosis MUMPS IMMUNE STATUS, Routine 10/16/2015 9:05 AM Immunity statu s Results for this IGG CDT testing procedure are i n the results section. RUBEOLA ANTIBODY IGG Routine 10/16/2015 9:05 AM Immunity statu s Results for this CDT testing procedure are i n the results section. RUBELLA ANTIBODY IGG Routine 10/16/2015 9:05 AM Immunity statu s Results for this CDT testing procedure are i n the results section. LIPID REFLEX TO DIRECT Routine 10/16/2015 9:05 AM Routine gene ral Results for this LDL PANEL CDT medical examination procedur e are in at a health care the results facility section. COMPREHENSIVE Routine 10/16/2015 9:05 AM Routine general Resul ts for this METABOLIC PANEL CDT medical examination proce dure are in at a health care the results facility section. CBC WITH PLATELETS Routine 10/16/2015 9:05 AM Routine general Results for this CDT medical examination procedur e are in at a health care the results facility section. documented in this encounter Results (ABNORMAL) Rubeola Antibody IgG (10/16/2015 9:05 AM CDT) athologist Signature Rubeola 1.6 (H) 0.0 - 0.8 [facility] (Measles) [facility] [place] Comment: Positive, suggests prev. exposure and pr obable immunity Antibody index (AI) values reflect qual itative changes in antibody concentration that cannot be directly a ssociated with clinical condition or disease state. Specimen Anatomical Collection Method Collection Time Receive d Time (Source) Location / / Volume Laterality Blood specimen 10/16/2015 9:05 AM 016 9:06 (specimen) CDT AM CDT Jeri Ibrahim PA-C LAB - BLOOD ORDERABLES Performing Organization Address City/State/ZIP Code Phon e Number [facility] [address] [place] [address] [facility] (ABNORMAL) Mumps Antibody IgG (10/16/2015 9:05 AM CDT) athologist Signature Mumps Antibody 2.9 (H) 0.0 - 0.8 [facility] IgG [facility] Comment: Positive, suggests prev. exposure and pr obable immunity Antibody index (AI) values reflect qual itative changes in antibody concentration that cannot be directly a ssociated with clinical condition or disease state. Specimen Anatomical Collection Method Collection Time Receive d Time (Source) Location / / Volume Laterality Blood specimen 10/16/2015 9:05 AM 016 9:06 (specimen) CDT AM CDT Jeri Ibrahim PA-C LAB - BLOOD ORDERABLES Performing Organization Address City/[facility] Phon e Number [address] Rubella Antibody IgG Quantitative (10/16/2015 9:05 AM CDT) Analysis Performed At Patho logist Time Signature Rubella Antibody 32 IU/mL [facility] IgG [facility] Comment: Positive. ??Suggests previous exposure o r immunization and probable immunity Reference Range: ?? Unvaccinated Negative 0-7 IU/mL Vaccinated or previous exposure Positiv e 10 IU/ml or greater Specimen Anatomical Collection Method Collection Time Receive d Time (Source) Location / / Volume Laterality Blood specimen 10/16/2015 9:05 AM 016 9:06 (specimen) CDT AM CDT Jeri Ibrahim PA-C LAB - BLOOD ORDERABLES Performing Organization Address [facility] Phon e Number [address] Comprehensive metabolic panel (BMP + Alb, Alk Phos, ALT, AST, Total. Bili, TP) (10/16/2015 9:05 AM CDT) athologist Signature Sodium 138 133 - 144 [facility] mmol/L [facility] Potassium 4.3 3.4 - 5.3 [facility] mmol/L [facility] Chloride 104 94 - 109 [facility] mmol/L [facility] Carbon Dioxide 31 20 - 32 [facility] mmol/L [facility] Anion Gap 3 3 - 14 [place] mmol/L [facility] Glucose 93 70 - 99 [place] mg/dL [facility] Urea Nitrogen 22 7 - 30 [place] mg/dL [facility] Creatinine 1.05 0.66 - [facility] 1.25 mg/dL [facility] GFR Estimate 77 >60 [facility] mL/min/1.[address] Comment: Non GFR Calc GFR Estimate If Black >90 >60 mL/min/1.7m2 F [facility] GFR Calc [facility] Calcium 9.1 8.5 - 10.1 mg/dL [place] [facility] Bilirubin Total 0.4 0.2 - 1.3 mg/dL [facility] Albumin 3.9 3.4 - 5.0 g/dL [facility] Protein Total 7.0 6.8 - 8.8 g/dL [place] [facility] Alkaline Phosphatase 81 40 - 150 U/L [facility] ALT 51 0 - 70 U/L [facility] AST 22 0 - 45 U/L [facility] Specimen Anatomical Collection Method Collection Time Receive d Time (Source) Location / / Volume Laterality Blood specimen 10/16/2015 9:05 AM 016 9:06 (specimen) CDT AM CDT Jeri Ibrahim PA-C LAB - BLOOD ORDERABLES Performing Organization Address City/State/ZIP Code Phon e Number [facility] [address] [place] [address] (ABNORMAL) Lipid Profile with reflex to direct LDL (10/16/2015 9:05 AM CDT) [facility] gist Method Time Signature Cholesterol 181 <200 [place] mg/dL [facility] Triglycerides 95 <150 [place] mg/dL [facility] HDL Cholesterol 51 >39 mg/dL [facility] LDL Cholesterol 111 (H) <100 [place] Calculated mg/dL [facility] Comment: Above desirable: ??100-129 mg/dl Borderline High: ??130-159 mg/dL High: ? 160-189 mg/dL Very high: ? >189 mg/dl Non HDL Cholesterol 130 (H) <130 mg/dL [facility] Comment: Above Desirable: ??130-159 mg/dl Borderline high: ??160-189 mg/dl High: ? 190-219 mg/dl Very high: ? >219 mg/dl Specimen Anatomical Collection Method Collection Time Receive d Time (Source) Location / / Volume Laterality Blood specimen 10/16/2015 9:05 AM 016 9:06 (specimen) CDT AM CDT Jeri Ibrahim PA-C LAB - BLOOD ORDERABLES Performing Organization Address City/[facility]/ZIP Code Phon e Number [facility] [address] [place] [address] CBC with platelets (10/16/2015 9:05 AM CDT) athologist Signature WBC 6.5 4.0 - 11.0 [place] 10e9/L [facility] RBC Count 5.05 4.4 - 5.9 [place] 10e12/L [facility] Hemoglobin 15.9 13.3 - 17.7 [place] g/dL [facility] Comment: Results confirmed by repeat lv t Hematocrit 46.4 40.0 - 53.0 % [facility] MCV 92 78 - 100 fl [facility] A [facility] MCH 31.5 26.5 - 33.0 pg [facility] MCHC 34.3 31.5 - 36.5 g/dL [place] [facility] [place] RDW 13.3 10.0 - 15.0 % [facility] Platelet Count 251 150 - 450 10e9/L [facility] Specimen Anatomical Collection Method Collection Time Receive d Time (Source) Location / / Volume Laterality Blood specimen 10/16/2015 9:05 AM 016 9:06 (specimen) CDT AM CDT Jeri Ibrahim PA-C LAB - BLOOD ORDERABLES Performing Organization Address City/[facility]/ZIP Code Phon e Number [facility] [address] [place] [address] documented in this encounter Visit Diagnoses Diagnosis Routine general medical examination at a health care facility - Primary Snoring Other dyspnea and respiratory abnormalit y Irritability Palmar nodule, left Immunity status testing Antibody response examination documented in this encounter Additional Health Concerns Assessment Noted Time PHQ-9 Depression Total Score: 3 10/17/2015 7:13 AM CDT documented as of this encounter Care Teams Bank Appraiser Relationship Specialty Start Date End Date Jeri Ibrahim PA-C PCP - General Physician Wafer Slicer 01/14/15 [address] [place] [address] documented as of this encounter
--- OUTSIDE RECORDS SUMMARY | 2022-01-26 22:32 | XMS_ITS | Encounter Summary ---
:1970 Author Organization [facility] Address [address] [place] [address]. [place] [address] Care Team Providers Name Role Phone Shahriar Roblero MD Primary Care Provider + Jeri Ibrahim PA-C Primary Care Provider Reason for Visit Reason Onset Date Comments Refill Request 01/12/2015 citalopram 20 mg 1/2 tablet daily Encounter Details Date Type Department Care Team Description 01/12/2015 MyC Refill [facility] Jeri Ibrahim, Refi ll Request Clinic Gary MIMA (citalopram 20 mg 1/2 [address] [facility] [address] [place] [address]... [place] [address] [phone] (Wo rk) Social History Tobacco Use Types [...] 1 to 4 times per year 03/26 congregation services? 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 documented in this encounter Plan of Treatment Upcoming Encounters Date Type Specialty Care Team Description 02/04/2022 Virtual Visit Behavioral Health Janak Marquez, [facility] [address] [address] (Wo rk) documented as of this encounter Visit Diagnoses Diagnosis Irritability documented in this encounter Care Teams Labor Contract Analyst Relationship Specialty Start Date End Date Shahriar Roblero PCP - General Family Practice 05/19/10 01/13/15 [place] Jeri Ibrahim PA-C PCP - General Physician Safety Intern 01/14/15 [address] [place] [address] documented as of this encounter
--- OUTSIDE RECORDS SUMMARY | 2022-01-26 22:32 | XMS_ITS | Encounter Summary ---
:1970 Author Organization [facility] Address [address] [place] [address]. [place] [address] Care Team Providers Name Role Phone Jeri Ibrahim PA-C Primary Care Provider Reason for Visit Reason Comments Cough Encounter Details Date Type Department Care Team Description 08/28/2016 Office Visit [facility] Abdi Boyd br onchitis, unspecified organism (Primary Dx); [facility] [place] [facility] Ledesma Gastroesophageal reflux disease, esophag itis presence not specified [address] [place] [id number] [phone] Social History Tobacco Use Types Packs/Day Years [...] 1 to 4 times per year 03/26 congregational services? Do you belong to any clubs [...] to sleep or slept in a senior living (including now)? 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/2021 5:06 PM [employer] documented as of this encounter Last Filed Vital Signs Vital Sign Reading Time Taken Comments Blood Pressure 123/82 08/28/2016 8:47 AM CDT Pulse 82 08/28/2016 8:47 AM CDT Temperature 37.1 ??C (98.7 ??F) 08/28/2016 8:47 AM CDT Respiratory Rate 16 08/28/2016 8:47 AM CDT Oxygen Saturation - - Inhaled Oxygen Concentration - - Weight 104.3 kg (230 lb) 08/28/2016 8:47 AM CDT Height 180.3 cm (5' 11) 08/28/2016 8:47 AM CDT Body Mass Index 32.08 08/28/2016 8:47 AM CDT documented in this encounter Patient Instructions Patient InstructionsAbdi Boyd PA-C - 08/28/2016 9:02 AM CDT Images from the original note were not included. Bronchitis, Viral (Adult) You have a viral bronchitis. Bronchitis is inflammation and swelling of the lining of the lungs. This is often caused by an infection. Symptoms include a dry, hacking cough that is worse at night. The cough may bring up yellow-green mucus. You may also feel short of breath or wheeze. Other symptoms may include tiredness, chest discomfort, and chills. Bronchitis that is caused by a virus is not treated with antibiotics. Instead, medicines may be given to help relieve symptoms. Symptoms can last up to 2 weeks, although the cough may last much longer. This illness is contagious during the first few days and is spread through the air by coughing and sneezing, or by direct contact (touching the sick person and then touching your own eyes, nose, or mouth). Most viral illnesses resolve within 10 to 14 days with rest and simple home remedies, although they may sometimes last for several weeks. Home care ?? If symptoms are severe, rest at home for the first 2 to 3 days.??When you go back to your usual activities, don't let yourself get too tired. ?? Do not smoke. Also avoid being exposed to secondhand smoke. ?? You may use jhiz-wdb-qtslmlo medicine to control fever or pain, unless another pain medicine was prescribed. (Note: If you have chronic liver or kidney disease or have ever had a stomach ulcer or gastrointestinal bleeding, talk with your healthcare provider before using these medicines. Also talk to your provider if you are taking medicine to prevent blood clots.) Aspirin should never be given to anyone younger than 18 years of age who is ill with a viral infection or fever. It may cause severe liver or brain damage. ?? Your appetite may be poor, so a light diet is fine. Avoid dehydration by drinking 6 to 8 glasses of fluids per day (such as water,??soft drinks,??sports drinks, juices, tea, or soup). Extra fluids will help loosen secretions in the nose and lungs. ?? Ynfh-tin-nhrdwwd??cough,??cold,??and sore-throat??medicines will not shorten the length of the illness, but they may help??to reduce symptoms.??(Note: Do not use decongestants if you have high bloodpressure.) Follow-up care Follow up with your healthcare provider, or as advised. ??If you had an X- ray??or ECG (electrocardiogram), a??specialist will review it. You will be notified of any new findings that may affect your care. Note: If you are age 65 or older, or if you have??a chronic lung disease or condition that affects your immune system, or you smoke, talk to your healthcare provider about having pneumococcal vaccinations and a yearly influenza??vaccination??(flu shot). When to seek medical advice?? Call your healthcare provider right away if any of these occur: ?? Fever of 100.4??F (38??C) or higher ?? Coughing up??increased amounts of colored sputum ?? Weakness, drowsiness, headache, facial pain, ear pain, or a stiff neck Call 911, or get immediate medical care Contact emergency services right away if any of these occur: ?? Coughing up blood ?? Worsening weakness, drowsiness, headache, or stiff neck ?? Trouble breathing, wheezing, or pain with breathing ?? [id number] [employer]. [address] [place] [address], [place] [address]. All rights reserved. This information is not intended as a substitute for professional medical care. Always follow your healthcare professional's instructions. documented in this encounter Progress Notes Abdi Boyd PA-C - 08/28/2016 8:45 AM CDT SUBJECTIVE: Ezra Yanez is a 45 year old male who presents to clinic today for the following health issues: Acute Illness Acute illness concerns: cough Onset: x 1 week ?? Fever: no ?? Chills/Sweats: YES-now resolved ?? Headache (location?): YES-now resovled ?? Sinus Pressure:no ?? Conjunctivitis: no ?? Ear Pain: no ?? Rhinorrhea: YES ?? Congestion: YES ?? Sore Throat: no ?? Cough: YES-productive; noticed blood color in mucus. Overall cough has improved. ?? Wheeze: no ?? Decreased Appetite: no ?? Nausea: no ?? Vomiting: no ?? Diarrhea: no ?? Dysuria/Freq.: no ?? Fatigue/Achiness: YES- body aches when sx started ?? Sick/Strep Exposure: YES- coworkers -leaving for [place] on Therapies Tried and outcome: mucinex DM, ibuprofen Of note, does admit to increased GERD symptoms. Has history of this. No treatments currently tried. Problem list and histories reviewed & adjusted, as indicated. Additional history: as documented Patient Active Problem List Diagnosis ??? FHx: aneurysm ??? GERD (gastroesophageal reflux disease) ??? CARDIOVASCULAR SCREENING; LDL GOAL LESS THAN 160 ??? Bronchitis with bronchospasm ??? Herpes simplex ??? Irritability ??? Bee sting allergy Past Surgical History: Procedure Laterality Date ??? NO HISTORY OF SURGERY Social History Substance Use Topics ??? Smoking status: Former Smoker Quit date: 10/15/1998 ??? Smokeless tobacco: Never Used ??? Alcohol use Yes Comment: socially Family History Problem Relation Age of Onset ??? CANCER Mother Cuteaneous T-cell lyphoma/ born 1950 Melanoma ??? Neurologic Disorder Mother brain aneurysm ??? DIABETES Father born 1949 ??? Respiratory Father COPD ??? Family History Negative Sister ??? Family History Negative Daughter ??? CANCER Maternal Uncle skin ??? DIABETES Maternal Grandfather ??? DIABETES Paternal Grandmother ??? Neurologic Disorder Maternal Uncle abdominal aortic aneurysm Current Outpatient Prescriptions Medication Sig Dispense Refill ??? ranitidine (ZANTAC) 150 MG tablet Take 1 tablet (150 mg) by mouth 2 times daily 60 tablet 1 ??? fluticasone (FLONASE) 50 MCG/ACT spray Gause 1-2 sprays into both nostrils daily 16 g 3 ??? azithromycin (ZITHROMAX) 250 MG tablet Two tablets first day, then one tablet daily for four days. 6 tablet 0 ??? citalopram (CELEXA) 20 MG tablet TAKE 1 TABLET (20 MG) BY MOUTH DAILY 90 tablet 0 ??? [place]-3 Fatty Acids (OMEGA-3 FISH OIL PO) ??? Lysine HCl 500 MG TABS Take 500 mg by mouth 2 times daily ??? albuterol (PROAIR HFA/PROVENTIL HFA/VENTOLIN HFA) 108 (90 BASE) MCG/ACT Inhaler Inhale 2 puffs into the lungs every 4 hours as needed 1 Inhaler 0 ??? EPINEPHrine (EPIPEN 2-DEBORAH) 0.3 MG/0.3ML injection Inject 0.3 mLs (0.3 mg) into the muscle as needed for anaphylaxis 0.6 mL 0 ??? valACYclovir (VALTREX) 1000 mg tablet Take 1 tablet (1,000 mg) by mouth 2 times daily (Patient taking differently: Take 1,000 mg by mouth as needed ) 20 tablet 11 ??? bismuth subsalicylate (PEPTO-BISMOL) 262 MG chewable tablet Take 524 mg by mouth 4 times daily (before meals and nightly). ??? IBUPROFEN ??? MULTIVITAMIN TABS OR 1 qd 0 Allergies Allergen Reactions ??? Penicillins Hives BP Readings from Last 3 Encounters: 08/28/16 123/82 04/16/16 122/84 04/03/16 133/81 Wt Readings from Last 3 Encounters: 08/28/16 230 lb (104.3 kg) 04/16/16 229 lb (103.9 kg) 04/03/16 233 lb (105.7 kg) Reviewed and updated as needed this visit by clinical staff Tobacco Allergies Meds Problems Med Hx Surg Hx Fam Hx Soc Hx Reviewed and updated as needed this visit by Provider Allergies Meds Problems ROS: Constitutional, HEENT, cardiovascular, pulmonary, gi and gu systems are negative, except as otherwise noted. OBJECTIVE: BP 123/82 (BP Location: Right arm, Patient Position: Chair, Cuff Size: Adult Regular) Pulse 82 Temp 98.7 ??F (37.1 ??C) (Oral) Resp 16 Ht 5' 11 (1.803 m) Wt 230 lb (104.3 kg) BMI 32.08 kg/m2 Body mass index is 32.08 kg/(m^2). GENERAL: healthy, alert and no distress EYES: Eyes grossly normal to inspection, PERRL and conjunctivae and sclerae normal HENT: normal cephalic/atraumatic, both ears: clear effusion, nasal mucosa edematous , oropharynx clear, oral mucous membranes moist and sinuses: not tender NECK: no adenopathy, no asymmetry, masses, or scars and thyroid normal to palpation RESP: lungs clear to auscultation - no rales, rhonchi or wheezes CV: regular rate and rhythm, normal S1 S2, no S3 or S4, no murmur, click or rub PSYCH: mentation appears normal, affect normal/bright Diagnostic Test Results: none ASSESSMENT/PLAN: (J20.9) Acute bronchitis, unspecified organism (primary encounter diagnosis) Comment: evident on history and exam. Educated likely viral. flonase along with antihistamine and continued supportive care measures discussed. Given upcoming travel, will give watch and wait prescription to fill if worsening. Plan: fluticasone (FLONASE) 50 MCG/ACT spray, azithromycin (ZITHROMAX) 250 MG tablet -Medication use and side effects discussed with the patient. Patient is in complete understanding and agreement with plan. (K21.9) Gastroesophageal reflux disease, esophagitis presence not specified Comment: Plan: ranitidine (ZANTAC) 150 MG tablet -Medication use and side effects discussed with the patient. Patient is in complete understanding and agreement with plan. Follow up: as above Abdi Boyd PA-C [facility] documented in this encounter Nursing Notes Rosa Chacon MA - 08/28/2016 8:45 AM CDT Chief Complaint Patient presents with ??? Cough Initial BP 123/82 (BP Location: Right arm, Patient Position: Chair, Cuff Size: Adult Regular) Pulse 82 Temp 98.7 ??F (37.1 ??C) (Oral) Resp 16 Ht 5' 11 (1.803 m) Wt 230 lb (104.3 kg) BMI 32.08 kg/m2 Estimated body mass index is 32.08 kg/(m^2) as calculated from the following: Height as of this encounter: 5' 11 (1.803 m). Weight as of this encounter: 230 lb (104.3 kg). Medication Reconciliation: complete Health Maintenance addressed: NONE n/a SAHIL Nickerson documented in this encounter Plan of Treatment Upcoming Encounters Date Type Specialty Care Team Description 02/04/2022 Virtual Visit [facility] Janak Marquez, [address] [id number] (Wo rk) documented as of this encounter Visit Diagnoses Diagnosis Acute bronchitis, unspecified organism - Primary Gastroesophageal reflux disease, esophag itis presence not specified documented in this encounter Additional Health Concerns Assessment Noted Time PHQ-9 Depression Total Score: 2 08/29/2016 7:04 AM CDT documented as of this encounter Care Teams Production Stage Manager Relationship Specialty Start Date End Date Jeri Ibrahim PA-C PCP - General Physician Steam Hand 01/14/15 [id number] [place] [address] documented as of this encounter
--- OUTSIDE RECORDS SUMMARY | 2022-01-26 22:32 | XMS_ITS | Encounter Summary ---
:1970 Author Organization [facility] Address [address] [place] [address]. [place] [address] Care Team Providers Name Role Phone Shahriar Roblero MD Primary Care Provider + Reason for Visit Reason Comments Physical Blood Draw Labs. Patient is fasting. 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 encounter Last Filed Vital Signs Vital Sign Reading Time Taken Comments Blood Pressure 124/80 08/01/2012 8:44 AM CDT Pulse 103 08/01/2012 8:44 AM CDT Temperature 36.8 ??C (98.2 ??F) 08/01/2012 8:44 AM CDT Respiratory Rate 16 08/01/2012 8:44 AM CDT Oxygen Saturation 96% 08/01/2012 8:44 AM CDT Inhaled Oxygen Concentration - - Weight 98 kg (216 lb) 08/01/2012 8:44 AM CDT Height 179.7 cm (5' 10.75) 08/01/2012 8:44 AM CDT Body Mass Index 30.34 08/01/2012 8:44 AM CDT documented in this encounter Patient Instructions Patient InstructionsMaine Willson 08/01/2012 8:48 AM CDT Preventive Health Recommendations Male Ages 40 to 49 Yearly exam: ?? See your health care provider every year in order to o Review health changes. o Discuss preventive care. o Review your medicines if your doctor has prescribed any. You should be tested each year for STDs (sexually transmitted diseases) if you???re at risk. Have a cholesterol test every 5 years. Have a colonoscopy (test for colon cancer) if someone in your family has had colon cancer or polypsbefore age 50. After age 45, have a diabetes test (fasting glucose). If you are at risk for diabetes, you should have this test every 3 years. Talk with your health care provider about whether or not a prostate cancer screening test (PSA) is right for you. Shots: Get a flu shot each year. Get a tetanus shot every 10 years. Nutrition: Eat at least 5 servings of fruits and vegetables daily. Eat whole-grain bread, whole-wheat pasta and brown rice instead of white grains and rice. For bone health: Eat calcium-rich foods or take calcium pills (500 to 600 mg) twice a day with food. Also take vitamin D (1000 IU) each day. Lifestyle Exercise for at least 150 minutes a week (30 minutes a day, 5 days a week). This will help you control your weight and prevent disease. Limit alcohol to one drink per day. No smoking. Wear sunscreen to prevent skin cancer. See your dentist every six months for an exam and cleaning. documented in this encounter Progress Notes Shahriar Roblero MD - 08/01/2012 8:48 AM CDT SUBJECTIVE: CC: Ezra Yanez is an 41 year old male who presents for preventative health visit. Healthy Habits: ?? Do you get at least three servings of calcium containing foods daily (dairy, green leafy vegetables, etc.)? yes ?? Amount of exercise or daily activities, outside of work: Maybe 2-3 days a week. ?? Problems taking medications regularly No ?? Medication side effects: No ?? Have you had an eye exam in the past two years? yes ?? Do you see a dentist twice per year? yes Other concerns to address: 1. Pending test results? Today's PHQ-2 Score: Abuse: Current or Past(Physical, Sexual or Emotional)- NO Do you feel safe in your environment - YES History Substance Use Topics ??? Smoking status: Former Smoker Quit date: 10/15/1998 ??? Smokeless tobacco: Never Used ??? Alcohol Use: Yes socially The patient does not drink >3 drinks per day nor >7 drinks per week. Last lipid profile: Total Cholesterol: Cholesterol Date Value Range Status 11/08/2008 197 0 - 200 mg/dL Final LDL Cholesterol is the primary guide to therapy: LDL-cholesterol goal in high risk patients is <100 mg/dL and in very high risk patients is <70 mg/dL. The NCEP recommends further evaluation of: patients with cholesterol <200 mg/dL if additional risk factors are present, cholesterol >240 mg/dL, triglycerides >150 mg/dL, or HDL <40 mg/dL. LDL Cholesterol: LDL Cholesterol Calculated Date Value Range Status 11/08/2008 115 0 - 129 mg/dL Final LDL Cholesterol is the primary guide to therapy: LDL-cholesterol goal in high risk patients is <100 mg/dL and in very high risk patients is <70 mg/dL. HDL Cholesterol: HDL Cholesterol Date Value Range Status 11/08/2008 53 40 - 110 mg/dL Final Reviewed orders with patient. Reviewed health maintenance and updated orders accordingly - Yes All Histories reviewed and updated in [facility]. Past Medical History Diagnosis Date ??? Hyperlipemia ??? Bronchitis with bronchospasm 11/16/2011 ??? Herpes simplex Past Surgical History Procedure Date ??? No history of surgery Depression Follow-Up ?? Status since last visit: stable ?? See PHQ-9 for current symptoms. ?? Other associated symptoms:None ?? Complicating factors: Significant life event: No Current substance abuse: None Anxiety / Panic / Manic symptoms: No PHQ-9 Senegalese PHQ-9 Any Language ROS: C: NEGATIVE for [...] N: NEGATIVE for weakness, dizziness or paresthesias E: NEGATIVE for temperature intolerance, skin/hair changes H: NEGATIVE for bleeding problems P: NEGATIVE for changes in mood or affect BP Readings from Last 3 Encounters: 08/01/12 124/80 07/27/12 118/74 04/22/12 112/68 Wt Readings from Last 3 Encounters: 08/01/12 216 lb (97.977 kg) 07/27/12 217 lb (98.431 kg) 04/22/12 220 lb (99.791 kg) OBJECTIVE: BP 124/80 Pulse 103 Temp(Src) 98.2 ??F (36.8 ??C) (Oral) Resp 16 Ht 5' 10.75 (1.797 m) Wt216 lb (97.977 kg) BMI 30.34 kg/m2 SpO2 96% Estimated Body mass index is 30.34 kg/(m^2) as calculated from the following: Height as of this encounter: 5' 10.75(1.797 m). Weight as of this encounter: 216 lb(97.977 kg). GENERAL APPEARANCE: healthy, alert and no [...] sounds normal (male): normal male genitalia without urethral discharge, no hernia (male): penile lesions consistent with with herpes MS: no musculoskeletal defects are noted and gait is age appropriate without ataxia SKIN: no suspicious lesions or rashes NEURO: Normal strength and tone, sensory exam grossly normal, mentation intact and speech normal PSYCH: mentation appears normal and affect normal/bright ATP III Guidelines FRAX Risk Assessment ICSI Preventive Guidelines ASSESSMENT/PLAN: Counseling: Dietary Guidelines for Americans, 2010 USDA's MyPlate regular exercise healthy diet/nutrition safe sex practices/STD prevention reports that he quit smoking about 13 years ago. He has never used smokeless tobacco. Estimated Body mass index is 30.34 kg/(m^2) as calculated from the following: Height as of this encounter: 5' 10.75(1.797 m). Weight as of this encounter: 216 lb(97.977 kg). Weight management plan: Current exercise routine: no regular exercise. Diet regimen was discussed and plan is self-directed dieting: reduce portions. ASSESSMENT/PLAN: V70.0 Routine general medical examination at a health care facility (primary encounter diagnosis) Plan: Lipid panel reflex to direct LDL, TSH with free T4 reflex, CBC with platelets, Comprehensive metabolic panel 296.21 Mild major depression Comment: controlled Plan: citalopram (CELEXA) 40 MG tablet 300.00 Anxiety Plan: The current medical regimen is effective; continue present plan and medications. 054.9 Herpes simplex Comment: waiting for typing Plan: valACYclovir (VALTREX) 500 MG tablet as needed for outbreaks but continue current treatment [facility] documented in this encounter Nursing Notes 08/01/2012 8:30 AM CDT >> MAINE Swapna WILLSON Mon Aug 01, 2012 8:50 AM Patient presents with: Physical Blood Draw - Labs. Patient is fasting. Refill Request Initial BP 124/80 Pulse 103 Temp(Src) 98.2 ??F (36.8 ??C) (Oral) Resp 16 Ht 5' 10.75 (1.797m) Wt 216 lb (97.977 kg) BMI 30.34 kg/m2 SpO2 96% Estimated Body mass index is 30.34 kg/(m^2) as calculated from the following: Height as of this encounter: 5' 10.75(1.797 m). Weight as of this encounter: 216 lb(97.977 kg). BP completed using cuff size large right arm. Maine Willson CMA documented in this encounter Plan of Treatment Upcoming Encounters Date Type Specialty Care Team Description 02/04/2022 Virtual Visit Behavioral Health Janak Marquez, [place] [address] (Wo rk) documented as of this encounter Procedures Procedure Name Priority Date/Time Associated Comments Diagnosis TSH WITH FREE T4 Routine 08/01/2012 9:24 AM Routine general Re sults for this REFLEX CDT medical examination procedur e are in at a health care the results facility section. LIPID REFLEX TO DIRECT Routine 08/01/2012 9:24 AM Routine gene ral Results for this LDL PANEL CDT medical examination procedur e are in at a health care the results facility section. COMPREHENSIVE Routine 08/01/2012 9:24 AM Routine general Resul ts for this METABOLIC PANEL CDT medical examination proce curtis are in at a health care the results facility section. CBC WITH PLATELETS Routine 08/01/2012 9:24 AM Routine general Results for this CDT medical examination procedur e are in at a health care the results facility section. documented in this encounter Results Comprehensive metabolic panel (08/01/2012 9:24 AM CDT) athologist Signature Sodium 139 133 - 144 [facility] mmol[facility]L [facility] Potassium 4.2 3.4 - 5.3 [facility] mmol/L [facility] Chloride 102 94 - 109 [facility] mmol/L [facility] Carbon Dioxide 24 20 - 32 [facility] mmol/L [facility] Anion Gap 14 6 - 17 [facility] mmol/L [facility] Glucose 95 60 - 99 [facility] mg/dL [facility] Urea Nitrogen 16 5 - 24 [facility] mg/dL [facility] Creatinine 0.99 0.66 - [facility] 1.25 mg/dL [facility] GFR Estimate 84 >60 [facility] mL/min/1.7 [facility] m2 GFR Estimate If >90 >60 [facility] Black mL/min/1.7 [facility] m2 Calcium 9.8 8.5 - 10.4 [facility] mg/dL [facility] Bilirubin Total 0.5 0.2 - 1.3 [facility] mg/dL [facility] Albumin 4.6 3.9 - 5.1 [facility] g/dL [facility] Comment: Reference range changed on 12/26. Protein Total 7.8 6.8 - 8.8 g/dL [facility] Comment: As of 07, reference range reflects plasma specimen type. Alkaline Phosphatase 96 40 - 150 U/L [facility] ALT 44 0 - 70 U/L [facility] AST 32 0 - 45 U/L [facility] IC LAB Specimen Anatomical Collection Method Collection Time Receive d Time (Source) Location / / Volume Laterality Blood specimen 08/01/2012 9:24 AM 013 9:27 (specimen) CDT AM CDT Shahriar Roblero MD LAB - BLOOD ORDERA BLES Performing Organization Address City/State/ZIP Code Phon e Number [facility] [address] [place] [address] [facility] [address] [place] [address] CBC with platelets (08/01/2012 9:24 AM CDT) athologist Signature WBC 6.9 4.0 - 11.0 [facility] 10e9/L [facility] RBC Count 5.43 4.4 - 5.9 [facility] 10e12/L [facility] Hemoglobin 16.7 13.3 - [facility] [facility] 17.7 g/dL [facility] Hematocrit 47.8 40.0 - [place] 53.0 % [facility] MCV 88 78 - 100 [facility] MCH 30.8 26.5 - [place] 33.0 pg [facility] MCHC 34.9 31.5 - [place] 36.5 g/dL [facility] RDW 13.2 10.0 - [place] 15.0 % [facility] Platelet Count 258 150 - 450 [facility] 10e9/L [facility] Specimen Anatomical Collection Method Collection Time Receive d Time (Source) Location / / Volume Laterality Blood specimen 08/01/2012 9:24 AM 013 9:27 (specimen) CDT AM CDT Shahriar Roblero MD LAB - BLOOD ORDERA BLES Performing Organization Address City/[facility] Code Phon e Number [facility] [id number] [place] [phone] [address] TSH with free T4 reflex (08/01/2012 9:24 AM CDT) P athologist Signature TSH 2.15 0.4 - 5.0 [facility] mU/L [facility] Specimen Anatomical Collection Method Collection Time Receive d Time (Source) Location / / Volume Laterality Blood specimen 08/01/2012 9:24 AM 013 9:27 (specimen) CDT AM CDT Shahriar Roblero MD LAB - BLOOD ORDERA BLES Performing Organization Address City/[facility]/ZIP Code Phon e Number [facility] [address] [place] [address] [facility] [address] [place] [phone] (ABNORMAL) Lipid panel reflex to direct LDL (08/01/2012 9:24 AM CDT) P athologist Signature Cholesterol 185 0 - 200 [facility] mg/dL CLINIC LAB Comment: LDL Cholesterol is the primary guide to therapy. The NCEP recommends further evaluation of: patients with cholesterol greater than 200 mg/dL if additional risk facto rs are present, cholesterol greater than 240 mg/dL, triglycerides greater than 1 50 mg/dL, or HDL less than 40 mg/dL. Triglycerides 159 (H) 0 - 150 mg/dL [facility] LAB HDL Cholesterol 58 40 - 110 mg/dL [facility] LDL Cholesterol Calculated 96 0 - 129 mg/dL [facility] Comment: LDL Cholesterol is the primary guide to therapy: LDL-cholesterol goal in high risk patients is <100 mg/dL and in very high risk patients is <70 mg/dL. VLDL-Cholesterol 32 (H) 0 - 30 mg/dL [facility] Cholesterol/HDL Ratio 3.2 0.0 - 5.0 [facility] Specimen Anatomical Collection Method Collection Time Receive d Time (Source) Location / / Volume Laterality Blood specimen 08/01/2012 9:24 AM 013 9:27 (specimen) CDT AM CDT Shahriar Roblero MD LAB - BLOOD ORDERA BLES Performing Organization Address City/State/ZIP Code Phon e Number [facility] [address] [place] [address] [facility] [address] [place] [address] documented in this encounter Visit Diagnoses Diagnosis Routine general medical examination at a health care facility - Primary Mild major depression (H) Major depressive disorder, single episod e, mild Anxiety Anxiety state, unspecified Herpes simplex Herpes simplex without mention of compli cation documented in this encounter Care Teams Magician Helper Relationship Specialty Start Date End Date Shahriar Roblero, PCP - General Family Practice 19/0301/13/15 documented as of this encounter
--- OUTSIDE RECORDS SUMMARY | 2022-01-26 22:32 | XMS_ITS | Encounter Summary ---
:1970 Author Organization [facility] Address [address] [place] [address]. [place] [address] Care Team Providers Name Role Phone Jeri Ibrahim PA-C Primary Care Provider Reason for Visit Reason Onset Date Comments Derm Problem 04/23/2016 Encounter Details Date Type Department Care Team Description 04/23/2016 Telephone [facility] Jeri Ibrahim PA-C Derm Problem [address] [address] [place] [address] [phone] Social History Tobacco Use Types Packs/Day Years [...] or relatives? How often do you attend taoist or 1 to 4 times per year 03/26 jainism services? 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 Luis Law RN P PRACTICE PEDIATRICIAN Telephone Encounter - Renetta Galicia RN - 04/24/2016 9:19 AM GROUP PRACTICE PEDIATRICIAN LM on VM to call back. Renetta Galicia RN, BSN, PHN P PRACTICE PEDIATRICIAN Telephone Encounter - Jeri Ibrahim PA-C - 04/24/2016 7:32 AM GROUP PRACTICE PEDIATRICIAN Please call pt back and advise. Do this in the evening. 1) Soak wart in warm water for 5-10 minutes 2) File, fairly aggressively, with elena board 3) Apply Compound W gel to area 4) let dry and cover with Duct Tape 5) Remove duct tape in morning. Do this daily for the next 2 weeks, if no improvement or resolution of wart, I would recommend return to clinic for treatment. Warts can be very stubborn. P PRACTICE PEDIATRICIAN Telephone Encounter - Renetta Galicia RN - 04/23/2016 11:12 AM GROUP PRACTICE PEDIATRICIAN Pt. Calls; Wart on right thumb is not resolving. No blister and no bubble. Looks the same as when hehas come in. Thinks the procedure did not work. Wondering if he needs to come in for another follow up? Reluctant to due to cost of OV. Wart is currently RONNY. Renetta Galicia RN, BSN, PHN P PRACTICE PEDIATRICIAN documented in this encounter Plan of Treatment Upcoming Encounters Date Type Specialty Care Team Description 02/04/2022 Virtual Visit Behavioral Health Alma Janak gwen Richard, [facility] [address] [facility] [address] [place] [address] (Wo rk) documented as of this encounter Visit Diagnoses Not on filedocumented in this encounter Additional Health Concerns Assessment Noted Time PHQ-9 Depression Total Score: 3 04/04/2016 7:16 AM GROUP PRACTICE PEDIATRICIAN documented as of this encounter Care Teams Rotating Field Assembler Relationship Specialty Start Date End Date Jeri Ibrahim PAAnetteC PCP - General Physician Garment Form Assembler 01/14/15 [address] [place] [address] documented as of this encounter
--- OUTSIDE RECORDS SUMMARY | 2022-01-26 22:32 | XMS_ITS | Encounter Summary ---
:1970 Author Organization [facility] Address [address] [place] [address]. [place] [address] Care Team Providers Name Role Phone Jeri Ibrahim PA-C Primary Care Provider Reason for Visit Reason Comments URI Encounter Details Date Type Department Care Team Description 04/16/2016 Office Visit [facility] Jeri Ibrahim Acut e bronchitis due to other specified organisms (Primary Dx); Clinic [place] [facility] Common wart; [address] [place] [address] [place] [address] [phone] (Wo rk) Social History Tobacco Use Types [...] or relatives? How often do you attend episcopal or 1 to 4 times per year 03/26 rastafarian services? Do you belong to any clubs or Yes 04/11/2021 organizations such as episcopal groups, unions, fraternal or athletic groups, or [...] place to sleep or slept in a penitentiary (including now)? 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 documented as of this encounter Last Filed Vital Signs Vital Sign Reading Time Taken Comments Blood Pressure 122/84 04/16/2016 10:26 AM OIL PAINT SHADER Pulse 86 04/16/2016 10:08 AM OIL PAINT SHADER Temperature 37 ??C (98.6 ??F) 04/16/2016 10:08 AM OIL PAINT SHADER Respiratory Rate 16 04/16/2016 10:08 AM OIL PAINT SHADER Oxygen Saturation 97% 04/16/2016 10:08 AM OIL PAINT SHADER Inhaled Oxygen Concentration - - Weight 103.9 kg (229 lb) 04/16/2016 10:08 AM OIL PAINT SHADER Height 180.3 cm (5' 11) 04/16/2016 10:08 AM OIL PAINT SHADER Body Mass Index 31.94 04/16/2016 10:08 AM OIL PAINT SHADER documented in this encounter Progress Notes Jeri Ibrahim PA-C - 04/16/2016 10:05 AM CST SUBJECTIVE: Ezra Yanez is a 45 year old male who presents to clinic today for the following health issues: Acute Illness Acute illness concerns: URI Onset: 8 days ?? Fever: no ?? Chills/Sweats: No ?? Headache (location?): YES ?? Sinus Pressure:YES ?? Conjunctivitis: no ?? Ear Pain: Itching ?? Rhinorrhea: YES ?? Congestion: YES ?? Sore Throat: no ?? Cough: YES-productive of green sputum ?? Wheeze: YES ?? Decreased Appetite: YES ?? Nausea: no ?? Vomiting: no ?? Diarrhea: no ?? Dysuria/Freq.: no ?? Fatigue/Achiness: YES ?? Sick/Strep Exposure: YES Therapies Tried and outcome: Patient would like wart re-treated. Also requesting refill on epi-pen for bee sting allergy. Problem list and histories reviewed & adjusted, as indicated. Additional history: as documented Patient Active Problem List Diagnosis ??? FHx: aneurysm ??? GERD (gastroesophageal reflux disease) ??? CARDIOVASCULAR SCREENING; LDL GOAL LESS THAN 160 ??? Bronchitis with bronchospasm ??? Herpes simplex ??? Irritability ??? Bee sting allergy Past Surgical History Procedure Laterality Date ??? No history of surgery Social History Substance Use Topics ??? Smoking status: Former Smoker Quit date: 10/15/1998 ??? Smokeless tobacco: Never Used ??? Alcohol Use: Yes Comment: socially Family History Problem Relation Age of Onset ??? CANCER Mother Cuteaneous T-cell lyphoma/ born 1950 Melanoma ??? Neurologic Disorder Mother brain aneurysm ??? DIABETES Father born 194 ??? Family History Negative Sister ??? CANCER Maternal Uncle skin ??? Family History Negative Daughter ??? DIABETES Maternal Grandfather ??? DIABETES Paternal Grandmother ??? Neurologic Disorder Maternal Uncle abdominal aortic aneurysm ??? Respiratory Father COPD ROS: Constitutional, HEENT, cardiovascular, pulmonary, gi and gu systems are negative, except as otherwise noted. OBJECTIVE: BP 122/84 mmHg Pulse 86 Temp(Src) 98.6 ??F (37 ??C) (Oral) Resp 16 Ht 5' 11 (1.803 m) Wt 229 lb (103.874 kg) BMI 31.95 kg/m2 SpO2 97% Body mass index is 31.95 kg/(m^2). GENERAL APPEARANCE: healthy, alert and no distress HENT: ear canals and TM's normal, rhinorrhea clear and oral mucous membranes moist RESP: rhonchi throughout CV: regular rates and rhythm, normal S1 S2, no S3 or S4 and no murmur, click or rub SKIN: 1 wart - thumb. cantharidin applied to wart and covered with tape ASSESSMENT/PLAN: 1. Acute bronchitis due to other specified organisms - azithromycin (ZITHROMAX) 250 MG tablet; Two tablets first day, then one tablet daily for four days. Dispense: 6 tablet; Refill: 0 - albuterol (PROAIR HFA/PROVENTIL HFA/VENTOLIN HFA) 108 (90 BASE) MCG/ACT Inhaler; Inhale 2 puffs into the lungs every 4 hours as needed Dispense: 1 Inhaler; Refill: 0 2. Common wart DESTRUCT BENIGN LESION, UP TO 14 3. Bee sting allergy - EPINEPHrine (EPIPEN 2-DEBORAH) 0.3 MG/0.3ML injection; Inject 0.3 mLs (0.3 mg) into the muscle as needed for anaphylaxis Dispense: 0.6 mL; Refill: 0 Jeri Ibrahim PA-C, [facility] PAINT SHADER documented in this encounter Nursing Notes Suzette Rodríguez MA - 04/16/2016 10:08 AM CST Chief Complaint Patient presents with ??? URI Initial BP 140/93 mmHg Pulse 86 Temp(Src) 98.6 ??F (37 ??C) (Oral) Resp 16 Ht 5' 11 (1.803 m) Wt 229 lb (103.874 kg) BMI 31.95 kg/m2 SpO2 97% Estimated body mass index is 31.95 kg/(m^2) as calculated from the following: Height as of this encounter: 5' 11 (1.803 m). Weight as of this encounter: 229 lb (103.874 kg). BP completed using cuff size: large rt arm Suzette Rodríguez MA Health Maintenance has been reviewed. PAINT SHADER documented in this encounter Plan of Treatment Upcoming Encounters Date Type Specialty Care Team Description 02/04/2022 Virtual Visit Behavioral Health Janak Marquez, [facility] [address] [address] (Wo rk) documented as of this encounter Procedures Procedure Name Priority Date/Time Associated Diagnosis Comme nts HC DESTRUCT BENIGN Routine 04/16/2016 11:09 AM OIL PAINT SHADER Common wart LESION, UP TO 14 documented in this encounter Visit Diagnoses Diagnosis Acute bronchitis due to other specified organisms - Primary Common wart Other specified viral warts Bee sting allergy Toxic effect of venom documented in this encounter Additional Health Concerns Assessment Noted Time PHQ-9 Depression Total Score: 3 04/04/2016 7:16 AM OIL PAINT SHADER documented as of this encounter Care Teams Champagne Maker Relationship Specialty Start Date End Date Jeri Ibrahim PA-C PCP - General Physician Sign Installer 01/14/15 [address] [place] [address] documented as of this encounter
--- OUTSIDE RECORDS SUMMARY | 2022-01-26 22:32 | XMS_ITS | Encounter Summary ---
:1970 Author Organization [facility] Address [address] [place] [address]. [place] [address] Care Team Providers Name Role Phone Jeri Ibrahim PA-C Primary Care Provider Reason for Visit Reason Onset Date Comments Medication Refill 05/05/2017 citalopram (CELEXA) 20 MG tablet Encounter Details Date Type Department Care Team Description 05/05/2017 Refill [facility] Jeri Ibrahim, formerly [facility] [facility] (citalopram (CELEXA) [address] [place] [address] MG tablet) [place] [address] [phone] (Wo rk) Social History Tobacco Use Types [...] 1 to 4 times per year 03/26 yazidi services? 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 Medication is being filled for 1 time refill only Luis Law, RN ER [facility]YSTER Telephone Encounter - Mabel Saravia RN - 05/05/2017 10:41 AM CST [facility] Pt is past due for px and yearly med check Mabel Saravia RN, BSN [facility] Telephone Encounter - Suzie Hannah - 05/05/2017 8:45 AM CST Requested Prescriptions Pending Prescriptions Disp Refills ??? citalopram (CELEXA) 20 MG tablet [Pharmacy Med Name: CITALOPRAM HBR 20 MG TABLET] 90 tablet 1 Last Written Prescription Date: 10/20/16 Last Fill Quantity: 90, # refills: 1 Last Office Visit with [facility], [facility] or [facility] prescribing provider: 08/28/2016 Future Office Visit: Sig: TAKE 1 TABLET (20 MG) BY MOUTH DAILY SSRIs Protocol Passed PHQ-9 SCORE 10/16/2015 04/03/2016 08/28/2016 Total Score - - - Total Score 3 3 2 CHANG-7 SCORE 10/16/2015 04/03/2016 Total Score 4 2 Passed - Recent or future visit with authorizing provider Patient had office visit in the last year or has a visit in the next 30 days with authorizing provider. See Patient Info tab in inbasket, or Choose Columns in Meds & Orders section of the refill encounter. Passed - Patient is age 18 or older ER OYSTER documented in this encounter Plan of Treatment Upcoming Encounters Date Type Specialty Care Team Description 02/04/2022 Virtual Visit Behavioral Health Alma Morenahaseeb Richard, [facility] [address] [facility] [address] [place] [address] (Wo rk) documented as of this encounter Visit Diagnoses Diagnosis Irritability documented in this encounter Additional Health Concerns Assessment Noted Time PHQ-9 Depression Total Score: 2 08/29/2016 7:04 AM CDT documented as of this encounter Care Teams Link Trainer Teacher Relationship Specialty Start Date End Date Jeir Ibrahim PA-C PCP - General Physician Accounting Manager 01/14/15 [address] [place] [address] documented as of this encounter
--- OUTSIDE RECORDS SUMMARY | 2022-01-26 22:32 | XMS_ITS | Encounter Summary ---
:1970 Author Organization [place] Address [address] [place] [address]. [place] [address] Care Team Providers Name Role Phone Shahriar Roblero MD Primary Care Provider + Reason for Visit Reason Comments Wart Blood Draw Fasting labs Encounter Details Date Type Department Care Team Description 10/11/2014 Office Visit [facility] Jeri Ibrahim, Comm on wart (Primary Dx); [facility] [place] PA-C Routine general medical examination at [facility] care facility [address] [place] [id number] [phone] (Wo rk) Social History Tobacco Use Types [...] 1 to 4 times per year 03/26 church services? 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 documented as of this encounter Last Filed Vital Signs Vital Sign Reading Time Taken Comments Blood Pressure 118/80 10/11/2014 8:13 AM CDT Pulse 84 10/11/2014 8:13 AM CDT Temperature 36.6 ??C (97.9 ??F) 10/11/2014 8:13 AM CDT Respiratory Rate 16 10/11/2014 8:13 AM CDT Oxygen Saturation - - Inhaled Oxygen Concentration - - Weight 100.7 kg (222 lb) 10/11/2014 8:13 AM CDT Height 179.7 cm (5' 10.75) 10/11/2014 8:13 AM CDT Body Mass Index 31.18 10/11/2014 8:13 AM CDT documented in this encounter Progress Notes Jeri Ibrahim PA-C - 10/11/2014 8:10 AM CDT SUBJECTIVE: Ezra Yanez is a 44 year old male who presents to clinic today for the following health issues: WART(S) ?? Onset: 1 year ?? Description (location/number): thumbs on both hands ?? Accompanying signs and symptoms: Painful: no ?? History: prior warts: YES ?? Therapies tried and outcome: None ?? First treatment fasting labs. Problem list and histories reviewed & adjusted, as indicated. Additional history: as documented Patient Active Problem List Diagnosis ??? FHx: Aneurysm ??? GERD (Gastroesophageal Reflux Disease) ??? CARDIOVASCULAR SCREENING; LDL GOAL LESS THAN 160 ??? Bronchitis with bronchospasm ??? Herpes simplex Past Surgical History Procedure Laterality Date ??? No history of surgery History Substance Use Topics ??? Smoking status: [...] aortic aneurysm ??? Respiratory Father COPD ROS: INTEGUMENTARY/SKIN: wart OBJECTIVE: BP 118/80 mmHg Pulse 84 Temp(Src) 97.9 ??F (36.6 ??C) (Oral) Resp 16 Ht 5' 10.75 (1.797 m) Wt 222 lb (100.699 kg) BMI 31.18 kg/m2 Body mass index is 31.18 kg/(m^2). SKIN: 2 small warts in right and left thumb Verbal consent obtained. Liquid nitrogen applied x 3 to each wart. PTW ASSESSMENT/PLAN: 1. Common wart Compound W under occlusion. return to clinic in 2 weeks - DESTRUCT PREMALIGNANT LESION, 2-14 2. Routine general medical examination at a health care facility Released labs from previous exam - CBC with platelets - Lipid Profile with reflex to direct LDL - Basic metabolic panel - PSA, screen Jeri Ibrahim PA-C, [facility] documented in this encounter Nursing Notes Sharon Shea MA - 10/11/2014 8:14 AM CDT Chief Complaint Patient presents with ??? Wart ??? Blood Draw Fasting labs Initial BP 118/80 mmHg Pulse 84 Temp(Src) 97.9 ??F (36.6 ??C) (Oral) Resp 16 Ht 5' 10.75 (1.797 m) Wt 222 lb (100.699 kg) BMI 31.18 kg/m2 Estimated body mass index is 31.18 kg/(m^2) as calculated from the following: Height as of this encounter: 5' 10.75 (1.797 m). Weight as of this encounter: 222 lb (100.699 kg). BP completed using cuff size: jaylen Shea CMA documented in this encounter Plan of Treatment Upcoming Encounters Date Type Specialty Care Team Description 02/04/2022 Virtual Visit Behavioral Health Janak Marquez, [address] [address] (Wo rk) documented as of this encounter Procedures Procedure Name Priority Date/Time Associated Diagnosis Comme nts HC DESTRUCT Routine 10/11/2014 8:27 AM Common wart PREMALIGNANT LESION, CDT 2-14 PROSTATE SPECIFIC Routine 10/11/2014 8:19 AM Routine general R esults for this ANTIGEN SCREEN CDT medical examination proced ure are in at a health care the results facility section. LIPID REFLEX TO Routine 10/11/2014 8:19 AM Routine general Res ults for this DIRECT LDL PANEL CDT medical examination proc edure are in at a health care the results facility section. BASIC METABOLIC PANEL Routine 10/11/2014 8:19 AM Routine gener al Results for this CDT medical examination procedur e are in at a [facility] care the results facility section. CBC WITH PLATELETS Routine 10/11/2014 8:19 AM Routine general Results for this CDT medical examination procedur e are in at a [facility] care the results facility section. documented in this encounter Results PSA, screen (10/11/2014 8:19 AM CDT) athologist Signature PSA 0.52 0 - 4 ug/L [facility] Specimen Anatomical Collection Method Collection Time Receive d Time (Source) Location / / Volume Laterality Blood specimen 10/11/2014 8:19 AM 015 8:22 (specimen) CDT AM CDT Jeri Ibrahim PA-C LAB - BLOOD ORDERABLES Performing Organization Address City/State/ZIP Code Phon e Number M [facility] [address] [address] [facility] [address] [address], [place] [phone] Basic metabolic panel (10/11/2014 8:19 AM CDT) athologist Signature Sodium 139 133 - 144 [place] mmol/L [facility] Potassium 4.3 3.4 - 5.3 [place] mmol/L [facility] Chloride 106 94 - 109 [place] mmol/L [facility] Carbon Dioxide 27 20 - 32 [place] mmol/L [facility] Anion Gap 6 3 - 14 [place] mmol/L [facility] Glucose 94 70 - 99 [place] mg/dL [facility] Urea Nitrogen 22 7 - 30 [place] mg/dL [facility] Creatinine 1.07 0.66 - [place] 1.25 mg/dL [facility] GFR Estimate 75 >60 [place] mL/min/1.7 CLINICS m2 [facility] Comment: Non GFR Calc GFR Estimate If >90 >60 mL/min/1.7m2 [facility] Black GFR Calc BLOO [facility] Calcium 9.1 8.5 - 10.1 mg/dL [place] CLIN ICS [facility] Specimen Anatomical Collection Method Collection Time Receive d Time (Source) Location / / Volume Laterality Blood specimen 10/11/2014 8:19 AM 015 8:22 (specimen) CDT AM CDT Jeri Ibrahim PA-C LAB - BLOOD ORDERABLES Performing Organization Address City/State/ZIP Code Phon e Number [facility] [address] [place] [address] Lipid Profile with reflex to direct LDL (10/11/2014 8:19 AM CDT) P athologist Signature Cholesterol 180 <200 mg/dL [facility] Comment: LDL Cholesterol is the primary guide to therapy. The NCEP recommends further evaluation of: patients with cholesterol greater than 200 mg/dL if additional risk facto rs are present, cholesterol greater than 240 mg/dL, triglycerides greater than 1 50 mg/dL, or HDL less than 40 mg/dL. Triglycerides 141 0 - 150 mg/dL [place] CLI NICS [facility] Comment: Fasting specimen HDL Cholesterol 48 >40 mg/dL [place] CLINI CS [facility] LDL Cholesterol Calculated 104 0 - 129 mg/dL [facility] Comment: LDL Cholesterol is the primary guide to therapy: LDL-cholesterol goal in high risk patients is <100 mg/dL and in very high risk patients is <70 mg/dL. VLDL-Cholesterol 28 0 - 30 mg/dL [place] C LINICS [facility] Cholesterol/HDL Ratio 3.8 0.0 - 5.0 [facility] Specimen Anatomical Collection Method Collection Time Receive d Time (Source) Location / / Volume Laterality Blood specimen 10/11/2014 8:19 AM 015 8:22 (specimen) CDT AM CDT Jeri Ibrahim PA-C LAB - BLOOD ORDERABLES Performing Organization Address City/[facility]/ZIP Code Phon e Number [facility] [address] [place] [address] CBC with platelets (10/11/2014 8:19 AM CDT) athologist Signature WBC 6.4 4.0 - 11.0 [place] 10e9/L [facility] RBC Count 5.23 4.4 - 5.9 [place] 10e12/L [facility] Hemoglobin 16.4 13.3 - [place] 17.7 g/dL [facility] Hematocrit 47.3 40.0 - [place] 53.0 % [facility] MCV 90 78 - 100 [place] fl [facility] MCH 31.4 26.5 - [place] 33.0 pg [facility] MCHC 34.7 31.5 - [place] 36.5 g/dL [facility] RDW 13.3 10.0 - [place] 15.0 % [facility] Platelet Count 237 150 - 450 [place] 10e9/L [facility] Specimen Anatomical Collection Method Collection Time Receive d Time (Source) Location / / Volume Laterality Blood specimen 10/11/2014 8:19 AM 015 8:22 (specimen) CDT AM CDT Jeri Ibrahim PA-C LAB - BLOOD ORDERABLES Performing Organization Address City/[facility]/ZIP Code Phon e Number [facility] [address] [place] [address] documented in this encounter Visit Diagnoses Diagnosis Common wart - Primary Other specified viral warts Routine general medical examination at a health care facility documented in this encounter Care Teams Assistant Produce Manager Relationship Specialty Start Date End Date Shahriar Roblero, PCP - General Family Practice 19/0301/13/15 documented as of this encounter
--- OUTSIDE RECORDS SUMMARY | 2022-01-26 22:32 | XMS_ITS | Encounter Summary ---
:1970 Author Organization [facility] Address [address] [place] [address]. [place] [address] Care Team Providers Name Role Phone Jeri Ibrahim PA-C Primary Care Provider Reason for Visit Reason Comments Wart f/u wart right thumb Encounter Details Date Type Department Care Team Description 04/03/[address] [facility] Alton Hurtado ([facility] [place] Carmelita Esquivel MD Dx) [address] [place] [phone] Social History Tobacco Use Types Packs/Day Years [...] or relatives? How often do you attend advent or 1 to 4 times per year 03/26 rastafari services? Do you belong to any clubs or Yes 04/11/2021 organizations such as advent groups, unions, fraternal or athletic groups, or [...] or slept in a fpc (including now)? 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 documented as of this encounter Last Filed Vital Signs Vital Sign Reading Time Taken Comments Blood Pressure 133/81 04/03/2016 1:48 PM STOCK LETTERER Pulse 83 04/03/2016 1:48 PM STOCK LETTERER Temperature 36.8 ??C (98.3 ??F) 04/03/2016 1:48 PM STOCK LETTERER Respiratory Rate 16 04/03/2016 1:48 PM STOCK LETTERER Oxygen Saturation - - Inhaled Oxygen Concentration - - Weight 105.7 kg (233 lb) 04/03/2016 1:48 PM STOCK LETTERER Height 180.3 cm (5' 11) 04/03/2016 1:48 PM STOCK LETTERER Body Mass Index 32.5 04/03/2016 1:48 PM STOCK LETTERER documented in this encounter Patient Instructions Patient InstructionsWiCarmelita Vallejo MD - 04/03/2016 2:41 PM STOCK LETTERER Keep area clean and dry Apply triple antibiotic ointment Follow up in 2-3 weeks for recheck/freezing if needed K LETTERER documented in this encounter Progress Notes Carmelita Hurtado MD - 04/03/2016 1:49 PM CST SUBJECTIVE: Ezra Yanez is a 45 year old male who presents to clinic today for the following health issues: Wart right thumb Patient presents for evaluation of wart on right thumb. Admits she has been messing with it over the last few weeks and noticed a hole forming. Has attempted freezing and other methods at home. Problem list and histories reviewed & adjusted, as indicated. Additional history: as documented Problem list, Medication list, Allergies, and Medical/Social/Surgical histories reviewed in EPIC andupdated as appropriate. ROS: Constitutional, skin systems are negative, except as otherwise noted. OBJECTIVE: BP 133/81 mmHg Pulse 83 Temp(Src) 98.3 ??F (36.8 ??C) (Oral) Resp 16 Ht 5' 11 (1.803 m) Wt 233 lb (105.688 kg) BMI 32.51 kg/m2 Body mass index is 32.51 kg/(m^2). GENERAL: healthy, alert and no distress SKIN: single hyperkeratotic exophytic lesion with crater on right thumb Diagnostic Test Results: none ASSESSMENT/PLAN: 1. Common wart - area cleaned with hibiclens and then anestized with ~ 2mls 1% lidocaine without epi. Holding the keratotic nodule with forcep, iris scissors was used to cut lesion. #10 blade them used to pair down flat lesion. Minimal bleeding easily stopped with 4 x 4 gauze and drysol. Tube gauze applied. Home care instructions reviewed. Patient to return in 2-3 weeks for recheck. See Patient Instructions Carmelita Hurtado MD [facility] K LETTERER documented in this encounter Nursing Notes Meenakshi Wilburn CMA - 04/03/2016 1:49 PM CST Chief Complaint Patient presents with ??? Wart f/u wart right thumb Initial BP 133/81 mmHg Pulse 83 Temp(Src) 98.3 ??F (36.8 ??C) (Oral) Resp 16 Ht 5' 11 (1.803 m) Wt 233 lb (105.688 kg) BMI 32.51 kg/m2 Estimated body mass index is 32.51 kg/(m^2) as calculated from the following: Height as of this encounter: 5' 11 (1.803 m). Weight as of this encounter: 233 lb (105.688 kg).. BP completed using cuff size large. Meenakshi Wilburn/PRIYANK K LETTERER documented in this encounter Plan of Treatment Upcoming Encounters Date Type Specialty Care Team Description 02/04/2022 Virtual Visit Behavioral Health Janak Marquez, [facility] [address] [place] [phone] (Wo rk) documented as of this encounter Procedures Procedure Name Priority Date/Time Associated Diagnosis Comme nts HC TRIM HYPERKERATOTIC Routine 04/03/2016 6:28 PM Common wart SKIN LESION, ONE STOCK LETTERER documented in this encounter Visit Diagnoses Diagnosis Common wart - Primary Other specified viral warts documented in this encounter Additional Health Concerns Assessment Noted Time PHQ-9 Depression Total Score: 3 04/04/2016 7:16 AM STOCK LETTERER documented as of this encounter Care Teams Senior Ux Developer Relationship Specialty Start Date End Date Jeri Ibrahim PA-C PCP - General Physician Biological Inspector 01/14/15 [address] [place] [address] documented as of this encounter
--- OUTSIDE RECORDS SUMMARY | 2022-01-26 22:32 | XMS_ITS | Encounter Summary ---
:1970 Author Organization [place] Address [address] [place] [address]. [place] [address] Care Team Providers Name Role Phone Shahriar Roblero MD Primary Care Provider + Reason for Visit Reason Comments Physical Encounter Details Date Type Department Care Team Description 09/13/2014 Office Visit [facility] Jeri Ibrahim Rout ine general medical examination at a health care facility (Primary Dx); [facility] [place] PA-C Herpes simplex; [address] [place] [id number] [phone] Social History Tobacco Use Types Packs/Day Years [...] or slept in a fci (including now)? 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 Last Filed Vital Signs Vital Sign Reading Time Taken Comments Blood Pressure 124/70 09/13/2014 4:05 PM CDT Pulse 82 09/13/2014 4:05 PM CDT Temperature 36.7 ??C (98.1 ??F) 09/13/2014 4:05 PM CDT Respiratory Rate 16 09/13/2014 4:05 PM CDT Oxygen Saturation - - Inhaled Oxygen Concentration - - Weight 100.7 kg (222 lb) 09/13/2014 4:05 PM CDT Height 179.7 cm (5' 10.75) 09/13/2014 4:05 PM CDT Body Mass Index 31.18 09/13/2014 4:05 PM CDT documented in this encounter Patient Instructions Patient InstructionsSharon Shea MA - 09/13/2014 4:12 PM CDT Preventive Health Recommendations Male Ages 40 [...] encounter Progress Notes Jeri Ibrahim PA-C - 09/13/2014 4:12 PM CDT SUBJECTIVE: CC: Ezra Yanez is an 44 year old male who presents for preventative health visit. Healthy Habits: ?? Do you get at least three servings of calcium containing foods daily (dairy, green leafy vegetables, etc.)? yes ?? Amount of exercise or daily activities, outside of work: 1-3 day(s) per week ?? Problems taking medications regularly No ?? Medication side effects: No ?? Have you had an eye exam in the past two years? yes ?? Do you see a dentist twice per year? yes ?? Do you have sleep apnea, excessive snoring or daytime drowsiness? yes to snoring and drowsiness Other concerns to address: Feeling more irritable. Would like to restart Celexa Today's PHQ-2 Score: 0 Abuse: Current or Past(Physical, Sexual or Emotional)- No Do you feel safe in your environment - Yes History Substance Use Topics ??? Smoking status: Former Smoker Quit date: 10/15/1998 ??? Smokeless tobacco: Never Used ??? Alcohol Use: Yes Comment: socially The patient does not drink >3 drinks per day nor >7 drinks per week. Last PSA: No results found for: PSA Recent Labs Lab Test 08/01/12 0924 11/08/08 0855 CHOL 185 197 HDL 58 53 LDL 96 115 TRIG 159* 143 CHOLHDLRATIO 3.2 3.7 Reviewed orders with patient. Reviewed health maintenance and updated orders accordingly - Yes All Histories reviewed and updated in [facility]. Past Medical History Diagnosis Date ??? [...] N: NEGATIVE for weakness, dizziness or paresthesias PSYCHIATRIC: irritability Problem list, Medication list, Allergies, and Medical/Social/Surgical histories reviewed in [facility] andupdated as appropriate. OBJECTIVE: Wt 222 lb (100.699 kg) GENERAL APPEARANCE: healthy, alert and no distress [...] without lesions or urethral discharge, no hernia RECTAL: normal sphincter tone, no rectal masses, prostate of normal size, smooth, nontender without nodules or masses MS: no musculoskeletal defects are noted and gait is age appropriate without ataxia SKIN: no suspicious lesions or rashes NEURO: Normal strength and tone, sensory exam grossly normal, mentation intact and speech normal PSYCH: mentation appears normal and affect normal/bright ASSESSMENT/PLAN: 1. Routine general medical examination at a health care facility - CBC with platelets; Future - Lipid Profile with reflex to direct LDL; Future - Basic metabolic panel; Future - PSA, screen; Future 2. Herpes simplex - valACYclovir (VALTREX) 1000 mg tablet; Take 1 tablet (1,000 mg) by mouth 2 times daily Dispense: 20 tablet; Refill: 11 3. Irritability - citalopram (CELEXA) 20 MG tablet; Take 0.5 tablets (10 mg) by mouth daily Dispense: 90 tablet; Refill: 1 regular exercise healthy diet/nutrition reports that he quit smoking about 15 years ago. He has never used smokeless tobacco. Estimated body mass index is 31.18 kg/(m^2) as calculated from the following: Height as of 09/11/13: 5' 10.75 (1.797 m). Weight as of this encounter: 222 lb (100.699 kg). Weight management plan: Current exercise routine: cardiovascular workout on exercise equipment. Counseling Resources: ATP IV Guidelines Pooled Cohorts Equation Calculator FRAX Risk Assessment ICSI Preventive Guidelines Dietary Guidelines for Americans, 2010 [employer] MyPlate Jeri Ibrahim PA-C, [facility] documented in this encounter Nursing Notes Sharon Shea MA - 09/13/2014 4:11 PM CDT Chief Complaint Patient presents with ??? Physical Initial BP 124/70 mmHg Pulse 82 Temp(Src) 98.1 ??F (36.7 ??C) (Oral) Resp 16 Ht 5' 10.75 [...] 02/04/2022 Virtual Visit Behavioral Health Janak Marquez, [address] [address] (Wo rk) documented as of this encounter Results PSA, screen (10/11/2014 8:19 AM CDT) athologist Signature PSA 0.52 0 - 4 ug/L [facility] Specimen Anatomical Collection Method Collection Time Receive d Time (Source) Location / / Volume Laterality Blood specimen 10/11/2014 8:19 AM 015 8:22 (specimen) CDT AM CDT Jeri Ibrahim PA-C LAB - BLOOD ORDERABLES Performing Organization Address City/State/ZIP Code Phon e Number [facility] [address] [place] [address] [facility] [address] [place] [address], [place] [phone] Basic metabolic panel (10/11/2014 8:19 AM CDT) athologist Signature Sodium 139 133 - 144 [place] mmol/L [facility] Potassium 4.3 3.4 - 5.3 [place] mmol/L [facility] Chloride 106 94 - 109 [place] mmol/L [facility] Carbon Dioxide 27 20 - 32 [place] mmol/L [facility] Anion Gap 6 3 - 14 [place] mmol/L [facility] Glucose 94 70 - 99 [place] mg/dL [facility] Urea Nitrogen 22 7 - 30 [place] mg/dL [facility] Creatinine 1.07 0.66 - [place] 1.25 mg/dL [facility] GFR Estimate 75 >60 [place] mL/min/1.7 CLINICS m2 [facility] Comment: Non GFR Calc GFR Estimate If >90 >60 mL/min/1.7m2 [facility] Black GFR Calc [facility] Calcium 9.1 8.5 - 10.1 mg/dL [place] CLIN ICS [facility] Specimen Anatomical Collection Method Collection Time Receive d Time (Source) Location / / Volume Laterality Blood specimen 10/11/2014 8:19 AM 015 8:22 (specimen) CDT AM CDT Jeri Ibrahim PA-C LAB - BLOOD ORDERABLES Performing Organization Address City/[facility]/ZIP Code Phon e Number [facility] [address] [place] [address] Lipid Profile with reflex to direct LDL (10/11/2014 8:19 AM CDT) athologist Signature Cholesterol 180 <200 mg/dL [facility] Comment: LDL Cholesterol is the primary guide to therapy. The NCEP recommends further evaluation of: patients with cholesterol greater than 200 mg/dL if additional risk facto rs are present, cholesterol greater than 240 mg/dL, triglycerides greater than 1 50 mg/dL, or HDL less than 40 mg/dL. Triglycerides 141 0 - 150 mg/dL [place] CLI NICS [facility] Comment: Fasting specimen HDL Cholesterol 48 >40 mg/dL [place] CLINI CS [facility] LDL Cholesterol Calculated 104 0 - 129 mg/dL [facility] Comment: LDL Cholesterol is the primary guide to therapy: LDL-cholesterol goal in high risk patients is <100 mg/dL and in very high risk patients is <70 mg/dL. VLDL-Cholesterol 28 0 - 30 mg/dL [place] Hilary MARSHALL [facility] Cholesterol/HDL Ratio 3.8 0.0 - 5.0 [facility] Specimen Anatomical Collection Method Collection Time Receive d Time (Source) Location / / Volume Laterality Blood specimen 10/11/2014 8:19 AM 015 8:22 (specimen) CDT AM CDT Jeri Ibrahim PA-C LAB - BLOOD ORDERABLES Performing Organization Address City/State/ZIP Code Phon e Number [facility] [address] [place] [address] CBC with platelets (10/11/2014 8:19 AM CDT) athologist Signature WBC 6.4 4.0 - 11.0 [place] 10e9/L [facility] RBC Count 5.23 4.4 - 5.9 [place] 10e12/L [facility] Hemoglobin 16.4 13.3 - [place] 17.7 g/dL [facility] Hematocrit 47.3 40.0 - [facility] 53.0 % [facility] MCV 90 78 - 100 [place] fl [facility] MCH 31.4 26.5 - [place] 33.0 pg [facility] MCHC 34.7 31.5 - [place] 36.5 g/dL [facility] RDW 13.3 10.0 - [place] 15.0 % [facility] Platelet Count 237 150 - 450 [place] 10e9/L [facility] Specimen Anatomical Collection Method Collection Time Receive d Time (Source) Location / / Volume Laterality Blood specimen 10/11/2014 8:19 AM 015 8:22 (specimen) CDT AM CDT Jeri Ibrahim PA-C LAB - BLOOD ORDERABLES Performing Organization Address City/State/ZIP Code Phon e Number [facility] [address] [place] [address] documented in this encounter Visit Diagnoses Diagnosis Routine general medical examination at a health care facility - Primary Herpes simplex Herpes simplex without mention of compli cation Irritability documented in this encounter Care Teams Wood Lather Relationship Specialty Start Date End Date Shahriar Roblero, PCP - General Family Practice 19/0301/13/15 documented as of this encounter
--- OUTSIDE RECORDS SUMMARY | 2022-01-26 22:32 | XMS_ITS | Encounter Summary ---
:1970 Author Organization [place] Address [address] [place] [address]. 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 And does not need a refill at this time. Ani Gallagher Metrologist Telephone Encounter - Bianca Orourke RN - 10/07/2015 11:01 AM CDT Pt due for visit, declined refill. Called pt, LM to call regarding a medication. Needs OV. Bianca Orourke RN Telephone Encounter - Radha Ng - 10/07/2015 8:00 AM CDT Citalopram hbr 20 mg tablet Last Written Prescription Date: 09/13/14 Last Fill Quantity: 90, # refills: 1 Last Office Visit with [facility] primary care provider: 10/11/14 Jeri Ibrahim Last PHQ-9 score on record= PHQ-9 SCORE 07/27/2012 Total Score 2 documented in this encounter Plan of Treatment Upcoming Encounters Date Type Specialty Care Team Description 02/04/2022 Virtual Visit Behavioral Health Janak Marquez, [facility] [address] [facility] [address] [place] [address] (Wo rk) documented as of this encounter Visit Diagnoses Diagnosis Irritability - Primary documented in this encounter Care Teams Assistant Store Manager Trainee Relationship Specialty Start Date End Date Jeri Ibrahim PA-C PCP - General Physician Rustic Fence Builder 01/14/15 [address] [place] [address] documented as of this encounter
--- OUTSIDE RECORDS SUMMARY | 2022-01-26 22:32 | XMS_ITS | Encounter Summary ---
:1970 Author Organization [place] Address [address] [place] [address]. 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 Temp 99-100. No other symptoms. Using Tylenol and took Peptoand Imodium without relief. Wanting RX for Lomotil. Discussed virus going around and letting it get out of his system and doing liquids, BRAT diet and progressing as tolerated. Encouraged increased fluids and avoiding and monitoring for dehydration. Patient will see how he does and call back if symptoms fail to resolve in a week of onset. He will go to ER if feels he is dehydrated. Ce Cabrales RN documented in this encounter Plan of Treatment Upcoming Encounters Date Type Specialty Care Team Description 02/04/2022 Virtual Visit Behavioral Health Janak Marquez C, [place] [id number] [address] (Wo rk) documented as of this encounter Visit Diagnoses Not on filedocumented in this encounter Care Teams Construction Supervisor Relationship Specialty Start Date End Date Jeri Ibrahim PA-C PCP - General Physician Cab Driver 01/14/15 [address] [place] [address] documented as of this encounter
--- OUTSIDE RECORDS SUMMARY | 2022-01-26 22:33 | XMS_ITS | Encounter Summary ---
:1970 Author Organization [place] Address [address] [place] [address]. [place] [address] Care Team Providers Name Role Phone Shahriar Roblero MD Primary Care Provider + Reason for Visit Reason Onset Date Comments Refill Request 09/08/2010 Celexa Encounter Details Date Type Department Care Team Description 09/08/[address] [facility] Shahriar Roblero efill Request [facility] Chauncey Mchugh MD (Celexa) [address] [place] [phone] [address] [phone] [place], [place] [address] (Wo rk) Social History Tobacco Use Types Packs/Day Years Used Date Former Smoker Quit: 10/15/18 99 Alcohol Use Standard Drinks/Week Comments Yes 0 (1 standard drink = 0.6 oz pure alcoho l) Alcohol Habits Answer Date Recorded How often do you have a drink containing alcohol? 2-3 times a week 04/11/2021 How many drinks containing alcohol do you have on a 3 or 4 04/11/2021 typical day when you are drinking? How often do you have six or more drinks on one Less than mo nthly 04/11/2021 occasion? Comment: Not asked Social Isolation Answer Date Recorded In a typical week, how many times do you More than three lauren es a week 04/11/2021 talk on the phone with family, friends, or neighbors? How often do you get together with friends Once a week 04/11/2021 or relatives? How often do you attend sikhism or 1 to 4 times per year 03/26 taoism services? Do you belong to any clubs [...] or slept in a long-term (including now)? 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 [...] PHQ9 is not needed Max Refills: 6mths Medication(s) approved PSO. Thank you, Cinda Cruz, RN [facility] documented in this encounter Plan of Treatment Upcoming Encounters Date Type Specialty Care Team Description 02/04/2022 Virtual Visit Behavioral Health Janak Marquez, [address] [address] (Wo rk) documented as of this encounter Visit Diagnoses Diagnosis Mild major depression (H) Major depressive disorder, single episod e, mild Anxiety Anxiety state, unspecified documented in this encounter Care Teams Band Nailer Relationship Specialty Start Date End Date Shahriar Roblero, PCP - General Family Practice 19/0301/13/15 documented as of this encounter
--- OUTSIDE RECORDS SUMMARY | 2022-01-26 22:33 | XMS_ITS | Encounter Summary ---
:1970 Author Organization [place] Address Critical access hospital0 [facility] [place] [address] Care Team Providers Name Role Phone Shahriar Roblero MD Primary Care Provider + Reason for Visit Reason Comments Derm Problem red small bumps on both arms , chest and back Cough productive cough, was on a Z -cheryl last week (11/15) Fatigue could barely function over t he weekend d/t muscle aches and fatigue Headache top on the head- notices a pressure in his head when he changes body position- sitting to standin g- pt feels better walking around Encounter Details Date Type Department Care Team Description 11/23/2011 Office Visit [facility] Joe Reese MD Fever, unspecified; Clinic [place] [address] Mild dehydration [address] [place], [place] [id number] [phone] Social History Tobacco Use Types Packs/Day Years [...] 1 to 4 times per year 03/26 latter-day services? 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 documented as of this encounter Last Filed Vital Signs Vital Sign Reading Time Taken Comments Blood Pressure 112/76 11/23/2011 11:16 AM CDT Pulse 68 11/23/2011 11:16 AM CDT Temperature 37.7 ??C (99.8 ??F) 11/23/2011 11:16 AM CDT Respiratory Rate 16 11/23/2011 11:16 AM CDT Oxygen Saturation - - Inhaled Oxygen Concentration - - Weight 99.8 kg (220 lb) 11/23/2011 11:16 AM CDT Height 182.9 cm (6') 11/23/2011 11:16 AM CDT Body Mass Index 29.84 11/23/2011 11:16 AM CDT documented in this encounter Progress Notes Joe Reese MD - 11/23/2011 2:32 PM CDT SUBJECTIVE: Ezra Yanez is a 41 year old male who complains of ongoing fatigue, tactile fever, myalgias, anddark urine. He was treated empirically for strep pharyngitis one week ago with z-pack (no RST done) OBJECTIVE: He appears well, vital signs are as noted by the nurse. Ears normal. Throat and pharynx noted for marked dryness.. Neck supple. No adenopathy in the neck. Nose is congested. Sinuses non tender. The chest is clear, without wheezes or rales. Abdomen is soft, nontender and nondistended. NO HSM noted. NO CVA tenderness appreciable.RST negative. MOnospot negative. CBC looks like its recovering from a marked left-shift leukocytosis ASSESSMENT/PLAN: 1- Upper respiratory infection/febrile illness with mild dehydration After d/w pt regarding risks and benefits as well as possible side effects, drug interactions and adverse reactions, pt accepts prescription for levaquin per hs orders. Labs pending Symptomatic therapy suggested: push fluids and rest. Call or return to clinic prn if these symptoms worsen or fail to improve as anticipated. documented in this encounter Plan of Treatment Upcoming Encounters Date Type Specialty Care Team Description 02/04/2022 Virtual Visit Behavioral Health Janak Marquez, PHONE CIRCUIT OPERATOR [address] [place] [address] (Wo rk) documented as of this encounter Procedures Procedure Name Priority Date/Time Associated Comments Diagnosis RAPID STREP SCREEN Routine 11/23/2011 11:49 Fever, unspe cified Results for this THROAT SWAB AM CDT Mild dehydration procedure a re in the results section. BETA HEMOLYTIC STREP Routine 11/23/2011 11:49 Fever, unspecifi ed Results for this GROUP A CULTURE AM CDT procedure ar e in the results section. CBC WITH PLATELETS & Routine 11/23/2011 11:43 Fever, uns pecified Results for this DIFFERENTIAL AM CDT Mild dehydration procedure a re in the results section. MONONUCLEOSIS SCREEN Routine 11/23/2011 11:43 Fever, uns pecified Results for this AM CDT Mild dehydration procedure a re in the results section. LYME IGG AND IGM SCREEN Routine 11/23/2011 11:43 Fever, unspec ified Results for this AM CDT procedure are i n the results section. COMPREHENSIVE METABOLIC Routine 11/23/2011 11:43 Fever, unspecified Results for this PANEL AM CDT Mild dehydration procedure a re in the results section. CK TOTAL Routine 11/23/2011 11:43 Fever, unspecif ied Results for this AM CDT Mild dehydration procedure a re in the results section. ANTISTREPTOLYSIN O Routine 11/23/2011 11:43 Fever, unspe cified Results for this AM CDT Mild dehydration procedure a re in the results section. documented in this encounter Results Beta strep group A culture (11/23/2011 11:49 AM CDT) Component Value Ref Test Analysis Performed At [facility] Range Method Time Signature Specimen Throat [facility] Description [facility] Culture Micro No Beta [facility] Streptococcus [facility] Micro Report FINAL 11/25/2011 KANDIS Status [facility] Specimen Anatomical Collection Method Collection Time Receive d Time (Source) Location / / Volume Laterality Specimen from 11/23/2011 11:49 11/23/2011 throat AM CDT 11:52 AM CDT (specimen) Joe Reese MD LAB - MICRO GENERAL ORDERABL ES Performing Organization Address [facility] Phon e Number [facility] [id number] [place] [address] [facility] Strep, Rapid Screen (11/23/2011 11:49 AM CDT) Component Value Ref Test Analysis Performed At [facility] gist Range Method Time Signature Specimen Throat [facility] Rapid Strep A NEGATIVE: No Group A strepto coccal antigen detected by immunoassay, await [facility] Screen culture report. [facility] Micro Report FINAL 11/23/2011 [facility] LAB Specimen Anatomical Collection Method Collection Time Receive d Time (Source) Location / / Volume Laterality Specimen from 11/23/2011 11:49 11/23/2011 throat AM CDT 11:52 AM CDT (specimen) Joe Reese MD LAB - MICRO GENERAL ORDERABL ES Performing Organization Address [facility] Phon e Number [facility] [id number] [place] [address] [facility] Lyme IgG and IgM screen (11/23/2011 11:43 AM CDT) [facility] gist Method Time Signature Specimen Serum [facility] Lyme Screen IgG Test value: <0.75....Interpr etation: Negative....If you highly suspect Lyme [facility] and IgM disease, consider submitting a repeat specimen in 4 to 6 weeks. [facility] Specimen Anatomical Collection Method Collection Time Receive d Time (Source) Location / / Volume Laterality Blood specimen 11/23/2011 11:43 2 (specimen) AM CDT 11:46 AM CDT Joe Reese MD LAB - BLOOD ORDERABLES Performing Organization Address City/[facility]/ZIP Code Phon e Number [facility] [address] [place] [address] [facility] Comprehensive metabolic panel (11/23/2011 11:43 AM CDT) athologist Signature Sodium 137 133 - 144 [facility] [place] mmol/L [facility] Potassium 4.8 3.4 - 5.3 [facility] [place] mmol/L CLINIC LAB Chloride 99 94 - 109 [facility] [place] mmol/L CLINIC LAB Carbon Dioxide 28 20 - 32 [facility] [place] mmol/L [facility] Anion Gap 10 6 - 17 [facility] [place] mmol/L [facility] LAB Glucose 99 60 - 99 [facility] [place] mg/dL CLINIC LAB Urea Nitrogen 15 5 - 24 [facility] [place] mg/dL [facility] Creatinine 1.09 0.66 - [facility] [place] 1.25 mg/dL CLINIC LAB GFR Estimate 75 >60 [facility] [place] mL/min/1.7 CLINIC LAB m2 GFR Estimate If >90 >60 [facility] [place] Black mL/min/1.7 CLINIC LAB m2 Calcium 8.9 8.5 - 10.4 [facility] [place] mg/dL CLINIC LAB Bilirubin Total 0.7 0.2 - 1.3 [facility] [place] mg/dL CLINIC LAB Albumin 4.2 3.9 - 5.1 [facility] [place] g/dL CLINIC LAB Comment: Reference range changed on 12/26. Protein Total 7.3 6.8 - 8.8 g/dL [facility] Comment: As of 07, reference range reflects plasma specimen type. Alkaline Phosphatase 80 40 - 150 U/L [facility] CLINIC LAB ALT 29 0 - 70 U/L [facility] [place] CLIN IC LAB AST 34 0 - 45 U/L [facility] CLIN IC LAB Specimen Anatomical Collection Method Collection Time Receive d Time (Source) Location / / Volume Laterality Blood specimen 11/23/2011 11:43 2 (specimen) AM CDT 11:46 AM CDT Joe Reese MD LAB - BLOOD ORDERABLES Performing Organization Address City/State/ZIP Code Phon e Number [facility] [address] [place] [address] [facility] CK total (11/23/2011 11:43 AM CDT) athologist Signature CK Total 80 30 - 300 [facility] [place] U/L CLINIC LAB Specimen Anatomical Collection Method Collection Time Receive d Time (Source) Location / / Volume Laterality Blood specimen 11/23/2011 11:43 2 (specimen) AM CDT 11:46 AM CDT Joe Reese MD LAB - BLOOD ORDERABLES Performing Organization Address City/[facility]/ZIP Code Phon e Number [facility] [address] [place] [address] [facility] Antistreptolysin O (11/23/2011 11:43 AM CDT) [facility] Signature Antistreptolysin O 87 0 - 120 [facility] IU/mL [facility] Comment: A single ASO analysis may not be meaning ful due to the variability of ASO values within the normal population. ??Both cl inical and laboratory findings should be considered in reaching a diagnosis. ??A single analysis may be less informative than a repeat analysis showing a change . Specimen Anatomical Collection Method Collection Time Receive d Time (Source) Location / / Volume Laterality Blood specimen 11/23/2011 11:43 2 (specimen) AM CDT 11:46 AM CDT Joe Reese MD LAB - BLOOD ORDERABLES Performing Organization Address City/State/ZIP Code Phon e Number [address] [address] [facility] Mononucleosis screen (11/23/2011 11:43 AM CDT) [facility] Signature Mononucleosis Negative NEG [facility] Screen [facility] Specimen Anatomical Collection Method Collection Time Receive d Time (Source) Location / / Volume Laterality Blood specimen 11/23/2011 11:43 2 (specimen) AM CDT 11:46 AM CDT Joe Reese MD LAB - BLOOD ORDERABLES Performing Organization Address City/State/ZIP Code Phon e Number [facility] [address] [place] [address] [facility] (ABNORMAL) CBC with platelets and differential (11/23/2011 11:43 AM CDT) [facility] Signature WBC 12.6 (H) 4.0 - [facility] 11.0 [facility] 10e9/L [facility] RBC Count 5.12 4.4 - 5.9 [facility] 10e12/L [facility] Hemoglobin 15.5 13.3 - [facility] 17.7 g/dL [facility] Hematocrit 44.9 40.0 - [facility] 53.0 % [facility] MCV 88 78 - 100 [facility] fl [facility] MCH 30.3 26.5 - [facility] 33.0 pg [facility] MCHC 34.5 31.5 - [facility] 36.5 g/dL [facility] RDW 13.1 10.0 - [facility] 15.0 % [facility] Platelet Count 195 150 - 450 [facility] 10e9/L [facility] Diff Method Automated [facility] Method [facility] % Neutrophils 83.5 (H) 40 - 75 % [facility] % Lymphocytes 9.7 (L) 20 - 48 % [facility] % Monocytes 5.2 0 - 12 % [facility] % Eosinophils 1.4 0 - 6 % [facility] % Basophils 0.2 0 - 2 % [facility] Absolute 10.5 (H) 1.6 - 8.3 [facility] Neutrophil 10e9/L [facility] Absolute 1.2 0.8 - 5.3 [facility] Lymphocytes 10e9/L [facility] Absolute 0.7 0.0 - 1.3 [facility] Monocytes 10e9/L [facility] Absolute 0.2 0.0 - 0.7 [facility] Eosinophils 10e9/L [facility] Absolute 0.0 0.0 - 0.2 [facility] Basophils 10e9/L [facility] Specimen Anatomical Collection Method Collection Time Receive d Time (Source) Location / / Volume Laterality Blood specimen 11/23/2011 11:43 2 (specimen) AM CDT 11:46 AM CDT Joe Reese MD LAB - BLOOD ORDERABLES Performing Organization Address City/State/ZIP Code Phon e Number [facility] [address] [place] [address] [facility] documented in this encounter Visit Diagnoses Diagnosis Fever, unspecified Mild dehydration Dehydration documented in this encounter Care Teams [employer] Relationship Specialty Start Date End Date Shahriar Roblero, PCP - General Family Practice 1/ 24/11 9/20/15 documented as of this encounter
--- OUTSIDE RECORDS SUMMARY | 2022-01-26 22:33 | XMS_ITS | Encounter Summary ---
:1970 Author Organization [place] Address [address] [place] [address]. [place] [address] Care Team Providers Name Role Phone Shahriar Roblero MD Primary Care Provider + Reason for Visit Reason Comments Pharyngitis x 7-8 days chills, fever x 1 day hurts to swallow, brown mucous and fatigue and chills Otalgia x 2 days Abdominal Pain upset taking pepto and antac id x 3 days Encounter Details Date Type Department Care Team Description 04/24/2011 Office Visit [facility] Shahriar Roblero (Primary Dx); Clinic [place] Chauncey Mchugh MD Pharyngitis [facility], [address] [place], [place] [address] [address] [facility] [phone] [place], [place] [address] (Wo rk) Social History [...] at Date Recorded Male 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 documented as of this encounter Last Filed Vital Signs Vital Sign Reading Time Taken Comments Blood Pressure 112/80 04/24/2011 11:15 AM INVENTORY CONTROL SUPERVISOR Pulse 105 04/24/2011 11:15 AM INVENTORY CONTROL SUPERVISOR Temperature 37.5 ??C (99.5 ??F) 04/24/2011 11:15 AM INVENTORY CONTROL SUPERVISOR Respiratory Rate 20 04/24/2011 11:15 AM INVENTORY CONTROL SUPERVISOR Oxygen Saturation 98% 04/24/2011 11:15 AM INVENTORY CONTROL SUPERVISOR Inhaled Oxygen Concentration - - Weight 95.7 kg (211 lb) 04/24/2011 11:15 AM INVENTORY CONTROL SUPERVISOR Height - - Body Mass Index 29.43 01/12/2011 11:49 AM CDT documented in this encounter Progress Notes Shahriar Roblero MD - 04/24/2011 11:29 AM CST SUBJECTIVE: Ezra Yanez is a 40 year old male presenting with a chief complaint of fever, nasal congestion, rhinorrhea, cold symptoms, cough , ear pain bilateral, sore throat, malaise and stomach ache. Onset of symptoms was 9 day(s) ago. Course of illness is worsening. Severity moderate Current and Associated symptoms: as above Treatment measures tried include OTC meds. Predisposing factors include None. Past Medical History Diagnosis Date ??? Hyperlipemia Current outpatient prescriptions Medication Sig ??? dextromethorphan-guaiFENesin (MUCINEX DM) 30-600 MG per 12 hr tablet Take 1 tablet by mouth every 12 hours. ??? pseudoephedrine (SUDAFED 12 HOUR) 120 MG 12 hr tablet Take 120 mg by mouth every 12 hours. ??? bismuth subsalicylate (PEPTO-BISMOL) 262 MG chewable tablet Take 524 mg by mouth 4 times daily (before meals and nightly). ??? IBUPROFEN ??? acetaminophen (TYLENOL) 325 MG tablet Take 1-2 tablets by mouth every 6 hours as needed. ??? citalopram (CELEXA) 40 MG tablet Take 1 tablet by mouth daily. ??? MULTIVITAMIN TABS OR 1 qd History Substance Use Topics ??? Smoking status: Former Smoker Quit date: 10/15/1998 ??? Smokeless tobacco: Never Used ??? Alcohol Use: Yes socially ROS: Review of systems negative except as stated above. OBJECTIVE :BP 112/80 Pulse 105 Temp(Src) 99.5 ??F (37.5 ??C) (Oral) Resp 20 Wt 211 lb (95.709 kg) SpO2 98% GENERAL APPEARANCE: healthy, alert and no distress EYES: EOMI, PERRL, conjunctiva clear HENT: TM's normal bilaterally, nasal turbinates erythematous, swollen, tonsillar hypertrophy, tonsillar erythema and maxillary sinus tenderness NECK: trachea midline and normal to palpation and bilateral anterior cervical adenopathy RESP: lungs clear to auscultation - no rales, rhonchi or wheezes CV: regular rates and rhythm, normal S1 S2, no murmur noted NEURO: Normal strength and tone, sensory exam grossly normal, normal speech and mentation SKIN: no suspicious lesions or rashes Results for orders placed in visit on 04/24/11 (from the past 24 hour(s)) CBC WITH PLATELETS DIFFERENTIAL Component Value Range ??? WBC 12.8 (*) 4.0 - 11.0 (10e9/L) ??? RBC Count 5.31 4.4 - 5.9 (10e12/L) ??? Hemoglobin 16.3 13.3 - 17.7 (g/dL) ??? Hematocrit 47.1 40.0 - 53.0 (%) ??? MCV 89 78 - 100 (fl) ??? MCH 30.7 26.5 - 33.0 (pg) ??? MCHC 34.6 31.5 - 36.5 (g/dL) ??? RDW 12.8 10.0 - 15.0 (%) ??? Platelet Count 214 150 - 450 (10e9/L) ??? Diff Method Automated Method ??? % Neutrophils 77.4 (*) 40 - 75 (%) ??? % Lymphocytes 11.8 (*) 20 - 48 (%) ??? % Monocytes 9.4 0 - 12 (%) ??? % Eosinophils 1.2 0 - 6 (%) ??? % Basophils 0.2 0 - 2 (%) ??? Absolute Neutrophil 9.9 (*) 1.6 - 8.3 (10e9/L) ??? Absolute Lymphocytes 1.5 0.8 - 5.3 (10e9/L) ??? Absolute Monoctyes 1.2 0.0 - 1.3 (10e9/L) ??? Absolute Eosinophils 0.2 0.0 - 0.7 (10e9/L) ??? Absolute Basophils 0.0 0.0 - 0.2 (10e9/L) MONONUCLEOSIS SCREEN Component Value Range ? ? Mononucleosis Screen Negative > NEG RAPID STREP SCREEN Component Value Range ??? Specimen Description Throat ??? Rapid Strep A Screen Value: NEGATIVE: No Group A streptococcal antigen detected by immunoassay, await culture report. ??? Micro Report Status FINAL 04/24/2011 ASSESSMENT/PLAN: 463AD Tonsillitis (primary encounter diagnosis) Plan: cefdinir (OMNICEF) 300 MG capsule symptomatic and supportive care with ibuprofen and tylenol. 462Y Pharyngitis Plan: Strep, Rapid Screen, CBC with platelets and differential, Mononucleosis screen, Beta strep group A culture Shahriar Roblero MD [facility] NTORY CONTROL SUPERVISOR documented in this encounter Plan of Treatment Upcoming Encounters Date Type Specialty Care Team Description 02/04/2022 Virtual Visit Behavioral Health Janak Marquez, [address] [address] (Wo rk) documented as of this encounter Procedures Procedure Name Priority Date/Time Associated Comments Diagnosis RAPID STREP SCREEN Routine 04/24/2011 11:37 Pharyngitis Resul ts for this THROAT SWAB AM INVENTORY CONTROL SUPERVISOR procedure are i n the results section. BETA HEMOLYTIC STREP Routine 04/24/2011 11:37 Pharyngitis Res ults for this GROUP A CULTURE AM INVENTORY CONTROL SUPERVISOR procedure ar e in the results section. CBC WITH PLATELETS & Routine 04/24/2011 11:35 Pharyngitis Res ults for this DIFFERENTIAL AM INVENTORY CONTROL SUPERVISOR procedure are i n the results section. MONONUCLEOSIS SCREEN Routine 04/24/2011 11:35 Pharyngitis Res ults for this AM INVENTORY CONTROL SUPERVISOR procedure are i n the results section. documented in this encounter Results Beta strep group A culture (04/24/2011 11:37 AM INVENTORY CONTROL SUPERVISOR) Component Value Ref Test Analysis Performed At [facility] Range Method Time Signature Specimen Throat [facility] Description [facility] Culture Micro No Beta [facility] Streptococcus [facility] isolated LAB Micro Report FINAL 04/26/2011 [place] Status [facility] Specimen Anatomical Collection Method Collection Time Receive d Time (Source) Location / / Volume Laterality Specimen from 04/24/2011 11:37 04/24/2011 throat AM INVENTORY CONTROL SUPERVISOR 11:42 AM INVENTORY CONTROL SUPERVISOR (specimen) Shahriar Roblero MD LAB - MICRO GENERA L ORDERABLES Performing Organization Address City/[facility]/ZIP Code Phon e Number [facility] [address] [place] [address] [facility] Strep, Rapid Screen (04/24/2011 11:37 AM INVENTORY CONTROL SUPERVISOR) Component Value Ref Test Analysis Performed At [facility] Method Time Signature Specimen Throat [facility] Rapid Strep A NEGATIVE: No Group A strepto coccal antigen detected by immunoassay, await [facility] Screen culture report. [facility] Micro Report FINAL 04/24/2011 [place] Status [facility] Specimen Anatomical Collection Method Collection Time Receive d Time (Source) Location / / Volume Laterality Specimen from 04/24/2011 11:37 04/24/2011 throat AM INVENTORY CONTROL SUPERVISOR 11:42 AM INVENTORY CONTROL SUPERVISOR (specimen) Shahriar Roblero MD LAB - MICRO GENERA L ORDERABLES Performing Organization Address City/[facility]/ZIP Code Phon e Number [facility] [address] [place] [address] [facility] Mononucleosis screen (04/24/2011 11:35 AM INVENTORY CONTROL SUPERVISOR) [facility] Method Time Signature Mononucleosis Negative NEG [place] Screen [facility] Specimen Anatomical Collection Method Collection Time Receive d Time (Source) Location / / Volume Laterality Blood specimen 04/24/2011 11:35 1 (specimen) AM INVENTORY CONTROL SUPERVISOR 11:37 AM INVENTORY CONTROL SUPERVISOR Shahriar Roblero MD LAB - BLOOD ORDERA BLES Performing Organization Address City/State/ZIP Code Phon e Number [facility] [place] [address] [facility] (ABNORMAL) CBC with platelets and differential (04/24/2011 11:35 AM INVENTORY CONTROL SUPERVISOR) [facility] gist Method Time Signature WBC 12.8 (H) 4.0 - [facility] 11.0 [place] 10e9/L [facility] RBC Count 5.31 4.4 - 5.9 [place] 10e12/L [facility] Hemoglobin 16.3 13.3 - [facility] 17.7 g/dL [facility] Hematocrit 47.1 40.0 - [place] 53.0 % [facility] MCV 89 78 - 100 [facility] LAB MCH 30.7 26.5 - [place] 33.0 pg [facility] MCHC 34.6 31.5 - [place] 36.5 g/dL [facility] RDW 12.8 10.0 - [place] 15.0 % [facility] Platelet Count 214 150 - 450 [place] 10e9/L [facility] Diff Method Automated [facility] % Neutrophils 77.4 (H) 40 - 75 % [facility] % Lymphocytes 11.8 (L) 20 - 48 % [facility] Comment: Results confirmed by repeat lv t % Monocytes 9.4 0 - 12 % [facility] % Eosinophils 1.2 0 - 6 % [facility] % Basophils 0.2 0 - 2 % [facility] Absolute Neutrophil 9.9 (H) 1.6 - 8.3 10e9/L [facility] Absolute Lymphocytes 1.5 0.8 - 5.3 10e9/L [facility] Absolute Monocytes 1.2 0.0 - 1.3 10e9/L [facility] Absolute Eosinophils 0.2 0.0 - 0.7 10e9/L [facility] Absolute Basophils 0.0 0.0 - 0.2 10e9/L [facility] Specimen Anatomical Collection Method Collection Time Receive d Time (Source) Location / / Volume Laterality Blood specimen 04/24/2011 11:35 1 (specimen) AM INVENTORY CONTROL SUPERVISOR 11:37 AM INVENTORY CONTROL SUPERVISOR Shahriar Roblero MD LAB - BLOOD ORDERA BLES Performing Organization Address City/State/ZIP Code Phon e Number [facility] [address] [place] [address] [facility] documented in this encounter Visit Diagnoses Diagnosis Tonsillitis - Primary Acute tonsillitis Pharyngitis Acute pharyngitis documented in this encounter Care Teams Behavior Analyst Relationship Specialty Start Date End Date Shahriar Roblero, PCP - General Family Practice 19/0301/13/15 documented as of this encounter
--- OUTSIDE RECORDS SUMMARY | 2022-01-26 22:33 | XMS_ITS | Encounter Summary ---
:1970 Author Organization [place] Address [address] [place] [address]. [place] [address] Care Team Providers Name Role Phone Unavailable Primary Care Provider Unavailable Reason for Visit Reason Comments Anxiety Encounter Details Date Type Department Care Team Description 07/08/2009 Office Visit [facility] Shahriar Roblero oderate Major Depression (H); Clinic [place] Chauncey Mchugh MD Anxiety [address] [facility] [address] [address] [phone] [place], [place] [address] (Wo rk) Social History [...] slept in a care home (including now)? 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 documented as of this encounter Last Filed Vital Signs Vital Sign Reading Time Taken Comments Blood Pressure 136/72 07/08/2009 1:45 PM CDT Pulse 88 07/08/2009 1:45 PM CDT Temperature 36.7 ??C (98 ??F) 07/08/2009 1:45 PM CDT Respiratory Rate 16 07/08/2009 1:45 PM CDT Oxygen Saturation - - Inhaled Oxygen Concentration - - Weight 93 kg (205 lb) 07/08/2009 1:45 PM CDT Height 180.3 cm (5' 11) 07/08/2009 1:45 PM CDT Body Mass Index 28.59 07/08/2009 1:45 PM CDT documented in this encounter Progress Notes Shahriar Roblero - 07/08/2009 2:17 PM CDT SUBJECTIVE: evaluation and treatment of depressive symptoms. Current symptoms include: depressed mood, diminished interest or pleasure in activities, weight loss, insomnia, psychomotor agitation, psychomotor retardation, difficulty with concentration, anxiety, irritablility. Onset approximately 2 weeks ago; symptoms have been gradually worsening since that time. Family history is positive for depression in the patient???s mother and sister(s). Previous treatment he has tried include group therapy, individual therapy Depression risk factors: stress and marital issues Organic causes of depression present: none Ezra reports: no previous history with chemical dependency or abuse Depressed mood Markedly diminished interest or pleasure in all or almost all activities Psychomotor agtitation or retardation Feeling of worthlessness or inappropriate guilt Diminished concentration or indeciveness Patient Active Problem List Diagnoses Code ??? FHx: Aneurysm V19.8T ??? GERD (Gastroesophageal Reflux Disease) 530.81K Current outpatient prescriptions Medication Sig ??? MULTIVITAMIN TABS OR 1 qd History Substance Use Topics ??? Tobacco Use: Quit Quit date: 10/15/1998 ??? Alcohol Use: Yes OBJECTIVE: Blood pressure 136/72, pulse 88, temperature 98 ??F (36.7 ??C), temperature source Oral, resp. rate 16, height 5' 11 (1.803 m), weight 205 lb (92.987 kg). MENTAL STATUS EXAM: 1. Clinical observations: Ezra was clean and well-groomed and was adequately groomed. Ezra's emotional presentation was open and cooperative. He spoke clear and articulate. He maintained good eye contact and he was cooperative in answering questions. 2. He appeared to be well-oriented in all spheres with coherent, logical, goal directed and relevent thinking. 3. Thought content: He denies intact, incoherent, auditory hallucinations and visual hallucinations. 4. Affect and mood: Melvins affect is described as normal/appropriate and his emotional attitude wasopen and cooperative. 5. Sensorium and cognition: He was in contact with reality and oriented to place, time, person and situation. He demonstrated no impairment in immediate, recent, or remote memory. His insight was goodand his intelligence appeared to be high average. Today's Depression Rating was 16 Eyes: Eyes grossly normal to inspection and conjunctivae and sclerae normal Neck: supple without adenopathy or thyromegaly. Lungs: Clear to auscultation with normal respiratory effort. Heart: Regular rate and rhythm with normal S1, S2. No murmurs, clicks, or gallops. Extremities: No edema. Neuro: DTR symmetrically normal in lower extremities ASSESSMENT/PLAN: 296.22F Moderate Major Depression Plan: CELEXA 20 MG OR TABS Comment: marital and work stress 300.00E Anxiety Plan: CELEXA 20 MG OR TABS Shahriar Roblero MD [facility] documented in this encounter Nursing Notes 07/08/2009 1:45 PM CDT >> RUTH MATTHEW Mon Jul 08, 2009 1:49 PM Patient presents with: Anxiety Initial BP 136/72 Pulse 88 Temp(Src) 98 ??F (36.7 ??C) (Oral) Resp 16 Ht 5' 11 (1.803 m) Wt 205 lb (92.987 kg) Estimated Body mass index is 28.59 kg/(m^2) as calculated from the following: Height as of this encounter: 5' 11(1.803 m). Weight as of this encounter: 205 lb(92.987 kg).. BP completed using cuff size: large Ruth Bowar CRITICAL CARE PARAMEDIC documented in this encounter Plan of Treatment Upcoming Encounters Date Type Specialty Care Team Description 02/04/2022 Virtual Visit Behavioral Health Janak Marquez, [facility] [address] [address] (Wo rk) documented as of this encounter Visit Diagnoses Diagnosis Moderate major depression (H) Major depressive disorder, single episod e, moderate Anxiety Anxiety state, unspecified documented in this encounter
--- OUTSIDE RECORDS SUMMARY | 2022-01-26 22:33 | XMS_ITS | Encounter Summary ---
:1970 Author Organization [place] Address [address] [place] [address]. 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 TING EQUIPMENT MECHANIC APPRENTICE Telephone Encounter - Shelly Barahona - 06/12/2010 3:49 PM CST Per Quailty Reports/Metrics/Patient Lists- Patient is due for PHQ-9. Please update with call back. Left Message on Answering Machine for patient to call back. Melania Barahona CMA TING EQUIPMENT MECHANIC APPRENTICE documented in this encounter Plan of Treatment Upcoming Encounters Date Type Specialty Care Team Description 02/04/2022 Virtual Visit Behavioral Health Janak Marquez, [address] [address] (Wo rk) documented as of this encounter Visit Diagnoses Not on filedocumented in this encounter Care Teams Foreign Exchange Trader Relationship Specialty Start Date End Date Shahriar Roblero, PCP - General Family Practice 19/0301/13/15 documented as of this encounter
--- OUTSIDE RECORDS SUMMARY | 2022-01-26 22:33 | XMS_ITS | Encounter Summary ---
:1970 Author Organization [place] Address [facility] [place] [address] Care Team Providers Name Role Phone Unavailable Primary Care Provider Unavailable Reason for Referral Specialty Diagnoses / Procedures Referred By Contact Refer red To Contact Shahriar Roblero MD [facility] [address] [place] [address] Referral ID Status Reason Start Date Expiration Date Visits Requ ested Visits Authorized Encounter Details Date Type Department Care Team Description 07/19/[address] [facility] Shahriar Roblero IAGNOSIS NOT YET Clinic [place] Chauncey Mchugh MD DEFINED (Primary Dx) [address] [facility], [place] [address] [address] [phone] [place], [place] [address] (Wo rk) Social History [...] 04/11/2021 organizations such as baptism groups, unions, fraMotomotives or athletic groups, or school groups? 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 Shahriar Roblero MD REFERRAL documented in this encounter Visit Diagnoses Diagnosis DIAGNOSIS NOT YET DEFINED - Primary documented in this encounter
--- OUTSIDE RECORDS SUMMARY | 2022-01-26 22:33 | XMS_ITS | Encounter Summary ---
:1970 Author Organization [place] Address [facility] [place] [address] Care Team Providers Name Role Phone Shahriar Roblero MD Primary Care Provider + Reason for Visit Reason Comments URI coughing, laryngitis, blood in phlem, x1 wk, no fever, lot of drainage, yellowish-brown in color Headache headaches on weekends x3 Encounter Details Date Type Department Care Team Description 11/16/2011 Office Visit [facility] Sadia Subramanian MD Bronchitis with bronchospasm (Primary Dx ); Clinic [address] Mild major depression (H) [id number] [place] [address] [phone] Social History Tobacco Use Types Packs/Day [...] 1 to 4 times per year 03/26 bahai services? Do you belong to any clubs [...] or slept in a jail (including now)? 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 Last Filed Vital Signs Vital Sign Reading Time Taken Comments Blood Pressure 114/76 11/16/2011 10:41 AM CDT Pulse 84 11/16/2011 10:41 AM CDT Temperature 36.8 ??C (98.2 ??F) 11/16/2011 10:41 AM CDT Respiratory Rate 20 11/16/2011 10:41 AM CDT Oxygen Saturation - - Inhaled Oxygen Concentration - - Weight 99.8 kg (220 lb) 11/16/2011 10:41 AM CDT Height 182.9 cm (6') 11/16/2011 10:41 AM CDT Body Mass Index 29.84 11/16/2011 10:41 AM CDT documented in this encounter Progress Notes Sadia Subramanian MD - 11/16/2011 10:51 AM CDT albuterol (PROVENTIL HFA: VENTOLIN HFA) 108 (90 BASE) MCG/ACT inhalerSUBJECTIVE: Ezra Yanez is a 41 year old male who complains of hoarse, cough, productive of phlegm, brown sputum for 7 days. He denies a history of shortness of breath. He denies a history of asthma. Patient does not smoke cigarettes. noticed very small amount of blood in the sputum. Past Medical History Diagnosis Date ??? Hyperlipemia ??? Bronchitis with bronchospasm 11/16/2011 OBJECTIVE: Vitals as noted by Nurse/MA above. Appearance: in no apparent distress. ENT- bilateral TM normal without fluid or infection, neck without nodes, throat normal without erythema or exudate, sinuses nontender and nasal mucosa congested. Chest - no tachypnea, retractions or cyanosis, moderate crackling heard diffusely throughout both lungs and S1, S2 normal, no murmur, no gallop, rate regular. ASSESSMENT: Bronchitis and Bronchospasm PLAN: azithromycin (ZITHROMAX) 250 MG tablet albuterol (PROVENTIL HFA: VENTOLIN HFA) 108 (90 BASE) MCG/ACT inhaler Symptomatic therapy suggested: push fluids, rest and use acetaminophen as needed. Call or return to clinic prn if these symptoms worsen or fail to improve as anticipated. documented in this encounter Nursing Notes 11/16/2011 10:30 AM CDT >> LUCRECIA CRENSHAW [facility] Nov 16, 2011 10:45 AM Patient presents with: URI - coughing, laryngitis, blood in phlem, x1 wk, no fever, lot of drainage, yellowish-brown in color Headache - headaches on weekends x3 Initial BP 114/76 Pulse 84 Temp(Src) 98.2 ??F (36.8 ??C) (Oral) Resp 20 Ht 6' (1.829 m) Wt220 lb (99.791 kg) BMI 29.84 kg/t7FEASJM@ BP Completed using cuff size large Health maintenance updated yes Lucrecia Crenshaw MA documented in this encounter Plan of Treatment Upcoming Encounters Date Type Specialty Care Team Description 02/04/2022 Virtual Visit Behavioral Health [place] Janak gwen Richard, [place] [address] [place] [address] (Wo rk) documented as of this encounter Procedures Procedure Name Priority Date/Time Associated Diagnosis Comme nts XR CHEST 2 VIEWS Routine 11/16/2011 11:03 AM Bronchitis with R esults for this CDT bronchospasm procedure are i n the results section. documented in this encounter Results X-ray Chest 2 vws* (11/16/2011 11:03 AM CDT) Anatomical Region Laterality Modality Chest Other Specimen (Source) Anatomical Collection Method Collection Time Re ceived Time Location / / Volume Laterality 11/16/2011 11:03 AM CDT Impressions 11/16/2011 1:50 PM CDT CHEST TWO VIEW* ??Nov 16, 2011 11:03:00 AM HISTORY: ??Bronchitis. COMPARISON: ??None. IMPRESSION: ??Negative. Sadia Subramanian MD IMG DIAGNOSTIC IMAGING ORDER DAVID documented in this encounter Visit Diagnoses Diagnosis Bronchitis with bronchospasm - Primary Acute bronchitis Mild major depression (H) Major depressive disorder, single episod e, mild documented in this encounter Care Teams Publications Designer Relationship Specialty Start Date End Date Shahriar Roblero, PCP - General Family Practice 19/0301/13/15 documented as of this encounter
--- OUTSIDE RECORDS SUMMARY | 2022-01-26 22:33 | XMS_ITS | Encounter Summary ---
:1970 Author Organization [place] Address [address] [place] [address]. [place] [address] Care Team Providers Name Role Phone Unavailable Primary Care Provider Unavailable Reason for Visit Reason Comments Depression Follow up on his Celexa. Tho ughts to have ADHD by his psychologist. Hoarsness Sinus Pressure, Scratchy Thr oat, Hoarsness, Bright Green Mucus x 1 week. Encounter Details Date Type Department Care Team Description 08/06/2009 Office Visit [facility] Shahriar Roblero ild Major Depression (H); Clinic [place] Chauncey Mchugh MD Anxiety; [address] [facility] AESTHETIC Marital Conflict; [place], [place] Acute Sinusitis, Unspecified [address] [address] [phone] [place], [place] [address] (Wo rk) Social History [...] 1 to 4 times per year 03/26 evangelical services? Do you belong to any clubs [...] [place] [facility] (including now)? 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 Current symptoms include: depressed mood, diminished interest or pleasure in activities, weight loss, insomnia, psychomotor agitation, psychomotor retardation, difficulty with concentration, anxiety, irritablility. Onset approximately 6 weeks ago; symptoms have been gradually improving since starting medications. Family history is positive for depression in the patient???s mother and sister(s). Previous treatment he has tried include group therapy, individual therapy Depression risk factors: stress and marital issues Organic causes of depression present: none Ezra reports: no previous history with chemical dependency or abuse Ezra is here today with: CC:Sinus Pain, Sore Throat, Cough and hoarseness and symptoms of no fever. Serious symptoms include none applicable. Onset of symptoms was 1 week ago. Course of illness is same.none applicable exposures. Treatment measures tried include OTC meds. Patient Active Problem List Diagnoses Code ??? FHx: Aneurysm V19.8T ??? GERD (Gastroesophageal Reflux Disease) 530.81K ??? Moderate Major Depression 296.22F ??? Anxiety 300.00E Current outpatient prescriptions Medication Sig ??? CELEXA 40 MG OR TABS 1 TABLET DAILY ??? MULTIVITAMIN TABS OR 1 qd History Substance Use Topics ??? Tobacco Use: Quit Quit date: 10/15/1998 ??? Alcohol Use: Yes OBJECTIVE: Blood pressure 100/72, pulse 98, temperature 97.9 ??F (36.6 ??C), temperature source Oral, weight 192 lb (87.091 kg), SpO2 98.00%. Head; normocephalic, atraumatic. [place]. ENT- bilateral TM normal without fluid or infection, neck without nodes, pharynx erythematous without exudate, maxillary sinus tender and nasal mucosa congested. S1 and S2 normal, no murmurs, clicks, gallops or rubs. Regular rate and rhythm. Chest is clear; no wheezes or rales. MENTAL STATUS EXAM: 1. Clinical observations: Ezra [...] and visual hallucinations. 4. Affect and mood: Ezra's affect is described as normal/appropriate and his emotional attitude wasopen and cooperative. 5. Sensorium and cognition: He was in contact with reality and oriented to place, time, person and situation. He demonstrated no impairment in immediate, recent, or remote memory. His insight was goodand his intelligence appeared to be high average. Today's Depression Rating was 11 ASSESSMENT/PLAN: 296.21E Mild Major Depression Plan: stable with CELEXA 40 MG OR TABS 300.00E Anxiety Plan: CELEXA 40 MG OR TABS Comment: better V61.10G Marital Conflict Plan: impending divorce 461.9 Acute Sinusitis, Unspecified Plan: ZITHROMAX Z-DEBORAH 250 MG OR CAPS as directed and Mucinex-D q 12hours and saline nasal spray Q4 hours for congestion. May use tylenol/motrin prn, steam and warm paks to face, in addition Shahriar Roblero MD [facility] documented in this encounter Nursing Notes 08/06/2009 4:30 PM CDT >> DALLAS Levin Aug 06, 2009 4:44 PM Patient presents with: Depression - Follow up on his Celexa. Thoughts to have ADHD by his psychologist. Hoarsness - Sinus Pressure, Scratchy Throat, Hoarsness, Bright Green Mucus x 1 week. Initial BP 100/72 Pulse 98 Temp(Src) 97.9 ??F (36.6 ??C) (Oral) Wt 192 lb (87.091 kg) SpO2 98% Estimated Body mass index is 26.78 kg/(m^2) as calculated from the following: Height as of 07/08/09: 5' 11(1.803 m). Weight as of this encounter: 192 lb(87.091 kg). BP completed using cuff size large Right Arm Health Maintenance Updated with Patient: Yes Tobacco Verified: Yes Payor/Verify RX Benefits/Reconcile Disp Completed if allowed: Yes Family History Updated: Yes Immunizations Up to Date: Yes Mychart Offered: Yes Melania Barahona NURSE REVIEWER documented in this encounter Plan of Treatment Upcoming Encounters Date Type Specialty Care Team Description 02/04/2022 Virtual Visit Behavioral Health Janak Marquez, [place] [id number] [address] (Wo rk) documented as of this encounter Visit Diagnoses Diagnosis Mild major depression (H) Major depressive disorder, single episod e, mild Anxiety Anxiety state, unspecified Marital conflict Counseling for marital and partner probl ems, unspecified Acute sinusitis, unspecified documented in this encounter
--- OUTSIDE RECORDS SUMMARY | 2022-01-26 22:33 | XMS_ITS | Encounter Summary ---
:1970 Author Organization [place] Address [address] [place] [address]. 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 Current symptoms include: depressed mood, diminished interest or pleasure in activities, weight loss, insomnia, psychomotor agitation, psychomotor retardation, difficulty with concentration, anxiety, irritablility. Onset approximately 12+ weeks ago; symptoms have been gradually improving since starting medications. Family history is positive for depression in the patient???s mother and sister(s). Previous treatment he has tried include group therapy, individual therapy Depression risk factors: stress and marital issues Organic causes of depression present: none Ezra reports: no previous history with chemical dependency or abuse His divorce is final this . He has been seeing a counselor. He has been less stress. He has a mutual agreement with the kids. Patient Active Problem List Diagnoses Code ??? FHx: Aneurysm V19.8T ??? GERD (Gastroesophageal Reflux Disease) 530.81K ??? Moderate Major Depression 296.22F ??? Anxiety 300.00E ??? Marital Conflict V61.10G Current outpatient prescriptions Medication Sig ??? CELEXA 40 MG OR TABS 1 TABLET DAILY ??? MULTIVITAMIN TABS OR 1 qd History Substance Use Topics ??? Tobacco Use: Quit Quit date: 10/15/1998 ??? Alcohol Use: Yes OBJECTIVE: Blood pressure 110/64, height 5' 10 (1.778 m), weight 196 lb (88.905 kg). Psych: Alert and oriented times 3; coherent speech, normal rate and volume, able to articulate logical thoughts, able to abstract reason, no tangential thoughts, no hallucinations or delusions His affect is good MENTAL STATUS EXAM: 1. Clinical observations: Ezra [...] better V61.10G Marital Conflict Plan: impending divorce this week Shahriar Roblero MD [facility] documented in this encounter Nursing Notes 10/14/2009 1:45 PM CDT >> GLENDA JALLOH Mon Oct 14, 2009 2:09 PM Patient presents with: Recheck Medication Refill Request Initial BP 110/64 Ht 5' 10 (1.778 m) Wt 196 lb (88.905 kg) Estimated Body mass index is 28.12 kg/(m^2) as calculated from the following: Height as of this encounter: 5' 10(1.778 m). Weight as of this encounter: 196 lb(88.905 kg).. BP completed using cuff size large Glenda Jalloh CMA documented in this encounter Plan of Treatment Upcoming Encounters Date Type Specialty Care Team Description 02/04/2022 Virtual Visit Behavioral Health Janak Marquez, [facility] [address] [address] (Wo rk) documented as of this encounter Visit Diagnoses Diagnosis Mild major depression (H) Major depressive disorder, single episod e, mild Anxiety Anxiety state, unspecified Marital conflict Counseling for marital and partner probl ems, unspecified documented in this encounter
--- OUTSIDE RECORDS SUMMARY | 2022-01-26 22:33 | XMS_ITS | Encounter Summary ---
:1970 Author Organization [place] Address [address] [place] [address]. [place] [address] Care Team Providers Name Role Phone Unavailable Primary Care Provider Unavailable Reason for Visit Reason Onset Date Comments Refill Request 05/08/2010 celexa Encounter Details Date Type Department Care Team Description 05/08/[address] 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 Miscellaneous Notes Telephone Encounter - Maine Oreilly - 05/08/2010 3:10 PM CST Last office visit: Reason for visit: depression/anxiety Last PHQ-9 score on record= 16 on Medication APPROVED per standing orders LETTER SENT Lola Oreilly RN REST ASSEMBLER documented in this encounter Plan of Treatment Upcoming Encounters Date Type Specialty Care Team Description 02/04/2022 Virtual Visit Behavioral Health Janak Marquez, [address] [address] (Wo rk) documented as of this encounter Visit Diagnoses Diagnosis Mild major depression (H) Major depressive disorder, single episod e, mild Anxiety Anxiety state, unspecified documented in this encounter
--- OUTSIDE RECORDS SUMMARY | 2022-01-26 22:33 | XMS_ITS | Encounter Summary ---
:1970 Author Organization [facility] Address [address] [place] [address]. [place] [address] Care Team Providers Name Role Phone Shahriar Roblero MD Primary Care Provider + Reason for Visit Reason Onset Date Comments Refill Request 10/01/2011 citalopram Encounter Details Date Type Department Care Team Description 10/01/2011 Refill [facility] Shahriar Roblero efill Request [facility] Chauncey Mchugh MD (citalopram) [id number] [place] [phone] [address] [phone] [place], [place] [address] (Wo rk) Social History [...] or relatives? How often do you attend alevism or 1 to 4 times per year 03/26 sikh services? 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 Luis Mariscal RN Telephone Encounter - Ce Bhagat - 10/01/2011 1:15 PM CDT DEPRESSION/ANXIETY Last Office Visit R/T Diagnosis: 06/24/11 - Pharyngitis Provider Notes:recheck x Last PHQ-9 score on record= 2 Date: 06/24/11 SSRI: Celexa, Lexapro, Luvox, Paxil, Prozac/Sarafem, Zoloft [...] PHQ9 is not needed Max Refills: 6mths documented in this encounter Plan of Treatment Upcoming Encounters Date Type Specialty Care Team Description 02/04/2022 Virtual Visit Behavioral Health Janak Marquez, [place] [id number] [address] (Wo rk) documented as of this encounter Visit Diagnoses Diagnosis Mild major depression (H) Major depressive disorder, single episod e, mild Anxiety Anxiety state, unspecified documented in this encounter Care Teams Health And Safety Consultant Relationship Specialty Start Date End Date Shahriar Roblero, PCP - General Family Practice 19/0301/13/15 documented as of this encounter
--- OUTSIDE RECORDS SUMMARY | 2022-01-26 22:33 | XMS_ITS | Encounter Summary ---
:1970 Author Organization [facility] Address [address] [place] [address]. [place] [address] Care Team Providers Name Role Phone Unavailable Primary Care Provider Unavailable Reason for Visit Reason Comments Finger finger x-ray on right hand-- -per Derm Encounter Details Date Type Department Care Team Description 06/21/2009 Office Visit [facility] Sunny Roblero on of [facility] [place] Shahriar Chauncey Finger or Toe [address] Celestino Mchugh MD (Primary Dx) [place], [place] [phone] [place] [phone] [place], [place] [address] (Wo rk) Social History [...] or relatives? How often do you attend temple or 1 to 4 times per year 03/26 pentecostalism services? 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 documented as of this encounter Last Filed Vital Signs Vital Sign Reading Time Taken Comments Blood Pressure 110/72 06/21/2009 10:52 AM NATIONAL INVESTIGATIVE PRODUCER Pulse 56 06/21/2009 10:52 AM NATIONAL INVESTIGATIVE PRODUCER Temperature 36.7 ??C (98.1 ??F) 06/21/2009 10:52 AM NATIONAL INVESTIGATIVE PRODUCER Respiratory Rate 16 06/21/2009 10:52 AM NATIONAL INVESTIGATIVE PRODUCER Oxygen Saturation - - Inhaled Oxygen Concentration - - Weight 96.6 kg (213 lb) 06/21/2009 10:52 AM NATIONAL INVESTIGATIVE PRODUCER Height 180.3 cm (5' 11) 06/21/2009 10:52 AM NATIONAL INVESTIGATIVE PRODUCER Body Mass Index 29.71 06/21/2009 10:52 AM NATIONAL INVESTIGATIVE PRODUCER documented in this encounter Progress Notes Shahriar Roblero - 06/21/2009 11:01 AM CST Ezra Yanez is a 38 year old male who presents for possible psoriasis. His right 5th finger is swollen distally and concerned about psoriatic arthritis. His nail has been brittle and cracked. He did see a Molded Goods Spot Picker at Dr Lopez (at [facility]) Please fax results to [phone] OBJECTIVE: BP 110/72 Pulse 56 Temp(Src) 98.1 ??F (36.7 ??C) (Oral) Resp 16 Ht 5' 11 (1.803 m) Wt 213lb (96.616 kg) GENERAL APPEARANCE: healthy, alert and no distress SKIN: thickened yet split nail on 5th finger of right hand MS: mild distal inflammation RT X-RAY EXAM OF FINGER(S): negative ASSESSMENT/PLAN: 686.9BM Inflammation of Finger or Toe (primary encounter diagnosis) Plan: RT X-RAY EXAM OF FINGER(S) Comment: normal Shahriar Roblero MD [facility] ONAL INVESTIGATIVE PRODUCER documented in this encounter Nursing Notes 06/21/2009 10:30 AM CST >> RICH Sarabia Jun 21, 2009 10:55 AM Patient presents with: Finger - finger x-ray on right hand---per Derm Initial BP 110/72 Pulse 56 Temp(Src) 98.1 ??F (36.7 ??C) (Oral) Resp 16 Ht 5' 11 (1.803 m) Wt 213 lb (96.616 kg) Estimated Body mass index is 29.71 kg/(m^2) as calculated from the following: Height as of this encounter: 5' 11(1.803 m). Weight as of this encounter: 213 lb(96.616 kg).. BP completed using cuff size large. Rich Wilburn/PRIYANK documented in this encounter Plan of Treatment Upcoming Encounters Date Type Specialty Care Team Description 02/04/2022 Virtual Visit Behavioral Health Alma Morenahaseeb Richard, [facility] [address] [address] (Wo rk) documented as of this encounter Procedures Procedure Name Priority Date/Time Associated Diagnosis Comme [facility] RT X-RAY EXAM Routine 06/21/2009 11:13 Inflammation of Res ults for this OF FINGER(S) AM NATIONAL INVESTIGATIVE PRODUCER finger or toe procedure are in the results section. documented in this encounter Results RT X-RAY EXAM OF FINGER(S) (06/21/2009 11:13 AM NATIONAL INVESTIGATIVE PRODUCER) Specimen (Source) Anatomical Collection Method Collection Time Re ceived Time Location / / Volume Laterality 06/21/2009 11:13 AM NATIONAL INVESTIGATIVE PRODUCER Impressions RADIOLOGY RESULTS - 06/21/2009 1:[address] FINGER(S) RIGHT 2-3 VW ??Jun 21, 2009 11 :13:00 AM HISTORY: ??Formation. COMPARISON: ??None. FINDINGS: Negative. Shahriar Roblero MD GENERAL IMAGING Performing Organization Address City/State/ZIP Code Phon e Number RADIOLOGY RESULTS documented in this encounter Visit Diagnoses Diagnosis Inflammation of finger or toe - Primary Unspecified local infection of skin and subcutaneous tissue documented in this encounter
--- OUTSIDE RECORDS SUMMARY | 2022-01-26 22:33 | XMS_ITS | Encounter Summary ---
:1970 Author Organization [facility] Address [address] [place] [address]. 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 Appt made for Pt to be seen for x-ray- he's coming in Wednesday at 10:30 to see you. Please fax results to [phone] when we get them, thanks. Anne Horn RN ATIC AGENT Telephone Encounter - Shahriar Roblero - 06/19/2009 3:26 PM CST That's fine or it could be ordered at hospital if that physician has privileges at a hospital Shahriar Roblero MD [facility] ATIC AGENT Telephone Encounter - Anne Horn - 06/19/2009 3:[address] Lopez (at [facility]) wants an x-ray to see if the Pt's 5th digit on R hand has joint swelling vs other. She would like a call back to see if this could be done at out clinic. Pt has left already, but Derm would like a call back either Dr Lopez or Freddy at # listed below. Anne Horn RN ATIC AGENT Telephone Encounter - Anne Horn - 06/19/2009 3:17 PM CST Message copied by ANNE HORN on WedJun 19, 2009 3:17 PM ------ Message from: DAYANA MORGAN Created: WedJun 19, 2009 3:09 PM Regarding: CB-x-ray orders Contact: First and Last name of caller: Freddy Relationship to patient: [facility] Reason for call: would like to send pt to [facility] for x-ray of finger. Wants CB to place order for pt Is it in regards to a medication: no Med Name: na Pharmacy name and location: na Provider they see: Annika Phone number they can be reached at: [phone] Ok to leave a message: yes ATIC AGENT documented in this encounter Plan of Treatment Upcoming Encounters Date Type Specialty Care Team Description 02/04/2022 Virtual Visit Behavioral Health Janak Marquez, [address] [address] (Wo rk) documented as of this encounter Visit Diagnoses Not on filedocumented in this encounter
--- OUTSIDE RECORDS SUMMARY | 2022-01-26 22:33 | XMS_ITS | Encounter Summary ---
:1970 Author Organization [facility] Address [address] [place] [address]. [place] [address] Care Team Providers Name Role Phone Shahriar Roblero MD Primary Care Provider + Reason for Visit Reason Comments Depression celexa refill Encounter Details Date Type Department Care Team Description 04/22/2012 Office Visit [facility] Jeri Ibrahim, Mild major depression (H) (Primary Dx); [facility] [place] PA-C Dyshidrotic eczema [address] [place] [phone] [phone] (Wo rk) Social History Tobacco Use Types [...] 1 to 4 times per year 03/26 restorationism services? 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 documented as of this encounter Last Filed Vital Signs Vital Sign Reading Time Taken Comments Blood Pressure 112/68 04/22/2012 10:59 AM CUSTOMER TECHNICAL SERVICES MANAGER Pulse 98 04/22/2012 10:59 AM CUSTOMER TECHNICAL SERVICES MANAGER Temperature 37.1 ??C (98.7 ??F) 04/22/2012 10:59 AM CUSTOMER TECHNICAL SERVICES MANAGER Respiratory Rate 16 04/22/2012 10:59 AM CUSTOMER TECHNICAL SERVICES MANAGER Oxygen Saturation 96% 04/22/2012 10:59 AM CUSTOMER TECHNICAL SERVICES MANAGER Inhaled Oxygen Concentration - - Weight 99.8 kg (220 lb) 04/22/2012 10:59 AM CUSTOMER TECHNICAL SERVICES MANAGER Height 182.9 cm (6') 04/22/2012 10:59 AM CUSTOMER TECHNICAL SERVICES MANAGER Body Mass Index 29.84 04/22/2012 10:59 AM CUSTOMER TECHNICAL SERVICES MANAGER documented in this encounter Progress Notes Jeri Ibrahim PA-C - 04/22/2012 11:43 AM CST SUBJECTIVE: Ezra Yanez is a 41 year old male who presents to clinic today for the following health issues: Depression Follow-Up ?? Status since last visit: stable ?? See PHQ-9 for current symptoms. ?? Other associated symptoms:None ?? Complicating factors: Significant life event: No Current substance abuse: None Anxiety / Panic / Manic symptoms: No PHQ-9 Central African PHQ-9 Any Language ?? Amount of exercise or daily activities, outside of work: 2 day(s) per week ?? Problems taking medications regularly No ?? Medication side effects: No ?? Patient states he tried going to 20 mg daily of Celexa, but felt it made his fuse shorter. Other concerns to address: Dry skin on right hand. ROS: C: NEGATIVE for fever, chills, change in weight E/M: NEGATIVE for ear, mouth and throat problems R: NEGATIVE for significant cough or SOB CV: NEGATIVE for chest pain, palpitations or peripheral edema Problem list, Medication list, Allergies, and Medical/Social/Surgical histories reviewed in EPIC andupdated as appropriate. OBJECTIVE: BP 112/68 Pulse 98 Temp(Src) 98.7 ??F (37.1 ??C) (Oral) Resp 16 Ht 6' (1.829 m) Wt 220 lb (99.791 kg) BMI 29.84 kg/m2 SpO2 96% Body mass index is 29.84 kg/(m^2). GENERAL: healthy, alert and no distress MS: extremities- no gross deformities noted, no edema SKIN: erythema of right hand, NEURO: strength and tone- normal, sensory exam- grossly normal, mentation- intact, speech- normal, reflexes- symmetric PSYCH: Alert and oriented times 3; speech- coherent , normal rate and volume; able to articulate logical thoughts, able to abstract reason, no tangential thoughts, no hallucinations or delusions, affect- normal LYMPHATICS: ant. cervical- normal, post. cervical- normal, axillary- normal, supraclavicular- normal, inguinal- normal ASSESSMENT/PLAN: Depression; recurrent episode-- Mild Associated with the following complications: None Plan: No changes in the patient's current treatment plan Mild major depression (primary encounter diagnosis) Comment: PHQ-9 = 3 today Plan: citalopram (CELEXA) 40 MG tablet, PHQ-9 Depression Screening, DEPRESSION ACTION PLAN (DAP), PHQ-9 ORDER - select when completing PHQ-9 Dyshidrotic eczema Comment: Plan: triamcinolone (KENALOG) 0.1 % ointment Aquaphor or Eucerin Risks, benefits and alternatives of treatments discussed. Plan agreed on. Next Provider visit: Follow up in 6 months. Jeri Ibrahim OMER TECHNICAL SERVICES MANAGER documented in this encounter Nursing Notes 04/22/2012 10:45 AM CST >> HUGO GIL Fri Apr 22, 2012 11:03 AM Patient presents with: Depression - celexa refill Initial BP 112/68 Pulse 98 Temp(Src) 98.7 ??F (37.1 ??C) (Oral) Resp 16 Ht 6' (1.829 m) Wt220 lb (99.791 kg) BMI 29.84 kg/m2 SpO2 96% Estimated Body mass index is 29.84 kg/(m^2) as calculated from the following: Height as of this encounter: 6' 0(1.829 m). Weight as of this encounter: 220 lb(99.791 kg).. BP completed using cuff size: large HEALTH MAINTENANCE REVIEWED WITH PT Hugo Gil CMA documented in this encounter Plan of Treatment Upcoming Encounters Date Type Specialty Care Team Description 02/04/2022 Virtual Visit Behavioral Health Janak Marquez, [facility] [address] [address] (Wo rk) documented as of this encounter Visit Diagnoses Diagnosis Mild major depression (H) - Primary Major depressive disorder, single episod e, mild Dyshidrotic eczema Dyshidrosis documented in this encounter Care Teams Quality Worker Relationship Specialty Start Date End Date Shahriar Roblero, PCP - General Family Practice 19/0301/13/15 documented as of this encounter
--- OUTSIDE RECORDS SUMMARY | 2022-01-26 22:33 | XMS_ITS | Encounter Summary ---
:1970 Author Organization [facility] Address [address] [place] [address]. [place] [address] Care Team Providers Name Role Phone Shahriar Roblero MD Primary Care Provider + Reason for Visit Reason Comments Derm Problem possible ingrown hair Blood Draw pt would like hsv testing gi rlfriend tested yesterday still waiting on results Encounter Details Date Type Department Care Team Description 07/27/2012 Office Visit [facility] Mukund Clarke Formati on of vesicles (Primary Dx); Clinic [place] MD Moderate major depression (H) [address] [place] [phone] Social History Tobacco Use Types Packs/Day Years [...] 1 to 4 times per year 03/26 lutheran services? 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 documented as of this encounter Last Filed Vital Signs Vital Sign Reading Time Taken Comments Blood Pressure 118/74 07/27/2012 10:47 AM CDT Pulse 95 07/27/2012 10:47 AM CDT Temperature 36.9 ??C (98.5 ??F) 07/27/2012 10:47 AM CDT Respiratory Rate 16 07/27/2012 10:47 AM CDT Oxygen Saturation 98% 07/27/2012 10:47 AM CDT Inhaled Oxygen Concentration - - Weight 98.4 kg (217 lb) 07/27/2012 10:47 AM CDT Height 180.3 cm (5' 11) 07/27/2012 10:47 AM CDT Body Mass Index 30.27 07/27/2012 10:47 AM CDT documented in this encounter Progress Notes Mukund Clarke MD - 08/01/2012 5:03 PM CDT Quick Note: Tests are all normal except the culture, which makes the diagnosis MUKUND CLARKE Mukund Clarke MD - 07/27/2012 11:46 AM CDT After unprotected sexual contact patient's partner developed inter labial sores. He reports 1 1/2 weeks of phallic base sores he thought were ingrown hairs, so he pulled out hairs with tweezers. These continue to occur though, and, after the call above, he is now concerned about STDs. PMH includes episodic blisters on scrotum rare ROS no dysuria, no systemic sx BP 118/74 Pulse 95 Temp(Src) 98.5 ??F (36.9 ??C) (Oral) Resp 16 Ht 5' 11 (1.803 m) Wt 217lb (98.431 kg) BMI 30.27 kg/m2 SpO2 98% Phallic base with 1 venereal wart, numerous ulcers and some fresh vesicles, all the same size on erythematous base 1 ulcer is unroofed for culture ASSESSMENT / PLAN: 709.8 Formation of vesicles (primary encounter diagnosis) Comment: I suspect HSV. Discussed. Also discussed his wart, stable for decades Plan: Herpes: HSV 1 and 2 IgG and IgM, with reflex, HIV 1 and 2 Antibody, Chlamydia trachomatis PCR, Neisseria gonorrhoeae PCR, clindamycin (CLEOCIN) 150 MG capsule, valACYclovir (VALTREX) 1000 mg tablet, Viral culture, Anti treponema EIA Mukund Clarke MD documented in this encounter Nursing Notes 07/27/2012 10:45 AM CDT >> BABAR CHIRINOS WedJul 27, 2012 10:55 AM Patient presents with: Derm Problem - possible ingrown hair Blood Draw - pt would like hsv testing girlfriend tested yesterday still waiting on results Initial BP 118/74 Pulse 95 Temp(Src) 98.5 ??F (36.9 ??C) (Oral) Resp 16 Ht 5' 11 (1.803 m) Wt 217 lb (98.431 kg) BMI 30.27 kg/m2 SpO2 98% Estimated Body mass index is 30.27 kg/(m^2) as calculated from the following: Height as of this encounter: 5' 11(1.803 m). Weight as of this encounter: 217 lb(98.431 kg).. BP completed using cuff size: large Babar Chirinos CMA documented in this encounter Miscellaneous Notes Addendum Note - Chloé Pimentel - 07/27/2012 2:15 PM CDT Addended by: CHLOÉ PIMENTEL on: 07/27/2012 02:15 PM Modules accepted: Orders, SmartSet documented in this encounter Plan of Treatment Upcoming Encounters Date Type Specialty Care Team Description 02/04/2022 Virtual Visit Behavioral Health Janak Marquez, [place] [id number] [address] [address] (Wo rk) documented as of this encounter Procedures Procedure Name Priority Date/Time Associated Comments Diagnosis VIRAL CULTURE Routine 07/27/2012 11:16 Formation of Results fo r this AM CDT vesicles procedure are i n the results section. NEISSERIA GONORRHOEAE Routine 07/27/2012 11:14 Formation of Re sults for this PCR AM CDT vesicles procedure are i n the results section. HSV 1 AND 2 IGG IGM Routine 07/27/2012 11:14 Formation of Resu lts for this WITH REFLEX AM CDT vesicles procedure are i n the results section. HIV 1 AND 2 ANTIBODY Routine 07/27/2012 11:14 Formation of Res ults for this (QUEST) AM CDT vesicles procedure are i n the results section. CHLAMYDIA TRACHOMATIS Routine 07/27/2012 11:14 Formation of Re sults for this PCR AM CDT vesicles procedure are i n the results section. ANTI TREPONEMA Routine 07/27/2012 11:14 Formation of Results f or this AM CDT vesicles procedure are i n the results section. documented in this encounter Results Viral culture (07/27/2012 11:16 AM CDT) [facility] Method Time Signature Viral Culture PENILE SHAFT [facility] LAB Result Herpes [facility] simplex MICROBIOLOGY virus isolated Status FINAL [facility] MICROBIOLOGY Specimen Anatomical Collection Method Collection Time Receive d Time (Source) Location / / Volume Laterality 07/27/2012 11:16 07/27/2012 AM CDT 11:17 AM CDT Mukund Clarke MD LAB - MICRO GENERAL ORDERABL ES Performing Organization Address City/[facility]/ZIP Code Phon e Number [address] [address] [facility] [address] [place] [address] [facility] MICROBIOLOGY Anti treponema EIA (07/27/2012 11:14 AM CDT) [facility] Method Time Signature Treponema Negative NEG [facility] pallidum MICROBIOLOGY Antibody Specimen Anatomical Collection Method Collection Time Receive d Time (Source) Location / / Volume Laterality Blood specimen 07/27/2012 11:14 3 (specimen) AM CDT 11:38 AM CDT Mukund Clarke MD LAB - BLOOD ORDERABLES Performing Organization Address City/[facility]/ZIP Code Phon e Number [facility] [address] [place] [address] [facility] MICROBIOLOGY Neisseria gonorrhoeae PCR (07/27/2012 11:14 AM CDT) Component Value Ref Test Analysis Performed At [facility] Method [facility] Specimen Urine [facility] LAB N Gonorrhea Negative for N. gonorrhoeae rRNA by ruling machine operator mediated amplification. [facility] PCR A negative result by transc ription mediated amplification does not preclude the MICROBIOLOGY presence of N. gonorrhoeae infection because re sults are dependent on proper and adequate collection, absence of inhibitors, and suffici ent rRNA to be detected. Specimen Anatomical Collection Method Collection Time Receive d Time (Source) Location / / Volume Laterality Urine specimen 07/27/2012 11:14 3 (specimen) AM CDT 11:15 AM CDT Mukund Clarke MD LAB - MICRO GENERAL ORDERABL ES Performing Organization Address City/[facility]/ZIP Code Phon e Number [id number] [place] [address] [place] [address] [facility] MICROBIOLOGY Chlamydia trachomatis PCR (07/27/2012 11:14 AM CDT) Component Value Ref Test Analysis Performed At [facility] Specimen Urine [facility] LAB Chlamydia Negative for C. trachomatis rRNA by ruling machine operator mediated amplification. [facility] Trachomatis A negative result by transc ription mediated amplification does not preclude the MICROBIOLOGY PCR presence of C. trachomatis infection because results are dependent on proper and adequate collection, absence of inhibitors, and suffici ent rRNA to be detected. Specimen Anatomical Collection Method Collection Time Receive d Time (Source) Location / / Volume Laterality Urine specimen 07/27/2012 11:14 3 (specimen) AM CDT 11:15 AM CDT Mukund Clarke MD LAB - MICRO GENERAL ORDERABL ES Performing Organization Address City/State/ZIP Code Phon e Number [address] [address] [facility] [address] [place] [address] [facility] MICROBIOLOGY HIV 1 and 2 Antibody (07/27/2012 11:14 AM CDT) Patholo gist Method Time Signature HIV 1&2 Negative NEG [facility] Antibody MICROBIOLOGY Specimen Anatomical Collection Method Collection Time Receive d Time (Source) Location / / Volume Laterality Blood specimen 07/27/2012 11:14 3 (specimen) AM CDT 11:15 AM CDT Mukund Clarke MD LAB - BLOOD ORDERABLES Performing Organization Address City/[facility]/ZIP Code Phon e Number [facility] [address] [place] [address] [place] [facility] MICROBIOLOGY Herpes: HSV 1 and 2 IgG and IgM, with reflex (07/27/2012 11:14 AM CDT) P athologist Signature HSV IgG 0.00 Index [facility] Antibody Value MICROBIOLOGY W/Reflex Comment: Negative, suggests no immunolog ic exposure. Herpes Simplex Virus IgM Antibody 0.85 Index Value [facility] MICROBIOLOGY Comment: No detectable antibody. Specimen Anatomical Collection Method Collection Time Receive d Time (Source) Location / / Volume Laterality Blood specimen 07/27/2012 11:14 3 (specimen) AM CDT 11:15 AM CDT Mukund Clarke MD LAB - BLOOD ORDERABLES Performing Organization Address City/[facility]/ZIP Code Phon e Number [facility] [address] [place] [address] [place] [facility] MICROBIOLOGY documented in this encounter Visit Diagnoses Diagnosis Formation of vesicles - Primary Other specified disorder of skin Moderate major depression (H) Major depressive disorder, single episod e, moderate documented in this encounter Care Teams Tariff Publishing Agent Relationship Specialty Start Date End Date Shahriar Roblero PCP - General Family Practice 19/0301/13/15 documented as of this encounter
--- OUTSIDE RECORDS SUMMARY | 2022-01-26 22:33 | XMS_ITS | Encounter Summary ---
:1970 Author Organization [facility] Address [address] [place] [address]. [place] [address] Care Team Providers Name Role Phone Shahriar Roblero MD Primary Care Provider + Reason for Visit Reason Comments Pharyngitis body aches, fatigue and both kids have strep Encounter Details Date Type Department Care Team Description 06/24/2011 Office Visit [facility] Jeri Ibrahim, Levon e pharyngitis (Primary Dx); Clinic [place] PA-C Screening for depression [address] [place] [id number] [phone] (Wo rk) Social History Tobacco Use Types [...] 1 to 4 times per year 03/26 alevism services? 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 documented as of this encounter Last Filed Vital Signs Vital Sign Reading Time Taken Comments Blood Pressure 116/62 06/24/2011 4:13 PM MICROBIOLOGY TECHNICIAN Pulse 100 06/24/2011 4:13 PM MICROBIOLOGY TECHNICIAN Temperature 36.9 ??C (98.5 ??F) 06/24/2011 4:13 PM MICROBIOLOGY TECHNICIAN Respiratory Rate 20 06/24/2011 4:13 PM MICROBIOLOGY TECHNICIAN Oxygen Saturation 96% 06/24/2011 4:13 PM MICROBIOLOGY TECHNICIAN Inhaled Oxygen Concentration - - Weight 97.1 kg (214 lb) 06/24/2011 4:13 PM MICROBIOLOGY TECHNICIAN Height 182.9 cm (6') 06/24/2011 4:13 PM MICROBIOLOGY TECHNICIAN Body Mass Index 29.02 06/24/2011 4:13 PM MICROBIOLOGY TECHNICIAN documented in this encounter Progress Notes Sydnee Chacon - 06/25/2011 8:08 AM MICROBIOLOGY TECHNICIAN Addended by: SYDNEE MARTINEZ on: 06/25/2011 Modules accepted: Orders, SmartSet OBIOLOGY TECHNICIAN Jeri Ibrahim PA-C - 06/24/2011 4:19 PM CST SUBJECTIVE: 40 year old male with sore throat, myalgias, swollen glands, headache and fever for 2 days. No history of rheumatic fever. Both children dx with strep 4 days ago. OBJECTIVE: Vitals as noted above. Appears mild distress. Ears: normal Oropharynx: tonsillar hypertrophy and mild erythema Neck: few small anterior cervical nodes Lungs: chest clear to IPPA, no tachypnea, retractions or cyanosis, S1, S2 normal, no murmur, no gallop, rate regular and clear to IPPA Rapid Strep test is positive ASSESSMENT: Streptococcal pharyngitis PLAN: Per orders. Gargle, use acetaminophen or other OTC analgesic, and take Rx fully as prescribed.Call if other family members develop similar symptoms. See prn. OBIOLOGY TECHNICIAN documented in this encounter Nursing Notes 06/24/2011 4:00 PM CST >> GLENDA JALLOH Wed Jun 24, 2011 4:18 PM Patient presents with: Pharyngitis - body aches, fatigue and both kids have strep Initial BP 116/62 Pulse 100 Temp(Src) 98.5 ??F (36.9 ??C) (Oral) Resp 20 Ht 6' (1.829 m) Wt 214 lb (97.07 kg) BMI 29.02 kg/m2 SpO2 96% Estimated Body mass index is 29.02 kg/(m^2) as calculated from the following: Height as of this encounter: 6' 0(1.829 m). Weight as of this encounter: 214 lb(97.07 kg).. BP completed using cuff size large Glenda Jalloh CMA documented in this encounter Plan of Treatment Upcoming Encounters Date Type Specialty Care Team Description 02/04/2022 Virtual Visit [facility] Health MarquezJanak, [place] [id number] [address] (Wo rk) documented as of this encounter Procedures Procedure Name Priority Date/Time Associated Diagnosis Comme nts RAPID STREP SCREEN Routine 06/24/2011 4:21 PM Acute pharyngiti s Results for this THROAT SWAB MICROBIOLOGY TECHNICIAN procedure are i n the results section. documented in this encounter Results (ABNORMAL) Strep, Rapid Screen (06/24/2011 4:21 PM MICROBIOLOGY TECHNICIAN) Component Value Ref Test Analysis Performed At [facility] Range Method Time Signature Specimen Throat [place] Description [facility] Rapid Strep A POSITIVE: Group [place] Screen A Streptococcal [facility] antigen detected CLINIC LAB by immunoassay. (A) Micro Report FINAL 06/24/2011 [place] Status [facility] Specimen Anatomical Collection Method Collection Time Receive d Time (Source) Location / / Volume Laterality Specimen from 06/24/2011 4:21 PM 06/24/19 12 4:22 throat MICROBIOLOGY TECHNICIAN PM MICROBIOLOGY TECHNICIAN (specimen) Jeri Ibrahim PA-C LAB - MICRO GENERAL ORDERABL ES Performing Organization Address City/State/ZIP Code Phon e Number [facility] [id number] [place] [phone] [facility] documented in this encounter Visit Diagnoses Diagnosis Acute pharyngitis - Primary Screening for depression documented in this encounter Care Teams Director [employer] Relationship Specialty Start Date End Date Shahriar Roblero, PCP - General Family Practice 19/0301/13/15 documented as of this encounter
--- OUTSIDE RECORDS SUMMARY | 2022-01-26 22:33 | XMS_ITS | Encounter Summary ---
:1970 Author Organization [facility] Address [address] [place] [address]. [place] [address] Care Team Providers Name Role Phone Shahriar Roblero MD Primary Care Provider + Reason for Visit Reason Onset Date Comments Refill Request 04/06/2012 citalopram Encounter Details Date Type Department Care Team Description 04/06/2012 Refill [facility] Shahriar Roblero efill Request [facility] Chauncey Mchugh MD (citalopram) [id number] [place] [id number] [address] [phone] [place], [place] [address] (Wo rk) Social History [...] 1 to 4 times per year 03/26 yarsani services? Do you belong to any clubs [...] slept in a group home (including now)? 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 Letter sent due for OV. Pt is not checking [employer] messages. Luis Mariscal RN ICAL DATA ASSOCIATE documented in this encounter Plan of Treatment Upcoming Encounters Date Type Specialty Care Team Description 02/04/2022 Virtual Visit Behavioral Health Janak Marquez, [address] [address] (Wo rk) documented as of this encounter Visit Diagnoses Diagnosis Mild major depression (H) - Primary Major depressive disorder, single episod e, mild documented in this encounter Care Teams Maintenance Data Analyst Relationship Specialty Start Date End Date Shahriar Roblero, PCP - General Family Practice 19/0301/13/15 documented as of this encounter
--- OUTSIDE RECORDS SUMMARY | 2022-01-26 22:33 | XMS_ITS | Encounter Summary ---
:1970 Author Organization [facility] Address [address] [place] [address]. [place] [address] Care Team Providers Name Role Phone Shahriar Roblero MD Primary Care Provider + Reason for Visit Reason Comments Consult vertigo, feels very off, vis ion not right, fatigue Encounter Details Date Type Department Care Team Description 12/03/2010 Office Visit [facility] Gurdeep Gonzales, Micah almendarez depression (H); Clinic [place] Anxiety; [id number] [place] [id number] [place] [address] [place] [address] [phone] Social History Tobacco Use Types Packs/Day Years [...] at Date Recorded Male 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 documented as of this encounter Last Filed Vital Signs Vital Sign Reading Time Taken Comments Blood Pressure 118/68 12/03/2010 2:49 PM CDT Pulse 86 12/03/2010 2:49 PM CDT Temperature 37.1 ??C (98.7 ??F) 12/03/2010 2:49 PM CDT Respiratory Rate 20 12/03/2010 2:49 PM CDT Oxygen Saturation 95% 12/03/2010 2:49 PM CDT Inhaled Oxygen Concentration - - Weight 95.7 kg (211 lb) 12/03/2010 2:49 PM CDT Height 180.3 cm (5' 11) 12/03/2010 2:49 PM CDT Body Mass Index 29.43 12/03/2010 2:49 PM CDT documented in this encounter Progress Notes Gurdeep Gonzales MD - 12/03/2010 3:21 PM CDT celexa 40 mg SUBJECTIVE: Ezra Yanez, a 40 year old male scheduled an appointment to discuss the following issues: MILD MAJOR DEPRESSION ANXIETY VERTIGO He was previously seen in the emergency room for his vertigo. He was given no medication. Informed he had a benign labyrinthitis. Does not feel like the room is spinning around him but feels like he's not there. He denies any problems with orthopnea. He has not passed out. Medical, social, surgical, and family histories reviewed. ROS: C: NEGATIVE for fever, chills E: NEGATIVE for vision changes R: NEGATIVE for significant cough or SOB CV: NEGATIVE for chest pain, palpitations GI: NEGATIVE for nausea, abdominal pain, heartburn, or change in bowel habits : NEGATIVE for frequency, dysuria, or hematuria M: NEGATIVE for significant arthralgias or myalgia NEURO: see above, in addition reviewed his notes in the chart OBJECTIVE: BP 118/68 Pulse 86 Temp(Src) 98.7 ??F (37.1 ??C) (Oral) Resp 20 Ht 5' 11 (1.803 m) Wt 211lb (95.709 kg) BMI 29.43 kg/m2 SpO2 95% EXAM: GENERAL APPEARANCE: healthy, alert and no distress EYES: EOMI, PERRL HENT: ear canals and TM's normal and nose and mouth without ulcers or lesions RESP: lungs clear to auscultation - no rales, rhonchi or wheezes CV: regular rates and rhythm, normal S1 S2, no S3 or S4 and no murmur, click or rub - ABDOMEN: soft, nontender, no HSM or masses and bowel sounds normal MS: extremities normal- no gross deformities noted, no evidence of inflammation in joints, FROM in all extremities. NEURO: Normal strength and tone, sensory exam grossly normal, mentation intact and speech normal ASSESSMENT/PLAN: 296.21E Mild major depression Comment: Plan: citalopram (CELEXA) 40 MG tablet 300.00E Anxiety Comment: Plan: PHQ-9 DEPRESSION SCREENING ORDER, citalopram (CELEXA) 40 MG tablet 780.4K Vertigo Comment: Plan: EKG 12-lead complete w/read - Clinics, Basic metabolic panel, CBC with platelets differential, *!*UA Macroscopic with Reflex to Micro documented in this encounter Nursing Notes 12/03/2010 2:30 PM CDT >> IRA ELIZABETH WedDec 03, 2010 2:53 PM Patient presents with: Consult - vertigo, feels very off, vision not right, fatigue Initial BP 118/68 Pulse 86 Temp(Src) 98.7 ??F (37.1 ??C) (Oral) Resp 20 Ht 5' 11 (1.803 m) Wt 211 lb (95.709 kg) BMI 29.43 kg/m2 SpO2 95% Estimated Body mass index is 29.43 kg/(m^2) as calculated from the following: Height as of this encounter: 5' 11(1.803 m). Weight as of this encounter: 211 lb(95.709 kg). BP completed using cuff size large Right Arm Health Maintenance reviewed - Yes: Tobacco Verified: Yes Payor/Verify RX Benefits/Reconcile Disp Completed if allowed: Yes Family History Updated: Yes MyChart Offered: Yes Immunizations Up to Date: Yes Ira Elizabeth LPN documented in this encounter Plan of Treatment Upcoming Encounters Date Type Specialty Care Team Description 02/04/2022 Virtual Visit Behavioral Health Janak Marquez, [facility] [address] [address] (Wo rk) documented as of this encounter Procedures Procedure Name Priority Date/Time Associated Comments Diagnosis MRA BRAIN ([place] OF Routine 12/09/2010 9:20 AM Vertigo R esults for this GRAY) W/O CONTRAST CDT procedu re are in the results section. CBC WITH PLATELETS & Routine 12/03/2010 3:26 PM [place] R esults for this DIFFERENTIAL CDT procedure are i n the results section. UA MACROSCOPIC WITH Routine 12/03/2010 3:26 PM [place] Re sults for this REFLEX TO MICRO CDT procedure ar e in the results section. BASIC METABOLIC PANEL Routine 12/03/2010 3:26 PM [place] Results for this CDT procedure are i n the results section. EKG 12-LEAD COMPLETE Routine 12/03/2010 [place] Results for this W/READ - CLINICS procedure a re in the results section. documented in this encounter Results MRI Angiogram head w/o contrast* (12/09/2010 9:20 AM CDT) Anatomical Region Laterality Modality Head, SUBRAD MR NEURO, UMP MR NEURO Othe r Specimen (Source) Anatomical Collection Method Collection Time Re ceived Time Location / / Volume Laterality 12/09/2010 9:20 AM CDT Impressions 12/09/2010 1:02 PM CDT MRA HEAD WITHOUT CONTRAST ??Dec 09, 2010 9:20 AM HISTORY: Vertigo for about 4 weeks. TECHNIQUE: 3D [id number] MR angiogra m of the head without contrast. COMPARISON: MR angiogram dated 11/13/2008 . FINDINGS: The visualized portions of the distal internal carotid and vertebral arteries, the basilar artery, che[place] of [place], and the proximal anterior, middle and posterior cerebral arteries all appear normal. There is no evidence of aneurysm or vascular stenosis or occlusion. IMPRESSION: Negative MR angiogram of the head. No change. Gurdeep Gonzales MD IMG MRI ORDERABLES *!*UA Macroscopic with Reflex to Micro (12/03/2010 3:26 PM CDT) [facility] Method Time Signature Color Urine Yellow [facility] Appearance Urine Clear [facility] Glucose Urine Negative NEG mg/dL [facility] Bilirubin Urine Negative NEG [facility] Ketones Urine Negative NEG mg/dL [facility] Specific [place] 1.020 1.003 - [place] Urine 1.035 [facility] Blood Urine Negative NEG [facility] pH Urine 6.5 5.0 - 7.0 [place] pH [facility] Protein Albumin Negative NEG mg/dL [place] Urine [facility] Urobilinogen 0.2 0.2 - 1.0 [place] Urine EU/dL [facility] Nitrite Urine Negative NEG [facility] Leukocyte Negative NEG [place] Esterase Urine [facility] Source Midstream [place] Urine [facility] Specimen Anatomical Collection Method Collection Time Receive d Time (Source) Location / / Volume Laterality Urine specimen 12/03/2010 3:26 PM 011 3:29 (specimen) CDT PM CDT Gurdeep Gonzales MD LAB - URINE ORDERABLES Performing Organization Address City/State/ZIP Code Phon e Number [facility] [address] [place], [place] [id number] [facility] (ABNORMAL) CBC with platelets differential (12/03/2010 3:26 PM CDT) [facility] gist Method Time Signature WBC 6.4 4.0 - [place] 11.0 [facility] 10e9/L [facility] RBC Count 5.17 4.4 - 5.9 [place] 10e12/L [facility] Hemoglobin 15.8 13.3 - [facility] 17.7 g/dL [facility] Hematocrit 46.6 40.0 - [facility] 53.0 % [facility] MCV 90 78 - 100 [place] fl [facility] MCH 30.6 26.5 - [facility] 33.0 pg [facility] MCHC 33.9 31.5 - [facility] 36.5 g/dL [facility] RDW 13.4 10.0 - [facility] 15.0 % [facility] Platelet Count 243 150 - 450 [place] 10e9/L [facility] Diff Method Automated [place] Method [facility] % Neutrophils 54.7 40 - 75 % [facility] % Lymphocytes 29.7 20 - 48 % [facility] % Monocytes 12.7 (H) 0 - 12 % [facility] % Eosinophils 2.4 0 - 6 % [facility] % Basophils 0.5 0 - 2 % [facility] Absolute 3.5 1.6 - 8.3 [place] Neutrophil 10e9/L [facility] Absolute 1.9 0.8 - 5.3 [place] Lymphocytes 10e9/L [facility] Absolute 0.8 0.0 - 1.3 [place] Monocytes 10e9/L [facility] Absolute 0.2 0.0 - 0.7 [place] Eosinophils 10e9/L [facility] Absolute 0.0 0.0 - 0.2 [place] Basophils 10e9/L [facility] Specimen Anatomical Collection Method Collection Time Receive d Time (Source) Location / / Volume Laterality Blood specimen 12/03/2010 3:26 PM 011 3:29 (specimen) CDT PM CDT Gurdeep Gonzales MD LAB - BLOOD ORDERABLES Performing Organization Address City/State/ZIP Code Phon e Number [address] [address] [facility] Basic metabolic panel (12/03/2010 3:26 PM CDT) P athologist Signature Sodium 140 133 - 144 [place] mmol/L [facility]IC [facility] Potassium 3.8 3.4 - 5.3 [place] mmol/L [facility] Chloride 101 94 - 109 [place] mmol/L [facility] Carbon Dioxide 30 20 - 32 [place] mmol/L [facility] Anion Gap 10 6 - 17 [place] mmol/L [facility] Glucose 71 60 - 99 [place] mg/dL [facility] Urea Nitrogen 15 5 - 24 [place] mg/dL [facility] Creatinine 1.05 0.66 - [place] 1.25 mg/dL [facility] GFR Estimate 79 >60 [place] mL/min/1.7 [facility] m2 GFR Estimate If >90 >60 [facility] Black mL/min/1.7 [facility] m2 Calcium 9.3 8.5 - 10.4 [facility] Specimen Anatomical Collection Method Collection Time Receive d Time (Source) Location / / Volume Laterality Blood specimen 12/03/2010 3:26 PM 011 3:29 (specimen) CDT PM CDT Gurdeep Gonzales MD LAB - BLOOD ORDERABLES Performing Organization Address City/State/ZIP Code Phon e Number [facility] [address] [place] [address] [facility] EKG 12-lead complete w/read - Clinics (12/03/2010) Narrative This result has an attachment that is no t available. Gurdeep Gonzales MD ECG ORDERABLES documented in this encounter Visit Diagnoses Diagnosis Mild major depression (H) Major depressive disorder, single episod e, mild Anxiety Anxiety state, unspecified Vertigo Dizziness and giddiness documented in this encounter Care Teams Clinical Research Spec Relationship Specialty Start Date End Date Shahriar Roblero, PCP - General Family Practice 19/0301/13/15 documented as of this encounter
--- OUTSIDE RECORDS SUMMARY | 2022-01-26 22:33 | XMS_ITS | Encounter Summary ---
:1970 Author Organization [facility] [place] Address [address] [place] [address]. [place] [address] Care Team Providers Name Role Phone Shahriar Roblero MD Primary Care Provider + Reason for Visit Reason Comments Previsit PVP 1st attempt 05/19/2010 l f Recheck Medication possibly getting off? out of refills Derm Problem left thumb x 2years Encounter Details Date Type Department Care Team Description 05/20/2010 Office Visit [facility] Shahriar Roblero ild major depression (H); Clinic [place] Chauncey Mchugh MD Anxiety; [address] [facility] [place] [address] [address] [phone] [place], [place] [address] (Wo rk) Social History [...] 1 to 4 times per year 03/26 mormonism services? 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 5:06 PM [facility] documented as of this encounter Last Filed Vital Signs Vital Sign Reading Time Taken Comments Blood Pressure 118/72 05/20/2010 11:00 AM [facility] Pulse 96 05/20/2010 11:00 AM [facility] Temperature 36.7 ??C (98 ??F) 05/20/2010 11:00 AM [facility] Respiratory Rate - - Oxygen Saturation 97% 05/20/2010 11:00 AM [facility] Inhaled Oxygen Concentration - - Weight 94.8 kg (209 lb) 05/20/2010 11:00 AM [facility] Height - - Body Mass Index 29.99 10/14/2009 1:59 PM CDT documented in this encounter Progress Notes Shahriar Roblero - 05/20/2010 11:40 AM CST SUBJECTIVE: evaluation and treatment of depressive symptoms. Current symptoms improved: depressed mood, diminished interest or pleasure in activities, weight loss, insomnia, psychomotor agitation, psychomotor retardation, difficulty with concentration, anxiety, irritablility. Onset approximately 9 months ago; symptoms have been gradually improving since starting medications.Family history is positive for depression in the patient???s mother and sister(s). Previous treatment he has tried include group therapy, individual therapy Depression risk factors: stress and marital issues Organic causes of depression present: none Ezra reports: no previous history with chemical dependency or abuse His divorce is final. He has been seeing a counselor. He has been less stress. He has a mutual agreement with the kids. Patient Active Problem List Diagnoses Code ??? FHx: Aneurysm V19.8T ??? GERD (Gastroesophageal Reflux Disease) 530.81K ??? Moderate Major Depression 296.22F ??? Anxiety 300.00E ??? Marital Conflict V61.10G ??? CARDIOVASCULAR SCREENING; LDL GOAL LESS THAN 160 V81.2LR Current outpatient prescriptions Medication Sig ??? citalopram (CELEXA) 40 MG tablet Take 1 tablet by mouth daily. ??? MULTIVITAMIN TABS OR 1 qd History Substance Use Topics ??? Smoking status: Former Smoker Quit date: 10/15/1998 ??? Smokeless tobacco: Never Used ??? Alcohol Use: Yes OBJECTIVE: Blood pressure 118/72, pulse 96, temperature 98 ??F (36.7 ??C), temperature source Oral, weight 209 lb (94.802 kg), SpO2 97.00%. Psych: Alert and oriented times 3; coherent [...] be high average. Today's Depression Rating was 3 ASSESSMENT/PLAN: 296.21E Mild major depression Comment: doing better Plan: will wean down to citalopram (CELEXA) 20 MG tablet 300.00E Anxiety Comment: stable Plan: citalopram (CELEXA) 20 078.19E Common wart Comment: left thumb wart Plan: will see Dermatology Shahriar Roblero MD [facility] [place] [facility] documented in this encounter Nursing Notes 05/20/2010 11:00 AM CST >> CHLOÉ Levin May 20, 2010 11:06 AM Patient presents with: Previsit - PVP 1st attempt 05/19/2010 lf Recheck Medication - possibly getting off? out of refills Derm Problem - left thumb x 2years Initial BP 118/72 Pulse 96 Temp(Src) 98 ??F (36.7 ??C) (Oral) Wt 209 lb (94.802 kg) SpO2 97%BMIHIS@ BP completed using cuff size large right Arm Health Maintenance Updated with Patient:Yes Tobacco Verified: Yes Payor/Verify RX Benefits/Reconcile Disp Completed if allowed: Yes Family History Updated: Yes Immunizations Up to Date: yes Mychart Offered: Yes Chloé Crowley MA documented in this encounter Plan of Treatment Upcoming Encounters Date Type Specialty Care Team Description 02/04/2022 Virtual Visit Behavioral Health Janak Marquez, [address] [address] (Wo rk) documented as of this encounter Visit Diagnoses Diagnosis Mild major depression (H) Major depressive disorder, single episod e, mild Anxiety Anxiety state, unspecified Common wart Other specified viral warts documented in this encounter Care Teams Recycle Worker Relationship Specialty Start Date End Date Shahriar Roblero, PCP - General Family Practice 19/0301/13/15 documented as of this encounter
--- OUTSIDE RECORDS SUMMARY | 2022-01-26 22:33 | XMS_ITS | Encounter Summary ---
:1970 Author Organization [facility] Address [address] [place] [address]. [place] [address] Care Team Providers Name Role Phone Shahriar Roblero MD Primary Care Provider + Reason for Visit Reason Onset Date Comments Refill Request 03/20/2011 Celexa Encounter Details Date Type Department Care Team Description 03/20/2011 Refill [facility] Shahriar Roblero efill Request [facility] Chauncey Mchugh MD (Celexa) [address] [place] [id number] [address] [phone] [place], [place] [address] (Wo rk) Social History [...] 1 to 4 times per year 03/26 jewish services? 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 Message handled by Nurse Triage Ce Cabrales R.N. HALMIC TECHNOLOGIST documented in this encounter Plan of Treatment Upcoming Encounters Date Type Specialty Care Team Description 02/04/2022 Virtual Visit Behavioral [facility] Janak Marquez, [address] [address] (Wo rk) documented as of this encounter Visit Diagnoses Diagnosis Mild major depression (H) Major depressive disorder, single episod e, mild Anxiety Anxiety state, unspecified documented in this encounter Care Teams Precision Lens Technician Relationship Specialty Start Date End Date Shahriar Roblero, PCP - General Family Practice 19/0301/13/15 documented as of this encounter
--- OUTSIDE RECORDS SUMMARY | 2022-01-26 22:33 | XMS_ITS | Encounter Summary ---
:1970 Author Organization [facility] Address [address] [place] [address]. [place] [address] Care Team Providers Name Role Phone Shahriar Roblero MD Primary Care Provider + Reason for Visit Reason Onset Date Comments Patient Inquiry 11/23/2011 antibiotic? Encounter Details Date Type Department Care Team Description 11/23/2011 Telephone [facility] Joe Reese MD Patient Inquiry [address] (antibiotic?) [address] [place] [id number] [phone] (Wo rk) Social History Tobacco Use Types [...] or relatives? How often do you attend mormonism or 1 to 4 times per year 03/26 tenriism services? Do you belong to any clubs or Yes 04/11/2021 organizations such as mormonism groups, unions, fraternal or athletic groups, or [...] place to sleep or slept in a fdc (including now)? 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 Pt informed. Luis Mariscal RN Telephone Encounter - Joe Reese MD - 11/23/2011 1:21 PM CDT Sorry for delay... It has been sent Telephone Encounter - Zoie Mcknight - 11/23/2011 1:10 PM CDT Pt calls, saw Dr Reese earlier today, waiting on antibiotic to be added, also wonders if can add lymes titre?-t'd up Routed to dr reese, please advise, route to inform pt on cell, may lmom Zoie Mcknight RN, BSN Message handled by Nurse Triage. Telephone Encounter - Luis Law - 11/23/2011 12:33 PM CDT Caller: [facility] pharmacist. Pt expecting to pick up man antibiotic today, nothing sent. Please advise. Luis Mariscal RN documented in this encounter Plan of Treatment Upcoming Encounters Date Type Specialty Care Team Description 02/04/2022 Virtual Visit Behavioral Health Janak Marquez, [address] [address] (Wo rk) documented as of this encounter Visit Diagnoses Diagnosis Fever, unspecified Mild dehydration Dehydration documented in this encounter Care Teams Specialty Therapist Relationship Specialty Start Date End Date Shahriar Roblero, PCP - General Family Practice 19/0301/13/15 documented as of this encounter
--- OUTSIDE RECORDS SUMMARY | 2022-01-26 22:33 | XMS_ITS | Encounter Summary ---
:1970 Author Organization [facility] Address [address] [place] [address]. [place] [address] Care Team Providers Name Role Phone Shahriar Roblero MD Primary Care Provider + Reason for Visit Reason Comments Throat Problem Uvula Swollen, has grown carin pedro and is dragging on his tounge, slight ST x 1 week. 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 documented as of this encounter Last Filed Vital Signs Vital Sign Reading Time Taken Comments Blood Pressure 110/82 01/12/2011 11:49 AM CDT Pulse 75 01/12/2011 11:49 AM CDT Temperature 36.7 ??C (98.1 ??F) 01/12/2011 11:49 AM CDT Respiratory Rate 20 01/12/2011 11:49 AM CDT Oxygen Saturation 96% 01/12/2011 11:49 AM CDT Inhaled Oxygen Concentration - - Weight 97.5 kg (215 lb) 01/12/2011 11:49 AM CDT Height 180.3 cm (5' 11) 01/12/2011 11:49 AM CDT Body Mass Index 29.99 01/12/2011 11:49 AM CDT documented in this encounter Progress Notes Shahriar Roblero MD - 01/12/2011 2:40 PM CDT SUBJECTIVE: Ezra Yanez is a 40 year old male presenting with a chief complaint of nasal congestion, rhinorrhea and cold symptoms. Onset of symptoms was 1 week(s) ago. Course of illness is same. Severity mild Current and Associated symptoms: none Treatment measures tried include Fluids. Predisposing factors include None. Past Medical History Diagnosis Date ??? Hyperlipemia Current outpatient prescriptions Medication Sig ??? azithromycin (ZITHROMAX) 250 MG tablet Take by mouth. Two tablets first day, then one tablet daily for four days ??? citalopram (CELEXA) 40 MG tablet Take 1 tablet by mouth daily. ??? MULTIVITAMIN TABS OR 1 qd History Substance Use Topics ??? Smoking status: Former Smoker Quit date: 10/15/1998 ??? Smokeless tobacco: Never Used ??? Alcohol Use: Yes socially ROS: Review of systems negative except as stated above. OBJECTIVE :BP 110/82 Pulse 75 Temp(Src) 98.1 ??F (36.7 ??C) (Oral) Resp 20 Ht 5' 11 (1.803 m) Wt 215 lb (97.523 kg) BMI 29.99 kg/m2 SpO2 96% GENERAL APPEARANCE: healthy, alert and no distress EYES: EOMI, PERRL, conjunctiva clear HENT: TM's normal bilaterally, nasal turbinates erythematous, swollen, oral mucous membranes moist, no erythema noted and maxillary sinus tenderness NECK: supple, nontender, no lymphadenopathy RESP: lungs clear to auscultation - no rales, rhonchi or wheezes CV: regular rates and rhythm, normal S1 S2, no murmur noted SKIN: no suspicious lesions or rashes ASSESSMENT/PLAN: 296.22F Moderate major depression (primary encounter diagnosis) Comment: stable Plan: DEPRESSION ACTION PLAN (DAP) The current medical regimen is effective; continue present plan and medications. 300.00E Anxiety Comment: stable Plan: The current medical regimen is effective; continue present plan and medications. 465.9J URI (upper respiratory infection) Plan: azithromycin (ZITHROMAX) 250 MG tablet as directed and Mucinex-D q 12hours and saline nasal spray Q4 hours for congestion. May use tylenol/motrin prn, steam and warm paks to face, in addition Shahriar Roblero MD [facility] documented in this encounter Nursing Notes 01/12/2011 11:30 AM CDT >> [place] BARAHONA Mon Jan 12, 2011 11:51 AM Patient presents with: Throat Problem - Uvula Swollen, has grown longer and is dragging on his tounge, slight ST x 1 week. Initial BP 110/82 Pulse 75 Temp(Src) 98.1 ??F (36.7 ??C) (Oral) Resp 20 Ht 5' 11 (1.803 m) Wt 215 lb (97.523 kg) BMI 29.99 kg/m2 SpO2 96% Estimated Body mass index is 29.99 kg/(m^2) as calculated from the following: Height as of this encounter: 5' 11(1.803 m). Weight as of this encounter: 215 lb(97.523 kg). BP completed using cuff size large Right Arm Health Maintenance Updated with Patient: Yes Tobacco Verified: Yes Payor/Verify RX Benefits/Reconcile Disp Completed if allowed: Yes Family History Updated: Yes Immunizations Up to Date: Yes MNVFC doesn't apply on this patient Mychart Offered: Yes Melania Barahona CMA documented in this encounter Plan of Treatment Upcoming Encounters Date Type Specialty Care Team Description 02/04/2022 Virtual Visit Behavioral Health Janak Marquez, [place] [id number] [address] (Wo rk) documented as of this encounter Visit Diagnoses Diagnosis Moderate major depression (H) - Primary Major depressive disorder, single episod e, moderate Anxiety Anxiety state, unspecified URI (upper respiratory infection) Acute upper respiratory infections of un specified site documented in this encounter Care Teams Client Portfolio Manager Relationship Specialty Start Date End Date Shahriar Roblero, PCP - General Family Practice 19/0301/13/15 documented as of this encounter
[2022-01-26 22:34] VITALS: BP 135/78; PULSE 74; RESP 18; TEMP 36.7
--- OUTSIDE RECORDS SUMMARY | 2022-01-26 22:34 | XMS_ITS | Encounter Summary ---
:1970 Author Organization [facility] Address [address] [place] [address]. [place] [address] Care Team Providers Name Role Phone Unavailable Primary Care Provider Unavailable Encounter Details Date Type Department Care Team Description 11/13/2008 Results Only [facility] Annika [facility] [place] [address] [place], [place] [address] [phone] [place], [place] [address] (Wo rk) Social History [...] 1 to 4 times per year 03/26 sabianism services? Do you belong to any clubs [...] place to sleep or slept in a skilled nursing (including now)? 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 documented in this encounter Results MR ANGIO, HEAD (11/13/2008 3:09 PM CDT) Specimen (Source) Anatomical Collection Method Collection Time Re ceived Time Location / / Volume Laterality 11/13/2008 3:09 PM CDT Impressions RADIOLOGY RESULTS - 11/13/2008 3:51 PM C DT MR ANGIOGRAM OF THE HEAD WITHOUT CONTRAS T ?? Nov 13, 2008 3:09:00 PM HISTORY: ??Family history of aneurysm. TECHNIQUE: ??3D foqo-md-rfiwle MR angiog bishop of the head without contrast. COMPARISON: None. FINDINGS: ??The visualized portions of t he distal internal carotid and vertebral arteries, the basilar artery, [place], and the proximal anterior, middle and posterior cerebral arteries all appear normal. ??There is no evidence of aneury sm or vascular stenosis or occlusion. ?? IMPRESSION: ??Normal MR angiogram of the head. ?? Shahriar Roblero MD SPECIAL IMAGING [facility] Organization Address City/State/ZIP Code Phon e Number RADIOLOGY RESULTS documented in this encounter Visit Diagnoses Not on filedocumented in this encounter
--- OUTSIDE RECORDS SUMMARY | 2022-01-26 22:34 | XMS_ITS | Encounter Summary ---
:1970 Author Organization [facility] Address [address] [facility] [place] [address] Care Team Providers Name Role Phone Shahriar Roblero MD Primary Care Provider [phone] Reason for Referral Therapies (Routine) - Closed Specialty Diagnoses / Procedures Referred By Contact Refer red To Contact Diagnoses Biceps tendinitis of left shoulder Yoana Huizar MD [address] [facility] [place] [address] Referral ID Status Reason Start Date Expiration Date Visits Requ ested Visits Authorized [id number] Closed 02/02/2018 04/03/2018 1 1 Scheduling Instructions Your provider has recommended an appoint ment with [facility]. You may call [phone] to schedule your appoi ntment. If you do not schedule an appointment within the next 1 to 3 business days, we will call you to help arrange your appointment. We suggest you call your [employer] insurance company about your coverage and benefits for this appointment. rocedure/Equipment (Routine) - Incomplete Specialty Diagnoses / Procedures Referred By Contact Refer red To Contact Diagnoses Biceps tendinitis of left shoulder Yoana Huizar Procedures XR Shoulder Lt 2+ Steve Houston MD [address] [facility] [place] [address] Referral ID Status Reason Start Date Expiration Date Visits V isits Requested Authorized [id number] Incomplete 02/02/2018 05/04/2019 1 1 Reason for Visit Reason Comments SHOULDER PAIN left Encounter Details Date Type Department Care Team Description 02/02/[address] [facility] Danita Lopez, Biceps tendinitis of left shoulder (Primary Dx); [facility] Yoana Houston MD Scapular dyskinesis [address] [facility] [address] [facility] [place] [address] [place] [phone] (Wo rk) Social History Tobacco Use Types Packs/Day Years Used Date Smoking Tobacco: Never Smokeless Tobacco: Never Alcohol Use Standard Drinks/Week Comments Yes 0 (1 standard drink = 0.6 oz pure alcoho l) Sex Assigned at Date Recorded Not on file documented as of this encounter Last Filed Vital Signs Vital Sign Reading Time Taken Comments Blood Pressure - - Pulse - - Temperature - - Respiratory Rate - - Oxygen Saturation - - Inhaled Oxygen Concentration - - Weight 90.7 kg (200 lb) 02/02/2018 10:08 AM CDT Height 180.3 cm (5' 11) 02/02/2018 10:08 AM CDT Body Mass Index 27.89 02/02/2018 10:08 AM CDT documented in this encounter Patient Instructions Patient InstructionsAbdi Shaw - 02/02/2018 10:[address] Yoana Lopez MD Primary Care Sports Medicine Medical Orthopaedics Please contact Physical Testing Supervisor's line for all medical questions at [phone] Property Damage Claims Adjustor: Bambi Aguirre Please contact Bambi for all administrative questions at [phone] Medication Requests: Prescriptions are not filled on Weekends or on Weekdays after 3:00PM For all medication refills: Request a refill using MyChart or contact your Pharmacy documented in this encounter Progress Notes Yoana Huizar MD - 02/02/2018 10:00 AM CDT [facility] Surgery Consultation 02/02/2018 History of Present Illness: Ezra Yanez is a right hand dominant 47 y.o. male who presents for evaluation of left shoulder pain. The patient reports pain began a few months ago without a specific mechanism of injury. He experiences pain and a pulling sensation with middle arch of motion, localized to the biceps tendon. The pa tient states pain is worse at the end of the day and is exacerbated with sleeping on left side. He denies numbness and tingling. Pain prevents him from doing heavy weight lifting but does not significantly interfere with daily activities. Allergies: Penicillin Current Medications: Citalopram Past Medical History: The patient has no past medical history. Past Surgical History: The patient has no past surgical history. Family History: Cancer- mother, grandparents Diabetes- father, grandparents Social History: Non-smoker. 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 He exercises weekly with weights and cardio. Drinks alcohol occasionally. The General Medical History Form dated 02/02/2018 was updated and reviewed with the patient; this islocated in [employer] in [employer]. Review of Systems: A complete 15-point review is negative with the exception of what is noted in the HPI as well as on the intake form, including joint pains. Physical Exam: Ht 1.803 m (5' 11) Wt 90.7 kg (200 lb) BMI 27.89 kg/m2 General: Healthy-appearing and no acute distress. Alert, oriented, and appropriately conversant. Neuro: Gross sensation intact. Distal neuromotor exam is intact. Cardio: Two-plus radial pulse. Skin: Intact, without erythema or ecchymosis. Left Shoulder: Internally rotates to T5 on the left, T6 on the right. Externally rotates to 40 degrees on the left, 50 degrees on the right. Abducts to 180 degrees without scapular dyskinesis but with some pain. Symmetric strength with scaption. Internal and external rotation strength normal. Mildly positive Speed's test. Some tenderness at biceps. Non-tender at SC, AC, or acromial border. Weakness with external rotation at 0 degrees and 90 degrees. Positive Neer's test, other impingement maneuvers are negative. Bear hug maneuver and belly press are negative. Imaging: Radiographs of the left shoulder - 2+ views (02/02/18): Bony structures appear unremarkable. Joint spaces are within normal limits. There is no dislocation or significant degenerative change. Report per radiology. I ordered and independently reviewed and interpreted the imaging studies above; the results were discussed with the patient. Assessment: Diagnosis and Associated Orders ICD-10-CM 1. Biceps tendinitis of left shoulder M75.22 XR Shoulder Lt 2+ Views Physical Therapy 2. Scapular dyskinesis (HRC) G25.89 Plan: We discussed the patient's condition in detail and the treatment options available to them. I recommended physical therapy for biceps tendinitis and scapular dyskinesis. The patient verbalized understanding and elected to proceed with physical therapy. All questions were answered and patient will follow up as needed. Referring Provider: PATIENT SELF REFERRAL, [place] [address] Primary Care Provider: Debra [address] [facility] [address] Scribe Disclosure: I, Ruth Dooley, am serving as a scribe to document services personally performed by Yoana Lopez MD at this visit, based upon the provider's statements to me. All documentation has been reviewed by the aforementioned provider prior to being entered into the official medical record. Portions of this medical record were completed by a scribe. UPON MY REVIEW AND AUTHENTICATION BY ELECTRONIC SIGNATURE, this confirms (a) I performed the applicable clinical services, and (b) the recordis accurate. Yonaa Lopez MD documented in this encounter Plan of Treatment Scheduled Referrals Name Type Priority Associated Diagnoses [facility] Referral Routine Biceps tendinitis of lef t Ordered: 02/02/2018 shoulder documented as of this encounter Results XR Shoulder Lt 2+ Views (02/02/2018 10:24 AM CDT) Anatomical Region Laterality Modality Upper Extremity, Shoulder Digital Radiog sidney Specimen (Source) Anatomical Collection Method Collection Time Re ceived Time Location / / Volume Laterality 02/02/2018 10:15 AM CDT Narrative 02/02/2018 10:47 AM CDT COMPARISON: ??None. FINDINGS: ??Bony structures appear unrem arkable. ??Joint spaces are within normal limits. ??There is no dislocation or significant degenerative change. Procedure Note Jef Leal MD - 02/02/2018Forma tting of this note might be different from the original. COMPARISON: None. FINDINGS: Bony structures appear unremar kable. Joint spaces are within normal limits. There is no dislocation or significant degenerative change. Yoana Lopez MD RAD [facility] documented in this encounter Visit Diagnoses Diagnosis Biceps tendinitis of left shoulder - Esthela ana Scapular dyskinesis (HRC) Lack of coordination Left shoulder pain, unspecified chronici ty documented in this encounter Care Teams Vp Clinical Research Relationship Specialty Start Date End Date Sharhiar Roblero MD PCP - General 05/15/13 [address] [place], [place] [address] documented as of this encounter
--- OUTSIDE RECORDS SUMMARY | 2022-01-26 22:34 | XMS_ITS | Encounter Summary ---
:1970 Author Organization [facility] Address [address] [place] [address]. [place] [address] Care Team Providers Name Role Phone Unavailable Primary Care Provider Unavailable Reason for Visit Reason Comments Arm Pain bilateral forarm pain x5 day s Musculoskeletal Problem bilateral thigh pain x5 days Urinary Problem discolored urine with slight odor Encounter Details Date Type Department Care Team Description 02/18/2009 Office Visit [facility] Shahriar Roblero yalgia and Myositis (Primary Dx); Clinic [place] Chauncey Mchugh MD Urinary Problem [address] [place], [place] [address] [address] [phone] [place], [place] [address] (Wo rk) Social History [...] at Date Recorded 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 documented as of 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 encounter Last Filed Vital Signs Vital Sign Reading Time Taken Comments Blood Pressure 120/68 02/18/2009 11:50 AM CDT Pulse 68 02/18/2009 11:50 AM CDT Temperature 36.7 ??C (98.1 ??F) 02/18/2009 11:50 AM CDT Respiratory Rate 16 02/18/2009 11:50 AM CDT Oxygen Saturation - - Inhaled Oxygen Concentration - - Weight 98.9 kg (218 lb) 02/18/2009 11:50 AM CDT Height - - Body Mass Index 30.4 11/08/2008 8:16 AM CDT documented in this encounter Progress Notes Shahriar Roblero - 02/18/2009 12:15 PM CDT Ezra Yanez is a 38 year old male who presents with bilateral upper and lower extremity pain in the muscles of forearm and thighs. He has noticed his urine was discolored but now improved. His painhas improved, however. He has felt some weakness. He has not changed his supplements. There has beennothing new recently. No fevers, chills, nausea, or vomiting. No abnormal rashes. He does have some nasal congestion. He has been working longer hours with 15-16 hour days. He denies any risk of dehydration. He had a normal physical exam 3 months ago with normal labs. Past Medical History Diagnosis Date ??? Hyperlipemia Current outpatient prescriptions Medication Sig ??? MULTIVITAMIN TABS OR 1 qd History Social History ??? Marital Status: N/A Spouse Name: N/A Number of Children: N/A ??? Years of Education: N/A Occupational History ??? Not on file. Social History Main Topics ??? Tobacco Use: Quit Quit date: 10/15/1998 ??? Alcohol Use: Yes ??? Drug Use: No ??? Sexually Active: Yes -- Female partner(s) Other Topics Concern ??? Not on file Social History Narrative ??? No narrative on file OBJECTIVE: BP 120/68 Pulse 68 Temp (Src) 98.1 ??F (36.7 ??C) (Oral) Resp 16 Wt 218 lb (98.884 kg) GENERAL APPEARANCE: healthy, alert and no distress HENT: ear canals and TM's normal and nose and mouth without ulcers or lesions NECK: no adenopathy, no asymmetry, masses, or scars and thyroid normal to palpation RESP: lungs clear to auscultation - no rales, rhonchi or wheezes CV: regular rates and rhythm, normal S1 S2, no S3 or S4 and no murmur, click or rub MS: extremities normal- no gross deformities noted, no evidence of inflammation in joints, FROM in all extremities. Tenderness of forearm and upper thighs. SKIN: no suspicious lesions or rashes NEURO: Normal strength and tone, sensory exam grossly normal, mentation intact and speech normal ASSESSMENT/PLAN: 729.1P Myalgia and Myositis (primary encounter diagnosis) Comment: improving Plan: CK, TOTAL, A.M.A. BASIC METABOLIC PANEL, SED RATE, AUTO, LYMES SCREEN (B BURGDORFERI), PREDNISONE 20 MG OR TABS V47.4G Urinary Problem Comment: discolored urine Plan: UA MICRO IF POSITIVE Shahriar Roblero MD [facility] documented in this encounter Nursing Notes 02/18/2009 11:45 AM CDT >> RICH WILBURN Mon Feb 18, 2009 11:57 AM Patient presents with: ARM PAIN/DISCOMFORT - bilateral forarm pain x5 days Musculoskeletal Problem - bilateral thigh pain x5 days Urinary Problem - discolored urine with slight odor Initial BP 120/68 Pulse 68 Temp (Src) 98.1 ??F (36.7 ??C) (Oral) Resp 16 Wt 218 lb (98.884 kg) Estimated Body mass index is 30.40 kg/(m^2) as calculated from: Height of 5' 11 (1.803 m) as of 11/08/08 Weight of 218 lb (98.884 kg) as of this encounter. BP completed using cuff size large. 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 HCL LYMES SCREEN (B Routine 02/18/2009 12:13 PM Myalgia and My ositis Results for this BURGDORFERI) CDT procedure are i n the results section. HCL CK, TOTAL Routine 02/18/2009 12:13 PM Myalgia and Myositis Results for this CDT procedure are i n the results section. HCL SED RATE (ESR) Routine 02/18/2009 12:13 PM Myalgia and Frandy sitis Results for this CDT procedure are i n the results section. HCL UA MICRO IF Routine 02/18/2009 12:02 PM Urinary Problem Re sults for this POSITIVE CDT procedure are i n the results section. documented in this encounter Results LYMES SCREEN (B BURGDORFERI) (02/18/2009 12:13 PM CDT) Patholo gist Method Time Signature Specimen Serum [facility] Lyme Screen IgG Test value: <0.75....Interpr etation: Negative....If you highly suspect Lyme [facility] and IgM disease, consider submitting a repeat specimen in 4 to 6 weeks. [facility] Specimen Anatomical Collection Method Collection Time Receive d Time (Source) Location / / Volume Laterality 02/18/2009 12:13 02/18/2009 PM CDT 12:19 PM CDT Shahriar Roblero MD LABORATORY Performing Organization Address City/State/ZIP Code Phon e Number [facility] [address] LAB [facility] SED RATE, AUTO (02/18/2009 12:13 PM CDT) P athologist Signature Sed Rate 10 0 - 15 mm/h [facility] Specimen Anatomical Collection Method Collection Time Receive d Time (Source) Location / / Volume Laterality 02/18/2009 12:13 02/18/2009 PM CDT 12:19 PM CDT Shahriar Roblero MD LABORATORY Performing Organization Address City/[facility]/ZIP Code Phon e Number [facility] [address] [place] [address] [facility] A.M.A. BASIC METABOLIC PANEL (02/18/2009 12:13 PM CDT) athologist Signature Sodium 140 133 - 144 [place] mmol/L CLINIC LAB Potassium 4.6 3.4 - 5.3 [place] mmol/L CLINIC LAB Chloride 99 94 - 109 [place] mmol/L [facility] Carbon Dioxide 29 20 - 32 [place] mmol/L CL[facility]IC LAB Anion Gap 11 6 - 17 [place] mmol/L [facility] Glucose 87 60 - 99 [place] mg/dL [facility] Urea Nitrogen 14 5 - 24 [place] mg/dL CLINIC LAB Creatinine 1.00 0.66 - [place] 1.25 mg/dL CLINIC LAB Comment: New IDMS-traceable calibration beginning 08/25/07 GFR Estimate 84 >60 mL/min/1.7m2 [place] [facility] GFR Estimate If Black >90 >60 mL/min/1.7m2 F [facility] [place] [facility] Calcium 10.4 8.5 - 10.4 mg/dL [place] [facility] N [facility] Specimen Anatomical Collection Method Collection Time Receive d Time (Source) Location / / Volume Laterality 02/18/2009 12:13 02/18/2009 PM CDT 12:19 PM CDT Shahriar Roblero MD LABORATORY Performing Organization Address City/State/ZIP Code Phon e Number [facility] [address] [place] [address] [facility] LAB (ABNORMAL) CK, TOTAL (02/18/2009 12:13 PM CDT) athologist Signature CK Total 389 (H) 45 - 300 [place] U/L CLINIC LAB Specimen Anatomical Collection Method Collection Time Receive d Time (Source) Location / / Volume Laterality 02/18/2009 12:13 02/18/2009 PM CDT 12:19 PM CDT Shahriar Roblero MD LABORATORY Performing Organization Address [facility]/ZIP Code Phon e Number [facility] [address] [place] [address] [facility] UA MICRO IF POSITIVE (02/18/2009 12:02 PM CDT) [facility] Method Time Signature Color Urine Yellow [facility] Appearance Urine Clear [facility] Glucose Urine Negative NEG mg/dL [facility] Bilirubin Urine Negative NEG [facility] Ketones Urine Negative NEG mg/dL [facility] Specific [place] 1.010 1.003 - [place] Urine 1.035 [facility] Blood Urine Negative NEG [facility] pH Urine 5.0 5.0 - 7.0 [place] pH [facility] Protein Albumin Negative NEG mg/dL [place] Urine [facility] Urobilinogen 0.2 0.2 - 1.0 [place] Urine EU/dL [facility] Nitrite Urine Negative NEG [facility] Leukocyte Negative NEG [place] Esterase Urine [facility] Source Midstream [place] Urine [facility] Specimen Anatomical Collection Method Collection Time Receive d Time (Source) Location / / Volume Laterality 02/18/2009 12:02 02/18/2009 PM CDT 12:07 PM CDT Shahriar Roblero MD LABORATORY Performing Organization Address [facility]/ZIP Code Phon e Number [facility] [address] [place] [address] [facility] documented in this encounter Visit Diagnoses Diagnosis Myalgia and myositis - Primary Mylagia and myositis, unspecified Urinary problem Other urinary problems documented in this encounter
--- OUTSIDE RECORDS SUMMARY | 2022-01-26 22:34 | XMS_ITS | Encounter Summary ---
:1970 Author Organization [employer] Address [address] [address] Care Team Providers Name Role Phone Shahriar Roblero MD Primary Care Provider [phone] Reason for Visit Reason Comments Wrist/forearm Pain or Injury Encounter Details Date Type Department Care Team Description 08/01/2013 Office Visit [facility] Rory Kolb, Closed fracture of navicular (scaphoid) bone of wrist (Primary Dx); Urgent Care Wrist pain, left [address] [place] [address] [place], [place] [phone] (Wo rk) Social History Tobacco Use Types Packs/Day Years Used Date Smoking Tobacco: Never Assessed Sex Assigned at Date Recorded Not on file documented as of this encounter Last Filed Vital Signs Vital Sign Reading Time Taken Comments Blood Pressure - - Pulse - - Temperature 36.2 ??C (97.2 ??F) 08/01/2013 3:10 PM CDT Respiratory Rate - - Oxygen Saturation - - Inhaled Oxygen Concentration - - Weight - - Height - - Body Mass Index - - documented in this encounter Patient Instructions Patient InstructionsStMary Alice xiong Celso - 08/01/2013 3:[address] Rory Ulrich MD Sports & Orthopaedic Medicine Acute Injury Clinic Back Up Scan Coordinator: Cecilia Galeana Please fax all paperwork correspondence to [phone] Acute Injury Clinic Nurse Line: [phone] Please contact Acute Injury Clinic Nurse line for all requests and questions. Please contact your Pharmacy for all medication refill requests documented in this encounter Progress Notes Rory Ulrich MD - 08/01/2013 5:39 PM CDT Progress Notes signed by Rory Ulrich MD at 08/01/131917 Author: Rory Ulrich MD Service: (none) Author Type: Physician Filed: 08/01/131917 Note Time: 08/01/131899 Status: Signed Playground Worker: Rory Ulrich MD (Physician) NAME: EZRA ALEXANDER MR#: [id number] CSN: [id number] AUTHENTICATING CLINICIAN: Rory Ulrich MD CONFIRM #: [id number] LOC: 711 CLINIC PROGRESS NOTE DATE OF VISIT: 08/01/2013 : 1970 SUBJECTIVE: This is a 42-year-old right-hand dominant male who returns for a left nondisplaced scaphoid fracturewhich occurred on 04/22/2013 during hockey. He has been using a thumb spica splint since his last visit with me on 06/26/2013. He is here for a recheck and re-x-ray. REVIEW OF SYSTEMS: No fevers, chills, numbness or tingling. OBJECTIVE: Temp is 97.2. Pain 1/10. In general he is alert and pleasant and in no acute distress. On inspectionof his left wrist, he has a thumb spica splint in place. On removal of the splint, there is mild skin dryness but no skin breakdown. Range of motion is somewhat limited secondary to stiffness from immobilization. There is no bony tenderness over the scaphoid or anatomic snuffbox. He has strong symmetric distal pulses with normal sensation and cap refill throughout his digits. IMAGING: X-rays, 4 views of the left wrist independently reviewed. Indication: Pain, follow up fracture. Results: Increased bridging callus at the scaphoid lucency compared to prior x- ray series. No joint space widening. ASSESSMENT: Left scaphoid waist nondisplaced fracture secondary to trauma on 04/14/2013, healing with activity modification and immobilization. PLAN: I reviewed the x-ray findings and diagnosis with the patient. I recommended gradually advancing his activities out of the brace as tolerated by pain. I gave him a patient education handout with home treatment and exercises. I will see him back on an as-needed basis. SDW:MOHINDER C: R:08/01/13 17:42 CONFIRM#:[id number] documented in this encounter Plan of Treatment Not on filedocumented as of this encounter Visit Diagnoses Diagnosis Closed fracture of navicular (scaphoid) bone of wrist - Primary Wrist pain, left Pain in joint, forearm documented in this encounter Care Teams Outreach Assistant Relationship Specialty Start Date End Date Shahriar Roblero MD PCP - General 05/15/13 [address] [place] [address] documented as of this encounter
--- OUTSIDE RECORDS SUMMARY | 2022-01-26 22:34 | XMS_ITS | Clinical Summary ---
:1970 Author Organization [facility] Address [address] [place] [address] Care Team Providers Name Role Phone Shahriar Roblero MD Primary Care Provider [phone] Source Comments You are receiving this document as you are listed as the primary care provider,follow-up provider, or the patient has been referred to you for consultation.This is in compliance with the Medicare and Medicaid EHR Incentive Program,which states Providers who transition their patient to another setting of careor provider of care or refers their patient to another provider of care shouldprovide summarycare record for each transition of care or referral. [employer] Allergies Active Allergy Reactions Severity Noted Date Comments Penicillins Hives High 02/02/2018 Medications Medication Sig Dispensed Refills Start Date End Date Status citalopram (AKA CELEXA) Take 40 mg by 0 05/15/2013 Active 40 MG mouth daily tabletIndications: (every 24 hours). 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 Pulse - - Temperature 36.2 ??C (97.2 ??F) 08/01/2013 3:10 PM CDT Respiratory Rate - - Oxygen Saturation - - Inhaled Oxygen Concentration - - Weight 90.7 kg (200 lb) 02/02/2018 10:08 AM CDT Height 180.3 cm (5' 11) 02/02/2018 10:08 AM CDT Body Mass Index 27.89 02/02/2018 10:08 AM CDT Plan of Treatment Health Maintenance Due Date Last Done Comments Colon Cancer Screening Plan Due 1970 Hep C Screening (Preventive 1970 Services) HepB (1) 1970 PSA Screening Discussion 1970 COVID-19 Vaccine (#1) 03/16/1972 HIV Screening (Preventive 1987 Services) Adult Preventive Visit 09/13/1989 Cholesterol 09/13/2006 Zoster/Shingles (1 of 2) 09/13/2021 Influenza (#1) 2021 DTaP/Tdap/Td (2 - Tdap) 05/13/2027 05/13/2017 HepA Aged Out No longer eligib le based on patient's age to complete this topic Hib Aged Out No longer eligib le based on patient's age to complete this topic IPV (Polio) Aged Out No longer eligib le based on patient's age to complete this topic MCV4 Aged Out No longer eligib le based on patient's age to complete this topic Pneumococcal Aged Out No longer eligib le based on patient's age to complete this topic Insurance Payer Benefit Plan / Subscriber ID Effective Dates Phone Addre ss Type Group BCBS BCBS OUT OF [id number] [place] [address] [place] [address] Ezra Yanez Personal/Famil Self 1970 [address] [phone] Gideon CROCKER (Work) [id number] Ezra Yanez Personal/Famil Self 1970 [address] [phone] Gideon CROCKER (Work) [id number] Care Teams Department Secretary Relationship Specialty Start Date End Date Shahriar Roblero MD PCP - General 05/15/[address] [place] [address]
--- OUTSIDE RECORDS SUMMARY | 2022-01-26 22:34 | XMS_ITS | Encounter Summary ---
:1970 Author Organization [facility] Address [address] [place] [address] Care Team Providers Name Role Phone Shahriar Roblero MD Primary Care Provider [phone] Reason for Visit Procedure/Equipment (Routine) - Incomplete Specialty Diagnoses / Procedures Referred By Contact Refer red To Contact Diagnoses Biceps tendinitis of left shoulder Yoana Huizar Procedures XR Shoulder Lt 2+ Views MD Celso [address] [place] [address] Referral ID Status Reason Start Date Expiration Date Visits V isits Requested Authorized [id number] Incomplete 02/02/2018 05/04/2019 1 1 Encounter Details Date Type Department Care Team Description 02/02/2018 Imaging [facility] Danita Lopez, Left shoulder pain, [address] [facility] Yoana Houston MD unspecified chronicity [place] [address] [place] [address] [place] [address] (Wo rk) Social History Tobacco Use Types Packs/Day Years Used Date Smoking Tobacco: Never Smokeless Tobacco: Never Alcohol Use Standard Drinks/Week Comments Yes 0 (1 standard drink = 0.6 oz pure alcoho l) Sex Assigned at Date Recorded Not on file documented as of this encounter Plan of Treatment Not on filedocumented as of this encounter Procedures Procedure Name Priority Date/Time Associated Diagnosis Comme nts XR SHOULDER LT 2+ Routine 02/02/2018 10:24 AM Left shoulder pa in, Results for this VIEWS CDT unspecified procedure are i n chronicity the results section. documented in this encounter Results XR Shoulder Lt 2+ [...] documented in this encounter Visit Diagnoses Diagnosis Left shoulder pain, unspecified chronici ty documented in this encounter Care Teams Flavor Room Worker Relationship Specialty Start Date End Date Shahriar Roblero MD PCP - General 05/15/13 [address] [place] [address] documented as of this encounter
--- OUTSIDE RECORDS SUMMARY | 2022-01-26 22:34 | XMS_ITS | Encounter Summary ---
:1970 Author Organization [facility] Address [address], [place] [address] Care Team Providers Name Role Phone Shahriar Roblero MD Primary Care Provider [phone] Encounter Details Date Type Department Care Team Description 06/26/2013 Imaging [facility] Left wrist injury [address] [place], [place] [address] Social History Tobacco Use Types Packs/Day Years Used Date Smoking Tobacco: Never Assessed Sex Assigned at Date Recorded Not on file documented as of this encounter Plan of Treatment Not on filedocumented as of this encounter Procedures Procedure Name Priority Date/Time Associated Diagnosis Comme nts XR WRIST SCAPHOID Routine 06/26/2013 2:29 PM Left wrist injury Results for this LT 3+ VIEWS DIRECTOR OF TEACHER EDUCATION procedure are i n the results section. documented in this encounter Results XR Wrist Scaphoid Lt 3+ Views (06/26/2013 2:29 PM DIRECTOR OF TEACHER EDUCATION) Anatomical Region Laterality Modality Upper Extremity, Wrist Other Specimen (Source) Anatomical Location Collection Method / Collectio n Time Received Time / Laterality Volume Narrative 06/26/2013 3:46 PM DIRECTOR OF TEACHER EDUCATION Four views of the left wrist. INDICATION: ??Pain, followup fracture. RESULTS: ??Increased bridging callus at the mid pole of the scaphoid compared to prior x-ray series. ??No joint space widening. ??No other clear cortical defects. ?? Procedure Note Rory Ulrich MD - 10/12/2015Formatt ing of this note might be different from the original. Four views of the left wrist. INDICATION: Pain, followup fracture. RESULTS: Increased bridging callus at th e mid pole of the scaphoid compared to prior x-ray series. No joint space widening. No other clear cortical defects. Rory Ulrich MD RAD GD documented in this encounter Visit Diagnoses Diagnosis Left wrist injury Injury, other and unspecified, elbow, fo rearm, and wrist documented in this encounter Care Teams Basket Hand Braider Relationship Specialty Start Date End Date Shahriar Roblero MD PCP - General 05/15/13 [address] [place] [address] documented as of this encounter
--- OUTSIDE RECORDS SUMMARY | 2022-01-26 22:34 | XMS_ITS | Encounter Summary ---
:1970 Author Organization [employer] Address [address] [place] [address] Care Team Providers Name Role Phone Shahriar Roblero MD Primary Care Provider [phone] Reason for Visit Reason Comments Physical Therapy Therapies (Routine) - Closed Specialty Diagnoses / Procedures Referred By Contact Refer red To Contact Diagnoses Biceps tendinitis of left shoulder Yoana Huizar MD [address] [facility] [place], [place] [address] Referral ID Status Reason Start Date Expiration Date Visits Requ ested Visits Authorized [id number] Closed 02/02/2018 04/03/2018 1 1 Encounter Details Date Type Department Care Team Description 02/02/2018 Office Visit [facility] and Ed Ortega Miranda, Left marsha ulder pain, Center, Physical PT unspecified Therapy [address] chronicity (Primary [address]) [place], [place] [phone] (Wo rk) Social History Tobacco Use Types Packs/Day Years Used Date Smoking Tobacco: Never Smokeless Tobacco: Never Alcohol Use Standard Drinks/Week Comments Yes 0 (1 standard drink = 0.6 oz pure alcoho l) Sex Assigned at Date Recorded Not on file documented as of this encounter Progress Notes Otrega Miranda, PT - 02/02/2018 11:30 AM CDT Physical Therapy Shoulder Evaluation/Plan of Care SAME DAY Visit Number: 1 Insurance: Not listed in [facility] at initial evaluation Initial Certification Period: 02/02/2018 to 05/03/18 Referring Provider: Yoana Tan* Diagnosis: 1. Left shoulder pain, unspecified chronicity Orders: Evaluate & treat Precautions/Contraindications: None Date of Onset: Mid Summer 2017 Standardized Functional Scores: QuickDash: 11.4% on ADL section, 0% on work module, 37.5% on sports/performing arts module (higher scores represent greater disability) History: Ezra Yanez is a 47 y.o. male who presents to [facility] Physical Therapy with chief complaint of left shoulder pain that began mid summer without injury. Notes pulling sensation in middle arch of motion. Worse at end of day and worse with sleeping on left side. Denies NT. Method of Injury: Insidious Functional Limitations: Lifting overhead, some catching in his shoulder, sleeping on left side, certain ranges of motion, pain described as both dull ache or a sharper pain. Soreness can last several minutes after a painful movement, Painful/limitation with lifting including: press, tricep ext ension with dumbbell overhead, any lifting of the shoulder Patient???s Therapy Goals: Decrease pain SUBJECTIVE: Past Medical History: See EMR for details regarding past medical history, medications and drug allergies. History is unremarkable. Review of Systems: Nothing additional stated. No past medical history on file. No past surgical history on file. OBJECTIVE: Right hand dominant General: Mood, orientation and behavior were appropriate. Patient was alert and oriented. Posture/Alignment: normal Palpation: Mild tenderness anterior shoulder Cervical Screening: Cervical ROM: All cervical motions are full and non-provocative to the patients symptoms. Shoulder AROM: ?? Flexion: WNL end range pain noted. ?? Abduction: Painful arc noted about 80% of the way through the ROM. Shoulder PROM: ER and IR in 90-90 position equal to contralateral side. Shoulder strength: ?? Flexion: Right 4/5, Left 4/5 ?? Abduction: Right 5/5, Left 5/5 ?? IR: Right 5/5, Left 5/5 ?? ER: Right 4/5, Left 4/5 TREATMENT TODAY: Physical Therapy Evaluation (CPT 73431): An evaluation was performed. The patient was determined to have low complexity based on history, examination, clinical presentation of the patient and the PT???s clinical decision making. The patient was educated on the condition, planned therapy intervention and expectations from treatment. Goals were a collaborative effort of the therapist and patient. Therapeutic Exercise (CPT 89083) x 15 minutes: Access Code: [email or web address] Scaption with Dumbbells - 10-15 reps - 3 sets - 1x daily - 4-7x weekly Sidelying Shoulder ER with Towel and Dumbbell - 10-15 reps - 3 sets - 1x daily - 4-7x weekly Timed Code Treatment Minutes: 15 Total Treatment Minutes: 30 Charges: 1 eval low, 1 TE Plan for next treatment session: Progress loading exercises, serratus sliders Education/Handouts: Diagnosis Education Response to treatment: Good understanding of HEP ASSESSMENT: Therapist Impression: Ezra presents to PT with signs of cuff weakness likely leading to his shoulderpain. Has weakness specifically in her ER and flexor movements. Added the loading program today withgood tolerance and significant fatigue noted. Would benefit from continued strengthening and stability work especially at higher degrees of ROM. Practice Pattern: 4C - Impaired mm performance 4D - Connective tissue dysfunction 4E - Local inflammation Barriers to Learning: none Rehab Prognosis: Good PLAN: Planned Intervention/Education: Evaluation, Re-Evaluation, Education, Therapeutic Exercise, Manual Therapy, Neuromuscular Re-education, Self Care/Home Management, Gait Training, Therapeutic Activities,Isokinetic/Performance Testing, Aquatic THerapy, Ice, Heat, Ultrasound PT Frequency/Duration: 1 x/week for 8 weeks for a total of 8 visits Discharge Plan: Goal achievement, goal achievement with home exercise program or if progress plateaus. Informed Consent: Risks, benefits and alternatives to treatment have been explained. Patient and/or family in agreement with care plan. EXPECTED FUNCTIONAL OUTCOMES/GOALS: HEP/Independent Management: Demonstrate independence with HEP and self- management following each treatment session ADL's: Lie or sleep on left side without waking during the night in 8 weeks. Reach overhead to cabinets with ease in 8 weeks. Sports/Leisure: Return to prior level of leisure or recreational activities, including lifting weights overhead without an increase in symptoms or limitations in 8 weeks. Evaluation and Plan of Care completed by: Ortega Miranda, PT 11:38 AM 02/02/2018 The telesales advisor is completed by the therapist and the referring clinician's electronic signature certifies medical necessity for the plan documented in this encounter Plan of Treatment Scheduled Referrals Name Type Priority Associated Diagnoses Order S chedu Physical Therapy Referral Routine Biceps tendinitis of lef t Ordered: 02/02/2018 shoulder documented as of this encounter Visit Diagnoses Diagnosis Left shoulder pain, unspecified chronici ty - Primary documented in this encounter Care Teams Scout Executive Relationship Specialty Start Date End Date Shahriar Roblero MD PCP - General 05/15/13 [address] [place] [address] documented as of this encounter
--- OUTSIDE RECORDS SUMMARY | 2022-01-26 22:34 | XMS_ITS | Encounter Summary ---
:1970 Author Organization [place] Address [address] [place] [address]. [place] [address] Care Team Providers Name Role Phone Unavailable Primary Care Provider Unavailable Reason for Visit Reason Comments Establish Care Derm Problem Encounter Details Date Type Department Care Team Description 10/15/2005 Office Visit [facility] Aysha Suarez MEDICAL EXAM (Primary Dx); Clinic [place] MD Zeina BENIGN JAMIE SKIN LEG [address] Hospitalist [address] [address] [place] [address] [phone] Social History Tobacco Use Types Packs/Day Years [...] or relatives? How often do you attend [employer] or 1 to 4 times per year 03/26 restoration services? 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 documented as of this encounter Last Filed Vital Signs Vital Sign Reading Time Taken Comments Blood Pressure 114/76 10/15/2005 9:15 AM CDT Pulse 68 10/15/2005 9:15 AM CDT Temperature - - Respiratory Rate - - Oxygen Saturation - - Inhaled Oxygen Concentration - - Weight 93.5 kg (206 lb 3.2 oz) 10/15/2005 9:15 AM CDT Height 177.8 cm (5' 10) 10/15/2005 9:15 AM CDT Body Mass Index 29.59 10/15/2005 9:15 AM CDT documented in this encounter Progress Notes Brigid Mullins - 10/15/2005 10:04 AM CDT Addended by: BRIGID MULLINS on: 10/15/2005 10:04:50 AM Modules accepted: Orders Aysha Suarez - 10/15/2005 9:11 AM CDT SUBJECTIVE: Denice Alexander is a 35 year old male chief complaint Physical Right finger nails thickening- pinky nail, Right big toe nail Right thigh skin lesion- present for several years wants it looked at. Medical, social, surgical, and family histories reviewed. Current outpatient prescriptions Medication Sig ??? MULTIVITAMIN TABS OR 1 qd ROS: C: NEGATIVE for fever, chills, change in weight I: NEGATIVE for worrisome rashes, moles or lesions E: NEGATIVE for vision changes or irritation E/M: NEGATIVE for ear, mouth and throat [...] E: NEGATIVE for temperature intolerance, skin/hair changes OBJECTIVE: BP 114/76 Pulse 68 Ht 5' 10 (1.78m) Wt 206 lbs 3.2 oz (93.5kg) EXAM: GENERAL APPEARANCE: healthy, alert and no distress EYES: EOMI, fundi benign- PERRL HENT: ear canals and TM's normal [...] HSM or masses and bowel sounds normal GU_male: testicles normal without atrophy or masses MS: extremities normal- no gross deformities noted, no evidence of inflammation in joints, FROM in all extremities. SKIN:single skin tag on right inner thigh . Nail exam some thickening and ridges of nails in fingersother aggarwal normal exam NEURO: Normal strength and tone, sensory exam grossly normal, mentation intact and speech normal ASSESSMENT/PLAN: Routine Medical exam- Tests- per [facility] -Discussed diet including as many servings of fruits and vegetables, minimum of 5 each day, new pyramid guide. -Regular exercise atleast 20-30 minutes of cardio oriented exercise 5 days a week and build it in daily schedule. - immunisations- -Wear seat belt at all times, CO detector present and works at home. Skin tag- single tag on right inner thigh - procedure explained, complications explained- scar formation explained to pt.agrees to removal . skin tag identified, local area sprayed with ethyl chloride and cleaned with betadine, skin tag shaved with salpel 10, minimal oozing noted - stopped with silver nitrate stick. Pathology sent- larger size documented in this encounter Nursing Notes 10/15/2005 9:15 AM CDT >> ERMA ANN 10/15/2005 9:10 am Denice Alexander presents for nail problems and a skin tag on right groin. Fasting. Initial BP 114/76 Pulse 68 Ht 5' 10 (1.78m) Wt 206 lbs 3.2 oz (93.5kg) Body mass index is 29.59 kg/(m^2). BP completed using cuff size: large documented in this encounter Plan of Treatment Upcoming Encounters Date Type Specialty Care Team Description 02/04/2022 Virtual Visit Behavioral Health Janak Marquez, LYMPHEDEMA THERAPIST [address] [address] (Wo rk) documented as of this encounter Procedures Procedure Name Priority Date/Time Associated Diagnosis Comme nts HC REMOVAL OF SKIN Routine 10/15/2005 9:57 AM Benign Jamie Skin Leg TAGS, FIRST 15 CDT CL AFF CBC WITH Routine 10/15/2005 9:51 AM Routine Medical Exa m Results for this PLATELETS CDT procedure are i n the results section. HCL BASIC METABOLIC Routine 10/15/2005 9:51 AM Routine Medical Exam Results for this PANEL CDT procedure are i n the results section. CL AFF A.M.A. LIPID Routine 10/15/2005 9:51 AM Routine Medical Exam Results for this PANEL CDT procedure are i n the results section. CL AFF SURGICAL Routine 10/15/2005 12:00 AM Benign Jamie Skin Le g Results for this PATHOLOGY CDT procedure are i n the results section. documented in this encounter Results A.M.A. BASIC METABOLIC PANEL (10/15/2005 9:51 AM CDT) athologist Signature Sodium 141 133 - 144 [facility] mmol/L [facility] Potassium 4.5 3.4 - 5.3 [place] [facility] mmol/L [facility] Chloride 103 94 - 109 [place] mmol/L [facility] Carbon Dioxide 27 20 - 32 [facility] mmol/L [facility] Anion Gap 12 6 - 17 [place] mmol/L [facility] Glucose 96 60 - 110 [place] mg/dL [facility] Urea Nitrogen 14 5 - 24 [place] mg/dL [facility] Creatinine 1.10 0.80 - [place] 1.50 mg/dL [facility] GFR Estimate 81 >60 [place] mL/min/1.7 [facility] m2 GFR Estimate If >90 >60 [place] [place] Black mL/min/1.7 [facility] m2 Calcium 9.4 8.5 - 10.4 [place] [place] mg/dL [facility] Specimen Anatomical Collection Method Collection Time Receive d Time (Source) Location / / Volume Laterality 10/15/2005 9:51 AM 6 9:56 CDT AM CDT Aysha Suarez MD LABORATORY Performing Organization Address City/State/ZIP Code Phon e Number [facility] [address] [facility] [address] [facility] CBC WITH PLATELETS (10/15/2005 9:51 AM CDT) athologist Signature WBC 7.2 4.0 - 11.0 [place] 10e9/L [facility] RBC Count 5.64 4.4 - 5.9 [place] 10e12/L [facility] Hemoglobin 17.3 13.3 - [place] 17.7 g/dL [facility] Hematocrit 51.0 40.0 - [place] 53.0 % [facility] MCV 91 78 - 100 [place] fl [facility] MCH 30.6 26.5 - [place] 33.0 pg [facility] MCHC 33.9 32.0 - [place] 36.0 g/dL [facility] RDW 12.0 10.0 - [place] 15.0 % [facility] Platelet Count 221 150 - 450 [place] 10e9/L [facility] Specimen Anatomical Collection Method Collection Time Receive d Time (Source) Location / / Volume Laterality 10/15/2005 9:51 AM 6 9:56 CDT AM CDT Aysha Suarez MD LABORATORY Performing Organization Address City/State/ZIP Code Phon e Number [facility] [address] [place] [address] [address] [facility] (ABNORMAL) A.M.A. LIPID PANEL (10/15/2005 9:51 AM CDT) athologist Signature Cholesterol 228 (H) 0 - 200 [facility] mg/dL CLINIC [facility] Comment: LDL Cholesterol is the primary guide to therapy: LDL-cholesterol goal in high risk patients is <100 mg/dL and in very high risk patients is <70 mg/dL. The NCEP recommends further evaluation of: patients with cholesterol <200 mg/dL if additional risk factors are present, cholesterol >240 mg/dL, triglycerides >150 mg/dL, or HDL <40 mg/dL. Triglycerides 161 (H) 0 - 150 mg/dL [facility] HDL Cholesterol 57 40 - 110 mg/dL [facility] LDL Cholesterol Calculated 138 (H) 0 - 129 mg/dL [facility] Comment: LDL Cholesterol is the primary guide to therapy: LDL-cholesterol goal in high risk patients is <100 mg/dL and in very high risk patients is <70 mg/dL. VLDL-Cholesterol 32 (H) 0 - 30 mg/dL [facility] Cholesterol/HDL Ratio 4.0 0.0 - 5.0 [facility] Specimen Anatomical Collection Method Collection Time Receive d Time (Source) Location / / Volume Laterality 10/15/2005 9:51 AM 9:56 CDT AM CDT Aysha Suarez MD LABORATORY Performing Organization Address [facility]/ZIP Code Phon e Number [address] [address] [facility] SURGICAL PATHOLOGY (10/15/2005 12:00 AM CDT) Component Value Ref Test Analysis Performed At [facility] Range Method Time Signature Copath Report Patient Name: DENICE ALEXANDER MR#: [id number] Specimen #: [id number] Collected: 10/15/2005 Received: 10/16/2005 Reported: 10/19/2005 13:48 Ordering Phy(s): AYSHA SUAREZ SPECIMEN(S): Lesion, right upper thigh FINAL DIAGNOSIS: Skin, right upper thigh, biopsy - Irritated squamous papillo ma. Electronically signed out by: Gabriel Werner M.D. CLINICAL HISTORY: Tag right upper thigh. GROSS: The specimen, labeled lesion right upper thigh, consists o f two brown 1 cm x 5 mm papillomas of friable verrucous tissue are embed ded in one cassette. ??SML/kd MICROSCOPIC: Microscopic performed. SML/sg DT/10-19-05 TESTING LAB LOCATION: [address] ??[address] COLLECTION SITE: Client: [facility] Location: RIIM (R) Specimen (Source) Anatomical Collection Method Collection Time Re ceived Time Location / / Volume Laterality 10/15/2005 10/16/2005 8:30 AM CDT Aysha Suarez MD LABORATORY Performing Organization Address City/State/ZIP Code Phon e Number [place] documented in this encounter Visit Diagnoses Diagnosis Routine general medical examination at a health care facility - Primary Benign neoplasm of skin of lower limb, i ncluding hip documented in this encounter
--- OUTSIDE RECORDS SUMMARY | 2022-01-26 22:34 | XMS_ITS | Encounter Summary ---
:1970 Author Organization [employer] Address [address], [place] [address] Care Team Providers Name Role Phone Shahriar Roblero MD Primary Care Provider [phone] Reason for Visit Reason Comments Wrist/forearm Pain or Injury Hand Pain or Injury Encounter Details Date Type Department Care Team Description 05/15/2013 Office Visit [facility] Rory Kolb, Closed fracture of navicular (scaphoid) bone of wrist (Primary Dx); Urgent Care Wrist pain, left [address] [place] [address] [place], [place] [phone] (Wo rk) Social History Tobacco Use Types Packs/Day Years Used Date Smoking Tobacco: Never Assessed Sex Assigned at Date Recorded Not on file documented as of this encounter Last Filed Vital Signs Vital Sign Reading Time Taken Comments Blood Pressure 120/80 05/15/2013 1:56 PM YOUTH NUTRITIONAL MONITOR Pulse - - Temperature 36.9 ??C (98.4 ??F) 05/15/2013 1:56 PM YOUTH NUTRITIONAL MONITOR Respiratory Rate - - Oxygen Saturation - - Inhaled Oxygen Concentration - - Weight 102.5 kg (226 lb) 05/15/2013 1:56 PM YOUTH NUTRITIONAL MONITOR Height 180.3 cm (5' 11) 05/15/2013 1:56 PM YOUTH NUTRITIONAL MONITOR Body Mass Index 31.52 05/15/2013 1:56 PM YOUTH NUTRITIONAL MONITOR documented in this encounter Patient Instructions Patient InstructionsStMary Alice xiong - 05/15/2013 2:[address] Rory Ulrich MD Sports & Orthopaedic Medicine Acute Injury Clinic Commercial Collections Driver: Tunica Loges Please fax all paperwork correspondence to [phone] Acute [facility] Nurse Line: [phone] Please contact Acute Injury Clinic Nurse line for all requests and questions. Please contact your Pharmacy for all medication refill requests H NUTRITIONAL MONITOR documented in this encounter Progress Notes Rory Ulrich MD - 05/15/2013 8:47 PM CST Progress Notes signed by Rory Ulrich MD at 05/16/13833 Author: Rory Ulrich MD Service: (none) Author Type: Physician Filed: 05/16/13833 Note Time: 05/16/13803 Status: Signed [employer] Information Clerk: Rory Ulrich MD (Physician) NAME: EZRA ALEXANDER MR#: [id number] CSN: [id number] AUTHENTICATING CLINICIAN: Rory Ulrich MD CONFIRM #: [id number] LOC: 711 CLINIC PROGRESS NOTE DATE OF VISIT: 05/15/2013 : 1970 CHIEF COMPLAINT: Left wrist injury. HISTORY OF PRESENT ILLNESS: This is a 42-year-old right-hand dominant male who injured his left wrist on 04/22, 3 weeks ago, when he fell during hockey. He has tried ice and ibuprofen and has had persistent pain, swelling and stiffness in the left wrist. He is here for further evaluation and treatment options. REVIEW OF SYSTEMS: No fevers, chills, night sweats, nausea, vomiting, diarrhea, skin rash, joint pain or swelling in other joints. CURRENT MEDICATIONS: Reviewed on the EMR. ADR/ALLERGIES: Reviewed on EMR. PAST MEDICAL/SURGICAL HISTORY: Negative. 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 He denies tobacco. PHYSICAL EXAM: Temperature: 98.5. Height: 5 feet 11 inches. Weight: 226 pounds. Blood Pressure: 120/80. Pain: 2 to 8/10. In general, he is alert and pleasant and in no acute distress. On inspection of his left wrist, there is mild soft tissue swelling over the anatomic snuffbox. He has tenderness over this area. Range ofmotion is limited secondary to pain. He has strong symmetric distal pulses with normal sensation andcap refill throughout his digits. RADIOLOGY REVIEW: Four views of the left wrist were independently reviewed. Indication: Pain. Results: Possible lucency within the distal scaphoid on scaphoid specific views only. No other clearcortical defect within the distal radius. No joint space widening. ASSESSMENT: Left scaphoid nondisplaced fracture secondary to trauma 3 weeks ago during hockey. PLAN: I reviewed the x-ray findings and diagnosis with the patient. As he has remained symptomatic despiteactivity modification, I recommended a thumb spica cast for the next 6 weeks. I would like to see him back in 6 weeks to remove the cast and repeat x-rays, 4 views of the left wrist, to check alignmentand healing. He can return sooner for any cast breakdown. He will avoid painful activities in the meantime. SDW: C: R:05/15/13 20:51 CONFIRM#:[id number] NUTRITIONAL MONITOR documented in this encounter Plan of Treatment Not on filedocumented as of this encounter Visit Diagnoses Diagnosis Closed fracture of navicular (scaphoid) bone of wrist - Primary Wrist pain, left Pain in joint, forearm documented in this encounter Care Teams Ton Container Filler Relationship Specialty Start Date End Date Shahriar Roblero MD PCP - General 05/15/13 [address] [place] [address] documented as of this encounter
--- OUTSIDE RECORDS SUMMARY | 2022-01-26 22:34 | XMS_ITS | Encounter Summary ---
:1970 Author Organization [employer] Address [address], [place] [address] Care Team Providers Name Role Phone Shahriar Roblero MD Primary Care Provider Encounter Details Date Type Department Care Team Description 08/01/2013 Imaging [facility] Radiology Wrist pain, left [address] [place], [place] [address] Social History Tobacco Use Types Packs/Day Years Used Date Smoking Tobacco: Never Assessed Sex Assigned at Date Recorded Not on file documented as of this encounter Plan of Treatment Not on filedocumented as of this encounter Procedures Procedure Name Priority Date/Time Associated Diagnosis Comme nts XR WRIST SCAPHOID Routine 08/01/2013 3:16 PM Wrist pain, left Results for this LT 3+ VIEWS CDT procedure are i n the results section. documented in this encounter Results XR Wrist Scaphoid Lt 3+ Views (08/01/2013 3:16 PM CDT) Anatomical Region Laterality Modality Upper Extremity, Wrist Other Specimen (Source) Anatomical Location Collection Method / Collectio n Time Received Time / Laterality Volume Narrative 08/01/2013 7:17 PM CDT Four views of the left wrist. Indication: Pain, follow up fracture. Results: Increased bridging callus at th e scaphoid lucency compared to prior x- ray series. No joint space widening. Procedure Note Rory Ulrich MD - 10/12/2015Formatt ing of this note might be different from the original. Four views of the left wrist. Indication: Pain, follow up fracture. Results: Increased bridging callus at th e scaphoid lucency compared to prior x- ray series. No joint space widening. Rory Ulrich MD RAD GD documented in this encounter Visit Diagnoses Diagnosis Wrist pain, left Pain in joint, forearm documented in this encounter Care Teams Supervisor Shipping Room Relationship Specialty Start Date End Date Shahriar Roblero MD PCP - General 05/15/13 [address] [place], [place] [address] documented as of this encounter
--- OUTSIDE RECORDS SUMMARY | 2022-01-26 22:34 | XMS_ITS | Encounter Summary ---
:1970 Author Organization [facility] Address [address] [place] [address]. [place] [address] Care Team Providers Name Role Phone Unavailable Primary Care Provider Unavailable Reason for Visit Reason Comments Physical patient is fasting Encounter Details Date Type Department Care Team Description 11/08/2008 Office Visit [facility] Shahriar Roblero Medical Exam; [facility] Chauncey Mchugh MD FHx: Aneurysm; [id number] [place] [address] ARIJA AESTHETIC GERD (Gastroesophageal Reflu x Disease) [place], [place] [address] [address] [phone] [place], [place] [address] (Wo rk) Social History [...] or slept in a [facility] (including now)? 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 documented as of this encounter Last Filed Vital Signs Vital Sign Reading Time Taken Comments Blood Pressure 110/78 11/08/2008 8:16 AM CDT Pulse 72 11/08/2008 8:16 AM CDT Temperature 36.8 ??C (98.2 ??F) 11/08/2008 8:16 AM CDT Respiratory Rate - - Oxygen Saturation - - Inhaled Oxygen Concentration - - Weight 96.6 kg (213 lb) 11/08/2008 8:16 AM CDT Height 180.3 cm (5' 11) 11/08/2008 8:16 AM CDT Body Mass Index 29.71 11/08/2008 8:16 AM CDT documented in this encounter Progress Notes Shahriar Roblero - 11/08/2008 8:29 AM CDT SUBJECTIVE: CC: Ezra Yanez is a 38 year old male who presents for general physical exam HPI: Healthy 38 year old male with family history of intracranial aneurysm HISTORIES: PROBLEM LIST: Patient Active Problem List Diagnoses Code ??? FHx: Aneurysm V19.8T PAST MEDICAL HISTORY: Past Medical History Diagnosis Date ??? Hyperlipemia PAST SURGICAL HISTORY: Past Surgical History Procedure Date ??? No history of surgery CURRENT MEDICATIONS: Current outpatient prescriptions Medication Sig ??? MULTIVITAMIN TABS OR 1 qd ALLERGIES: Allergies Allergen Reactions ??? Pcn (Penicillins) Hives SOCIAL HISTORY: History Social History ??? Marital Status: N/A [...] History Narrative ??? No narrative on file FAMILY HISTORY: Family History Problem Relation ??? Cancer Mother born 1950 Melanoma ??? Diabetes Father born 1949 ??? Family History Negative Sister ??? Cancer Maternal Uncle skin ??? Family History Negative Daughter ??? Diabetes Maternal Grandfather ??? Diabetes Paternal Grandmother ??? Neurological Mother brain aneurysm HEALTH MAINTENANCE: Health Maintenance Topic Date Due ??? Tetanus immunization ( [facility] assigned) 1983 REVIEW OF OUTSIDE RECORDS: NO REVIEW OF SYSTEMS: CONSTITUTIONAL:NEGATIVE for fever, chills, change in weight EYES: NEGATIVE for vision changes or irritation ENT/MOUTH: NEGATIVE for ear, mouth and throat problems RESP:NEGATIVE for significant cough or SOB CV: NEGATIVE for chest pain, palpitations or peripheral edema GI: NEGATIVE for nausea, abdominal pain, or change in bowel habits and POSITIVE for heartburn or reflux :negative for dysuria, hematuria, decreased urinary stream, erectile dysfunction MUSCULOSKELATAL:NEGATIVE for significant arthralgias or myalgia INTEGUMENTARY/SKIN: NEGATIVE for worrisome rashes, moles or lesions and dry nails NEURO: NEGATIVE for weakness, dizziness or paresthesias ENDOCRINE: NEGATIVE for temperature intolerance, skin/hair changes HEME/ALLERGY/IMMUNE: NEGATIVE for bleeding problems PSYCHIATRIC: NEGATIVE for changes in mood or affect EXAM: BP 110/78 Pulse 72 Temp (Src) 98.2 ??F (36.8 ??C) (Oral) Ht 5' 11 (1.803 m) Wt 213 lb (96.616 kg) GENERAL APPEARANCE: healthy, alert, no distress and cooperative EYES: Eyes grossly normal to inspection, PERRL, conjunctivae and sclerae normal and lids and lashes normal HENT: ear canals and TM's normal and nose and mouth without ulcers or lesions NECK: no adenopathy, no asymmetry, masses, or scars, thyroid normal to palpation and trachea midlineand normal to palpation RESP: lungs clear to auscultation - no rales, rhonchi or wheezes CV: regular rates and rhythm, normal S1 S2, no S3 or S4, no murmur, click or rub and no irregular beats LYMPH: normal ant/post cervical and supraclavicular nodes ABD/GI: soft, nontender, without hepatosplenomegaly or masses and bowel sounds normal RECTAL EXAM: deferred : testicles normal without atrophy or masses, no hernias and penis normal without urethral discharge MS: extremities normal- no gross deformities noted, no varicosities and peripheral pulses normal SKIN: no suspicious lesions or rashes NEURO: Normal strength and tone, sensory exam grossly normal, mentation intact, speech normal and DTR symmetrically normal in lower extremities PSYCH: mentation appears normal and affect normal/bright ASSESSMENT/PLAN: V70.0B Routine Medical Exam Comment: Healthy Plan: CBC WITH PLATELETS, A.M.A. COMPREHENSIVE MET.PANEL, TSH W/FREE T4 REFLEX, A.M.A. LIPID PANEL V19.8T FHx: Aneurysm Comment: mother Plan: MRI BRAIN, MR ANGIO, HEAD 530.81K GERD (Gastroesophageal Reflux Disease) Comment: recurrent Plan: recommend OTC prilosec then do refill Shahriar Roblero MD [facility] documented in this encounter Nursing Notes 11/08/2008 8:00 AM CDT >> IRA YUMIKO Emi Nov 08, 2008 8:21 AM Patient declines MyChart. Ira Starrse DILL HM updated. Ira Yumiko DILL Patient presents with: Physical - patient is fasting Initial BP 110/78 Pulse 72 Temp (Src) 98.2 ??F (36.8 ??C) (Oral) Ht 5' 11 (1.803 m) Wt 213 lb (96.616 kg) Body mass index is 29.71 kg/(m^2).. BP completed using cuff size: large Ira Starrse DILL documented in this encounter Plan of Treatment Upcoming Encounters Date Type Specialty Care Team Description 02/04/2022 Virtual Visit Behavioral Health Janak Marquez, [id number] [place] [address] (Wo rk) documented as of this encounter Procedures Procedure Name Priority Date/Time Associated Comments Diagnosis HC MRI BRAIN W/O Routine 11/13/2008 3:10 PM FHx: aneurysm Resu lts for this CONTRAST CDT procedure are i n the results section. CL AFF CBC WITH Routine 11/08/2008 8:55 AM Routine Medical Res ults for this PLATELETS CDT Exam procedure are i n the results section. HCL COMPREHENSIVE Routine 11/08/2008 8:55 AM Routine Medical R esults for this METABOLIC PANEL CDT Exam procedure ar e in the results section. HCL TSH W/FREE T4 Routine 11/08/2008 8:55 AM Routine Medical R esults for this REFLEX CDT Exam procedure are i n the results section. CL AFF A.M.A. LIPID Routine 11/08/2008 8:55 AM Routine Medical Results for this PANEL CDT Exam procedure are i n the results section. documented in this encounter Results MRI BRAIN (11/13/2008 3:10 PM CDT) Anatomical Region Laterality Modality Other Specimen (Source) Anatomical Collection Method Collection Time Re ceived Time Location / / Volume Laterality 11/13/2008 3:10 PM CDT Impressions 11/15/2008 11:24 AM CDT MRI BRAIN WITHOUT CONTRAST ??Nov 13 3:10 PM HISTORY: ??Family history of aneurysm. TECHNIQUE: Multiplanar, multisequence MR I of the brain without gadolinium IV contrast material. ?? COMPARISON: None. FINDINGS: There are minimal foci of prol onged T2 relaxation in the central white matter of the frontal lobe s, nonspecific as to etiology in this age patient. Otherwise the brain parenchyma, ventricles and subarachnoid spaces appear normal. ??The re is no evidence of hemorrhage, mass, acute infarct, or anom antonio. ?The facial structures appear normal. ??The arteries at the bas e of the brain and the dural venous sinuses appear patent. ?? IMPRESSION: Minimal white matter lesions in the frontal lobes, nonspecific as to etiology. Otherwise no rmal MRI of the brain. ?? Shahriar Roblero MD SPECIAL IMAGING [facility] A.M.A. LIPID PANEL (11/08/2008 8:55 AM CDT) P athologist Signature Cholesterol 197 0 - 200 [facility] mg/dL CLINIC LAB Comment: LDL Cholesterol is the primary guide to therapy: LDL-cholesterol goal in high risk patients is <100 mg/dL and in very high risk patients is <70 mg/dL. The NCEP recommends further evaluation of: patients with cholesterol <200 mg/dL if additional risk factors are present, cholesterol >240 mg/dL, triglycerides >150 mg/dL, or HDL <40 mg/dL. Triglycerides 143 0 - 150 mg/dL [facility] AN CLINIC LAB HDL Cholesterol 53 40 - 110 mg/dL [facility] CLINIC LAB LDL Cholesterol Calculated 115 0 - 129 mg/dL [facility] Comment: LDL Cholesterol is the primary guide to therapy: LDL-cholesterol goal in high risk patients is <100 mg/dL and in very high risk patients is <70 mg/dL. VLDL-Cholesterol 29 0 - 30 mg/dL [place] [facility] LAB Cholesterol/HDL Ratio 3.7 0.0 - 5.0 [facility] Specimen Anatomical Collection Method Collection Time Receive d Time (Source) Location / / Volume Laterality 11/08/2008 8:55 AM 9 8:57 CDT AM CDT Shahriar Roblero MD LABORATORY Performing Organization Address City/State/ZIP Code Phon e Number [facility] [address] [place] [address] [facility] TSH W/FREE T4 REFLEX (11/08/2008 8:55 AM CDT) athologist Signature TSH 2.53 0.4 - 5.0 [facility] mU/L CLINIC LAB Specimen Anatomical Collection Method Collection Time Receive d Time (Source) Location / / Volume Laterality 11/08/2008 8:55 AM 9 8:57 CDT AM CDT Shahriar Roblero MD LABORATORY Performing Organization Address City/State/ZIP Code Phon e Number [facility] [address] [place] [address] [facility] LAB A.M.A. COMPREHENSIVE MET.PANEL (11/08/2008 8:55 AM CDT) athologist Signature Sodium 140 133 - 144 [facility] mmol/L [facility] LAB Potassium 4.8 3.4 - 5.3 [place] mmol/L CLINIC LAB Comment: Specimen hemolyzed Chloride 101 94 - 109 mmol/L [facility] Carbon Dioxide 26 20 - 32 mmol/L [place] [facility] LAB Anion Gap 13 6 - 17 mmol/L [facility] Glucose 91 60 - 99 mg/dL [facility] C LINIC LAB Urea Nitrogen 20 5 - 24 mg/dL [facility] Creatinine 1.04 0.66 - 1.25 mg/dL [place] [facility] LAB Comment: New IDMS-traceable calibration beginning 08/25/07 GFR Estimate 80 >60 mL/min/1.7m2 [place] [facility] LAB GFR Estimate If Black >90 >60 mL/min/1.7m2 [facility] LAB Calcium 9.3 8.5 - 10.4 mg/dL [facility] LAB Bilirubin Total 0.8 0.2 - 1.3 mg/dL [facility] Albumin 4.7 3.9 - 5.1 g/dL [facility] Protein Total 8.1 6.8 - 8.8 g/dL [place] [facility] LAB Comment: As of 07, reference range reflects plasma specimen type. Alkaline Phosphatase 71 40 - 150 U/L [facility] EW [place] [facility] LAB ALT 58 0 - 70 U/L [facility] CLIN IC LAB AST 49 0 - 55 U/L [facility] CLIN IC LAB Specimen Anatomical Collection Method Collection Time Receive d Time (Source) Location / / Volume Laterality 11/08/2008 8:55 AM 9 8:57 CDT AM CDT Shahriar Roblero MD LABORATORY Performing Organization Address City/State/ZIP Code Phon e Number [facility] [address] [place] [address] [facility] CBC WITH PLATELETS (11/08/2008 8:55 AM CDT) P athologist Signature WBC 6.2 4.0 - 11.0 [place] 10e9/L [facility] RBC Count 5.57 4.4 - 5.9 [place] 10e12/L [facility] Hemoglobin 16.5 13.3 - [place] 17.7 g/dL [facility] Hematocrit 49.2 40.0 - [place] 53.0 % [facility] MCV 88 78 - 100 [place] fl [facility] MCH 29.6 26.5 - [place] 33.0 pg [facility] MCHC 33.5 31.5 - [place] 36.5 g/dL [facility] RDW 13.4 10.0 - [place] 15.0 % [facility] Platelet Count 248 150 - 450 [place] 10e9/L [facility] Specimen Anatomical Collection Method Collection Time Receive d Time (Source) Location / / Volume Laterality 11/08/2008 8:55 AM 8:57 CDT AM CDT Shahriar Roblero MD LABORATORY Performing Organization Address City/State/ZIP Code Phon e Number [facility] [address] [place], [place] [id number] [facility] documented in this encounter Visit Diagnoses Diagnosis Routine medical exam Routine general medical examination at a health care facility FHx: aneurysm Family history of other condition GERD (gastroesophageal reflux disease) Esophageal reflux documented in this encounter
--- OUTSIDE RECORDS SUMMARY | 2022-01-26 22:34 | XMS_ITS | Encounter Summary ---
:1970 Author Organization [facility] Address [address], [place] [address] Care Team Providers Name Role Phone Shahriar Roblero MD Primary Care Provider [phone] Encounter Details Date Type Department Care Team Description 05/15/2013 Imaging [facility] Wrist pain, left [address] [place], [place] [address] Social History Tobacco Use Types Packs/Day Years Used Date Smoking Tobacco: Never Assessed Sex Assigned at Date Recorded Not on file documented as of this encounter Plan of Treatment Not on filedocumented as of this encounter Procedures Procedure Name Priority Date/Time Associated Diagnosis Comme nts XR WRIST SCAPHOID Routine 05/15/2013 2:12 PM Wrist pain, left Results for this LT 3+ VIEWS POWER ELECTRONICS RESEARCH ENGINEER procedure are i n the results section. documented in this encounter Results XR Wrist Scaphoid Lt 3+ Views (05/15/2013 2:12 PM POWER ELECTRONICS RESEARCH ENGINEER) Anatomical Region Laterality Modality Upper Extremity, Wrist Other Specimen (Source) Anatomical Location Collection Method / Collectio n Time Received Time / Laterality Volume Narrative 05/16/2013 8:12 AM POWER ELECTRONICS RESEARCH ENGINEER Indication: Pain. Results: Possible lucency within the dis regina scaphoid on scaphoid specific views only. No other clear cortical defect within the distal radius. No joint space widening. Procedure Note Rory Ulrich MD - 10/12/2015Formatt ing of this note might be different from the original. Indication: Pain. Results: Possible lucency within the dis regina scaphoid on scaphoid specific views only. No other clear cortical defect within the distal radius. No joint space widening. Rroy Ulrich MD RAD [facility] documented in this encounter Visit Diagnoses Diagnosis Wrist pain, left Pain in joint, forearm documented in this encounter Care Teams Hedis Specialist Relationship Specialty Start Date End Date Shahriar Roblero MD PCP - General 05/15/13 [address] [place], [place] [id number] documented as of this encounter
--- OUTSIDE RECORDS SUMMARY | 2022-01-26 22:34 | XMS_ITS | Encounter Summary ---
:1970 Author Organization [facility] Address [address], [place] [address] Care Team Providers Name Role Phone Shahriar Roblero MD Primary Care Provider [phone] Reason for Visit Reason Comments Wrist/forearm Pain or Injury Encounter Details Date Type Department Care Team Description 06/26/2013 Office Visit [facility] Rory Kolb, Closed fracture of navicular (scaphoid) bone of wrist (Primary Dx); Urgent Care Left wrist injury [address] [place] [address] [place], [place] [phone] (Wo rk) Social History Tobacco Use Types Packs/Day Years Used Date Smoking Tobacco: Never Assessed Sex Assigned at Date Recorded Not on file documented as of this encounter Last Filed Vital Signs Vital Sign Reading Time Taken Comments Blood Pressure - - Pulse - - Temperature 36.7 ??C (98.1 ??F) 06/26/2013 2:17 PM HOME CARE PROVIDER Respiratory Rate - - Oxygen Saturation - - Inhaled Oxygen Concentration - - Weight - - Height - - Body Mass Index - - documented in this encounter Patient Instructions Patient InstructionsTeena Lyons, DYE TUB OPERATOR - 06/26/2013 2:[address] Rory Ulrich MD Sports & Orthopaedic Medicine [facility] Patient Safety Attendant: Cecilia Galeana Please fax all paperwork correspondence to [phone] [facility] Nurse Line: [phone] Please contact [facility] Nurse line for all requests and questions. Please contact your Pharmacy for all medication refill requests Use brace at all times except for showering Follow up in 4 weeks CARE PROVIDER documented in this encounter Progress Notes Rory Ulrich MD - 06/26/2013 2:39 PM CST Progress Notes signed by Rory Ulrich MD at 06/26/13 4006 Author: Rory Ulrich MD Service: (none) Author Type: Physician Filed: 06/26/13 1549 Note Time: 06/26/13 1533 Status: Signed Transmission Supervisor: Rory Ulrich MD (Physician) NAME: EZRA ALEXANDER MR#: [id number] CSN: [id number] AUTHENTICATING CLINICIAN: Rory Ulrich MD CONFIRM #: [id number] LOC: 711 CLINIC PROGRESS NOTE DATE OF VISIT: 06/26/2013 : 1970 SUBJECTIVE: This is a 42-year-old right-hand dominant male who returns for a left nondisplaced scaphoid fracturewhich occurred on 04/22/2013 during hockey. He has been in a thumb spica cast since his last visit with me on 05/15/2013. REVIEW OF SYSTEMS: No fevers, chills, numbness or tingling. OBJECTIVE: Temperature is 98.0. Pain 0/10. In general, he is alert and pleasant and in no acute distress. On inspection of his left wrist, he has skin dryness where the thumb spica cast had been in place but no skin breakdown. His range of motion is limited secondary to stiffness from immobilization. There is nobony tenderness over the scaphoid. He has strong symmetric distal pulses with normal sensation and capillary refill throughout his digits. X-RAYS: X-rays were ordered and independently reviewed. X-RAYS: Four views of the left wrist. INDICATION: Pain, followup fracture. RESULTS: Increased bridging callus at the mid pole of the scaphoid compared to prior x-ray series. No joint space widening. No other clear cortical defects. ASSESSMENT: Left scaphoid waist nondisplaced fracture secondary to trauma on 04/22/2013, healing with activity modification and immobilization. PLAN: I reviewed the x-ray findings and diagnosis with the patient. I suggested transitioning from his thumb spica cast to a thumb spica brace. He can remove the brace for hygiene but keep it on the rest of the time. I will see him back in 4 weeks to repeat x-rays, 4 views of the left wrist, to check alignment and healing of the scaphoid. I will likely have him follow up with one of our wrist specialists if there is any sign of nonunion. SDW: C: R:06/26/13 14:43 CONFIRM#:[id number] CARE PROVIDER documented in this encounter Plan of Treatment Not on filedocumented as of this encounter Visit Diagnoses Diagnosis Closed fracture of navicular (scaphoid) bone of wrist - Primary Left wrist injury Injury, other and unspecified, elbow, fo rearm, and wrist documented in this encounter Care Teams Stitch Marker Relationship Specialty Start Date End Date Shahriar Roblero MD PCP - General 05/15/13 [address] [place] [address] documented as of this encounter
== END 2022-01-26 22:35 | disposition home or self-care (01) ==
LOC: ED 22:27
PROVIDERS: Emergency Provider Internal Medicine
DX: T23.131A Burn of first degree of multiple right fingers (nail), not including thumb, initial encounter (principal); T31.0 Burns involving less than 10% of body surface; X15.8XXA Contact with other hot household appliances, initial encounter; Y93.G3 Activity, cooking and baking; Y92.010 Kitchen of single-family (private) house as the place of occurrence of the external cause; Y99.8 Other external cause status
CPT/HCPCS: 99283